=== PATIENT | male | born 1970 | race Caucasian/White ===

== ENCOUNTER → 2016-06-18 | Outpatient (CLI) | payer BC ==
[~2016-06-18] MED LIST: BACTRIM; CALMOSEPTINE OINTMENT 3.5 G PACKET TOP ONE; INSU100C5 SQ; LEVEMIR SQ; LOSA50TA17 PO; MAGN200T3 PO; MULT-806 PO; PARO-18 PO
== END ==
LOC: NWCC 15:40
PROVIDERS: ATTEND Internal Medicine
DX: E11.621 Type 2 diabetes mellitus with foot ulcer (principal); L97.512 Non-pressure chronic ulcer of other part of right foot with fat layer exposed; S90.421A Blister (nonthermal), right great toe, initial encounter; B96.89 Other specified bacterial agents as the cause of diseases classified elsewhere; E11.42 Type 2 diabetes mellitus with diabetic polyneuropathy
CPT/HCPCS: 11042; 87070; 87075; 87076; 87077; 87147; 87181; 87186; 87205

== ENCOUNTER → 2016-06-23 | Outpatient (CLI) | payer BC ==
[~2016-06-23] MED LIST changes: -CALMOSEPTINE OINTMENT 3.5 G PACKET TOP ONE; +GADOBUTROL 10mMol/10ml INJECTION IV ONE; +SALINE FLUSH 10ml SYRINGE ONE
[2016-06-23 16:08] LABS: BASOPHILS % (AUTO) 0.3 % (0-2); EOSINOPHILS # (AUTO) 0.2 T/MM3 (0-0.5); EOSINOPHILS % (AUTO) 2.8 % (0-4); HGB - HEMOGLOBIN 13.9 GM/DL (13.5-17.5); IMMATURE GRANULOCYTE # (AUTO) 0.03 T/MM3 (0.00-0.03); IMMATURE GRANULOCYTE % (AUTO) 0.4 % (0.0-0.5); LYMPHOCYTES # (AUTO) 2.1 T/MM3 (1-4.8); LYMPHOCYTES % (AUTO) 27.5 % (23-45); MEAN CORPUSCULAR HGB 27.9 UUG (26-34); MEAN CORPUSCULAR HGB CONC(MCHC 33.1 GM/DL (31-37); MEAN CORPUSCULAR VOLUME 84.3 UM3 (80-100); MEAN PLATELET VOLUME 10.1 UM3 (9.4-12.4); MONOCYTES # (AUTO) 0.4 T/MM3 (0-0.8); MONOCYTES % (AUTO) 4.7 % (0-9.0); NEUTROPHILS #(AUTO)-ABSOLUTE 4.9 T/MM3 (1.8-7.7); NEUTROPHILS % (AUTO) 64.3 % (33-66); RED BLOOD COUNT 4.98 M/MM3 (4.50-5.90); WBC - WHITE BLOOD COUNT 7.6 T/MM3 (4.5-11.0)
[2016-06-23 16:19] LABS: ALBUMIN 3.7 G/DL (3.5-5.0); ALBUMIN/GLOBULIN RATIO 1.1 RATIO (1.1-2.2); ALKALINE PHOSPHATASE 122 U/L (38-126); ALT (SGPT) 38 U/L (21-72); ANION GAP 14 MEQ/L (5-15); AST (SGOT) 25 U/L (17-59); BUN/CREATININE RATIO 26 RATIO (6-26); C-REACTIVE PROTEIN 9.1 MG/L (0-9); CALCIUM 8.9 MG/DL (8.4-10.2); CHLORIDE 102 MEQ/L (98-107); CO2 - CARBON DIOXIDE 28 MEQ/L (22-30); CREATININE 0.7 MG/DL (0.8-1.5); GLOMERULAR FILTRATION RATE 120; GLUCOSE 341 MG/DL (75-110); POTASSIUM 4.6 MEQ/L (3.6-5); SODIUM 144 MEQ/L (134-144); TOTAL PROTEIN 7.1 G/DL (6.3-8.2)
--- NOTE | 2016-06-24 16:22 | DI ---
Indication: ITS.REASON: E11.621 Type 2 diabetes mellitus with foot ulce; L97.512; M86.371 Procedure: MRI FOOT RIGHT W/WO CONTRAST: Encounter: Initial Comparison: 09/20/2015 Technique: Multiplanar MultiPulse MR images of the right foot were obtained before and after administration of 10 mL Gadavist intravenous contrast. Findings: Soft tissue edema and enhancement throughout the forefoot and toes suggesting cellulitis. Focal soft tissue irregularity along the plantar surface of the first toe/MCP joint likely related to reported ulceration. There is abnormal marrow edema and enhancement within the subjacent first proximal and distal phalanges. There also appears to be abnormal marrow edema and enhancement of the second proximal phalanx and distal metatarsal. No discrete rim-enhancing soft tissue fluid collections. Polyarticular degenerative joint arthrosis. Impression: Prominent soft tissue edema and enhancement of the forefoot suggesting cellulitis with underlying marrow edema and enhancement of the second proximal phalanx and distal metatarsal as well as the first proximal and distal phalanges suggestive of osteomyelitis. Correlation with serial serum ESR/CRP levels for evaluation of response to antibiotic therapy recommended. .
== END ==
LOC: IMA 15:54
PROVIDERS: ATTEND Internal Medicine
DX: E11.621 Type 2 diabetes mellitus with foot ulcer (principal); M79.89 Other specified soft tissue disorders; L97.512 Non-pressure chronic ulcer of other part of right foot with fat layer exposed; M86.371 Chronic multifocal osteomyelitis, right ankle and foot
CPT/HCPCS: 36415; 73720; 80053; 85025; 85652; 86140; A9585

== ENCOUNTER → 2016-06-25 | Outpatient (CLI) | payer BC ==
[~2016-06-25] MED LIST changes: -GADOBUTROL 10mMol/10ml INJECTION IV ONE; -SALINE FLUSH 10ml SYRINGE ONE
== END ==
LOC: NWCC 15:26
PROVIDERS: ATTEND Internal Medicine
DX: E11.621 Type 2 diabetes mellitus with foot ulcer (principal); L97.512 Non-pressure chronic ulcer of other part of right foot with fat layer exposed; S90.421A Blister (nonthermal), right great toe, initial encounter; M86.671 Other chronic osteomyelitis, right ankle and foot; E11.42 Type 2 diabetes mellitus with diabetic polyneuropathy
CPT/HCPCS: 11042

== ENCOUNTER 2016-07-20 18:31 | Emergency (ER) | payer BC ==
[~2016-07-20] VITALS: Ht 186.7 cm; Wt 151.4 kg
[2016-07-20 18:50] VITALS: Ht 186.7 cm; Wt 151.4 kg
[2016-07-20] MEDS ORDERED: METO200T37 PO (19:08)
[2016-07-20] MEDS ORDERED: METF10002 PO (19:08)
[2016-07-20] MEDS ORDERED: MAGN400C PO ×2 (19:08→19:09)
[2016-07-20] MEDS ORDERED: GLYB2.5T5 PO ×2 (19:08→19:09)
[2016-07-20] MEDS ORDERED: LOSA25TA34 PO (19:08)
[2016-07-20] MEDS ORDERED: DIPH25CA84 PO (19:12)
[2016-07-20] MEDS ORDERED: INSU100V12 SQ (19:12)
[2016-07-20] MEDS ORDERED: INSU100V9 SQ (19:12)
[2016-07-20] MEDS ORDERED: RANI150T7 PO (19:12)
[2016-07-20] MEDS ORDERED: CETI-115 PO (19:12)
[2016-07-20] MEDS ORDERED: ASPI-557 PO (19:12)
--- NOTE | 2016-07-20 19:13 | ERPDOC ---
Departure Disposition Decision Date: Jul 20, 2016 Disposition Decision Time: 19:13 Disposition: 01 DISCHARGED HOME, SELF-CARE Impression Impression Impression: Primary Impression: Infected ulcer of skin Non-pressure ulcer stage: with fat layer exposed Qualified Codes: L98.492 - Non-pressure chronic ulcer of skin of other sites with fat layer exposed Additional Impressions: Diabetic foot ulcer Diabetic foot ulcer location: toe Diabetes mellitus type: type 2 Laterality : right Non-pressure ulcer stage: with fat layer exposed Qualified Codes: E11.621 - Type 2 diabetes mellitus with foot ulcer; L97.512 - Non-pressure chronic ulcer of other part of right foot with fat layer exposed Lower extremity cellulitis Laterality: right Qualified Codes: L03.115 - Cellulitis of right lower limb Severity: Moderate Condition: Improved Seen By: Physician only Referrals: Celeste SNELL MD (Family) Patient Instructions: Diabetic Foot Ulcers (ED) Problems/Meds/Labs Reviewed?: Yes Medications reviewed and manag: Yes Additional Instructions: Keflex 500 mg 3 times daily for 10 days Bactrim DS one tablet twice daily for 10 days Follow-up at wound care clinic on Wednesday as scheduled Follow up care ordered?: Yes Mental Status: Alert Scripts Sulfamethoxazole/Trimethoprim (Bactrim Ds Tablet) 1 Each Tablet 1 TAB PO BID, #20 TAB Take 1 tablet, by mouth, 2 times a day. Prov: SARITA SHI MD 07/20/16 Cephalexin (Keflex) 500 Mg Capsule 500 MG PO TID, #30 CAP Prov: SARITA SHI MD 07/20/16 HPI General Chief Complaint: Lower Extremity Pain Stated Complaint: LEG INFECTION Time Seen by Provider: 19:01 Source: patient, family Exam Limitations: no limitations HPI Foot/Ankle Initial Comments Patient presents with worsening of redness around a right great toe ulcer, as well as streaking redness in the right leg. Patient has been fighting a foot ulcer with chronic recurrent sialitis as well as osteomyelitis past 6-12 months. Over the past 2 weeks patient's symptoms recurred, and he was unable to get an appointment at the wound care center until Wednesday. Patient has known MRSA Occurred At: home Onset: Gradual Severity: moderate Location: right: foot Allergies: Coded Allergies: clindamycin (Verified Allergy, Unknown, DIARRHEA, 07/20/16) Past History Patient Medical History Problem List Updates: Chronic right great toe ulcer Recurrent right leg/foot cellulitis Past Medical History Metabolic: diabetes, hypertension GI: gallbladder disease Neurological: concussion Musculoskeletal: back pain Surgical History General: gallbladder Joint: hand, shoulder Vaccines Hx Influenza Vaccination: No Hx Pneumococcal Vaccination: No Review of Systems Constitutional Constitutional: DENIES: appetite decrease, appetite increase, chills, dizziness , fever, weakness ENMT Ears: DENIES: pain Hearing: DENIES: hearing loss, tinnitus Balance: DENIES: vertigo Mouth/Throat: DENIES: change in swallowing, change in voice, hoarsness, painful swallowing, sore throat Cardiovascular Cardiac: DENIES: chest pain, dyspnea on exertion Rhythm/Rate: DENIES: irregular beat, palpitations, tachycardia Vascular: DENIES: pedal edema Pulmonary Respiratory: DENIES: cough, dyspnea, pleuritic chest pain GI Upper Abdomen: DENIES: dysphagia, heartburn/indigestion, nausea, pain, vomiting Lower Abdomen: DENIES: blood in stool, constipation, diarrhea, pain General: DENIES: burning, dysuria, frequency, pain, urgency Musculoskeletal General: DENIES: cramps, joint pain, joint swelling, pain, weakness Integumentary Skin: lesion Neurological General: DENIES: headache, numbness, tingling, vertigo, weakness Psychiatric Psychiatric: DENIES: anxiety, depression, nervousness Exam General General Nourishment: well nourished, well developed, appears stated age, no acute distress General Body Habitus: well groomed Vital Signs: RN Vital Signs have been reviewed: Yes, Temperature: 98.4, Source : Oral, Heart Rate: 80, Respiratory Rate: 18, BP: 156/74, Pulse Oximetry: 95 Height (Feet): 6 Height (Inches): 1.50 Fastrak Foot/Ankle Comments Right leg shows diffuse patchy erythema on the anterior surface streaking all the way down the foot to the right great toe. Great toe, ventral surface shows a large calloused ulcer, with central erosion of the ulcer, but no visible or palpable bone. He has an erythematous angry base to the wound. Has swelling and redness to the third toe on the right foot as well. Without lesion. Patient is neurovascularly intact, decreased sensation is chronic in the foot, but patient does have malachi sensation and good capillary refill with good pulses. Neurologic RN Documented GCS Eye Opening: Verbal: Motor: Total: Progress Progress Progress Wound cultures taken with aggressive rubbing of the base of the wound Patient is started on Keflex 500 mg 3 times daily, Bactrim DS one tablet twice daily. SARITA SHI MD Jul 20, 2016 19:13
[2016-07-20] MEDS ORDERED: SULF1TAB42 PO (19:15)
[2016-07-20] MEDS ORDERED: CEPHALEXIN 500 MG CAPSULE PO ONE (19:15)
[2016-07-20] MEDS ORDERED: CEPH-583 PO (19:15)
[2016-07-20 19:34] VITALS: BP 149/76; PULSE 79; RESP 18; TEMP 98.4; O2SAT 94
[2016-07-20] MEDS ORDERED: SULFAMETHOXAZOLE/TMP 800mg/160mg TABLET PO SCH (21:00)
== END 2016-07-20 19:34 | disposition home or self-care (01) ==
LOC: ED 18:31
DX: E11.621 Type 2 diabetes mellitus with foot ulcer (principal); L97.512 Non-pressure chronic ulcer of other part of right foot with fat layer exposed; L03.115 Cellulitis of right lower limb; Z79.4 Long term (current) use of insulin; Z86.14 Personal history of Methicillin resistant Staphylococcus aureus infection
CPT/HCPCS: 87070; 87075; 87205

== ENCOUNTER → 2016-07-22 | Outpatient (CLI) | payer BC ==
[~2016-07-22] MED LIST changes: +ASPI-557 PO; -BACTRIM; +CEPH-583 PO; +CETI-115 PO; +DIPH25CA84 PO; +GLYB2.5T5 PO; +HYDR-4246 PO; -INSU100C5 SQ; +INSU100V12 SQ; +INSU100V9 SQ; -LEVEMIR SQ; +LOSA25TA34 PO; -LOSA50TA17 PO; -MAGN200T3 PO; +MAGN400C PO; +METF10002 PO; +METO200T37 PO; +POLY17PO6 PO; +RANI150T12 PO; +RANI150T7 PO; +SULF1TAB42 PO
== END ==
LOC: NWCC 15:16
PROVIDERS: ATTEND Internal Medicine
DX: E11.621 Type 2 diabetes mellitus with foot ulcer (principal); L97.512 Non-pressure chronic ulcer of other part of right foot with fat layer exposed; S90.421A Blister (nonthermal), right great toe, initial encounter; M86.671 Other chronic osteomyelitis, right ankle and foot; L53.9 Erythematous condition, unspecified
CPT/HCPCS: 11042; A6209

== ENCOUNTER 2016-07-31 06:43 | Day surgery (SDC) | payer BC ==
--- NOTE | 2016-07-30 09:00 | NUR ---
Voice mails VM left on [employer] at [phone] requesting a call back with number provided. Addendum: 07/30/16 at 1336 by MICHELE MEHTA RN VM at [phone], requesting call back with number provided. Other phone number is [phone] Addendum: 07/30/16 at 134 by MICHELE MEHTA RN [phone] listed as 'Home'-inactive [phone] listed as next of kin, sister Nuzhat Mancilla-unable to understand message on vm, no message left [phone] listed as significant other Sophie Lucero, message left with my contact information, no identifying information except for patient's first name.
[~2016-07-31] VITALS: Ht 185.4 cm; Wt 147.0 kg
[2016-07-31] VITALS (7 sets, daily range): BP systolic 108–154; BP diastolic 55–90; PULSE 50–58; RESP 14–18; TEMP 98–98.4; O2SAT 94–96; Ht 185.4 cm; Wt 147.0 kg
[~2016-07-31 06:43] MED LIST changes: -HYDR-4246 PO; -POLY17PO6 PO; -RANI150T12 PO
--- OUTSIDE RECORDS SUMMARY | 2016-07-31 06:47 | XMS REPORT | Continuity of Care Document ---
Author Author [facility] Organization [facility] Address Unknown Phone Unavailable Support Name Relationship Address Phone SARITA SHI MD Caregiver [address] [address] Unavailable Celeste SNELL MD Caregiver [address] [place] [address] Unavailable DEBORAH ARCHER Next Of Kin [place], [place] [phone] Insurance Providers Guarantor Edie Archer Address [address] [place] [address] Email [email or web address] Payer [facility] Policy Number [id number] Subscriber's Name Edie Archer Relationship 18 Self Group Number [id number] Advance Directives Directive Response Recorded Date/Time Advanced Directives Type None 07/20/16 6:50pm Chief Complaint and Reason for Visit Chief Complaint Lower Extremity Pain Reason for Visit [id number] Diabetic foot ulcer Infected ulcer of skin Problems Past Problems Medical Problem Onset Date Diabetic foot ulcer Unknown Infected ulcer of skin Unknown Lower extremity cellulitis Unknown Medications Current Home Medications Medication Dose Units Route Directions Days Qty Instructions Start Date Aspirin (Aspir 81) 81 Mg Tablet.dr 81 Mg Oral Daily 07/20/16 Cephalexin (Keflex) 500 Mg Capsule 500 Mg Oral Three Times A Day 30 Capsule 07/20/16 Cetirizine Hcl (Zyrtec) 10 Mg Tablet 10 Mg Oral Daily 07/20/16 Diphenhydramine Hcl (Benadryl) 25 Mg Capsule 50 Mg Oral Bedtime 07/20/16 Glyburide Unknown Strength Tablet Unknown Dose Oral Twice A Day 07/20/16 Insulin Detemir (Levemir) 100 Unit/Ml Inj 70 Unit Sub-Q Twice A Day 07/20/16 Insulin Glulisine (Apidra) 100 Unit/Ml Inj 30-40 Unit Sub-Q As Needed 07/20/16 Losartan Potassium Unknown Strength Tablet Unknown Dose Oral Daily 07/20/16 Magnesium Oxide (Magnesium) Unknown Strength Capsule Unknown Dose Oral Daily 07/20/16 Metformin Hcl 1,000 Mg Tablet 1 Tab Oral Twice Daily With Meals 07/20/16 Metoprolol Succinate Unknown Strength Tab.er.24h Unknown Dose Oral Daily 07/20/16 Multivitamins (Multivitamin) 1 Tab Tablet 1 Tab Oral Daily Paroxetine Hcl (Paxil) 20 Mg Tablet 20 Mg Oral Daily 01/28/12 Ranitidine Hcl 150 Mg Tablet 150 Mg Oral Twice A Day 07/20/16 Sulfamethoxazole/Trimethoprim (Bactrim Ds Tablet) 1 Each Tablet 1 Tab Oral Twice A Day 20 Tablet Take 1 tablet, by mouth, 2 times a day. 07/20/16 Past Home Medications Medication Directions Ordered Status Insulin Glargine (Lantus) 100 U/Ml Vial, 20 U Sub-Q With Meals 11/19/11 Discontinued Insulin Glulisine (Apidra) 100 U/Ml Cartridge, 30 U Sub-Q After Meals Discontinued Social History Social History Problem Response Recorded Date/Time Onset Date Status Hx Substance Use No 07/20/2016 7:30pm Not Applicable Not Applicable Hx Alcohol Use Y rare 07/20/2016 7:30pm Not Applicable Not Applicable Query Response Start Date Stop Date Smoking Status Former smoker Hospital Discharge Instructions No hospital discharge instructions. Plan of Care Discharge Date 07/20/16 7:34pm Disposition 01 DISCHARGED HOME, SELF-CARE Condition at Discharge Improved Instructions/Education Provided Diabetic Foot Ulcers (ED) Prescriptions See Medication Section Referrals Celeste SNELL MD Address: [place] [address] Additional Instructions/Education Keflex 500 mg 3 times daily for 10 days Bactrim DS one tablet twice daily for 10 days Follow-up at wound care clinic on Wednesday as scheduled Care Plan and Goals Physician Care Plan Problem: Right buttock foot ulcer, recurrent infection, sialitis Goal: Follow up with primary care provider Instructions: Take medications and follow care plan as discussed/written Keflex 500 mg 3 times daily for 10 days Bactrim DS one tablet twice daily for 10 days Follow-up at wound care clinic on Wednesday as scheduled Functional Status No functional status results. Allergies, Adverse Reactions, Alerts Allergen Type Severity Reaction Status Last Updated Clindamycin Allergy Unknown DIARRHEA Active 07/20/16 Immunizations Query Response on File Recorded Date/Time Hx Influenza Vaccination No 10/20/11 8:58am Hx Pneumococcal Vaccination No 10/20/11 8:58am Hx Influenza Vaccination No 10/20/11 8:58am Tdap Vaccine Hx unsure 07/20/16 7:30pm Vital Signs Acute Vital Signs Vital Response Date/Time Temperature (Fahrenheit) 98.4 deg F (96.8 - 99.1) 07/20/2016 7:34pm Temperature (Calculated Celsius) 36.65805 degrees C (36.0 - 37.3) 07/20/2016 7:34pm Pulse Rate (adult) 79 bpm (60 - 100) 07/20/2016 7:34pm Respiratory Rate 18 breaths/min (10 - 20) 07/20/2016 7:34pm O2 Sat by Pulse Oximetry 94 % (90 - 100) 07/20/2016 7:34pm Blood Pressure 149/76 mm Hg 07/20/2016 7:34pm Height (Feet) 6 feet 07/20/2016 6:50pm Height (Inches) 1.50 inches 07/20/2016 6:50pm Weight (Kilograms) 151.400 kg 07/20/2016 6:50pm Body Mass Index (BMI) 43.0 07/20/2016 6:50pm Results Laboratory Results Test Name Result Units Flags Reference Collection Date/Time Result Date/ Time Comments White Blood Count 7.6 T/MM3 4.5-11.0 06/23/2016 4:03pm 06/23/2016 4: 08pm Red Blood Count 4.98 M/MM3 4.50-5.90 06/23/2016 4:03pm 06/23/2016 4: 08pm Hemoglobin 13.9 GM/DL 13.5-17.5 06/23/2016 4:03pm 06/23/2016 4:08pm Hematocrit 42.0 % 41-53 06/23/2016 4:03pm 06/23/2016 4:08pm Mean Corpuscular Volume 84.3 UM3 80-100 06/23/2016 4:03pm 06/23/2016 4: 08pm Mean Corpuscular Hemoglobin 27.9 UUG 26-34 06/23/2016 4:03pm 2016 4:08pm Mean Corpuscular Hemoglobin Concent 33.1 GM/DL 31-37 06/23/2016 4:03pm 06/23/2016 4:08pm RDW Standard Deviation 41.4 FL 36.9-50.2 06/23/2016 4:03pm 06/23/2016 4 :08pm Platelet Count 204 T/MM3 130-400 06/23/2016 4:03pm 06/23/2016 4:08pm Mean Platelet Volume 10.1 UM3 9.4-12.4 06/23/2016 4:03pm 06/23/2016 4: 08pm Neutrophils (%) (Auto) 64.3 % 33-66 06/23/2016 4:03pm 06/23/2016 4: 08pm Lymphocytes (%) (Auto) 27.5 % 23-45 06/23/2016 4:03pm 06/23/2016 4: 08pm Monocytes (%) (Auto) 4.7 % 0-9.0 06/23/2016 4:03pm 06/23/2016 4:08pm Eosinophils (%) (Auto) 2.8 % 0-4 06/23/2016 4:03pm 06/23/2016 4:08pm Basophils (%) (Auto) 0.3 % 0-2 06/23/2016 4:03pm 06/23/2016 4:08pm Immature Granulocyte % (Auto) 0.4 % 0.0-0.5 06/23/2016 4:03pm 2016 4:08pm Absolute Neutrophils (auto) 4.9 T/MM3 1.8-7.7 06/23/2016 4:03pm 2016 4:08pm Absolute Lymphocytes (auto) 2.1 T/MM3 1-4.8 06/23/2016 4:03pm 2016 4:08pm Absolute Monocytes (auto) 0.4 T/MM3 0-0.8 06/23/2016 4:03pm 06/23/2016 4:08pm Absolute Eosinophils (auto) 0.2 T/MM3 0-0.5 06/23/2016 4:03pm 2016 4:08pm Absolute Basophils (auto) 0.0 T/MM3 0-0.2 06/23/2016 4:03pm 06/23/2016 4:08pm Absolute Immature Granulocyte (auto 0.03 T/MM3 0.00-0.03 06/23/2016 4: 03pm 06/23/2016 4:08pm Icterus Index < 2 0-7 06/23/2016 4:03pm 06/23/2016 4:19pm Chemistry Specimen Hemolysis < 15 0-25 06/23/2016 4:03pm 06/23/2016 4 :19pm 0-25: Specimen Exhibited No Hemolysis. Turbidity < 20 0-20 06/23/2016 4:03pm 06/23/2016 4:19pm Sodium Level 144 MEQ/L 134-144 06/23/2016 4:03pm 06/23/2016 4:19pm Potassium Level 4.6 MEQ/L 3.6-5 06/23/2016 4:03pm 06/23/2016 4:19pm Chloride Level 102 MEQ/L 98-107 06/23/2016 4:03pm 06/23/2016 4:19pm Carbon Dioxide Level 28 MEQ/L 22-30 06/23/2016 4:03pm 06/23/2016 4: 19pm Anion Gap 14 MEQ/L 5-15 06/23/2016 4:03pm 06/23/2016 4:19pm Blood Urea Nitrogen 18.0 MG/DL 9-20 06/23/2016 4:03pm 06/23/2016 4: 19pm Creatinine 0.7 MG/DL L 0.8-1.5 06/23/2016 4:03pm 06/23/2016 4:19pm BUN/Creatinine Ratio 26 RATIO 6-26 06/23/2016 4:03pm 06/23/2016 4:19pm Glomerular Filtration Rate Calc 120 06/23/2016 4:03pm 06/23/2016 4: 19pm Glucose Level 341 MG/DL H 75-110 06/23/2016 4:03pm 06/23/2016 4:19pm Calculated Osmolality 292 MOSM/KG H 261-280 06/23/2016 4:03pm 2016 4:19pm Calcium Level 8.9 MG/DL 8.4-10.2 06/23/2016 4:03pm 06/23/2016 4:19pm Total Bilirubin 0.80 MG/DL 0.20-1.30 06/23/2016 4:03pm 06/23/2016 4: 19pm Alkaline Phosphatase 122 U/L 38-126 06/23/2016 4:03pm 06/23/2016 4: 19pm Total Protein 7.1 G/DL 6.3-8.2 06/23/2016 4:03pm 06/23/2016 4:19pm Albumin 3.7 G/DL 3.5-5.0 06/23/2016 4:03pm 06/23/2016 4:19pm Globulin 3.4 G/DL 2.4-3.6 06/23/2016 4:03pm 06/23/2016 4:19pm Albumin/Globulin Ratio 1.1 RATIO 1.1-2.2 06/23/2016 4:03pm 06/23/2016 4 :19pm Aspartate Amino Transf (AST/SGOT) 25 U/L 17-59 06/23/2016 4:03pm 2016 4:19pm Alanine Aminotransferase (ALT/SGPT) 38 U/L 21-72 06/23/2016 4:03pm 4:19pm C-Reactive Protein 9.1 MG/L H 0-9 06/23/2016 4:03pm 06/23/2016 4:19pm Erythrocyte Sedimentation Rate 15 mm/h 0-15 06/23/2016 4:03pm 2016 11:44pm Sedimentation Rate performed at [facility] Reference Lab, [address] [place] [address] Gatekeeper Junior Kent DO Microbiology Results Procedure Source Organism/Result Collection Date/Time Result Date/Time Result Status WOUND CULTURE DEEP TISS-AER/AN Unknown PREVOTELLA DISIENS 06/18/2016 4: 00pm 06/22/2016 12:58pm Final COAG NEGATIVE STAPHYLOCOCCUS 06/18/2016 4:00pm 06/22/2016 12:58pm Final STREP DYSGALACT SP EQUISIMILIS 06/18/2016 4:00pm 06/22/2016 12:58pm Final WOUND CULTURE DEEP TISS-AER/AN Foot, Non-Surgical Site, Right CULTURE INITIATED - RESULTS PENDING 07/20/2016 7:32pm 07/20/2016 7:39pm Preliminary Procedures Procedure Status Date Provider(s) Galilea subq tissue 20 sq cm/< Completed 04/23/16 [id number]"EQUAL TO 48 SQ. IN., WITHOUT ADHESIVE BORDER, EACH DR Completed Office/outpatient visit est Completed 05/07/16 930058"BORDER, EACH DRESSING" Completed 05/07/16 112339"EQUAL TO 48 SQ. IN., WITHOUT ADHESIVE BORDER, EACH DR Completed Galilea subq tissue 20 sq cm/< Completed 05/21/16 360841"EQUAL TO 48 SQ. IN., WITHOUT ADHESIVE BORDER, EACH DR Completed Galilea subq tissue 20 sq cm/< Completed 06/04/16 [id number]"BORDER, EACH DRESSING" Completed 06/04/16 [id number]"EQUAL TO 48 SQ. IN., WITHOUT ADHESIVE BORDER, EACH DR Completed Galilea subq tissue 20 sq cm/< Completed 06/18/16 Culture othr specimn aerobic Completed 06/18/16 Cultr bacteria except blood Completed 06/18/16 Culture anaerobe ident each Completed 06/18/16 Culture aerobic identify Completed 06/18/16 Culture type immunologic Completed 06/18/16 Microbe susceptible diffuse Completed 06/18/16 Microbe susceptible diffuse Completed 06/18/16 Microbe susceptible diffuse Completed 06/18/16 Microbe susceptible diffuse Completed 06/18/16 Microbe susceptible ana Completed 06/18/16 Smear gram stain Completed 06/18/16 Routine venipuncture Completed 06/23/16 Mri lwr extremity w/o&w/dye Completed 06/23/16 Comprehen metabolic panel Completed 06/23/16 Complete cbc w/auto diff wbc Completed 06/23/16 Rbc sed rate automated Completed 06/23/16 C-reactive protein Completed 06/23/16 GADAVIST 10ML SDV - Contrast,Gadavist 10ml Completed 06/23/16 Galilea subq tissue 20 sq cm/< Completed 06/25/16 Encounters Encounter Location Arrival/Admit Date Discharge/Depart Date Attending Provider Departed Emergency Room [facility] 07/20/16 6:31pm 07/20/16 7: 34pm SARITA SHI MD Registered [facility] 06/25/16 3:26pm JAMIA DANIELS MD Registered [facility] 06/23/16 3:54pm JAMIA DANIELS MD Registered [facility] 06/18/16 3:40pm JAMIA DANIELS MD Registered [facility] 06/04/16 4:01pm JAMIA DANIELS MD Registered [facility] 05/21/16 3:36pm JAMIA DANIELS MD Registered [facility] 05/07/16 3:03pm JAMIA DANIELS MD Registered [facility] 04/23/16 8:53am JAMIA DANIELS MD Recent Diagnosis
[2016-07-31] MEDS ORDERED: LIDOCAINE 1% (10mg/ml) 2ml SDV INJ ONE (07:00)
[2016-07-31] MEDS ORDERED: LR 1,000 ML IV SCH (07:00)
[2016-07-31 08:09] LABS: ANION GAP 11 MEQ/L (5-15); BUN/CREATININE RATIO 31 RATIO (6-26); CALCIUM 9.4 MG/DL (8.4-10.2); CHLORIDE 102 MEQ/L (98-107); CO2 - CARBON DIOXIDE 28 MEQ/L (22-30); CREATININE 0.8 MG/DL (0.8-1.5); GLOMERULAR FILTRATION RATE 103; GLUCOSE 261 MG/DL (75-110); POTASSIUM 5.4 MEQ/L (3.6-5); SODIUM 141 MEQ/L (134-144)
[2016-07-31] MEDS ORDERED: RANI150T12 PO (08:14)
[2016-07-31] MEDS ORDERED: CEPH-583 PO (08:14)
--- NOTE | 2016-07-31 08:53 | ANESPREOP ---
Anesthesia Record Date and Time DATE: 07/31/16 TIME: 08:45 Proposed Surgical Procedure DEBRIDEMENT R GREAT TOE, BONE BX Allergies: Coded Allergies: clindamycin (Verified Allergy, Unknown, DIARRHEA, 07/31/16) Ht/Wt/BMI Height: 6 ' 1.00 " Weight: 147.000 kg BMI: 42.8 kg/m2 Vital Signs Date Time Temp Pulse Resp B/P Pulse Ox O2 Delivery O2 Flow Rate FiO2 07/31/16 07:45 98.0 51 16 154/90 96 Room Air Medications Inpatient Medications Current Medications Medications (Trade) Dose Ordered Sig/Paige Start Time Stop Time Status Last Admin Dose Admin Lactated Ringer's (Lactated Ringers) 1,000 ml @ 50 mls/hr Q20H 07/31/16 07:00 07/31/16 08:21 50 MLS/HR Aspirin (Aspir 81) 81 Mg Tablet.dr, 81 MG PO DAILY, (Reported) Last Taken: on 07/30/16 040 Cephalexin (Keflex) 500 Mg Capsule, 500 MG PO TID Cephalexin (Keflex) 500 Mg Capsule, 1 CAP PO TID, (Reported) Last Taken: on 07/30/16 190 Cetirizine HCl (Zyrtec) 10 Mg Tablet, 10 MG PO DAILY, (Reported) Last Taken: on 07/30/16 0400 Diphenhydramine HCl (Benadryl) 25 Mg Capsule, 50 MG PO HS, (Reported) Last Taken: on 07/30/16 0700 Glyburide (Glyburide) Unknown Strength Tablet, Unknown Dose PO BID, (Reported) Last Taken: on 07/30/16 1900 Insulin Detemir (Levemir) 100 Unit/Ml Inj, 70 UNIT SQ BID, (Reported) Last Taken: on 07/31/16 0600 Insulin Glulisine (Apidra) 100 Unit/Ml Inj, 30- 40 UNIT SQ PRN, (Reported) Last Taken: on 07/30/16 1800 Losartan Potassium (Losartan Potassium) Unknown Strength Tablet, Unknown Dose PO DAILY, (Reported) Last Taken: on 07/30/16 0400 Magnesium Oxide (Magnesium) Unknown Strength Capsule, Unknown Dose PO DAILY, (Reported) Last Taken: on 07/30/16 0400 Metformin HCl (Metformin HCl) 1,000 Mg Tablet, 1 TAB PO BIDWM, (Reported) Last Taken: on 07/30/161899 Metoprolol Succinate (Metoprolol Succinate) Unknown Strength Tab.er.24h, Unknown Dose PO DAILY, (Reported) Last Taken: on 07/31/16 06 Multivitamins (Multivitamin) 1 Tab Tablet, 1 TAB PO DAILY, (Reported) Last Taken: on 07/30/16 040 Paroxetine Hcl (Paxil) 20 Mg Tablet, 20 MG PO DAILY, (Reported) Last Taken: on 07/30/16399 Ranitidine HCl (Zantac) 150 Mg Tablet, 150 MG PO BID, (Reported) Take 1 tablet, by mouth, 2 times a day. Last Taken: on 07/30/161899 Sulfamethoxazole/Trimethoprim (Bactrim Ds Tablet) 1 Each Tablet, 1 TAB PO BID Take 1 tablet, by mouth, 2 times a day. 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), Headaches (MIGRAINES OCC), Reflux (well controlled on meds), Denies: *Angina, *IL, Anesthesia Reactions, Asthma, Blood Transfusion Reac, CHF, COPD, CVA/Stroke/TIA, Cancer, Clotting Problems, Deep Vein Thrombosis, Glaucoma, Hepatitis, Hiatal Hernia, Malignant Hyperthermia, Pacemaker, Pneumonia, Renal Disease, Rheumatic Fever, Seizures, Sleep Apnea, Thyroid Disease, Tuberculosis Smoking Status: Former smoker Use Chewing Tobacco?: No Substance Use Type: does not use Past Surgical History Orthopedic Surgeries: Yes - RT SHOULDER 2011, PIN/SCREW LT PINKY,RT ULNAR NERVE AND CTR RT Abdominal Surgeries: Yes - LAP MATTY Genitourinary Surgeries: No Cardiac Surgeries: Endocrine Surgeries: No Reproductive Surgeries: No Neurological Surgeries: No Ear Surgeries: No Nose Surgeries: No Throat Surgeries: No Other Surgeries: No Anesthesia Adverse Reactions: FOUND none Family Hx of Anesthesia Advers: none Hx of Motion Sickness: No Pertinent Findings Laboratory Tests 07/31/16 07:47 Physical Exam Respiratory: Lungs clear Cardiovascular: FOUND Regular rate, rhythm Airway Assessment Mallampati Score: II TMD: 2 Fingerbreadths Neck Extension: Good Overall Assessment: No Airway Concerns ASA: 3 Plan Anesthesia Plan: LMA, GETA Discussion Discussed risks/options/alternatives of anesthesia and questions answered. Patient consents. Nursing pain assessment noted. Present: Spouse (girlfriend) Attestation Statement Prior to the delivery of any anesthetic medication, I examined the patient, developed the plan, obtained the patient's consent and discussed the risk and benefits of the procedure with the patient/guardian. KERRI POWERS CRNA Jul 31, 2016 08:53
--- NOTE | 2016-07-31 09:41 | ANESPO ---
Post-Op Note Date 07/31/16 Time: 09:41 Status Pt Participated in Evaluation: Pt participated in person Vital Signs Date Time Temp Pulse Resp B/P Pulse Ox O2 Delivery O2 Flow Rate FiO2 07/31/16 07:45 98.0 51 16 154/90 96 Room Air Respiratory Function: Airway patent Cardiovascular Function: Regular pulse Mental Status: Alert/oriented Pain Level Intensity: 0 Hydration: Taking po fluids Complications during Recovery None apparent Follow-Up Instructions Instructions Per Surgeon KERRI POWERS CRNA Jul 31, 2016 09:41
[2016-07-31] MEDS ORDERED: HYDR-4246 PO (09:47)
[2016-07-31] MEDS ORDERED: POLY17PO6 PO (09:47)
--- NOTE | 2016-07-31 09:56 | PDOPERATE ---
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 Operation/Procedure: other (surgical debridement of right great toe diabetic foot ulcer with bone biopsy of 1st distal phalanx) Surgeon Dea Valle MD Complications None. Anesthesia Plan: Mask Estimated Blood Loss See Anesthesia Record. Fluids Please See Anesthesia Record. Description of Operation Mr. Mancilla and his right great toe were identified and marked in the the preoperative holding area. He was then brought back to the operating suite and proper anesthesia was administered. He was then positioned supine on the operating table. The right lower extremity was then prepped and draped in my normal sterile fashion. Timeout was performed with all operating room personnel. I gave him a digital block given naproxen 5 cc of the mixture of quarter percent Marcaine and 1% lidocaine to the great toe. The ulcers on the plantar aspect of the great toe measuring 1.8 x 1.7 cm the bases filled with viable subcutaneous tissue no necrotic tissue was noted except for very very light layer of slough which was removed sharply. Sequelae of the skin edges sharply had good bleeding. I then made a longitudinal incision deep in the wound down to bone. Julien biopsy needle was then placed through this incision and a biopsy was obtained of the distal phalanx. This bone was then sent off for micro and pathology. The wound was then thoroughly irrigated with normal saline. The foot was also cleaned with hydrogen peroxide. A pressure dressing was then placed with 4 x 4's and a web roll to help control bleeding. The drapes were then removed and seen back to recovery room in the care of anesthesia he did well without problems. FERNANDO VALLE MD Jul 31, 2016 09:56
== END 2016-07-31 10:50 | disposition home or self-care (01) ==
LOC: NSC 06:43
PROVIDERS: ATTEND Orthopaedic Surgery
DX: E11.621 Type 2 diabetes mellitus with foot ulcer (principal); L97.519 Non-pressure chronic ulcer of other part of right foot with unspecified severity; M86.8X7 Other osteomyelitis, ankle and foot; E11.42 Type 2 diabetes mellitus with diabetic polyneuropathy; I10 Essential (primary) hypertension; F32.9 Major depressive disorder, single episode, unspecified; Z79.4 Long term (current) use of insulin; Z79.84 Long term (current) use of oral hypoglycemic drugs; Z79.899 Other long term (current) drug therapy; Z88.1 Allergy status to other antibiotic agents; Z86.14 Personal history of Methicillin resistant Staphylococcus aureus infection; Z90.49 Acquired absence of other specified parts of digestive tract
CPT/HCPCS: 11042; 20220; 36415; 80048; 87070; 87075; 87077; 87186; 87205; J2250; J2704; J3010; J7120

== ENCOUNTER → 2016-08-03 | Outpatient (CLI) | payer BC ==
[~2016-08-03] MED LIST changes: -CEPH-583 PO; +HYDR-4246 PO; +POLY17PO6 PO; +RANI150T12 PO; -RANI150T7 PO; +SALINE FLUSH 10ml SYRINGE IVF ONE; -SULF1TAB42 PO
== END ==
LOC: NWCC 07:58
PROVIDERS: ATTEND Internal Medicine
DX: E11.621 Type 2 diabetes mellitus with foot ulcer (principal); L97.512 Non-pressure chronic ulcer of other part of right foot with fat layer exposed; M86.671 Other chronic osteomyelitis, right ankle and foot; R60.0 Localized edema; E11.42 Type 2 diabetes mellitus with diabetic polyneuropathy
CPT/HCPCS: 11042; A6021; A6209

== ENCOUNTER 2016-09-02 17:48 | Emergency (ER) | payer BC ==
[~2016-09-02] VITALS: Ht 186.7 cm; Wt 150.5 kg
[~2016-09-02 17:48] MED LIST changes: -SALINE FLUSH 10ml SYRINGE IVF ONE
[2016-09-02 17:51] VITALS: Ht 186.7 cm; Wt 150.5 kg
--- OUTSIDE RECORDS SUMMARY | 2016-09-02 17:53 | XMS REPORT | Continuity of Care Document ---
Author Author [facility] Organization [facility] Address Unknown Phone Unavailable Support Name Relationship Address Phone Celeste SNELL MD Caregiver [address] [place] [address] Unavailable FERNANDO COLEMAN MD Caregiver [address] [place] [address] Unavailable DEBORAH ARCHER Next Of Kin Unknown [phone] Insurance Providers Guarantor Edie Archer Address [address] [place] [address] Email [email or web address] Payer [facility] Policy Number [id number] Subscriber's Name Edie Archer Relationship 18 Self Group Number [id number] Advance Directives Directive Response Recorded Date/Time Ordered Resuscitation Status Full Code, unverified 07/30/16 3:32pm Resuscitation Documents on File No 07/31/16 8:00am DPOA for Healthcare Only No 07/31/16 8:00am Living Will No 07/31/16 8:00am Problems Past Problems Medical Problem Onset Date Diabetic foot ulcer Unknown Infected ulcer of skin Unknown Lower extremity cellulitis Unknown Medications Current Home Medications Medication Dose Units Route Directions Days Qty Instructions Start Date Aspirin (Aspir 81) 81 Mg Tablet. 81 Mg Oral Daily 07/20/16 Cetirizine Hcl (Zyrtec) 10 Mg Tablet 10 Mg Oral Daily 07/20/16 Diphenhydramine Hcl (Benadryl) 25 Mg Capsule 50 Mg Oral Bedtime 07/20/16 Glyburide Unknown Strength Tablet Unknown Dose Oral Twice A Day 07/20/16 Hydrocodone/Acetaminophen ([place] 5-325 Tablet) 5-325 Tablet 1-2 Tab Oral Every 6 Hours as needed for Pain 30 Tablet This medication contains Tylenol , do not take more than 3,000 mg of Tylenol in a 24 hr period. 07/31/16 Insulin Detemir (Levemir) 100 Unit/Ml Inj 70 [...] Mg Tablet 20 Mg Oral Daily 01/28/12 Polyethylene Glycol 3350 (Miralax) 17 Gm Powd.pack 17 G Oral Daily as needed for Constipation 1 Bottle Take 17 Grams (1 capful), by mouth, once a day. 07/31/16 Ranitidine Hcl (Zantac) 150 Mg Tablet 150 Mg Oral Twice A Day for Acid Reflux Take 1 tablet, by mouth, 2 times a day. 07/31/16 Past Home Medications Medication Directions Ordered Status Cephalexin (Keflex) 500 Mg Capsule, 500 Mg Oral Three Times A Day 07/20/16 Discontinued Cephalexin (Keflex) 500 Mg Capsule, 1 Cap Oral Three Times A Day 07/31/16 Discontinued Insulin Glargine (Lantus) 100 U/Ml Vial, 20 U Sub-Q With Meals 11/19/11 Discontinued Insulin Glulisine (Apidra) 100 U/Ml Cartridge, 30 U Sub-Q After Meals Discontinued Sulfamethoxazole/Trimethoprim (Bactrim Ds Tablet) 1 Each Tablet, 1 Tab Oral Twice A Day 07/20/16 Discontinued Social History Social History Problem Response Recorded Date/Time Onset Date Status Reason for Hospitalization bone biopsy of great toe wound. 07/31/2016 10: 02am Not Applicable Not Applicable Chewing Tobacco Status No 07/31/2016 8:00am Not Applicable Not Applicable Hx Substance Use No 07/31/2016 8:00am Not Applicable Not Applicable Hx Alcohol Use Y rare 07/31/2016 8:00am Not Applicable Not Applicable Has the pt used tobacco in the last 12 months Yes 07/31/2016 8:00am Not Applicable Not Applicable Query Response Start Date Stop Date Smoking Status Former smoker Hospital Discharge Instructions Instructions: Care Instructions: I was in the hospital because (patient own words): WORK ON RIGHT BIG TOE Discharge Diet: ADA Discharge Activity: You may be wt bearing as tolerated in the boot. Elevate the foot when possible to control swelling. Follow Up Appointments: Follow up in wound clinic 09/02/16 @ 8:00 am at [facility]. You are scheduled for PICC line placement at [facility] later today (07/31/16) at 3:00pm. Pending Lab / Results: Follow up w/ provider Patient Instructions: You may return to work after you are seen in wound clinic on Wednesday. Expected Signs/Symptoms: Some pain is expected at the surgical site. Notify Physician If: Notify your surgeon if you develop uncontrolled pain, fever > 101, or drainage from your wound. During Business Hours:: Please call the physician's office at [phone] After Business Hours:: Please call [phone] and have the gate shear operator page the physician. Pain Management/Treatment: Take the pain medicine prescribed as needed for pain control. Wound/Incision Care: Keep the dressing dry. F/U in wound clinic on WednesdayAugust 03 at 8:00 AM. Condition at time of discharge: Good Plan of Care Discharge Date 07/31/16 10:50am Instructions/Education Provided [facility] Prescriptions See Medication Section Functional Status Query Response Date Recorded Ability to complete ADL's impeded by Impaired Mobility July 31, 2016 8:00am Allergies, Adverse Reactions, Alerts Allergen Type Severity Reaction Status Last Updated Clindamycin Allergy Unknown DIARRHEA Active 07/31/16 Immunizations Query Response on File Recorded Date/Time Hx Influenza Vaccination Y fall 201507/31/16 8:00am Hx Pneumococcal Vaccination No 07/31/16 8:00am Hx Influenza Vaccination Y fall 201507/31/16 8:00am Tdap Vaccine Hx unsure 07/20/16 7:30pm Vital Signs Acute Vital Signs Vital Response Date/Time Temperature (Fahrenheit) 98.4 deg F (96.8 - 99.1) 07/31/2016 9:35am Temperature (Calculated Celsius) 36.92326 degrees C (36.0 - 37.3) 07/31/2016 9:35am Temperature Source Temporal 07/31/2016 9:35am Pulse Rate (adult) 50 bpm (60 - 100) 07/31/2016 10:50am Respiratory Rate 15 breaths/min (10 - 20) 07/31/2016 10:50am O2 Sat by Pulse Oximetry 94 % (90 - 100) 07/31/2016 10:50am Oxygen Delivery Method Room Air 07/31/2016 10:50am Blood Pressure 108/55 mm Hg 07/31/2016 10:50am Blood Pressure Source Automatic Cuff 07/31/2016 10:50am Height (Feet) 6 feet 07/31/2016 7:44am Height (Inches) 1.00 inches 07/31/2016 7:44am Weight (Kilograms) 147.000 kg 07/31/2016 7:44am Body Mass Index (BMI) 42.8 07/31/2016 7:44am Results Laboratory Results Test Name Result Units [...] T/MM3 0.00-0.03 06/23/2016 4: 03pm 06/23/2016 4:08pm Total Bilirubin 0.80 MG/DL 0.20-1.30 06/23/2016 4:03pm [...] 4:03pm 2016 11:44pm Sedimentation Rate performed at [facility], [address] [place] [address] Drupal Architect Junior Kent DO Icterus Index < 2 0-7 07/31/2016 7:47am 07/31/2016 8:09am Chemistry Specimen Hemolysis < 15 0-25 07/31/2016 7:47am 07/31/2016 8 :09am 0-25: Specimen Exhibited No Hemolysis. Turbidity < 20 0-20 07/31/2016 7:47am 07/31/2016 8:09am Sodium Level 141 MEQ/L 134-144 07/31/2016 7:47am 07/31/2016 8:09am Potassium Level 5.4 MEQ/L H 3.6-5 07/31/2016 7:47am 07/31/2016 8:09am Chloride Level 102 MEQ/L 98-107 07/31/2016 7:47am 07/31/2016 8:09am Carbon Dioxide Level 28 MEQ/L 22-30 07/31/2016 7:47am 07/31/2016 8: 09am Anion Gap 11 MEQ/L 5-15 07/31/2016 7:47am 07/31/2016 8:09am Blood Urea Nitrogen 25.0 MG/DL H 9-20 07/31/2016 7:47am 07/31/2016 8: 09am Creatinine 0.8 MG/DL 0.8-1.5 07/31/2016 7:47am 07/31/2016 8:09am BUN/Creatinine Ratio 31 RATIO H 6-26 07/31/2016 7:47am 07/31/2016 8: 09am Glomerular Filtration Rate Calc 103 07/31/2016 7:47am 07/31/2016 8: 09am Glucose Level 261 MG/DL H 75-110 07/31/2016 7:47am 07/31/2016 8:09am Calculated Osmolality 284 MOSM/KG H 261-280 07/31/2016 7:47am 2016 8:09am Calcium Level 9.4 MG/DL 8.4-10.2 07/31/2016 7:47am 07/31/2016 8:09am Microbiology Results Procedure Source Organism/Result Collection Date/Time Result Date/Time Result Status WOUND CULTURE DEEP TISS-AER/AN Unknown PREVOTELLA DISIENS 06/18/2016 4: 00pm 06/22/2016 12:58pm Final COAG NEGATIVE STAPHYLOCOCCUS 06/18/2016 4:00pm 06/22/2016 12:58pm Final STREP DYSGALACT SP EQUISIMILIS 06/18/2016 4:00pm 06/22/2016 12:58pm Final WOUND CULTURE DEEP TISS-AER/AN Foot, Non-Surgical Site, Right ESCHERICHIA COLI 07/20/2016 7:32pm 07/26/2016 7:20am Final S. AUREUS, METH-RESISTANT 07/20/2016 7:32pm 07/26/2016 7:20am Final COAG NEGATIVE STAPHYLOCOCCUS 07/20/2016 7:32pm 07/26/2016 7:20am Final STREP DYSGALACT SP EQUISIMILIS 07/20/2016 7:32pm 07/26/2016 7:20am Final ENTEROCOC FAECALIS - (GROUP D) 07/20/2016 7:32pm 07/26/2016 7:20am Final Surgical Culture Toe, Right First CULTURE INITIATED - RESULTS PENDING 2016 9:23am 07/31/2016 9:35am Preliminary Procedures Procedure Status Date Provider(s) Office/outpatient visit est Completed 05/07/16 480408"BORDER, EACH DRESSING" Completed 05/07/16 [id number]"EQUAL TO 48 SQ. IN., WITHOUT ADHESIVE BORDER, EACH DR Completed Galilea subq tissue 20 sq cm/< Completed 05/21/16 [id number]"EQUAL TO 48 SQ. IN., WITHOUT ADHESIVE BORDER, EACH DR Completed Galilea subq tissue 20 sq cm/< Completed 06/04/16 676508"BORDER, EACH DRESSING" Completed 06/04/16 [id number]"EQUAL TO 48 SQ. IN., WITHOUT ADHESIVE BORDER, [...] subq tissue 20 sq cm/< Completed 06/25/16 Culture othr specimn aerobic Completed 07/20/16 Cultr bacteria except blood Completed 07/20/16 Smear gram stain Completed 07/20/16 Emergency dept visit Completed 07/20/16 Incision and drainage of joint Completed 07/31/16 FERNANDO COLEMAN MD Encounters Encounter Location Arrival/Admit Date Discharge/Depart Date Attending Provider Departed Surgical Day Care [facility] 07/31/16 6:43am 07/31/16 10 :50am FERNANDO COLEMAN MD Registered [facility] 07/29/16 9:25am JAMIA DANIELS MD Registered [facility] 07/22/16 3:16pm JAMIA DANIELS MD Departed Emergency Room [facility] 07/20/16 6:31pm 07/20/16 7: 34pm SARITA SHI MD Registered [facility] 06/25/16 3:26pm JAMIA DANIELS MD Registered [facility] 06/23/16 3:54pm JAMIA DANIELS MD Registered [facility] 06/18/16 3:40pm JAMIA DANIELS MD Registered [facility] 06/04/16 4:01pm JAMIA DANIELS MD Registered [facility] 05/21/16 3:36pm JAMIA DANIELS MD Registered [facility] 05/07/16 3:03pm JAMIA DANIELS MD
--- NOTE | 2016-09-02 18:07 | NUR ---
PROVIDER DR. JEFFRIES AT BEDSIDE FOR EXAM.
[2016-09-02] MEDS ORDERED: GLYB5TAB8 PO (18:09)
[2016-09-02] MEDS ORDERED: METO-277 PO (18:12)
[2016-09-02] MEDS ORDERED: LOSA100T44 PO (18:12)
[2016-09-02] MEDS ORDERED: PARO40TA72 PO (18:14)
[2016-09-02] MEDS ORDERED: SULF1TAB42 PO (18:15)
[2016-09-02] MEDS ORDERED: CEFT2FRO3 IV (18:15)
[2016-09-02 18:42] LABS: HCT - HEMATOCRIT 34.4 % (41-53); HGB - HEMOGLOBIN 11.2 GM/DL (13.5-17.5); MEAN CORPUSCULAR HGB 27.7 UUG (26-34); MEAN CORPUSCULAR HGB CONC(MCHC 32.6 GM/DL (31-37); MEAN CORPUSCULAR VOLUME 84.9 UM3 (80-100); MEAN PLATELET VOLUME 9.6 UM3 (9.4-12.4); RED BLOOD COUNT 4.05 M/MM3 (4.50-5.90); WBC - WHITE BLOOD COUNT 13.2 T/MM3 (4.5-11.0)
[2016-09-02 18:57] LABS: ALBUMIN 3.8 G/DL (3.5-5.0); ALBUMIN/GLOBULIN RATIO 1.3 RATIO (1.1-2.2); ALKALINE PHOSPHATASE 108 U/L (38-126); ALT (SGPT) 42 U/L (21-72); ANION GAP 14 MEQ/L (5-15); AST (SGOT) 24 U/L (17-59); BUN/CREATININE RATIO 24 RATIO (6-26); CALCIUM 8.6 MG/DL (8.4-10.2); CHLORIDE 96 MEQ/L (98-107); CO2 - CARBON DIOXIDE 26 MEQ/L (22-30); CREATININE 1.3 MG/DL (0.8-1.5); GLOMERULAR FILTRATION RATE 59; GLUCOSE 211 MG/DL (75-110); POTASSIUM 4.5 MEQ/L (3.6-5); SODIUM 136 MEQ/L (134-144); TOTAL PROTEIN 6.8 G/DL (6.3-8.2)
--- NOTE | 2016-09-02 18:59 | NUR ---
RADIOLOGY PT TO RADIOLOGY BY CART AT THIS TIME.
[2016-09-02 19:00] LABS: BAND NEUTROPHILS # 0.1 T/MM3; EOSINOPHILS # (MANUAL) 0.1 T/MM3 (0-0.5); LYMPHOCYTES # (MANUAL) 1.2 T/MM3 (1-4.8); MONOCYTES # (MANUAL) 1.3 T/MM3 (0-0.8); NEUTROPHILS #(MANUAL)-ABSOLUTE 10.2 T/MM3 (1.8-7.7); REACTIVE LYMPHOCYTES # 0.3 T/MM3 (0-0); TOTAL CELLS COUNTED 100 %
--- NOTE | 2016-09-02 19:04 | NUR ---
RETURN PT RETURNED FROM RADIOLOGY AT THIS TIME.
[2016-09-02 19:33] LABS: BLOOD, URINE 1+ (NEGATIVE); COLOR,URINE YELLOW (YELLOW); LEUKOCYTE ESTERASE ,URINE NEGATIVE (NEGATIVE); NITRITE,URINE NEGATIVE (NEGATIVE); UROBILINOGEN,URINE 0.2 EU/DL (NORMAL)
[2016-09-02 19:38] LABS: BACTERIA,URINE 1+ (NEGATIVE); HYALINE CASTS, URINE 0-1 /LPF; MUCUS,URINE PRESENT; RBC,URINE 0-1 /HPF (0-3)
[2016-09-02 19:39] LABS: SQUAMOUS EPITHELIAL CELL,UR 0-5
[2016-09-02] MEDS ORDERED: NORMAL SALINE 1,000 ML IV ONE (20:15)
--- NOTE | 2016-09-02 20:28 | NUR ---
REPORT GIVEN TO KARINA LAYNE. WILL RESUME CARE.
[2016-09-02] MEDS ORDERED: LIDOCAINE 1% (10mg/ml) 30ml SDV INFIL ONE (21:00)
[2016-09-02] MEDS ORDERED: ONDA4TAB4 PO (22:26)
--- NOTE | 2016-09-02 22:26 | ERPDOC ---
Departure Disposition Decision Date: September 02, 2016 Disposition Decision Time: 22:23 Disposition: 01 DISCHARGED HOME, SELF-CARE Impression Impression Impression: Primary Impression: Diabetic ulcer of back associated with diabetes mellitus due to underlying condition, with necrosis of muscle Additional Impression: Cellulitis Severity: Moderate Condition: Stable Seen By: Physician only Referrals: Celeste SNELL MD (Family) Patient Instructions: Diabetic Foot Ulcers (ED) Problems/Meds/Labs Reviewed?: Yes Medications reviewed and manag: Yes Additional Instructions: Continue with current antibiotics. Both Bactrim and Rocephin. Zofran as needed for nausea. Follow-up with the wound clinic and with orthopedics. The follow-up needs to be soon, as the infection is likely progressing. Follow up care ordered?: Yes Mental Status: Alert, Oriented Scripts Ondansetron HCl (Zofran) 4 Mg Tablet 4 MG PO Q6H for NAUSEA, #30 TAB Prov: ALFRED JEFFRIES MD 09/02/16 HPI - General Medical General Chief Complaint: Fever Stated Complaint: INFECTION/VOMITING/FEVER Time Seen by Provider: 18:13 HPI - General Medical Initial Comments 38-year-old male presents with right foot diabetic ulcer. Ulcers underneath the first metatarsal head. He has had previous episode of MRSA, was cultured by bone biopsy, and grew Escherichia coli from this toe. He is currently on Rocephin IV daily through PICC line and is about 4-1/2 weeks into his treatment. He was recently started on Bactrim DS twice a day. This was started about 2 days ago. Yesterday and today he vomited once each day, not the time he was taking the medication though. He had an appointment with the wound clinic today, but slept through his appointment. He presents to the emergency department for evaluation as he is concerned that the infection is getting worse. No fever or chills. He has noticed more drainage from the toe recently. Is able to walk on the foot. He does go to work and changes his bandages every couple hours as he sweats badly at work and tends to soak his feet. Allergies: Coded Allergies: clindamycin (Verified Allergy, Unknown, DIARRHEA, 09/02/16) Past History Past Medical History Metabolic: diabetes, hypertension GI: gallbladder disease Neurological: concussion Musculoskeletal: back pain Surgical History General: gallbladder Joint: hand, shoulder Vaccines Hx Influenza Vaccination: Yes (FALL 2015) Hx Pneumococcal Vaccination: No Social History Does patient use chewing tobac: No Substance Use Type: does not use Record Review Pertinent history updated: Yes Review of Systems Musculoskeletal General: see HPI Integumentary Skin: see HPI Physical Exam General General Nourishment: well nourished, well developed, appears stated age General Body Habitus: well groomed Vitals and Pain First Documented Vital Signs Date Time Temp Pulse Resp B/P Pulse Ox O2 Delivery O2 Flow Rate FiO2 09/02/16 17:51 100.2 95 18 144/68 92 Room Air Weight: Kilograms: 150.500 Height (feet): 6 Height (inches): 1.50 Triage Pain Scale: Normal Exams: Chest/Resp: Clear all baldwin, with good airflow, and symmetry bilaterally CV: Regular rate and rhythm, without murmur or gallop, Pulses 2+ all extremities, capillary refill, <2 seconds all ext., no pedal edema noted Neurologic: Patient is alert, and oriented, cranial nerves, motor/sensory/ cerebellar, exams w/o gross deficits, to observation Psychiatric: Patient exhibits, appropriate attention, emotion and affect Integumentary (brief) Comments Stage IV decubitus ulcer on right first toe/MTP. Skin is dusky distal with minimal blanching noted. There is redness on foot and up onto lower mead. Differential Diagnoses Considering: Other (diabetic ulcer, decubitus ulcer, cellulitis, abscess, osteomyelitis) Progress Results/Orders Orders Procedure Category Date Status Time Lactate - Lactic Acid LAB 09/02/16 Complete 18:22 Blood Culture JOYCE 09/02/16 In Process 18:22 Cbc W/Auto LAB 09/02/16 Complete Diff-Reflex Manual 18:22 Cmp - Comprehensive LAB 09/02/16 Complete Metabolic 18:22 Procalcitonin LAB 09/02/16 Complete 18:22 Iv Lock (Ed Only) EDM 09/02/16 Transmitted 18:22 Chest, Pa & Lateral RAD 09/02/16 Taken 18:22 UA, LAB 09/02/16 Complete Dip&Micro(Complete) & 19:24 Normal Saline (Normal PHA 09/02/16 Complete Saline Iv) 20:15 Lidocaine 1% PHA 09/02/16 Complete (Xylocaine 1%) 21:00 Ondansetron Odt PHA 09/02/16 Verified (Prepack) (Zofran Odt 22:30 Lab Results Laboratory Tests Test 09/02/16 18:32 09/02/16 18:33 09/02/16 19:24 White Blood Count 13.2T/MM3 Red Blood Count 4.05M/MM3 Hemoglobin 11.2GM/DL Hematocrit 34.4% Mean Corpuscular Volume 84.9UM3 Mean Corpuscular Hemoglobin 27.7UUG Mean Corpuscular Hemoglobin Concent 32.6GM/DL RDW Standard Deviation 39.4FL Platelet Count 236T/MM3 Mean Platelet Volume 9.6UM3 Immature Granulocyte % (Auto) % Neutrophils (%) (Auto) % Lymphocytes (%) (Auto) % Monocytes (%) (Auto) % Eosinophils (%) (Auto) % Basophils (%) (Auto) % Absolute Immature Granulocyte (auto T/MM3 Absolute Neutrophils (auto) T/MM3 Absolute Lymphocytes (auto) T/MM3 Absolute Monocytes (auto) T/MM3 Absolute Eosinophils (auto) T/MM3 Absolute Basophils (auto) T/MM3 Neutrophils % (Manual) 77.0% Band Neutrophils % 1.0% Lymphocytes % (Manual) 9.0% Reactive Lymphocytes % 2.0% Monocytes % (Manual) 10.0% Eosinophils % (Manual) 1.0% Absolute Neutrophils (Manual) 10.2T/MM3 Band Neutrophils # 0.1T/MM3 Lymphocytes # (Manual) 1.2T/MM3 Reactive Lymphocytes # 0.3T/MM3 Monocytes # (Manual) 1.3T/MM3 Eosinophils # (Manual) 0.1T/MM3 Red Cell Morphology Comment Normal Procalcitonin 0.15NG/ML Turbidity < 20 Sodium Level 136MEQ/L Potassium Level 4.5MEQ/L Chloride Level 96MEQ/L Carbon Dioxide Level 26MEQ/L Anion Gap 14MEQ/L Blood Urea Nitrogen 31.0MG/DL Creatinine 1.3MG/DL Glomerular Filtration Rate Calc 59 BUN/Creatinine Ratio 24RATIO Glucose Level 211MG/DL Calculated Osmolality 275MOSM/KG Calcium Level 8.6MG/DL Total Bilirubin 1.00MG/DL Icterus Index < 2 Aspartate Amino Transf (AST/SGOT) 24U/L Alanine Aminotransferase (ALT/SGPT) 42U/L Alkaline Phosphatase 108U/L Total Protein 6.8G/DL Albumin 3.8G/DL Globulin 3.0G/DL Albumin/Globulin Ratio 1.3RATIO Plasma Lactate 1.0MMOL/L Chemistry Specimen Hemolysis < 15 Urine Collection Type Cleancatch-midstream Urine Color Yellow Urine Turbidity Clear Urine pH 5.5 Urine Specific [place] 1.025 Urine Protein 1+ Urine Glucose (UA) Negative Urine Ketones Trace Urine Blood 1+ Urine Nitrite Negative Urine Bilirubin Negative Urine Urobilinogen 0.2EU/DL Urine Leukocyte Esterase Negative Urine RBC 0-1/HPF Urine WBC 1-3/HPF Urine Squamous Epithelial Cells 0-5 Urine Amorphous Urates Few Urine Bacteria 1+ Urine Hyaline Casts 0-1/LPF Urine Mucus Present Urine Culture Indicated Cult not indicated Medications Current ED Medications Sodium Chloride (Normal Saline IV) 1,000 ml @ 1,000 mls/hr Q1H ONCE IV Last administered on 09/02/16t 20:15; Start 09/02/16 at 20:15; Stop 09/02/16 at 21:14 ; Status DC Lidocaine HCl (Xylocaine 1%) 100 mg O ONCE INFIL ; Start 09/02/16 at 21:00; Stop 09/02/16 at 21:01; Status DC Progress Progress White count 13.2 with 77% neutrophils. Lactate and pro-calcitonin are negative. Cultures obtained peripheral and PICC line. I called and spoke with Dr. Alexis in regards to infectious disease. Patient is currently on Bactrim as well as in the Rocephin through the PICC line. She recommended continuing these antibiotics and having him follow up with wound clinic and with orthopedics. The toe definitely looks more kapoor and dusky than they describe it looking previously.'s have some white blanching noted on palpation, but definitely poor blood supply this point. Wound was redressed and patient will be discharged home. He'll be given Zofran with a take home pack to be used as needed for nausea so that he can keep the Bactrim down. ALFRED JEFFRIES MD September 02, 2016 22:26
[2016-09-02] MEDS ORDERED: ONDANSETRON ODT 4mg #3 (PrePack) SENT HOME ONE (22:30)
[2016-09-02 22:40] VITALS: BP 159/71; PULSE 84; RESP 18; TEMP 100.2; O2SAT 95
--- NOTE | 2016-09-03 07:52 | DI ---
INDICATION: ITS.REASON: fever PROCEDURE: CHEST 2-VIEWS UPRIGHT (PA \T\ LAT) Encounter: Initial COMPARISON: November 19, 2011 FINDINGS: The lungs are clear without evidence of focal abnormal airspace opacity. There is no pleural effusion or pneumothorax. New left PICC line tip projects over the expected cavoatrial junction. The heart size, mediastinal contours and pulmonary vascularity are within normal limits. IMPRESSION: No acute cardiopulmonary disease. .
[2016-09-03] MEDS ORDERED: ACET-3088 PO (13:44)
== END 2016-09-02 22:40 | disposition home or self-care (01) ==
LOC: ED 17:48
DX: E11.621 Type 2 diabetes mellitus with foot ulcer (principal); L97.513 Non-pressure chronic ulcer of other part of right foot with necrosis of muscle; L03.115 Cellulitis of right lower limb; Z79.4 Long term (current) use of insulin; R11.2 Nausea with vomiting, unspecified; Z86.14 Personal history of Methicillin resistant Staphylococcus aureus infection
CPT/HCPCS: 36415; 71020; 80053; 81001; 83605; 84145; 85025; 87040; 96360; 99284; J7030

== ENCOUNTER 2016-09-03 12:51 | Inpatient (IN) | payer BC ==
[~2016-09-03] VITALS: Ht 186.7 cm; Wt 152.9 kg
[~2016-09-03 12:51] MED LIST changes: +CEFT2FRO3 IV; -GLYB2.5T5 PO; +GLYB5TAB8 PO; +LOSA100T44 PO; -LOSA25TA34 PO; +METO-277 PO; -METO200T37 PO; +ONDA4TAB4 PO; -PARO-18 PO; +PARO40TA72 PO; -POLY17PO6 PO; +SULF1TAB42 PO
--- OUTSIDE RECORDS SUMMARY | 2016-09-03 12:56 | XMS REPORT | Continuity of Care Document ---
Author Author [facility] Organization [facility] Address Unknown Phone Unavailable Support Name Relationship Address Phone Celeste SNELL MD Caregiver [address] [place] [address] Unavailable ALFRED JEFFRIES MD Caregiver [address] [place] [id number] Unavailable DEBORAH ARCHER Next Of Kin Unknown [phone] Insurance Providers Guarantor Edie Archer Address [address] [place] [address] Email [email or web address] Payer [facility] Policy Number [id number] Subscriber's Name Edie Archer Relationship 18 Self Group Number [id number] Advance Directives Directive Response Recorded Date/Time Advanced Directives Type None 09/02/16 5:51pm Chief Complaint and Reason for Visit Chief Complaint Fever Reason for Visit Cellulitis 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 81 Mg Oral Daily 07/20/16 Ceftriaxone Na/Dextrose,Iso (Ceftriaxone 2 Gm Piggyback) 2 Gm/50 Ml Froz.piggy 2 Gm Intraven Daily 09/02/16 Cetirizine Hcl (Zyrtec) 10 Mg Tablet 10 Mg Oral Daily 07/20/16 Diphenhydramine Hcl (Benadryl) 25 Mg Capsule 50 Mg Oral Bedtime 07/20/16 Glyburide 5 Mg Tablet 10 Mg Oral Twice A Day 09/02/16 Hydrocodone/Acetaminophen (Blockton 5-325 Tablet) 5-325 Tablet 1-2 Tab Oral Every 6 Hours as needed for Pain 30 Tablet This medication contains Tylenol , do not take more than 3,000 mg of Tylenol in a 24 hr period. 07/31/16 Insulin Detemir (Levemir) 100 Unit/Ml Inj 70 Unit Sub-Q Twice A Day 07/20/16 Insulin Glulisine (Apidra) 100 Unit/Ml Inj 25-30 Unit Sub-Q As Needed 07/20/16 Losartan Potassium 100 Mg Tablet 100 Mg Oral Daily 09/02/16 Magnesium Oxide (Magnesium) 400 Mg Capsule 400 Mg Oral Daily 01/26 Metformin Hcl 1,000 Mg Tablet 1,000 Mg Oral Twice Daily With Meals 07/20/16 Metoprolol Succinate 50 Mg Tab.er.24h 50 Mg Oral Daily 09/02/16 Multivitamins (Multivitamin) 1 Tab Tablet 1 Tab Oral Daily Ondansetron Hcl (Zofran) 4 Mg Tablet 4 Mg Oral Every 6 Hours for Nausea 30 Tablet 09/02/16 Paroxetine Hcl 40 Mg Tablet 40 Mg Oral Daily 09/02/16 Ranitidine Hcl (Zantac) 150 Mg Tablet 150 Mg Oral Twice A Day as needed for Acid Reflux 07/31/16 Sulfamethoxazole/Trimethoprim (Bactrim Ds Tablet) 1 Each Tablet 1 Tab Oral Twice A Day 09/02/16 Past Home Medications Medication Directions Ordered Status [...] Onset Date Status Hx Substance Use No 09/02/2016 5:55pm Not Applicable Not Applicable Hx Alcohol Use Y rare 09/02/2016 5:55pm Not Applicable Not Applicable Has the pt used tobacco in the last 12 months No 07/31/2016 4:29pm Not Applicable Not Applicable Query Response Start Date Stop Date Smoking Status Former smoker Hospital Discharge Instructions No hospital discharge instructions. Plan of Care Discharge Date 09/02/16 10:40pm Disposition 01 DISCHARGED HOME, SELF-CARE Condition at Discharge Stable Instructions/Education Provided Diabetic Foot Ulcers (ED) Prescriptions See Medication Section Referrals Celeste SNELL MD Address: [address] [place] [id number] Additional Instructions/Education Continue with current antibiotics. Both Bactrim and Rocephin. Zofran as needed for nausea. Follow-up with the wound clinic and with orthopedics. The follow-up needs to be soon, as the infection is likely progressing. Functional Status No functional status results. Allergies, Adverse Reactions, Alerts Allergen Type Severity Reaction Status Last Updated Clindamycin Allergy Unknown DIARRHEA Active 09/02/16 Immunizations Query Response on File Recorded Date/Time Hx Influenza Vaccination Y fall 201507/31/16 4:29pm Hx Pneumococcal Vaccination No 07/31/16 4:29pm Hx Influenza Vaccination Y fall 201507/31/16 4:29pm Tdap Vaccine Hx unsure 07/20/16 7:30pm Vital Signs Acute Vital Signs Vital Response Date/Time Temperature (Fahrenheit) 100.2 deg F (96.8 - 99.1) 09/02/2016 10:40pm Temperature (Calculated Celsius) 37.60004 degrees C (36.0 - 37.3) 09/02/2016 10:40pm Temperature Source Temporal 07/31/2016 9:35am Pulse Rate (adult) 84 bpm (60 - 100) 09/02/2016 10:40pm Respiratory Rate 18 breaths/min (10 - 20) 09/02/2016 10:40pm O2 Sat by Pulse Oximetry 95 % (90 - 100) 09/02/2016 10:40pm Oxygen Delivery Method Room Air 08/31/2016 3:40pm Blood Pressure 159/71 mm Hg 09/02/2016 10:40pm Blood Pressure Source Automatic Cuff 08/31/2016 3:40pm Height (Feet) 6 feet 09/02/2016 5:51pm Height (Inches) 1.50 inches 09/02/2016 5:51pm Weight (Kilograms) 150.500 kg 09/02/2016 5:51pm Body Mass Index (BMI) 43.0 09/02/2016 5:51pm Results Laboratory Results Test Name Result Units Flags Reference Collection Date/Time Result Date/ Time Comments Neutrophils (%) (Auto) 64.3 % 33-66 06/23/2016 [...] T/MM3 0.00-0.03 06/23/2016 4: 03pm 06/23/2016 4:08pm Erythrocyte Sedimentation Rate 15 mm/h 0-15 06/23/2016 4:03pm 2016 11:44pm Sedimentation Rate performed at [facility], [address] , [place] [address] Manager Data Junior Kent DO Basophils % (Manual) 1.0 % 0-2 08/31/2016 3:35pm 08/31/2016 4:45pm Myelocytes % 1.0 % H 0-0 08/17/2016 4:09pm 08/17/2016 5:05pm Basophils # (Manual) 0.1 T/MM3 0-0.2 08/31/2016 3:35pm 08/31/2016 4: 45pm Myelocytes # 0.1 T/MM3 08/17/2016 4:09pm 08/17/2016 5:05pm Total Creatine Kinase 111 U/L 55-170 08/10/2016 3:21pm 08/10/2016 3: 59pm C-Reactive Protein 47.3 MG/L D H 0-9 08/31/2016 3:35pm 08/31/2016 4:54pm White Blood Count 13.2 T/MM3 D H 4.5-11.0 09/02/2016 6:32pm 09/02/2016 6: 43pm Red Blood Count 4.05 M/MM3 L 4.50-5.90 09/02/2016 6:32pm 09/02/2016 6: 43pm Hemoglobin 11.2 GM/DL L 13.5-17.5 09/02/2016 6:32pm 09/02/2016 6:43pm Hematocrit 34.4 % L 41-53 09/02/2016 6:32pm 09/02/2016 6:43pm Mean Corpuscular Volume 84.9 UM3 80-100 09/02/2016 6:32pm 09/02/2016 6: 43pm Mean Corpuscular Hemoglobin 27.7 UUG 26-34 09/02/2016 6:32pm 2016 6:43pm Mean Corpuscular Hemoglobin Concent 32.6 GM/DL 31-37 09/02/2016 6:32pm 09/02/2016 6:43pm RDW Standard Deviation 39.4 FL 36.9-50.2 09/02/2016 6:32pm 09/02/2016 6 :43pm Platelet Count 236 T/MM3 130-400 09/02/2016 6:32pm 09/02/2016 6:43pm Mean Platelet Volume 9.6 UM3 9.4-12.4 09/02/2016 6:32pm 09/02/2016 6: 43pm Neutrophils % (Manual) 77.0 % H 33-66 09/02/2016 6:32p 09/02/2016 7: 00pm Band Neutrophils % 1.0 % 0-6 09/02/2016 6:32p09/02/2016 7:00pm Lymphocytes % (Manual) 9.0 % L 23-45 09/02/2016 6:32p 09/02/2016 7: 00pm Monocytes % (Manual) 10.0 % H 0-9.0 09/02/2016 6:32p09/02/2016 7:00pm Eosinophils % (Manual) 1.0 % 0-4 09/02/2016 6:32p 09/02/2016 7:00pm Reactive Lymphocytes % 2.0 % H 0-0 09/02/2016 6:32p 09/02/2016 7:00pm Band Neutrophils # 0.1 T/MM3 09/02/2016 6:32p 09/02/2016 7:00pm Absolute Neutrophils (Manual) 10.2 T/MM3 H 1.8-7.7 09/02/2016 6:32p 7:00pm Lymphocytes # (Manual) 1.2 T/MM3 1-4.8 09/02/2016 6:32p 09/02/2016 7: 00pm Monocytes # (Manual) 1.3 T/MM3 H 0-0.8 09/02/2016 6:32p 09/02/2016 7: 00pm Eosinophils # (Manual) 0.1 T/MM3 0-0.5 09/02/2016 6:32p 09/02/2016 7: 00pm Reactive Lymphocytes # 0.3 T/MM3 H 0-0 09/02/2016 6:32p09/02/2016 7: 00pm Red Cell Morphology Comment NORMAL 09/02/2016 6:32p 09/02/2016 7: 00pm Icterus Index < 2 0-7 09/02/2016 6:33pm 09/02/2016 6:57pm Chemistry Specimen Hemolysis < 15 0-25 09/02/2016 6:33pm 09/02/2016 6 :57pm 0-25: Specimen Exhibited No Hemolysis. Turbidity < 20 0-20 09/02/2016 6:33pm 09/02/2016 6:57pm Sodium Level 136 MEQ/L D 134-144 09/02/2016 6:3309/02/2016 7:07pm Potassium Level 4.5 MEQ/L 3.6-5 09/02/2016 6:09/02/2016 6:57pm Chloride Level 96 MEQ/L L 98-107 09/02/2016 6:09/02/2016 6:57pm Carbon Dioxide Level 26 MEQ/L 22-30 09/02/2016 6:09/02/2016 6: 57pm Anion Gap 14 MEQ/L 5-15 09/02/2016 6:09/02/2016 6:57pm Blood Urea Nitrogen 31.0 MG/DL D H 9-20 09/02/2016 6:09/02/2016 7: 07pm Creatinine 1.3 MG/DL D 0.8-1.5 09/02/2016 6:09/02/2016 7:07pm BUN/Creatinine Ratio 24 RATIO 6-09/02/2016 6:09/02/2016 6:57pm Glomerular Filtration Rate Calc 59 09/02/2016 6:09/02/2016 6: 57pm Glucose Level 211 MG/DL H 75-110 09/02/2016 6:09/02/2016 6:57pm Calculated Osmolality 275 MOSM/KG 261-280 09/02/2016 6:09/02/2016 6:57pm Calcium Level 8.6 MG/DL 8.4-10.2 09/02/2016 6:09/02/2016 6:57pm Total Bilirubin 1.00 MG/DL 0.20-1.30 09/02/2016 6:09/02/2016 6: 57pm Alkaline Phosphatase 108 U/L 38-126 09/02/2016 6:09/02/2016 6: 57pm Total Protein 6.8 G/DL 6.3-8.2 09/02/2016 6:09/02/2016 6:57pm Albumin 3.8 G/DL 3.5-5.0 09/02/2016 6:09/02/2016 6:57pm Globulin 3.0 G/DL 2.4-3.6 09/02/2016 6:09/02/2016 6:57pm Albumin/Globulin Ratio 1.3 RATIO 1.1-2.2 09/02/2016 6:33pm 09/02/2016 6 :57pm Aspartate Amino Transf (AST/SGOT) 24 U/L 17-59 09/02/2016 6:33pm 2016 6:57pm Alanine Aminotransferase (ALT/SGPT) 42 U/L -72 09/02/2016 6:33pm 6:57pm Plasma Lactate 1.0 MMOL/L 0.6-2.2 09/02/2016 6:33pm 09/02/2016 6:57pm Procalcitonin 0.15 NG/ML 09/02/2016 6:32pm 09/02/2016 7:10pm PCT </= 0.5 ng/mL - sepsis not likely; PCT >0.5 and </=2 ng/mL - sepsis possible; PCT >2 ng/mL - sepsis likely; PCT >/=10 ng/mL - systemic inflammatory response - sepsis or septic shock highly indicated. Urine Collection Type CLEANCATCH-MIDSTREAM 09/02/2016 7:2016 7:33pm Urine Color YELLOW YELLOW 09/02/2016 7:09/02/2016 7:33pm Urine Turbidity CLEAR CLEAR 09/02/2016 7:09/02/2016 7:33pm Urine Specific [place] 1.025 1.015-1.025 09/02/2016 7:2016 7:33pm Urine pH 5.5 5.0-8.0 09/02/2016 7:09/02/2016 7:33pm Urine Leukocyte Esterase NEGATIVE NEGATIVE 09/02/2016 7:2016 7:33pm Urine Nitrite NEGATIVE NEGATIVE 09/02/2016 7:09/02/2016 7:33pm Urine Protein 1+ A NEGATIVE 09/02/2016 7:09/02/2016 7:33pm Urine Glucose (UA) NEGATIVE NEGATIVE 09/02/2016 7:09/02/2016 7: 33pm Urine Ketones TRACE A NEGATIVE 09/02/2016 7:09/02/2016 7:33pm Urine Urobilinogen 0.2 EU/DL NORMAL 09/02/2016 7:2409/02/2016 7: 33pm Urine Bilirubin NEGATIVE NEGATIVE 09/02/2016 7:09/02/2016 7: 33pm Urine Blood 1+ A NEGATIVE 09/02/2016 7:24pm 09/02/2016 7:33pm Urine WBC 1-3 /HPF 0-5 09/02/2016 7:24pm 09/02/2016 7:39pm Urine RBC 0-1 /HPF 0-3 09/02/2016 7:24pm 09/02/2016 7:39pm Urine Squamous Epithelial Cells 0-5 09/02/2016 7:24pm 09/02/2016 7: 39pm Urine Bacteria 1+ H NEGATIVE 09/02/2016 7:24pm 09/02/2016 7:39pm Urine Amorphous Urates FEW 09/02/2016 7:24pm 09/02/2016 7:39pm Urine Mucus PRESENT 09/02/2016 7:24pm 09/02/2016 7:39pm Urine Hyaline Casts 0-1 /LPF 09/02/2016 7:24pm 09/02/2016 7:39pm Urine Culture Indicated CULT NOT INDICATED 09/02/2016 7:24pm 2016 7:39pm Microbiology Results Procedure Source Organism/Result Collection Date/Time [...] 7:20am Final Surgical Culture Toe, Right First ESCHERICHIA COLI 07/31/2016 9:23am 2016 8:50am Final WOUND CULTURE DEEP TISS-AER/AN Toe, Right First S. AUREUS, METH-RESISTANT 3:20pm 08/29/2016 6:56am Final STENOTROPHOMONAS MALTOPHILIA 08/26/2016 3:20pm 08/29/2016 6:56am Final Blood Culture Peripheral/Iv Start CULTURE INITIATED - RESULTS PENDING 09/02 6:37pm 09/02/2016 6:41pm Preliminary Procedures Procedure Status Date Provider(s) Galilea subq tissue 20 sq cm/< Completed 06/04/16 189450"BORDER, EACH DRESSING" Completed 06/04/16 510016"EQUAL TO 48 SQ. IN., WITHOUT ADHESIVE BORDER, [...] subq tissue 20 sq cm/< Completed 06/25/16 Galilea subq tissue 20 sq cm/< Completed 07/22/16 [id number]"BORDER, EACH DRESSING" Completed 07/22/16 Culture othr specimn aerobic Completed 07/20/16 Cultr bacteria except blood Completed 07/20/16 Smear gram stain Completed 07/20/16 Emergency dept visit Completed 07/20/16 Galilea subq tissue 20 sq cm/< Completed 07/29/16 Galilea subq tissue 20 sq cm/< Completed 07/31/16 FERNANDO COLEMAN MD Bone biopsy trocar/needle Completed 07/31/16 FERNANDO COLEMAN MD Routine venipuncture Completed 07/31/16 Metabolic panel total ca Completed 07/31/16 Culture othr specimn aerobic Completed 07/31/16 Cultr bacteria except blood Completed 07/31/16 Culture aerobic identify Completed 07/31/16 Microbe susceptible ana Completed 07/31/16 Smear gram stain Completed 07/31/16 778592"INJECTION, MIDAZOLAM HYDROCHLORIDE, PER 1 MG" Completed 07/31/16 PROPOFOL INJ 500 MG/50ML Completed 07/31/16 [id number]"INJECTION, FENTANYL CITRATE, 0.1 MG" Completed 07/31/16"RINGERS LACTATE INFUSION, UP TO 1000 CC" Completed 07/31/16 Galilea subq tissue 20 sq cm/< Completed 08/03/16"COLLAGEN DRESSING, PAD SIZE 16 SQ. IN. OR LESS, EACH" Completed 004"BORDER, EACH DRESSING" Completed 08/03/16 Encounters Encounter Location Arrival/Admit Date Discharge/Depart Date Attending Provider Departed Emergency Room [facility] 09/02/16 5:48pm 09/02/16 10: 40pm ALFRED JEFFRIES MD Registered [facility] 08/31/16 3:00pm DESTINI VARGAS MD Registered [facility] 08/26/16 2:53pm JAMIA DANIELS MD Registered [facility] 08/12/16 9:03am JAMIA DANIELS MD Registered [facility] 08/03/16 7:58am JAMIA DANIELS MD Departed [facility] 07/31/16 6:43am 07/31/16 10 :50am FERNANDO COLEMAN MD Registered [facility] 07/29/16 9:25am JAMIA DANIELS MD Registered [facility] 07/22/16 3:16pm JAMIA DANIELS MD Departed Emergency Room [facility] 07/20/16 6:31pm 07/20/16 7: 34pm SARITA SHI MD Registered [facility] 06/25/16 3:26pm JAMIA DANIELS MD Registered [facility] 06/23/16 3:54pm JAMIA DANIELS MD Registered [facility] 06/18/16 3:40pm JAMIA DANIELS MD Registered Clinic [facility] 06/04/16 4:01pm JAMIA DANIELS MD Recent Diagnosis
--- NOTE | 2016-09-03 12:58 | NUR ---
Admit Pt admitted to room 133 as a direct admit. Pt ambulatory. at pt side. Pt rates pain 5/10 in right toe. Will continue to monitor.
[2016-09-03 13:00] VITALS: BP 153/82; PULSE 81; RESP 17; TEMP 100.1; O2SAT 92
[2016-09-03 13:09] VITALS: Ht 186.7 cm; Wt 152.9 kg
[2016-09-03] MEDS ORDERED: ACET-3088 PO (13:44)
[2016-09-03] MEDS ORDERED: MORPHINE SULFATE 2 MG SYRINGE IV PRN (14:30)
[2016-09-03] MEDS ORDERED: ONDANSETRON 4mg/2ml INJECTION IV PRN (14:30)
[2016-09-03] MEDS ORDERED: VANCOMYCIN 2,000 MG in NORMAL SALINE 500 ML IV ONE (14:30)
[2016-09-03] MEDS: NS 500 ML IV PRN (14:40)
[2016-09-03 14:46] LABS: BASOPHILS % (AUTO) 0.1 % (0-2); EOSINOPHILS % (AUTO) 0.2 % (0-4); HCT - HEMATOCRIT 34.3 % (41-53); IMMATURE GRANULOCYTE # (AUTO) 0.03 T/MM3 (0.00-0.03); IMMATURE GRANULOCYTE % (AUTO) 0.3 % (0.0-0.5); LYMPHOCYTES # (AUTO) 1.4 T/MM3 (1-4.8); LYMPHOCYTES % (AUTO) 11.3 % (23-45); MEAN CORPUSCULAR HGB 27.4 UUG (26-34); MEAN CORPUSCULAR HGB CONC(MCHC 32.1 GM/DL (31-37); MEAN CORPUSCULAR VOLUME 85.5 UM3 (80-100); MEAN PLATELET VOLUME 9.5 UM3 (9.4-12.4); MONOCYTES # (AUTO) 0.8 T/MM3 (0-0.8); MONOCYTES % (AUTO) 6.4 % (0-9.0); NEUTROPHILS #(AUTO)-ABSOLUTE 9.8 T/MM3 (1.8-7.7); NEUTROPHILS % (AUTO) 81.7 % (33-66); RED BLOOD COUNT 4.01 M/MM3 (4.50-5.90); WBC - WHITE BLOOD COUNT 11.9 T/MM3 (4.5-11.0)
[2016-09-03 14:50] LABS: LACTATE - LACTIC ACID 0.7 MMOL/L (0.6-2.2)
--- NOTE | 2016-09-03 14:50 | HPPDOC ---
DEVANG MANN V CONFIGURATION CONSULTANT 09/03/16 1428: HPI - Adult Date DATE: 09/03/16 TIME: 14:15 General Chief Complaint: Right great toe diabetic foot ulcer with osteomyelitis History of Present Illness Ed is a pleasant 46-year-old male who has had a long-standing history of right great toe ulcer since 2011. He started outpatient wound care in August of 2015 and has continued to follow their under regular basis under the care of Dr. Alexis and Dr. Valle. On 07/31/16 He underwent surgical debridement of right great toe diabetic foot ulcer with bone biopsy of 1st distal phalanx. This wound culture reveled E-coli and he has been on outpatient Rocephin IV daily since that time. On 08/26 he had another fight toe wound culture obtained which reveled MRSA. He was started on Bactrim however did not start it until Friday 09/01. This past Wednesday, August 30 he started having fevers, chills with intermittent episodes of vomiting. Redness and swelling has persisted to the right lower extremity, worsening over the last 24 hours. Last evening his fever at home was 102 thus he presented to the emergency room for acute evaluation at that time his WBC was found to be elevated at 13.2 with 77% neutrophils, 1% band. Venous lactate and pro-calcitonin were normal at that time. He was discharged home and instructed to follow up today. This morning he attempted to go to work, however , had an episode of emesis. He then presented to his primary care provider, Dr. Дмитрий Cobb who felt that patient required hospitalization for more aggressive workup and treatment. Past Medical History Past Medical History Type II diabetes Hypertension Restless leg syndrome Chronic right great toe ulcer with recurrent right leg/foot cellulitis Depression Surgical History Patient's Surgical History: Cholecystectomy Right carpal tunnel repair Right rotator cuff repair Current Medications Home Meds Active Scripts Ondansetron HCl (Zofran) 4 Mg Tablet, 4 MG PO Q6H for NAUSEA, #30 TAB Prov:ALFRED JEFFRIES MD 09/02/16 Reported Medications Acetaminophen (Tylenol Arthritis) 650 Mg Tablet.er, 1 TAB PO PRN Y for PAIN, TAB 09/03/16 Sulfamethoxazole/Trimethoprim (Bactrim Ds Tablet) 1 Each Tablet, 1 TAB PO BID 09/02/16 Ceftriaxone Na/Dextrose,Iso (Ceftriaxone 2 gm Piggyback) 2 Gm/50 Ml Froz.piggy, 2 GM IV DAILY 09/02/16 Paroxetine HCl (Paroxetine HCl) 40 Mg Tablet, 40 MG PO DAILY 09/02/16 Metoprolol Succinate (Metoprolol Succinate) 50 Mg Tab.er.24h, 50 MG PO DAILY 09/02/16 Losartan Potassium (Losartan Potassium) 100 Mg Tablet, 100 MG PO DAILY 09/02/16 Glyburide (Glyburide) 5 Mg Tablet, 10 MG PO BID 09/02/16 Ranitidine HCl (Zantac) 150 Mg Tablet, 150 MG PO BID Y for ACID REFLUX 07/31/16 Diphenhydramine HCl (Benadryl) 25 Mg Capsule, 50 MG PO HS 07/20/16 Aspirin (Aspir 81) 81 Mg Tablet.dr, 81 MG PO DAILY 07/20/16 Insulin Detemir (Levemir) 100 Unit/Ml Inj, 70 UNIT SQ BID 07/20/16 Cetirizine HCl (Zyrtec) 10 Mg Tablet, 10 MG PO DAILY 07/20/16 Magnesium Oxide (Magnesium) 400 Mg Capsule, 400 MG PO DAILY 07/20/16 Metformin HCl (Metformin HCl) 1,000 Mg Tablet, 1000 MG PO BIDWM 07/20/16 Multivitamins (Multivitamin) 1 Tab Tablet, 1 TAB PO DAILY 10/19/11 Allergies: Coded Allergies: clindamycin (Verified Allergy, Unknown, DIARRHEA, 09/03/16) Family History Family History: Father-diabetes, prostate cancer Mother-hypoglycemia, bone cancer. Sister with diabetes Brother with lung cancer. Sister of unknown type of cancer Social History Smoking Status: Former smoker (quit 20 years ago) Does patient use chewing tobac: No Substance Use Type: does not use Alcohol Intake: occasionally Sexuality: female partner Housing: house Household Members: significant other Current Occupational Status: employed ([employer]) Advance Directives: Yes Full Code Social History Comments Primary care provider, Dr. Дмитрий Cobb Orthopedist Dr. Valle Review of Systems Constitutional: REPORTS: chills, fatigue, fever Pulmonary Respiratory: cough GI Upper Abdomen: nausea, vomiting Integumentary Skin: color change (RLE), see HPI All Other Systems All Other Systems: Reviewed (remainder of 10-point ROS Neg.) Physical Exam General General Nourishment: well nourished, well developed, obese Vital Signs Vital Signs Date Time Temp Pulse Resp B/P Pulse Ox O2 Delivery O2 Flow Rate FiO2 09/03/16 13:00 100.1 81 17 153/82 92 Room Air Height (Feet): 6 Height (Inches): 1.50 Eyes Brief: FOUND: EOMI, PERRL ENMT Brief: FOUND: mucosa moist, normal dentition Neck Brief: FOUND: midline Respiratory Brief: FOUND: clear all baldwin, equal bilaterally, NOT FOUND: wheezes Cardiovascular (brief) Cardiac Brief: FOUND: pedal edema (RLE swelling 1+), regular rate, regular rhythm, NOT FOUND: murmur Abdomen (brief) Abdominal Brief: FOUND: BS normo active x4, soft, NOT FOUND: distended, tender Musculoskeletal (brief) Musculoskeletal Brief: FOUND: tenderness (Right lower ext. Right great toe) Integumentary (brief) Integumentary Brief: FOUND: dry, pink, warm Comments Erythema to the right lower extremity Chronic areas of discoloration to bilateral lower extremities Neurologic (brief) Neurological Brief: FOUND: cranial 2-12 intact, motor (. Motor equal 4 extremities), sensory (sensation intact equally 4 extremities. Patient is hypersensitive to the right lower extremity at areas of erythema and swelling) Neurologic RN Documented GCS Eye Opening: Verbal: Motor: Total: Psychiatric (brief) FOUND: alert, attentive, normal affect, oriented Sepsis Diagnostic Criteria Sepsis Confirmed/Suspected Infection: Yes SIRS Criteria: WBC >=12,000 or <=4,000 Assessment & Plan Problems: (1) Sepsis Status: Acute Assessment & Plan: Manifestations of sepsis include the following 1. Known diabetic foot ulcer wound to the right great toe, failed outpatient treatment 2. Leukocytosis, WBC count from last night was 13.2 3. Fever- 100.1 on admission (2) Diabetic ulcer of right great toe Status: Acute (3) Recurrent cellulitis of lower extremity Status: Acute (4) DM (diabetes mellitus) Status: Chronic Qualifiers: Diabetes mellitus type: type 2 Diabetes mellitus complication status: with skin complications Diabetes mellitus complication detail: with foot ulcer Diabetes mellitus senior care insulin use: with intermediate manager use Qualified Codes: E11.621 - Type 2 diabetes mellitus with foot ulcer; L97.509 - Non- pressure chronic ulcer of other part of unspecified foot with unspecified severity; Z79.4 - senior care (current) use of insulin (5) Hypertension Status: Chronic Qualifiers: Hypertension type: essential hypertension Qualified Codes: I10 - Essential (primary) hypertension (6) Restless leg syndrome Status: Chronic (7) Depression Status: Chronic (8) Morbid obesity with BMI of 40.0-44.9, adult Status: Chronic Plan/Intensity of Service Admit patient to outpatient observation under care of Dr. Elder for sepsis, right great toe diabetic foot ulcer Patient does meet sepsis criteria. Given known right great toe wound, leukocytosis, fever, very He has been on IV Rocephin since 07/31/16, and been on Bactrim since 09/01/16. He continues to have fevers and leukocytosis despite outpatient treatment. Blood cultures were obtained last evening in the emergency room on 09/02/16, however, are currently pending. Blood cultures were repeated today and one culture was taken from his indwelling PICC line. Will discuss further antimicrobial coverage with Dr. Alexis, however at this point, will initiate vancomycin. Pharmacy consultation placed for dosing management. Will continue to monitor patient's Accu-Cheks carefully. He has been watching what he is eating and has noted to have some lower blood sugars recently. Obtain Hgb A1C on admission. Will likely need to decrease BID Levemir to 60-65 units twice a day. He has routinely been on 70 twice a day. Given increased swelling and erythema over the last 24 hours to the right lower extremity. Will obtain a venous Doppler to rule out DVT. Will need to discuss anticoagulation/DVT prophylaxis. Patient placed to Dr. Valle for further evaluation and recommendation. Recheck CBC and BMP tomorrow morning to follow blood counts, renal function and electrolytes Discuss further orders and plan of care with attending, Dr. Elder. At time of discharge medical care will return to primary care provider, Dr. Choe Fast Code Status Full Code Hospital Course Summary Disclaimer The hospital course summary below is not to be considered part of the above Progress Note. Hospital Course Summary Admit patient to outpatient observation under care of Dr. Elder for sepsis, right great toe diabetic foot ulcer Patient does meet sepsis criteria. Given known right great toe wound, leukocytosis, fever, very He has been on IV Rocephin since 07/31/16, and been on Bactrim since 09/01/16. He continues to have fevers and leukocytosis despite outpatient treatment. Blood cultures were obtained last evening in the emergency room on 09/02/16, however, are currently pending. Blood cultures were repeated today and one culture was taken from his indwelling PICC line. Will discuss further antimicrobial coverage with Dr. Alexis, however at this point, will initiate vancomycin. Pharmacy consultation placed for dosing management. Will continue to monitor patient's Accu-Cheks carefully. He has been watching what he is eating and has noted to have some lower blood sugars recently. Obtain Hgb A1C on admission. Will likely need to decrease BID Levemir to 60-65 units twice a day. He has routinely been on 70 twice a day. Given increased swelling and erythema over the last 24 hours to the right lower extremity. Will obtain a venous Doppler to rule out DVT. Will need to discuss anticoagulation/DVT prophylaxis. Patient placed to Dr. Valle for further evaluation and recommendation. Recheck CBC and BMP tomorrow morning to follow blood counts, renal function and electrolytes Discuss further orders and plan of care with attending, Dr. Elder. At time of discharge medical care will return to primary care provider, JENNIFER Peralta MD 09/03/16 1544: Past Medical History Current Medications Home Meds Active Scripts Ondansetron HCl (Zofran) 4 Mg Tablet, 4 MG PO Q6H for NAUSEA, #30 TAB Prov:ALFRED JEFFRIES MD 09/02/16 Reported Medications Acetaminophen (Tylenol Arthritis) 650 Mg Tablet.er, 1 TAB PO PRN Y for PAIN, TAB 09/03/16 Sulfamethoxazole/Trimethoprim (Bactrim Ds Tablet) 1 Each Tablet, 1 TAB PO BID 09/02/16 Ceftriaxone Na/Dextrose,Iso (Ceftriaxone 2 gm Piggyback) 2 Gm/50 Ml Froz.piggy, 2 GM IV DAILY 09/02/16 Paroxetine HCl (Paroxetine HCl) 40 Mg Tablet, 40 MG PO DAILY 09/02/16 Metoprolol Succinate (Metoprolol Succinate) 50 Mg Tab.er.24h, 50 MG PO DAILY 09/02/16 Losartan Potassium (Losartan Potassium) 100 Mg Tablet, 100 MG PO DAILY 09/02/16 Glyburide (Glyburide) 5 Mg Tablet, 10 MG PO BID 09/02/16 Ranitidine HCl (Zantac) 150 Mg Tablet, 150 MG PO BID Y for ACID REFLUX 07/31/16 Diphenhydramine HCl (Benadryl) 25 Mg Capsule, 50 MG PO HS 07/20/16 Aspirin (Aspir 81) 81 Mg Tablet.dr, 81 MG PO DAILY 07/20/16 Insulin Detemir (Levemir) 100 Unit/Ml Inj, 70 UNIT SQ BID 07/20/16 Cetirizine HCl (Zyrtec) 10 Mg Tablet, 10 MG PO DAILY 07/20/16 Magnesium Oxide (Magnesium) 400 Mg Capsule, 400 MG PO DAILY 07/20/16 Metformin HCl (Metformin HCl) 1,000 Mg Tablet, 1000 MG PO BIDWM 07/20/16 Multivitamins (Multivitamin) 1 Tab Tablet, 1 TAB PO DAILY 10/19/11 Allergies: Coded Allergies: clindamycin (Verified Allergy, Unknown, DIARRHEA, 09/03/16) Sepsis Diagnostic Criteria Sepsis SIRS Criteria: Temp<=96.8 or >=100.4 (102 prior to arrival), Plasma CRP>2 above normal (47.3 on 08/31-current value pending) Assessment & Plan Problems: (1) Sepsis Status: Acute Assessment & Plan: Manifestations of sepsis include the following 1. Known diabetic foot ulcer wound to the right great toe, failed outpatient treatment-wound culture 08/26-heavy growth MRSA 2. Leukocytosis, WBC count from last night was 13.2 3. Fever- 100.1 on admission/102 prior to admission 4. Elevated CRP 205.5 (2) Diabetic ulcer of right great toe Status: Acute (3) Recurrent cellulitis of lower extremity Status: Acute (4) DM (diabetes mellitus) Status: Chronic Qualifiers: Diabetes mellitus type: type 2 Diabetes mellitus complication status: with skin complications Diabetes mellitus complication detail: with foot ulcer Diabetes mellitus intermediate manager insulin use: with senior care use Qualified Codes: E11.621 - Type 2 diabetes mellitus with foot ulcer; L97.509 - Non- pressure chronic ulcer of other part of unspecified foot with unspecified severity; Z79.4 - senior care (current) use of insulin Assessment & Plan: A1c 9.6 on date of admission (5) Hypertension Status: Chronic Qualifiers: Hypertension type: essential hypertension Qualified Codes: I10 - Essential (primary) hypertension (6) Restless leg syndrome Status: Chronic (7) Depression Status: Chronic (8) Morbid obesity with BMI of 40.0-44.9, adult Status: Chronic (9) Hypoglycemia Status: Acute (10) Toe osteomyelitis, right Status: Chronic Assessment & Plan: Right great toe-bone biopsy 07/31/69 Assessment I have independently evaluated and examined this patient. I reviewed the chart, the patient's history, and the CONFIGURATION CONSULTANT's documented findings as above. We discussed and formulated the assessment and plan as above with additions as below: Mr. Mancilla presents with escalating symptoms over 4 days with fevers, night sweats, nausea/vomiting, and increasing erythema on the dorsal right foot proximal to known plantar ulcer on the great toe. He's followed by Dr. Valle and Dr. Alexis at the wound care clinic where bone biopsy at debridement in July revealed mild chronic osteomyelitis with Escherichia coli the dominant organism at that time. He's been on 2 g of IV Rocephin since that time (today reported to be a day 35) however recent wound culture identified heavy growth of MRSA for which Bactrim was started earlier this week. Symptoms have persisted with temperature of 102 overnight. He was seen in the emergency room yesterday with labs as noted above and chest x-ray which was unremarkable. On examination the patient has nonlabored respirations with clear breath sounds. He is alert and oriented. Cardiac rhythm is regular with normal S1 and S2. Abdomen is soft and nontender although obese. There are patchy areas of intense erythema on the distal anterior mead which are hypersensitive to touch (chronic per history of his girlfriend). The right great toe is pale/dusky in color with a 2 cm ulceration on the plantar surface with surrounding macerated tissues and minor slough at the wound base. Wound is approximately 3-4 millimeters deep. There is mild erythema extending 1/2-2/3 up the dorsal surface of the foot consistent with cellulitis. Creatinine has bumped from 0.6 on 08/31 to 1.3 yesterday; today's value is pending. White count, lactic acid, and procalcitonin are stable with the latter not particularly suggestive of severe sepsis but CRP has climbed substantially in the past week. Blood cultures drawn yesterday in the ER are negative at this time. Chest x-ray obtained in the ER yesterday evening has been reviewed by myself and is unremarkable. Cellulitis appears to be evolving rapidly based on reports of patient and lack of description of same in the ER last night. Diabetes poorly controlled as evidenced by elevated A1c in conjunction with recent recurrent hypo-glycemia. Case has been discussed with Dr. Cobb, Dr. Alexis, and Dr. Valle. Dr. Valle will see the patient in consultation. Dr. Alexis concurred with use of vancomycin for management. Plan/Intensity of Service Chest x-ray reviewed by myself, discussed with multiple consulting physicians, old records reviewed, laboratory data reviewed. DEVANG MANN APRN September 03, 2016 14:28 JENNIFER ELDER MD September 03, 2016 15:44
[2016-09-03 14:51] LABS: ALBUMIN 3.6 G/DL (3.5-5.0); ALBUMIN/GLOBULIN RATIO 1.2 RATIO (1.1-2.2); ALKALINE PHOSPHATASE 106 U/L (38-126); ALT (SGPT) 41 U/L (21-72); ANION GAP 13 MEQ/L (5-15); AST (SGOT) 27 U/L (17-59); CALCIUM 8.4 MG/DL (8.4-10.2); CHLORIDE 100 MEQ/L (98-107); CO2 - CARBON DIOXIDE 28 MEQ/L (22-30); GLUCOSE 69 MG/DL (75-110); SODIUM 141 MEQ/L (134-144); TOTAL PROTEIN 6.7 G/DL (6.3-8.2)
[2016-09-03] MEDS ORDERED: RANITIDINE 150 MG TABLET PO PRN (15:00)
[2016-09-03 15:27] LABS: C-REACTIVE PROTEIN 205.5 MG/L (0-9)
[2016-09-03 16:03] LABS: BUN/CREATININE RATIO 26 RATIO (6-26)
[2016-09-03 16:04] LABS: GLOMERULAR FILTRATION RATE 80
[2016-09-03] MEDS ORDERED: INSULIN ASPART 100 UNIT/ML SQ PRN (16:15)
--- NOTE | 2016-09-03 16:38 | CONSPD ---
Consultation Info Date DATE: 09/03/16 TIME: 16:29 Reason for Consultation: Right foot diabetic foot ulceration Impression/Recommendation Impression/Recommendation: (1) Diabetic ulcer of right great toe Status: Chronic Recommendation: Recommend MRI to evaluate extensiveness of osteomyelitis as well as evaluate for deep abscess in right foot. I'm concerned that maybe an abscess deeper than what is obvious on initial exam. Recommend surgical first dorsal amputation with debridement and drainage of abscess as needed tomorrow morning pending the MRI results. Ortho HPI HPI Elements Location: FOUND foot (right) Injury: No Pain: FOUND other Onset: Gradual Radiating: No Severity: FOUND moderate Duration: FOUND several days Previous Surgery: Yes Aggrevated by: FOUND walking Associated Symptoms: FOUND fever Treatments Tried: FOUND other (IV antibiotics, surgical debridement) HPI Mr. Mancilla is a kind 46-year-old male who is well-known to me from previous surgery. I performed a wound debridement and bone biopsy to his right great toe on 07/31/2016. Since then he continued to be treated at the wound clinic with IV antibiotics and debridements. Over the last several days is been noticing fever at home as well as nausea. Yesterday they noticed increase in pain and swelling in his foot and his great toe on the right. He was seen in emergency room last night and in today was brought in again to the emergency room for worsening symptoms. He was admitted by the hospitalist and I was asked to see consultation for his right foot diabetic foot ulcer. He does have known osteomyelitis in the great toe from previous MRI. Review of Systems Constitutional: REPORTS: chills, fatigue, fever Pulmonary Respiratory: cough GI Upper Abdomen: nausea, vomiting Integumentary Skin: color change (RLE), see HPI All Other Systems Reviewed (remainder of 10-point ROS Neg.) Past Medical History Adult Problem List Updates Type II diabetes Hypertension Restless leg syndrome Chronic right great toe ulcer with recurrent right leg/foot cellulitis Depression Surgical History Patient's Surgical History: Cholecystectomy Right carpal tunnel repair Right rotator cuff repair Current Medications Acetaminophen (Tylenol Arthritis) 650 Mg Tablet.er, 1 TAB PO PRN PRN for PAIN, ( Reported) Last Taken: Unknown Dose on 09/03/16 0400 Aspirin (Aspir 81) 81 Mg Tablet.dr , 81 MG PO DAILY, (Reported) Last Taken: Unknown Dose on 09/03/16 0400 Ceftriaxone Na/Dextrose,Iso ( Ceftriaxone 2 gm Piggyback) 2 Gm/50 Ml Froz.piggy, 2 GM IV DAILY, (Reported) Last Taken: Unknown Dose on 09/02/16 2300 Cetirizine HCl (Zyrtec) 10 Mg Tablet, 10 MG PO DAILY, (Reported) Last Taken: Unknown Dose on 09/03/16399 Diphenhydramine HCl (Benadryl) 25 Mg Capsule, 50 MG PO HS, (Reported) Last Taken: Unknown Dose on 09/03/16 0000 Glyburide (Glyburide) 5 Mg Tablet, 10 MG PO BID, (Reported) Last Taken: Unknown Dose on 09/03/16399 Insulin Detemir (Levemir) 100 Unit/ Ml Inj, 70 UNIT SQ BID, (Reported) Last Taken: Unknown Dose on 09/03/16399 Losartan Potassium (Losartan Potassium) 100 Mg Tablet, 100 MG PO DAILY, (Reported) Last Taken: Unknown Dose on 09/03/16399 Magnesium Oxide (Magnesium) 400 Mg Capsule, 400 MG PO DAILY, (Reported) Last Taken: Unknown Dose on 09/03/16399 Metformin HCl (Metformin HCl) 1, 000 Mg Tablet, 1,000 MG PO BIDWM, (Reported) Last Taken: Unknown Dose on 09/03/16399 Metoprolol Succinate (Metoprolol Succinate) 50 Mg Tab.er.24h, 50 MG PO DAILY, (Reported) Last Taken: Unknown Dose on 09/03/16399 Multivitamins (Multivitamin) 1 Tab Tablet, 1 TAB PO DAILY, (Reported) Last Taken: Unknown Dose on 09/03/16399 Ondansetron HCl (Zofran) 4 Mg Tablet, 4 MG PO Q6H Last Taken: HASN'T STARTED THIS on Unknown Date & Time Paroxetine HCl ( Paroxetine HCl) 40 Mg Tablet, 40 MG PO DAILY, (Reported) Last Taken: Unknown Dose on 09/03/16399 Ranitidine HCl (Zantac) 150 Mg Tablet, 150 MG PO BID PRN for ACID REFLUX, (Reported) Last Taken: Unknown Dose on 09/03/16399 Sulfamethoxazole/Trimethoprim ( Bactrim Ds Tablet) 1 Each Tablet, 1 TAB PO BID, (Reported) Last Taken: Unknown Dose on 09/03/16399 Allergies Allergies: Coded Allergies: clindamycin (Verified Allergy, Unknown, DIARRHEA, 09/03/16) Family History Family History: Father-diabetes, prostate cancer Mother-hypoglycemia, bone cancer. Sister with diabetes Brother with lung cancer. Sister of unknown type of cancer Vaccines No unsure Social History Smoking Status: Former smoker (quit 20 years ago) Does patient use chewing tobac: No Substance Use Type: does not use Alcohol Intake: occasionally Sexuality: female partner Housing: house Household Members: significant other Current Occupational Status: employed ([employer]) Advance Directives: Yes Full Code Physical Exam General General: well nourished, well developed, no acute distress Respiratory FOUND non-labored Cardiovascular FOUND peripheral edema Capillary Refill: <2 sec Integumentary Integumentary Comments Unstageable diabetic foot ulcer to the plantar aspect of the right great toe with necrotic subcutaneous tissue as well as slough present. There is erythema to the dorsum the foot which is outlined. There are several other lesions to the leg which appear to be healed venous stasis type ulcers. He has good active flexion and extension of the great toe. His third toe stiff with any active range of motion. There is discoloration of the great toe as well as the plantar forefoot. Neurologic FOUND intact to light touch Psychiatric FOUND alert, FOUND normal affect Laboratory Laboratory Tests Test 09/03/16 13:57 09/03/16 14:02 09/03/16 14:30 Procalcitonin 0.13NG/ML White Blood Count 11.9T/MM3 Red Blood Count 4.01M/MM3 Hemoglobin 11.0GM/DL Hematocrit 34.3% Mean Corpuscular Volume 85.5UM3 Mean Corpuscular Hemoglobin 27.4UUG Mean Corpuscular Hemoglobin Concent 32.1GM/DL RDW Standard Deviation 39.4FL Platelet Count 270T/MM3 Mean Platelet Volume 9.5UM3 Immature Granulocyte % (Auto) 0.3% Neutrophils (%) (Auto) 81.7% Lymphocytes (%) (Auto) 11.3% Monocytes (%) (Auto) 6.4% Eosinophils (%) (Auto) 0.2% Basophils (%) (Auto) 0.1% Absolute Immature Granulocyte (auto 0.03T/MM3 Absolute Neutrophils (auto) 9.8T/MM3 Absolute Lymphocytes (auto) 1.4T/MM3 Absolute Monocytes (auto) 0.8T/MM3 Absolute Eosinophils (auto) 0.0T/MM3 Absolute Basophils (auto) 0.0T/MM3 Turbidity < 20 Sodium Level 141MEQ/L Potassium Level 4.0MEQ/L Chloride Level 100MEQ/L Carbon Dioxide Level 28MEQ/L Anion Gap 13MEQ/L Blood Urea Nitrogen 26.0MG/DL Creatinine 1.0MG/DL Glomerular Filtration Rate Calc 80 BUN/Creatinine Ratio 26RATIO Glucose Level 69MG/DL Hemoglobin A1c 9.6% Calculated Osmolality 274MOSM/KG Calcium Level 8.4MG/DL Total Bilirubin 0.80MG/DL Icterus Index < 2 Aspartate Amino Transf (AST/SGOT) 27U/L Alanine Aminotransferase (ALT/SGPT) 41U/L Alkaline Phosphatase 106U/L C-Reactive Protein 205.5MG/L Total Protein 6.7G/DL Albumin 3.6G/DL Globulin 3.1G/DL Albumin/Globulin Ratio 1.2RATIO Plasma Lactate 0.7MMOL/L Chemistry Specimen Hemolysis < 15 Glucometer 56mg/dL FERNANDO COLEMAN MD September 03, 2016 16:31
[2016-09-03] MEDS: CEFTRIAXONE 2 G in NORMAL SALINE 100 ML IV SCH (17:07)
[2016-09-03] MEDS ORDERED: GADOBUTROL 10mMol/10ml INJECTION IV ONE (17:27)
[2016-09-03] MEDS ORDERED: SALINE FLUSH 10ml SYRINGE ONE (17:27)
[2016-09-03] MEDS: METFORMIN 1,000 MG TABLET PO SCH (19:35)
[2016-09-03] MEDS: GlyBURIDE 5 MG TABLET PO SCH (19:35)
--- NOTE | 2016-09-03 19:44 | NUR ---
SUMMARY PT TOLERATING ANTIBIOTICS WITHOUT REACTIONS. [facility] 7.5 CONTROLLED PAIN IN RT LE EASILY. PT HAS BEEN ABLE TO EAT SOLID FOOD WITHOUT N/V. NO VOID SINCE ADMIT. PT STATES HE IS NOT SURPRISED SINCE HE HASN'T HELD DOWN FOOD OR WATER SINCE WEDNESDAY. PT HAS VERBALIZED UNDERSTANDING OF TESTS ORDERED AND PERFORMED TODAY. FAMILY AT BEDSIDE. THEY ARE DISCUSSING SURGERY SCHEDULED FOR TOMORROW. PT VERBALIZES UNDERSTANDING HE NEEDS TO HAVE ANOTHER SNACK BEFORE MIDNIGHT. DIABETIC PO MEDS ADMINISTERED LATE R/T PT EATING LATE SUPPER.
[2016-09-03] MEDS: VANCOMYCIN 2,000 MG in NORMAL SALINE 500 ML IV SCH (20:56)
[2016-09-03 20:57] VITALS: BP 142/80; PULSE 74; RESP 18; TEMP 98.6; O2SAT 94
[2016-09-03] MEDS ORDERED: INSULIN DETEMIR 100 UNIT/ML SQ SCH (21:00)
[2016-09-04] VITALS (26 sets, daily range): BP systolic 119–177; BP diastolic 60–90; PULSE 49–78; RESP 16–20; TEMP 96.7–98.9; O2SAT 91–98
[2016-09-04] MEDS: VANCOMYCIN 2,000 MG in NORMAL SALINE 500 ML IV SCH ×3 (04:36→20:15)
--- NOTE | 2016-09-04 05:30 | NUR ---
Chart Check 24 hour chart check completed
[2016-09-04 05:52] LABS: BASOPHILS % (AUTO) 0.1 % (0-2); EOSINOPHILS # (AUTO) 0.3 T/MM3 (0-0.5); EOSINOPHILS % (AUTO) 2.8 % (0-4); HCT - HEMATOCRIT 35.9 % (41-53); HGB - HEMOGLOBIN 11.4 GM/DL (13.5-17.5); IMMATURE GRANULOCYTE # (AUTO) 0.01 T/MM3 (0.00-0.03); IMMATURE GRANULOCYTE % (AUTO) 0.1 % (0.0-0.5); LYMPHOCYTES # (AUTO) 1.2 T/MM3 (1-4.8); MEAN CORPUSCULAR HGB 27.1 UUG (26-34); MEAN CORPUSCULAR HGB CONC(MCHC 31.8 GM/DL (31-37); MEAN CORPUSCULAR VOLUME 85.3 UM3 (80-100); MEAN PLATELET VOLUME 9.9 UM3 (9.4-12.4); MONOCYTES # (AUTO) 0.7 T/MM3 (0-0.8); MONOCYTES % (AUTO) 7.7 % (0-9.0); NEUTROPHILS #(AUTO)-ABSOLUTE 6.8 T/MM3 (1.8-7.7); NEUTROPHILS % (AUTO) 76.3 % (33-66); RED BLOOD COUNT 4.21 M/MM3 (4.50-5.90); WBC - WHITE BLOOD COUNT 8.9 T/MM3 (4.5-11.0)
[2016-09-04 06:08] LABS: ANION GAP 11 MEQ/L (5-15); BUN/CREATININE RATIO 26 RATIO (6-26); CALCIUM 8.6 MG/DL (8.4-10.2); CHLORIDE 104 MEQ/L (98-107); CO2 - CARBON DIOXIDE 30 MEQ/L (22-30); CREATININE 0.7 MG/DL (0.8-1.5); GLOMERULAR FILTRATION RATE 120; GLUCOSE 59 MG/DL (75-110); POTASSIUM 3.8 MEQ/L (3.6-5); SODIUM 145 MEQ/L (134-144)
[2016-09-04] MEDS: D5-1/2 NS KCL 20 MEQ 1,000 ML IV SCH ×2 (06:48→18:00)
--- NOTE | 2016-09-04 07:32 | NUR ---
SUMMARY RESTED THROUGH MOST OF THE NIGHT WITH EYES CLOSED. MEDICATED WITH [facility] AT HS FOR COMPLAINTS OF PAIN TO RIGHT FOOT. NPO SINCE MIDNIGHT. BGM [address] REYES NOTIFIED. ORDERS RECEIVED FOR IVF'S. PATIENT'S REMAINS AT THE BEDSIDE. NO FURTHER CHANGE IN ASSESSMENT. WILL CONTINUE TO MONITOR.
[2016-09-04] MEDS ORDERED: LIDOCAINE 2%/EPI 1:200,000 20ml SDV ONE (07:49)
[2016-09-04] MEDS ORDERED: ROPIVACAINE 0.5% (5mg/ml) 30ml INJ ONE (07:49)
--- NOTE | 2016-09-04 08:00 | NUR ---
RECEIVED REPORT PATIENT IS ALERT AND ORIENTED. SCHEDULED FRO SURGERY THIS MORNING. DENIES ANY CONCERNS. NO QUESTIONS ASKED AT THIS TIME.
--- NOTE | 2016-09-04 08:20 | DI ---
Indication: ITS.REASON: RLE redness, swelling PROCEDURE: US VENOUS DUPLEX, LOWER EXT RT: Encounter: Initial Comparison: None Technique: Color Doppler duplex and grayscale sonographic imaging of the right lower extremity was performed. Findings: There is no evidence for acute deep venous thrombosis in the right thigh. Specifically, serial graded compression was performed from the inguinal ligament to the popliteal bifurcation, on the right thigh, demonstrating appropriate compressibility of the deep venous system. In addition, color and pulsed Doppler demonstrate appropriate spontaneous flow, variation with respiration, and augmentation with calf compression. At the ankle, normal flow is identified in the posterior tibial veins; these vessels are also normal in caliber. Mildly enlarged lymph nodes are seen in the right inguinal area, presumably reactive. Impression: No evidence of acute DVT in the right lower limb. .
--- NOTE | 2016-09-04 08:29 | DI ---
Indication: ITS.REASON: diabetic foot ulcer, rule out osteomyelitis and abscess PROCEDURE: MRI FOOT RIGHT W/WO CONTRAST: Encounter: Initial Comparison: MRI right foot dated June 23, 2016 Technique: Multiplanar multisequence MR imaging of the right foot was performed with and without contrast. Contrast: 10 mL Gadavist Findings: Significant interval worsening within bone marrow edema within the great toe proximal and distal phalanges. Interval improvement with near resolution of the prior edema seen in the second metatarsal head. Mild edema remaining in the second toe proximal phalanx which has improved. There is new edema seen within the third toe involving the phalanges, worst at the proximal phalanx. These areas of edema also show varying degrees of postcontrast enhancement. There is diffuse subcutaneous edema which has worsened consistent with worsening cellulitis. No focal fluid collections or drainable abscess appreciated. Abnormal signal within the intrinsic foot musculature, a common finding in diabetics. The flexor and extensor tendons are grossly unchanged. Impression: 1. Worsening osteomyelitis involving the great toe proximal and distal phalanges. 2. New osteomyelitis involving the third toe, worst in the proximal phalanx. 3. Interval improvement in the presumed osteomyelitis within the second metatarsal head and proximal phalanx of the second toe. 4. Worsening cellulitis. 5. No drainable abscess seen. .
--- NOTE | 2016-09-04 08:30 | NUR ---
LEAVES TO OR PATIENT IS TRANSPORTED TO OR PER WC
--- NOTE | 2016-09-04 08:48 | ANESPREOP ---
Anesthesia Record Date and Time DATE: 09/04/16 TIME: 819 Proposed Surgical Procedure Allergies: Coded Allergies: clindamycin (Verified Allergy, Unknown, DIARRHEA, 09/03/16) Ht/Wt/BMI Height: 6 ' 1.50 " Weight: 151.740 kg BMI: 43.3 kg/m2 Vital Signs Date Time Temp Pulse Resp B/P Pulse Ox O2 Delivery O2 Flow Rate FiO2 09/04/16 08:00 96.9 61 16 156/76 97 Room Air Medications Inpatient Medications Current Medications Medications (Trade) Dose Ordered Sig/Paige Start Time Stop Time Status Last Admin Dose Admin Acetaminophen/ Hydrocodone Bitart ([place] 7.5/325) 1 tab Q4H PRN 09/03/16 14:30 09/03/16 22:18 1 TAB Ondansetron HCl (Zofran) 4 mg Q6H PRN 09/03/16 14:30 Morphine Sulfate (Morphine) 2 mg Q2H PRN 09/03/16 14:30 Sodium Chloride (NS) 500 ml PRN PRN 09/03/16 14:45 09/03/16 14:40 500 ML Cetirizine HCl (Zyrtec) 10 mg DAILY 09/04/16 09:00 Diphenhydramine HCl (Benadryl) 50 mg HS 09/03/16 22:00 09/03/16 21:00 50 MG Glyburide (Micronase) 10 mg BIDWM 09/03/16 17:30 09/03/16 19:35 10 MG Losartan Potassium (Cozaar) 100 mg DAILY 09/04/16 09:00 Magnesium Oxide (Magox) 400 mg DAILY 09/04/16 09:00 Metformin HCl (Glucophage) 1,000 mg BIDWM 09/03/16 17:30 09/03/16 19:35 1,000 MG Metoprolol Succinate (TOPROL XL 50 mg) 50 mg DAILY 09/04/16 09:00 Paroxetine HCl (Paxil) 40 mg DAILY 09/04/16 09:00 Ranitidine HCl (Zantac) 150 mg BID PRN 09/03/16 15:00 Insulin Detemir (Levemir) 60 unit BID 09/03/16 21:00 09/03/16 21:01 60 UNIT Aspirin (Ecotrin) 81 mg DAILY 09/04/16 09:00 Non-Formulary Medication 2 gm 2 gm DAILY 09/04/16 09:00 UNV Ceftriaxone Sodium 2 g/Sodium Chloride 100 ml @ 200 mls/hr DAILY 09/03/16 16:30 09/03/16 17:07 200 MLS/HR Vancomycin HCl/ Sodium Chloride (Vancocin/NS) 500 ml @ 250 mls/hr Q8H 09/03/16 20:00 09/04/16 04:36 250 MLS/HR Insulin Aspart SS PRN 09/03/16 16:15 Potassium Chloride/Dextrose/ Sod Cl (D5-1/2 NS KCl 20 Meq) 1,000 ml @ 75 mls/hr [id number] 09/04/16 06:15 09/04/16 06:48 75 MLS/HR Acetaminophen (Tylenol Arthritis) 650 Mg Tablet.er, 1 TAB PO PRN PRN for PAIN, ( Reported) Last Taken: on 09/03/16399 Aspirin (Aspir 81) 81 Mg Tablet.dr, 81 MG PO DAILY, (Reported) Last Taken: on 09/03/16399 Ceftriaxone Na/Dextrose,Iso (Ceftriaxone 2 gm Piggyback) 2 Gm/50 Ml Froz.piggy, 2 GM IV DAILY, (Reported) Last Taken: on 09/02/16 2300 Cetirizine HCl (Zyrtec) 10 Mg Tablet, 10 MG PO DAILY, (Reported) Last Taken: on 09/03/16399 Diphenhydramine HCl (Benadryl) 25 Mg Capsule, 50 MG PO HS, (Reported) Last Taken: on 09/03/16 0000 Glyburide (Glyburide) 5 Mg Tablet, 10 MG PO BID , (Reported) Last Taken: on 09/03/16399 Insulin Detemir (Levemir) 100 Unit/Ml Inj, 70 UNIT SQ BID, (Reported) Last Taken: on 09/03/16399 Losartan Potassium (Losartan Potassium) 100 Mg Tablet, 100 MG PO DAILY, (Reported) Last Taken: on 09/03/16399 Magnesium Oxide (Magnesium) 400 Mg Capsule, 400 MG PO DAILY, (Reported) Last Taken: on 09/03/16399 Metformin HCl (Metformin HCl) 1,000 Mg Tablet, 1,000 MG PO BIDWM, (Reported) Last Taken: on 09/03/16399 Metoprolol Succinate (Metoprolol Succinate) 50 Mg Tab.er.24h, 50 MG PO DAILY, (Reported) Last Taken: on 09/03/16399 Multivitamins (Multivitamin) 1 Tab Tablet, 1 TAB PO DAILY, (Reported) Last Taken: on 09/03/16399 Ondansetron HCl (Zofran) 4 Mg Tablet, 4 MG PO Q6H Last Taken: on Unknown Date & Time Paroxetine HCl (Paroxetine HCl) 40 Mg Tablet, 40 MG PO DAILY, (Reported) Last Taken: on 09/03/16399 Ranitidine HCl (Zantac) 150 Mg Tablet, 150 MG PO BID PRN for ACID REFLUX, (Reported) Last Taken: on 09/03/16399 Sulfamethoxazole/Trimethoprim (Bactrim Ds Tablet) 1 Each Tablet, 1 TAB PO BID, (Reported) Last Taken: on 09/03/16399 Currently on Beta Radha: Yes Medical/Surgical History Anesthesia PMH: Reports: *Diabetes, *Dyspnea (OCCASIONALLY), *Hypertension (ON MEDS), Arthritis (CALCIUM BUILDUP IN ELBOWS), Headaches (MIGRAINES OCC), Reflux , Denies: *Angina, *MA, Anesthesia Reactions, Asthma, Blood Transfusion Reac, CHF, COPD, CVA/Stroke/TIA, Cancer, Clotting Problems, Deep Vein Thrombosis, Glaucoma, Hepatitis, Hiatal Hernia, Malignant Hyperthermia, Pacemaker, Pneumonia , Renal Disease, Rheumatic Fever, Seizures, Sleep Apnea, Thyroid Disease, Tuberculosis Smoking Status: Former smoker (quit 20 years ago) Use Chewing Tobacco?: No Substance Use Type: does not use Past Surgical History Orthopedic Surgeries: Yes - RT GREAT TOE, LEFT PINKY,RT SHOULDER, ULNAR, RT HAND CARPAL TUNNEL Abdominal Surgeries: Yes - MATTY Genitourinary Surgeries: No Cardiac Surgeries: No Endocrine Surgeries: No Reproductive Surgeries: No Neurological Surgeries: No Ear Surgeries: No Nose Surgeries: No Throat Surgeries: No Other Surgeries: No Anesthesia Adverse Reactions: FOUND none Family Hx of Anesthesia Advers: none Hx of Motion Sickness: No Pertinent Findings Laboratory Tests 09/04/16 04:35 Physical Exam Respiratory: Lungs clear Cardiovascular: FOUND Regular rate, rhythm Airway Assessment Mallampati Score: II TMD: 3 Fingerbreadths Neck Extension: Good Overall Assessment: May Be Diff Mask Vent., May Be Diff Intubation ASA: 3 Plan Anesthesia Plan: TIVA Discussion Discussed risks/options/alternatives of anesthesia and questions answered. Patient consents. Nursing pain assessment noted. Present: Spouse Attestation Statement Prior to the delivery of any anesthetic medication, I examined the patient, developed the plan, obtained the patient's consent and discussed the risk and benefits of the procedure with the patient/guardian. KERRI POWERS BARRER AND TACKER September 04, 2016 08:46
[2016-09-04] MEDS ORDERED: FENTANYL 100mcg/2ml INJECTION ONE ×2 (08:56→09:28)
[2016-09-04] MEDS: PAROXETINE 40 MG TABLET PO SCH (09:00)
[2016-09-04] MEDS ORDERED: MIDAZOLAM 2mg/2ml INJECTION IV ONE (09:00)
[2016-09-04] MEDS ORDERED: DEXTROSE ISO IV SCH (09:00)
[2016-09-04] MEDS ORDERED: CEFTRIAXONE NA IV SCH (09:00)
[2016-09-04] MEDS ORDERED: PROPOFOL 500mg 50 ML IV ONE (09:08)
--- NOTE | 2016-09-04 09:09 | ANESPD ---
Peripheral Nerve Blockade Physician: Karla Elder MD Date: 09/04/16 Discussion Discussed risks/options/alternatives of anesthesia and questions answered. Patient consents. Nursing pain assessment noted. Block Start: 08:55 Block Stop: 09:03 Block Employed: Ankle/Foot Indication: operative anesthesia Approach: right side confirmed Position: supine Patient: Consent, risks/benefits discussed, Informed, post block act. discussed Monitors: SpO2 IV Sedation: Yes Sedation: sedate w/meaningful contact Midazolam (mg): 2 Fentanyl (mcg): 1 Initial Vital Signs First Documented Vital Signs Date Time Temp Pulse Resp B/P Pulse Ox O2 Delivery O2 Flow Rate FiO2 09/03/16 13:00 100.1 81 17 153/82 92 Room Air Post Vital Signs Vital Signs Date Time Temp Pulse Resp B/P Pulse Ox O2 Delivery O2 Flow Rate FiO2 09/04/16 08:00 96.9 61 16 156/76 97 Room Air Initial Pain Score: 3 Prep: chlorhexadine/ETOH Ultrasound Used?: No Injectate Ropivacaine (%): 0.5 Ropivacaine (mL): 15 Lidocaine (%): 2 Lidocaine (mL): 15 Was Epi 1:200,000 Used?: Yes (in lidocaine only) Injection Injection made incrementally with constant monitoring and aspiration every [5] ml. KERRI POWERS CRNA September 04, 2016 09:08
--- NOTE | 2016-09-04 10:07 | PDOPERATE ---
Operative Report Date of Operation 09/04/16 Side: Right Preoperative Diagnosis: other (right great toe osteomyelitis) Postoperative Diagnosis Same as preoperative diagnosis. Operation/Procedure: other (right great toe amputation) Surgeon Dea Valle MD Complications None. Anesthesia Plan: Other (right ankle block with TIVA) Estimated Blood Loss See Anesthesia Record. Fluids Please See Anesthesia Record. Description of Operation Mr. Mancilla and his right toe were identified and marked in his hospital room bed. He was then brought back to the operating suite and proper anesthesia was administered. He was then positioned supine on the operating table. The right lower extremity was then prepped and draped in my normal sterile fashion. Timeout was performed with all operating room personnel. A tourniquet was placed around his thigh but not used during the procedure. Preoperative MRI confirmed worsening osteomyelitis of both the distal and proximal phalanxes of the right great toe. No drainable abscesses were noted on MRI. I began by outlining amputation site making a fishmouth type marking from the base of the great toe. Sharp dissection was then carried down to bone just distal to this outline. Extensor flexor tendons were incised as well as collateral ligaments around the first MTP joint and the toe was removed including the proximal phalanx in its entirety. The tarsal head was evaluated and appeared to be in good condition without any obvious signs of necrosis. Also the deep subcutaneous tissue showed no signs of obvious necrosis. Sharp dissection was used to remove some nonviable subcutaneous tissue included remaining capsule and collateral ligaments. Both the extensor and flexor tendons were incised sharply and allowed to retract. The wound was then thoroughly irrigated with normal saline. I then freshened up the skin edges at the previously marked incision. I then closed some deep tissue with 2-0 PDS and then used a 3-0 PDS to close the skin edges in a simple interrupted fashion. The rest of the skin was then cleaned with hydroperoxide and a sterile dressing was placed Xeroform 4 x 4's and Kerlix and then an Kwasi wrap. The drapes were then removed the knee was allowed to awake from anesthesia and taken to recovery room under the care of anesthesia he tolerated the procedure well there were no complications. FERNANDO VALLE MD September 04, 2016 10:07
--- NOTE | 2016-09-04 10:15 | ANESPO ---
Post-Op Note Date 09/04/16 Time: 10:15 Status Pt Participated in Evaluation: Pt participated in person Vital Signs Date Time Temp Pulse Resp B/P Pulse Ox O2 Delivery O2 Flow Rate FiO2 09/04/16 09:05 72 16 142/67 92 Room Air 09/04/16 08:00 96.9 Respiratory Function: Airway patent Cardiovascular Function: Regular pulse Mental Status: Alert/oriented Pain Level Intensity: 0 (ankle bloc working well- denies pain) Unable to Assess Pain Due To: Pt Sleeping Hydration: IV infusing Complications during Recovery None apparent Follow-Up Instructions Instructions Per Surgeon KERRI POWERS CRNA September 04, 2016 10:15
--- NOTE | 2016-09-04 10:42 | NUR ---
CM CM IN TO VISIT PT . CM EXPLAINS ROLE AND PROVIDES CONTACT INFORMATION. PT IS IN SURGERY AT THIS PRESENT TIME. PT REPORTS SHE HAS BEEN DOING HOME IV THERAPY SINCE JULY AND SHE WILL CONTINUE AT TIME OF DC. PT DENIES FURTHER NEEDS AND IS AWARE TO CONTACT CM SHOULD NEEDS ARISE.
--- NOTE | 2016-09-04 10:55 | PDPROCED ---
Immediate Operative Note DATE: 09/04/16 TIME: 10:54 Preop Diagnosis: wound infection Postop Diagnosis: Rt great toe wound infection. Surgical Procedures: Other (Amputation right great toe 09/04/16) Surgeon: SANDRA Ireland September 04, 2016 10:55
--- NOTE | 2016-09-04 11:00 | NUR ---
RETURNS FROM OR PATIENT IS IN ROOM, POST OP VITAL SIGNS ARE STARTED.
[2016-09-04] MEDS: CEFTRIAXONE 2 G in NORMAL SALINE 100 ML IV SCH (11:42)
[2016-09-04] MEDS: CETIRIZINE 10 MG TABLET PO SCH (11:43)
[2016-09-04] MEDS: LOSARTAN 100 MG TABLET PO SCH (11:43)
[2016-09-04] MEDS: METOPROLOL XL 50 MG TABLET PO SCH (11:43)
[2016-09-04] MEDS: MAGNESIUM OXIDE 400 MG TABLET PO SCH (11:44)
[2016-09-04] MEDS: METFORMIN 1,000 MG TABLET PO SCH ×2 (11:44→17:59)
[2016-09-04] MEDS: GlyBURIDE 5 MG TABLET PO SCH ×2 (11:44→17:59)
[2016-09-04] MEDS: ASPIRIN *EC* 81mg TABLET PO SCH (11:48)
--- NOTE | 2016-09-04 12:00 | PNPDOC ---
DEVANG MANN V CUT AND PRINT MACHINE OPERATOR 09/04/16 1156: Subjective Date DATE: 09/04/16 TIME: 11:48 Subjective Ed is seen this morning post-operatively following amputation of the right great toe by Dr. Valle. Overall he is feeling well this morning and without complaints. Did have some hypoglycemia this morning as patient was nothing by mouth for surgery. Denies having any pain currently to the right foot. Right lower leg discomfort, erythema and swelling has improved today. No other complaints including chest pain, shortness of breath or GI complaints. He does inquire about meeting with a dietitian to discuss dietary changes for discharge. Objective Vital Signs Vital signs Vital Signs Date Time Temp Pulse Resp B/P Pulse Ox O2 Delivery O2 Flow Rate FiO2 09/04/16 11:30 66 16 151/83 94 09/04/16 11:15 Room Air 09/04/16 11:00 96.7 Height (Feet): 6 Height (Inches): 1.50 Weight (Kilograms): 151.740 General General Appearance: Alert, Orientated x 3, Cooperative, No Acute Distress Eyes (Brief) Eyes: FOUND: EOMI ENMT (Brief) ENMT: FOUND: mucosa moist, normal dentition, NOT FOUND: pharnyx erythema Neck (Brief) Neck: FOUND: midline, NOT FOUND: adenopathy, carotid bruits, tracheal deviation Respiratory (Brief) Respiratory: FOUND: clear all baldwin, equal bilaterally, NOT FOUND: wheezes Cardiovascular (Brief) Cardiac: FOUND: regular rate, regular rhythm, NOT FOUND: murmur, pedal edema Capillary Refill: <2 sec Abdomen (Brief) Abdominal: FOUND: BS normo active x4, soft, NOT FOUND: distended, tender Extremities (Brief) Extremity : Side: Right Extremity: foot (postoperative dressing intact.) Extremity Finding: FOUND: pain (right lower extremity pain, swelling and erythema has improved today) Lymphatic (Brief) Lymphatic: NOT FOUND: adenopathy Musculoskeletal (Brief) Musculoskeletal: NOT FOUND: tenderness Integumentary (Brief) Integumentary: FOUND: dry, pink, warm Neurologic (Brief) Neurological: FOUND: cranial 2-12 intact Psychiatric (Brief) Psychiatric: FOUND: alert, attentive, normal affect, oriented Laboratory Laboratory Laboratory Tests 09/02/16 18:33 09/03/16 14:02 09/04/16 04:35 Laboratory Tests 09/03/16 14:02 09/04/16 04:35 Microbiology Microbiology Microbiology Date/Time Source Procedure Growth Status 09/03/16 14:02 Cath/Port/Line/Picc Blood Culture - Preliminary CULTURE INITIATED - RESULTS PENDING Resulted 09/03/16 13:56 Cath/Port/Line/Picc Blood Culture - Preliminary CULTURE INITIATED - RESULTS PENDING Resulted 09/04/16 09:12 Toe Right First Gram Stain - Final Resulted 09/04/16 09:12 Toe Right First Surgical Culture - Preliminary CULTURE INITIATED - RESULTS PENDING Resulted Sepsis Diagnostic Criteria Sepsis Confirmed/Suspected Infection: Yes SIRS Criteria: Temp<=96.8 or >=100.4 (102 prior to arrival), Plasma CRP>2 above normal (47.3 on 08/31-current value pending) Assessment & Plan Problems: (1) Sepsis Status: Acute Assessment & Plan: Manifestations of sepsis include the following 1. Known diabetic foot ulcer wound to the right great toe, failed outpatient treatment-wound culture 08/26-heavy growth MRSA 2. Leukocytosis, WBC count from last night was 13.2 3. Fever- 100.1 on admission/102 prior to admission 4. Elevated CRP 205.5 (2) Diabetic ulcer of right great toe Status: Chronic (3) Recurrent cellulitis of lower extremity Status: Acute (4) DM (diabetes mellitus) Status: Chronic Qualifiers: Diabetes mellitus type: type 2 Diabetes mellitus complication status: with skin complications Diabetes mellitus complication detail: with foot ulcer Diabetes mellitus fci insulin use: with extermination inspector use Qualified Codes: E11.621 - Type 2 diabetes mellitus with foot ulcer; L97.509 - Non- pressure chronic ulcer of other part of unspecified foot with unspecified severity; Z79.4 - rn long term care (current) use of insulin Assessment & Plan: A1c 9.6 on date of admission (5) Hypertension Status: Chronic Qualifiers: Hypertension type: essential hypertension Qualified Codes: I10 - Essential (primary) hypertension (6) Restless leg syndrome Status: Chronic (7) Depression Status: Chronic (8) Morbid obesity with BMI of 40.0-44.9, adult Status: Chronic (9) Hypoglycemia Status: Acute (10) Toe osteomyelitis, right Status: Chronic Assessment & Plan: Right great toe-bone biopsy 07/31/69 Assessment 09/04 Hgb A1 C on admission 9.6. Patient does verify that he has tried to make some dietary changes prior to hospitalization including decreasing carbohydrates. Noticed that over the past month he has had more hypoglycemia. We'll place dietary consultation to discuss with patient regarding diet changes. He previously was on Levemir 75 units twice a day. Decrease him to 50 units twice a day at this time and continue to monitor sugars carefully. Monitor blood pressure and continue on Toprol and Cozaar. Continue with Rocephin and vancomycin; will coverage. Did speak with orthopedic team regarding postoperative instructions of postop shoe, weightbearing as tolerated on right heel. Will encourage work with PT and OT for assistance with ambulation Recheck CBC and BMP tomorrow morning to follow blood counts, renal function and electrolytes Discuss further plan and orders with attending, Dr. Elder Plan/Intensity of Service Chest x-ray reviewed by myself, discussed with multiple consulting physicians, old records reviewed, laboratory data reviewed. Code Status Full Code Hospital Course Summary Disclaimer The hospital course summary below is not to be considered part of the above Progress Note. Hospital Course Summary Admit patient to outpatient observation under care of Dr. Elder for sepsis, right great toe diabetic foot ulcer Patient does meet sepsis criteria. Given known right great toe wound, leukocytosis, fever, very He has been on IV Rocephin since 07/31/16, and been on Bactrim since 09/01/16. He continues to have fevers and leukocytosis despite outpatient treatment. Blood cultures were obtained last evening in the emergency room on 09/02/16, however, are currently pending. Blood cultures were repeated today and one culture was taken from his indwelling PICC line. Will discuss further antimicrobial coverage with Dr. Alexis, however at this point, will initiate vancomycin. Pharmacy consultation placed for dosing management. Will continue to monitor patient's Accu-Cheks carefully. He has been watching what he is eating and has noted to have some lower blood sugars recently. Obtain Hgb A1C on admission. Will likely need to decrease BID Levemir to 60-65 units twice a day. He has routinely been on 70 twice a day. Given increased swelling and erythema over the last 24 hours to the right lower extremity. Will obtain a venous Doppler to rule out DVT. Will need to discuss anticoagulation/DVT prophylaxis. Patient placed to Dr. Valle for further evaluation and recommendation. Recheck CBC and BMP tomorrow morning to follow blood counts, renal function and electrolytes Discuss further orders and plan of care with attending, Dr. Elder. At time of discharge medical care will return to primary care provider, Dr. Дмитрий Cobb 09/04 Hgb A1 C on admission 9.6. Patient does verify that he has tried to make some dietary changes prior to hospitalization including decreasing carbohydrates. Noticed that over the past month he has had more hypoglycemia. We'll place dietary consultation to discuss with patient regarding diet changes. He previously was on Levemir 75 units twice a day. Decrease him to 50 units twice a day at this time and continue to monitor sugars carefully. Monitor blood pressure and continue on Toprol and Cozaar. Continue with Rocephin and vancomycin; will coverage. Did speak with orthopedic team regarding postoperative instructions of postop shoe, weightbearing as tolerated on right heel. Will encourage work with PT and OT for assistance with ambulation Recheck CBC and BMP tomorrow morning to follow blood counts, renal function and electrolytes Discuss further plan and orders with attending, JENNIFER Tolentino MD 09/04/16 1331: Assessment & Plan Assessment I have independently evaluated and examined this patient. I reviewed the chart, the patient's history, and the CUT AND PRINT MACHINE OPERATOR's documented findings as above. We discussed and formulated the assessment and plan as above with additions as below: Patient seen postoperatively and was in good spirits without complaints of pain , dyspnea, fever, or nausea. He is hopeful that amputation of the toe will allow him to be pain-free and finally recover. Patient reports that erythematous lesions on the right mead are less tender to palpation today than prior to initiation of vancomycin. NAD, alert. Respirations nonlabored with good airflow. Right foot with bulky dressing but decreased erythema over distal mead. MRI reviewed by myself revealing bone marrow edema in the first phalanx of the great toe and possibly proximal phalanx of the third toe on the right foot; reported to have improvement in the second toe. Findings discussed with Dr. Valle. Continue current therapy. Dr. Alexis updated. Date 36 ceftriaxone (tentatively scheduled to be completed 09/10) Date 2 vancomycin Plan/Intensity of Service MRI reviewed by myself, surgical findings discussed with Dr. Valle and Dr. Alexis. Family members updated, laboratory data reviewed. DEVANG MANN V CUT AND PRINT MACHINE OPERATOR September 04, 2016 11:56 JENNIFER ELDER MD September 04, 2016 13:31
--- NOTE | 2016-09-04 17:05 | NUR ---
Diet Consult for Diabetes: BMI: 43.5 Estimated daily calorie needs to lose ~1 lb/week: 3000 Diet order: [address] spoke with patient and his significant other, Sophie. Provided and discussed MOC handouts, "Healthy Eating 1-2-3" and "Food Choices on Your Plate." Patient goes to work at 4:00 AM-we talked about healthy and fast ideas for breakfast, lunch and snacks. Patient had been trying to eliminate carbs and was having low blood sugars. Discussed why carbs are needed. Ed and Sophie appear to have a very good understanding of information covered. Also, provided MNT (Medical Nutrition Therapy" brochure and encouragement to call for education opportunities.
--- NOTE | 2016-09-04 19:00 | NUR ---
STATUS PATIENT HAS BEEN RESTING IN ROOM QUIETLY. HAS NOT COMPLAINED OF PAIN ALL DAY TILL NOW. NORCO IS ADMINISTERED. PATIENT GETS TO THE RECLINER AFTER USING THE BATHROOM AT THIS TIME. PATIENT NOTED TO HAVE STEADY GAIT. VITAL SIGNS REMAIN STABLE.
[2016-09-04] MEDS: INSULIN DETEMIR 100 UNIT/ML SQ SCH (21:37)
[2016-09-05] VITALS (8 sets, daily range): BP systolic 135–155; BP diastolic 73–88; PULSE 51–64; RESP 15–16; TEMP 96.4–99.2; O2SAT 95–97
--- NOTE | 2016-09-05 00:21 | NUR ---
Chart Check 24 hour chart check completed
[2016-09-05] MEDS: VANCOMYCIN 2,000 MG in NORMAL SALINE 500 ML IV SCH ×3 (03:17→21:39)
[2016-09-05 05:03] LABS: BASOPHILS % (AUTO) 0.3 % (0-2); EOSINOPHILS # (AUTO) 0.3 T/MM3 (0-0.5); EOSINOPHILS % (AUTO) 4.7 % (0-4); HCT - HEMATOCRIT 32.9 % (41-53); HGB - HEMOGLOBIN 10.1 GM/DL (13.5-17.5); IMMATURE GRANULOCYTE # (AUTO) 0.02 T/MM3 (0.00-0.03); IMMATURE GRANULOCYTE % (AUTO) 0.3 % (0.0-0.5); LYMPHOCYTES % (AUTO) 15.7 % (23-45); MEAN CORPUSCULAR HGB 27.2 UUG (26-34); MEAN CORPUSCULAR HGB CONC(MCHC 30.7 GM/DL (31-37); MEAN CORPUSCULAR VOLUME 88.4 UM3 (80-100); MEAN PLATELET VOLUME 9.7 UM3 (9.4-12.4); MONOCYTES # (AUTO) 0.5 T/MM3 (0-0.8); MONOCYTES % (AUTO) 7.8 % (0-9.0); NEUTROPHILS #(AUTO)-ABSOLUTE 4.4 T/MM3 (1.8-7.7); NEUTROPHILS % (AUTO) 71.2 % (33-66); RED BLOOD COUNT 3.72 M/MM3 (4.50-5.90); WBC - WHITE BLOOD COUNT 6.2 T/MM3 (4.5-11.0)
[2016-09-05 05:15] LABS: ANION GAP 11 MEQ/L (5-15); BUN/CREATININE RATIO 21 RATIO (6-26); CHLORIDE 105 MEQ/L (98-107); CO2 - CARBON DIOXIDE 27 MEQ/L (22-30); CREATININE 0.7 MG/DL (0.8-1.5); GLOMERULAR FILTRATION RATE 120; GLUCOSE 119 MG/DL (75-110); POTASSIUM 4.3 MEQ/L (3.6-5); SODIUM 143 MEQ/L (134-144)
--- NOTE | 2016-09-05 05:38 | NUR ---
STATUS PATIENT A/OX3. PRN NORCO WAS GIVEN FOR PAIN. PATIENT AMBULATED TO BATHROOM WITH ONE STANDBY ASSIST. PATIENT HAD ADEQUATE URINARY DURING NIGHT. DRESSING DRY AND INTACT ON RT FOOT. ELEVATED RT FOOT ON PILLOW FOR COMFORT. PICC PATENT AND FLUSHES WELL. ON ROOM AIR. DENIES CHEST PAIN,SOA,OR N/V. CALL LIGHT WITHIN REACH. SIDE RAID UPX2. PATIENT'S AT BEDSIDE . CONTINUE TO MONITOR.
[2016-09-05] MEDS: METOPROLOL XL 50 MG TABLET PO SCH (09:26)
[2016-09-05] MEDS: LOSARTAN 100 MG TABLET PO SCH (09:27)
[2016-09-05] MEDS: PAROXETINE 40 MG TABLET PO SCH (09:28)
[2016-09-05] MEDS: MAGNESIUM OXIDE 400 MG TABLET PO SCH (09:28)
[2016-09-05] MEDS: CETIRIZINE 10 MG TABLET PO SCH (09:28)
[2016-09-05] MEDS: METFORMIN 1,000 MG TABLET PO SCH ×2 (09:28→17:43)
[2016-09-05] MEDS: GlyBURIDE 5 MG TABLET PO SCH ×2 (09:28→17:43)
[2016-09-05] MEDS: INSULIN DETEMIR 100 UNIT/ML SQ SCH ×2 (09:28→21:39)
[2016-09-05] MEDS: ASPIRIN *EC* 81mg TABLET PO SCH (09:28)
[2016-09-05] MEDS: CEFTRIAXONE 2 G in NORMAL SALINE 100 ML IV SCH (09:29)
[2016-09-05] MEDS: D5-1/2 NS KCL 20 MEQ 1,000 ML IV SCH ×2 (15:29→22:15)
--- NOTE | 2016-09-05 16:30 | PNPDOC ---
Subjective Date DATE: 09/05/16 TIME: 16:11 Subjective Ed reports he feels much better today. He's had virtually no pain in this is right foot since surgery although has had some minor phantom pain in the right great toe following surgical amputation. He thinks he bumped his foot during sleep last night triggering the discomfort. He no longer feels feverish. He was able to ambulate to the bathroom putting weight only on the heel of the right foot. He denied dyspnea, palpitations, nausea, or constipation. Objective Vital Signs Vital signs Vital Signs Date Time Temp Pulse Resp B/P Pulse Ox O2 Delivery O2 Flow Rate FiO2 09/05/16 12:00 96.4 63 16 155/73 97 Room Air 09/04/16 13:45 95 EXAM General-NAD, alert HEENT-conjunctiva clear, sclera anicteric, EOMI, oropharynx clear Lungs-respirations nonlabored with good airflow, breath sounds clear anteriorly/ laterally Cardiac-regular rhythm, S1-S2 Abd-soft, nontender, bowel sounds present Ext-trace edema right lower extremity Skin-erythema right lower extremity has resolved other than residual faint erythema in patchy areas which are no longer tender. Neuro-sensation intact distal right toes Psych-calm, cooperative - Height (Feet): 6 Height (Inches): 1.50 Weight (Kilograms): 153.600 Laboratory Laboratory Laboratory Tests 09/04/16 04:35 09/05/16 03:55 Laboratory Tests 09/04/16 04:35 09/05/16 03:55 Today's blood sugars 98-170-159 Microbiology Microbiology Microbiology Date/Time Source Procedure Growth Status 09/03/16 14:02 Cath/Port/Line/Picc Blood Culture - Preliminary NO GROWTH AFTER 48 HOURS Resulted 09/03/16 13:56 Cath/Port/Line/Picc Blood Culture - Preliminary NO GROWTH AFTER 48 HOURS Resulted 09/04/16 09:12 Toe Right First Gram Stain - Final Resulted 09/04/16 09:12 Surgical Culture - Preliminary Staphylococcus Aureus Resulted Sepsis Diagnostic Criteria Sepsis Confirmed/Suspected Infection: Yes SIRS Criteria: Temp<=96.8 or >=100.4 (102 prior to arrival), Plasma CRP>2 above normal (47.3 on 08/31-current value pending) Assessment & Plan Problems: (1) Sepsis Status: Acute Assessment & Plan: Manifestations of sepsis include the following 1. Known diabetic foot ulcer wound to the right great toe, failed outpatient treatment-wound culture 08/26-heavy growth MRSA 2. Leukocytosis, WBC count from last night was 13.2 3. Fever- 100.1 on admission/102 prior to admission 4. Elevated CRP 205.5 (2) Diabetic ulcer of right great toe Status: Chronic Assessment & Plan: s/p amputation of right great toe on 09/04/16; culture positive SA (3) Recurrent cellulitis of lower extremity Status: Acute (4) DM (diabetes mellitus) Status: Chronic Qualifiers: Diabetes mellitus type: type 2 Diabetes mellitus complication status: with skin complications Diabetes mellitus complication detail: with foot ulcer Diabetes mellitus joint terminal attack controller insulin use: with care home use Qualified Codes: E11.621 - Type 2 diabetes mellitus with foot ulcer; L97.509 - Non- pressure chronic ulcer of other part of unspecified foot with unspecified severity; Z79.4 - intermediate (current) use of insulin Assessment & Plan: A1c 9.6 on date of admission (5) Hypertension Status: Chronic Qualifiers: Hypertension type: essential hypertension Qualified Codes: I10 - Essential (primary) hypertension (6) Restless leg syndrome Status: Chronic (7) Depression Status: Chronic (8) Morbid obesity with BMI of 40.0-44.9, adult Status: Chronic (9) Hypoglycemia Status: Acute (10) Toe osteomyelitis, right Status: Chronic Assessment & Plan: Right great toe-bone biopsy 07/31/69 Assessment Doing well, fever and leukocytosis have resolved following amputation and with initiation of vancomycin for MRSA. Current dose vancomycin 2 g every 8 hours-renal function stable, check trough with next dose. Cellulitis has improved significantly as has pain control. Surgical pathology pending-antibiotic duration uncertain at present. Diabetes control adequate; no recurrent hypoglycemia with reduced dose Levemir. Blood pressure control good. Consult PT. Continue current therapy. Date 37 ceftriaxone (tentatively scheduled to be completed 09/10) Date 3 vancomycin Plan/Intensity of Service Labs reviewed, discussed with nursing. Code Status Full Code Hospital Course Summary Disclaimer The hospital course summary below is not to be considered part of the above Progress Note. Hospital Course Summary Admit patient to outpatient observation under care of Dr. Elder for sepsis, right great toe diabetic foot ulcer Patient does meet sepsis criteria. Given known right great toe wound, leukocytosis, fever, very He has been on IV Rocephin since 07/31/16, and been on Bactrim since 09/01/16. He continues to have fevers and leukocytosis despite outpatient treatment. Blood cultures were obtained last evening in the emergency room on 09/02/16, however, are currently pending. Blood cultures were repeated today and one culture was taken from his indwelling PICC line. Will discuss further antimicrobial coverage with Dr. Alexis, however at this point, will initiate vancomycin. Pharmacy consultation placed for dosing management. Will continue to monitor patient's Accu-Cheks carefully. He has been watching what he is eating and has noted to have some lower blood sugars recently. Obtain Hgb A1C on admission. Will likely need to decrease BID Levemir to 60-65 units twice a day. He has routinely been on 70 twice a day. Given increased swelling and erythema over the last 24 hours to the right lower extremity. Will obtain a venous Doppler to rule out DVT. Will need to discuss anticoagulation/DVT prophylaxis. Patient placed to Dr. Valle for further evaluation and recommendation. Recheck CBC and BMP tomorrow morning to follow blood counts, renal function and electrolytes Discuss further orders and plan of care with attending, Dr. Elder. At time of discharge medical care will return to primary care provider, Dr. Дмитрий Cobb 09/04 Hgb A1 C on admission 9.6. Patient does verify that he has tried to make some dietary changes prior to hospitalization including decreasing carbohydrates. Noticed that over the past month he has had more hypoglycemia. We'll place dietary consultation to discuss with patient regarding diet changes. He previously was on Levemir 75 units twice a day. Decrease him to 50 units twice a day at this time and continue to monitor sugars carefully. Monitor blood pressure and continue on Toprol and Cozaar. Continue with Rocephin and vancomycin; will coverage. Did speak with orthopedic team regarding postoperative instructions of postop shoe, weightbearing as tolerated on right heel. Will encourage work with PT and OT for assistance with ambulation Recheck CBC and BMP tomorrow morning to follow blood counts, renal function and electrolytes 09/05/16 Doing well, fever and leukocytosis have resolved following amputation and with initiation of vancomycin for MRSA. Current dose vancomycin 2 g every 8 hours-renal function stable, check trough with next dose. Cellulitis has improved significantly as has pain control. Surgical pathology pending-antibiotic duration uncertain at present. Diabetes control adequate; no recurrent hypoglycemia with reduced dose Levemir. Blood pressure control good. Consult PT. Continue current therapy. Date 37 ceftriaxone (tentatively scheduled to be completed 09/10) Date 3 vancomycin JENNIFER ELDER MD September 05, 2016 16:14
--- NOTE | 2016-09-05 18:04 | NUR ---
Summary Pt has been alert and oriented to person, place, and time. Denied pain this shift. Family has been at bedside. Ambulates with stand by assist of 1. PABLITO wrap to the Rt foot is clean, dry, and intact. PICC to the LUE has D51/2NS with 20KCL @ 75cc/hr running at this time, tolerated his Vanco and Rocephin well. BGM at 1000 was 170 and at 1400 was 159, no sliding scale needed. He has been continent his shift, uses the urinal and the stool, had a BM this shift. Vitals have been stable this shift. Call light has been within reach.
--- NOTE | 2016-09-05 20:00 | NUR ---
Vanco This dose of Vanco was given off schedule due to the fact this RN was waiting for the Vanco trough to finish in the lab. Next dose will then be off slightly as well. Will attempt to get it closer to schedule.
[2016-09-06] VITALS (8 sets, daily range): BP systolic 154–183; BP diastolic 87–95; PULSE 53–65; RESP 14–18; TEMP 97.5–99.2; O2SAT 93–96
[2016-09-06] MEDS: VANCOMYCIN 2,000 MG in NORMAL SALINE 500 ML IV SCH ×3 (04:45→20:01)
--- NOTE | 2016-09-06 05:49 | NUR ---
SHIFT SUMMARY PT IS ALERT AND ORIENTED X3,VITAL SIGNS ARE STABLE ON ROOM AIR. DENIES C/P,N/V AND SOA. PT HAS KEPT HIS LEG ELEVATED ON PILLOWS THROUGHOUT THE NIGHT. PT IS INQUIRING ABOUT TAKING A WALK, NO ORDERS TO AMBULATE IN THE HALLS AT THIS TIME. NOTIFIED ON DAY SHIFT THAT PHYSICAL THERAPY HAD BEEN CONSULTED. WILL CONTINUE TO MONITOR.
[2016-09-06] MEDS: CEFTRIAXONE 2 G in NORMAL SALINE 100 ML IV SCH (08:51)
[2016-09-06] MEDS: CETIRIZINE 10 MG TABLET PO SCH (08:53)
[2016-09-06] MEDS: PAROXETINE 40 MG TABLET PO SCH (08:53)
[2016-09-06] MEDS: MAGNESIUM OXIDE 400 MG TABLET PO SCH (08:53)
[2016-09-06] MEDS: ASPIRIN *EC* 81mg TABLET PO SCH (08:53)
[2016-09-06] MEDS: METOPROLOL XL 50 MG TABLET PO SCH (08:53)
[2016-09-06] MEDS: GlyBURIDE 5 MG TABLET PO SCH ×2 (08:54→17:38)
[2016-09-06] MEDS: METFORMIN 1,000 MG TABLET PO SCH ×2 (08:55→17:38)
[2016-09-06] MEDS: INSULIN DETEMIR 100 UNIT/ML SQ SCH (08:56)
[2016-09-06] MEDS: LOSARTAN 100 MG TABLET PO SCH (08:56)
[2016-09-06] MEDS: D5-1/2 NS KCL 20 MEQ 1,000 ML IV SCH (08:58)
--- NOTE | 2016-09-06 09:32 | NUR ---
VANCOMYCIN SHORT REVIEW: Today's SCr = not ordered. Will continue the Vancomycin 2,000mg IV Q8hrs. Will continue to monitor and make adjustments accordingly. Thank you.
[2016-09-06] MEDS ORDERED: FUROSEMIDE 20 MG/2 ML INJECTION IV ONE (13:00)
--- NOTE | 2016-09-06 17:31 | PNPDOC ---
Subjective Date DATE: 09/06/16 TIME: 17:21 Subjective Ed reports feeling well today. He is tolerating weightbearing on his right foot without difficulty and has minimal phantom pain in the right great toe. Blood sugar dropped to 79 this morning despite reduction in insulin dose and continue D5 infusion. His appetite is good and he denied dyspnea, fever, nausea, or constipation. He is anxious to discharge home. Objective Vital Signs Vital signs Vital Signs Date Time Temp Pulse Resp B/P Pulse Ox O2 Delivery O2 Flow Rate FiO2 09/06/16 15:52 98.1 58 15 173/91 96 Room Air 09/04/16 13:45 95 NAD, alert, cooperative, fluent speech Conjunctiva clear, oropharynx clear Respirations nonlabored, good airflow, breath sounds clear Regular rhythm, S1-S2 Abdomen soft, nontender, bowel sounds present No residual erythema right mead, no tenderness, trace edema only. Dressing present right foot. Sensation intact bilateral lower extremities. Height (Feet): 6 Height (Inches): 1.50 Weight (Kilograms): 153.600 Laboratory Laboratory Laboratory Tests 09/05/16 03:55 Laboratory Tests 09/05/16 03:55 Microbiology Microbiology Microbiology Date/Time Source Procedure Growth Status 09/04/16 09:12 Toe Right First Gram Stain - Final Resulted 09/04/16 09:12 Surgical Culture - Preliminary S. Aureus, Meth-Resistant Resulted Sepsis Diagnostic Criteria Sepsis Confirmed/Suspected Infection: Yes SIRS Criteria: Temp<=96.8 or >=100.4 (102 prior to arrival), Plasma CRP>2 above normal (47.3 on 08/31-current value pending) Assessment & Plan Problems: (1) Sepsis Status: Acute Assessment & Plan: Manifestations of sepsis include the following 1. Known diabetic foot ulcer wound to the right great toe, failed outpatient treatment-wound culture 08/26-heavy growth MRSA 2. Leukocytosis, WBC count from last night was 13.2 3. Fever- 100.1 on admission/102 prior to admission 4. Elevated CRP 205.5 (2) Diabetic ulcer of right great toe Status: Chronic Assessment & Plan: s/p amputation of right great toe on 09/04/16; culture positive SA (3) Recurrent cellulitis of lower extremity Status: Acute (4) DM (diabetes mellitus) Status: Chronic Qualifiers: Diabetes mellitus type: type 2 Diabetes mellitus complication status: with skin complications Diabetes mellitus complication detail: with foot ulcer Diabetes mellitus long-term insulin use: with long-term use Qualified Codes: E11.621 - Type 2 diabetes mellitus with foot ulcer; L97.509 - Non- pressure chronic ulcer of other part of unspecified foot with unspecified severity; Z79.4 - assisted (current) use of insulin Assessment & Plan: A1c 9.6 on date of admission (5) Hypertension Status: Chronic Qualifiers: Hypertension type: essential hypertension Qualified Codes: I10 - Essential (primary) hypertension (6) Restless leg syndrome Status: Chronic (7) Depression Status: Chronic (8) Morbid obesity with BMI of 40.0-44.9, adult Status: Chronic (9) Hypoglycemia Status: Acute (10) Toe osteomyelitis, right Status: Chronic Assessment & Plan: Right great toe-bone biopsy 07/31/69 Assessment Blood pressures moderately elevated overnight-fluid volume +5 L since admission. IV fluids discontinued, low-volume Lasix given. On usual home medications for blood pressure. Insulin decreased further with discontinuation of IV fluids-Levemir dropped from 50 units twice a day to 35 units twice a day. Continue metformin at home dose. PT consult pending but patient is ambulating without difficulty. Date 38 ceftriaxone (tentatively scheduled to be completed 09/10) Date 4 vancomycin-every 8 hour dosing with trough 15.9 will preclude home administration realistically. Options discussed with Dr. Alexis, convert to daptomycin at 6 mg/kg. We'll make conversion tomorrow morning with plans to coordinate daptomycin through the infusion center until case management can set up home antibiotic delivery. Dr. Alexis would like to see patient back in the wound care center in approximately [address] Valle will see back later this week. Plans discussed with the patient-discharged tentatively planned following initial dose of daptomycin tomorrow (patient has administered daptomycin at home previously). Pathology pending. Plan/Intensity of Service Discussed with infectious disease and orthopedics, laboratory data reviewed, discussed with multiple family members. Code Status Full Code Hospital Course Summary Disclaimer The hospital course summary below is not to be considered part of the above Progress Note. Hospital Course Summary Admit patient to outpatient observation under care of Dr. Elder for sepsis, right great toe diabetic foot ulcer Patient does meet sepsis criteria. Given known right great toe wound, leukocytosis, fever, very He has been on IV Rocephin since 4/21/17, and been on Bactrim since 09/01/16. He continues to have fevers and leukocytosis despite outpatient treatment. Blood cultures were obtained last evening in the emergency room on 09/02/16, however, are currently pending. Blood cultures were repeated today and one culture was taken from his indwelling PICC line. Will discuss further antimicrobial coverage with Dr. Alexis, however at this point, will initiate vancomycin. Pharmacy consultation placed for dosing management. Will continue to monitor patient's Accu-Cheks carefully. He has been watching what he is eating and has noted to have some lower blood sugars recently. Obtain Hgb A1C on admission. Will likely need to decrease BID Levemir to 60-65 units twice a day. He has routinely been on 70 twice a day. Given increased swelling and erythema over the last 24 hours to the right lower extremity. Will obtain a venous Doppler to rule out DVT. Will need to discuss anticoagulation/DVT prophylaxis. Patient placed to Dr. Valle for further evaluation and recommendation. Recheck CBC and BMP tomorrow morning to follow blood counts, renal function and electrolytes Discuss further orders and plan of care with attending, Dr. Elder. At time of discharge medical care will return to primary care provider, Dr. Дмитрий Cobb 09/04 Hgb A1 C on admission 9.6. Patient does verify that he has tried to make some dietary changes prior to hospitalization including decreasing carbohydrates. Noticed that over the past month he has had more hypoglycemia. We'll place dietary consultation to discuss with patient regarding diet changes. He previously was on Levemir 75 units twice a day. Decrease him to 50 units twice a day at this time and continue to monitor sugars carefully. Monitor blood pressure and continue on Toprol and Cozaar. Continue with Rocephin and vancomycin; will coverage. Did speak with orthopedic team regarding postoperative instructions of postop shoe, weightbearing as tolerated on right heel. Will encourage work with PT and OT for assistance with ambulation Recheck CBC and BMP tomorrow morning to follow blood counts, renal function and electrolytes 09/05/16 Doing well, fever and leukocytosis have resolved following amputation and with initiation of vancomycin for MRSA. Current dose vancomycin 2 g every 8 hours-renal function stable, check trough with next dose. Cellulitis has improved significantly as has pain control. Surgical pathology pending-antibiotic duration uncertain at present. Diabetes control adequate; no recurrent hypoglycemia with reduced dose Levemir. Blood pressure control good. Consult PT. Continue current therapy. Date 37 ceftriaxone (tentatively scheduled to be completed 09/10) Date 3 vancomycin 09/06/16 Blood pressures moderately elevated overnight-fluid volume +5 L since admission. IV fluids discontinued, low-volume Lasix given. On usual home medications for blood pressure. Insulin decreased further with discontinuation of IV fluids-Levemir dropped from 50 units twice a day to 35 units twice a day. Continue metformin at home dose. PT consult pending but patient is ambulating without difficulty. Date 38 ceftriaxone (tentatively scheduled to be completed 09/10) Date 4 vancomycin-every 8 hour dosing with trough 15.9 will preclude home administration realistically. Options discussed with Dr. Alexis, convert to daptomycin at 6 mg/kg. We'll make conversion tomorrow morning with plans to coordinate daptomycin through the infusion center until case management can set up home antibiotic delivery. Dr. Alexis would like to see patient back in the wound care center in approximately [address] Valle will see back later this week. Plans discussed with the patient-discharged tentatively planned following initial dose of daptomycin tomorrow (patient has administered daptomycin at home previously). Pathology pending. JENNIFER ELDER MD September 06, 2016 17:29
--- NOTE | 2016-09-06 18:04 | NUR ---
Shift Summary Patient alert and oriented x3. Up ad ivon in his room. Patient going home tomorrow. PICC to left upper extremity. IV fluids stopped this shift, IV lasix given x1. Patient right foot wrapped with dressing and alyse wrap. BGM at 1000 was 224, 2 units sliding scale insulin given. Patient able to administer insulin. He states he has changed his eating habits to help control his DM at home and states he is pleased with the results. Denied pain this shift.
[2016-09-06] MEDS ORDERED: NORMAL SALINE 500 ML IV PRN (20:30)
[2016-09-06] MEDS ORDERED: INSULIN DETEMIR 100 UNIT/ML SQ SCH (21:00)
[2016-09-06] MEDS: NS 500 ML IV PRN (21:15)
--- NOTE | 2016-09-06 23:18 | NUR ---
Chart Check 24 hour chart check completed
[2016-09-07] MEDS: VANCOMYCIN 2,000 MG in NORMAL SALINE 500 ML IV SCH (03:09)
[2016-09-07 03:36] VITALS: BP 167/97; PULSE 57; RESP 16; TEMP 97.2; O2SAT 95
[2016-09-07 05:59] LABS: BASOPHILS % (AUTO) 0.2 % (0-2); EOSINOPHILS # (AUTO) 0.3 T/MM3 (0-0.5); EOSINOPHILS % (AUTO) 3.1 % (0-4); HCT - HEMATOCRIT 33.3 % (41-53); HGB - HEMOGLOBIN 10.9 GM/DL (13.5-17.5); IMMATURE GRANULOCYTE # (AUTO) 0.03 T/MM3 (0.00-0.03); IMMATURE GRANULOCYTE % (AUTO) 0.3 % (0.0-0.5); LYMPHOCYTES # (AUTO) 1.2 T/MM3 (1-4.8); LYMPHOCYTES % (AUTO) 13.8 % (23-45); MEAN CORPUSCULAR HGB 27.7 UUG (26-34); MEAN CORPUSCULAR HGB CONC(MCHC 32.7 GM/DL (31-37); MEAN CORPUSCULAR VOLUME 84.5 UM3 (80-100); MEAN PLATELET VOLUME 9.5 UM3 (9.4-12.4); MONOCYTES # (AUTO) 0.4 T/MM3 (0-0.8); MONOCYTES % (AUTO) 4.4 % (0-9.0); NEUTROPHILS #(AUTO)-ABSOLUTE 6.8 T/MM3 (1.8-7.7); NEUTROPHILS % (AUTO) 78.2 % (33-66); RED BLOOD COUNT 3.94 M/MM3 (4.50-5.90); WBC - WHITE BLOOD COUNT 8.7 T/MM3 (4.5-11.0)
[2016-09-07 06:15] LABS: CALCIUM 8.9 MG/DL (8.4-10.2); GLUCOSE 74 MG/DL (75-110)
[2016-09-07 06:17] LABS: ANION GAP 11 MEQ/L (5-15); BUN/CREATININE RATIO 17 RATIO (6-26); C-REACTIVE PROTEIN 26.4 MG/L (0-9); CHLORIDE 106 MEQ/L (98-107); CO2 - CARBON DIOXIDE 30 MEQ/L (22-30); CREATININE 0.6 MG/DL (0.8-1.5); GLOMERULAR FILTRATION RATE 144; MAGNESIUM 1.7 MG/DL (1.6-2.3); POTASSIUM 4.1 MEQ/L (3.6-5); SODIUM 147 MEQ/L (134-144)
--- NOTE | 2016-09-07 06:36 | NUR ---
STATUS PATIENT A/OX3. UP AD KAMALJIT IN ROOM. PATIENT SLEPT BETWEEN CARES. ON ROOM AIR. DENIES CHEST PAIN,SOA,OR N/V. DENIES PAIN DURING SHIFT. BGM AT 0600 73.APPLE JUICE WAS GIVEN.PICC TO LEFT UPPER ARM. PABLITO WRAP TO RT FOOT IS CLEAN,DRY,AND INTACT.BED LOCKED AND LOW. CALL LIGHT WITHIN REACH.CONTINUE TO MONITOR.
[2016-09-07 07:40] VITALS: BP 183/102; PULSE 61; RESP 18; TEMP 97.3; O2SAT 96
[2016-09-07 07:42] VITALS: BP 192/115; PULSE 57; RESP 18; O2SAT 96
[2016-09-07] MEDS: CEFTRIAXONE 2 G in NORMAL SALINE 100 ML IV SCH (08:07)
[2016-09-07] MEDS: CETIRIZINE 10 MG TABLET PO SCH (08:07)
[2016-09-07] MEDS: METFORMIN 1,000 MG TABLET PO SCH (08:08)
[2016-09-07] MEDS: LOSARTAN 100 MG TABLET PO SCH (08:08)
[2016-09-07] MEDS: PAROXETINE 40 MG TABLET PO SCH (08:08)
[2016-09-07] MEDS: METOPROLOL XL 50 MG TABLET PO SCH (08:08)
[2016-09-07] MEDS: GlyBURIDE 5 MG TABLET PO SCH (08:08)
[2016-09-07] MEDS: ASPIRIN *EC* 81mg TABLET PO SCH (08:08)
[2016-09-07] MEDS: MAGNESIUM OXIDE 400 MG TABLET PO SCH (08:09)
[2016-09-07 08:20] VITALS: BP 152/94; PULSE 57
[2016-09-07 08:21] VITALS: PULSE 57
[2016-09-07] MEDS ORDERED: INSULIN DETEMIR 100 UNIT/ML SQ SCH (09:00)
[2016-09-07 11:27] VITALS: BP 150/89; PULSE 62; RESP 18; TEMP 98.2; O2SAT 91
[2016-09-07] MEDS ORDERED: FUROSEMIDE 20 MG/2 ML INJECTION IV ONE (11:30)
[2016-09-07] MEDS ORDERED: INSU100V12 SQ (11:40)
[2016-09-07] MEDS ORDERED: DAPT500V3 IV (11:40)
[2016-09-07] MEDS ORDERED: DAPTOMYCIN IV SCH (12:00)
[2016-09-07] MEDS ORDERED: NORMAL SALINE IV SCH (12:00)
--- NOTE | 2016-09-07 12:02 | NUR ---
[place] CM TOOK DC PAPERS TO [facility] FOR NEW ORDERS ON DAPTOMYCIN. CM FAXED ORDERS OF DC WITH DAPTOMYCIN DOSE TO [place] AT [phone].
[2016-09-07] MEDS ORDERED: HYDR-4072 PO (12:03)
--- NOTE | 2016-09-07 13:06 | DSPDOC ---
General Date Date DATE: 09/07/16 TIME: 12:07 Attending Physician Karla Elder MD Admitting Physician Karla Elder MD Consulting Physician Fernando Valle MD Admitting Diagnosis wound infection Discharge Diagnosis Diabetic foot infection due to MRSA, complicated with Sepsis (on Admssion) Type II DM (Uncontrolled) Procedures s/p amputation of right great toe on 09/04/16 Laboratory Laboratory Tests Test 09/06/16 06:11 09/06/16 10:04 09/06/16 14:00 09/06/16 19:59 Glucometer 79mg/dL (75-110) 224mg/dL (75-110) 130mg/dL (75-110) 128mg/dL (75-110) Test 09/07/16 05:28 09/07/16 06:00 09/07/16 10:27 White Blood Count 8.7T/MM3 (4.5-11.0) Red Blood Count 3.94M/MM3 (4.50-5.90) Hemoglobin 10.9GM/DL (13.5-17.5) Hematocrit 33.3% (41-53) Mean Corpuscular Volume 84.5UM3 (80-100) Mean Corpuscular Hemoglobin 27.7UUG (26-34) Mean Corpuscular Hemoglobin Concent 32.7GM/DL (31-37) RDW Standard Deviation 38.5FL (36.9-50.2) Platelet Count 311T/MM3 (130-400) Mean Platelet Volume 9.5UM3 (9.4-12.4) Immature Granulocyte % (Auto) 0.3% (0.0-0.5) Neutrophils (%) (Auto) 78.2% (33-66) Lymphocytes (%) (Auto) 13.8% (23-45) Monocytes (%) (Auto) 4.4% (0-9.0) Eosinophils (%) (Auto) 3.1% (0-4) Basophils (%) (Auto) 0.2% (0-2) Absolute Immature Granulocyte (auto 0.03T/MM3 (0.00-0.03) Absolute Neutrophils (auto) 6.8T/MM3 (1.8-7.7) Absolute Lymphocytes (auto) 1.2T/MM3 (1-4.8) Absolute Monocytes (auto) 0.4T/MM3 (0-0.8) Absolute Eosinophils (auto) 0.3T/MM3 (0-0.5) Absolute Basophils (auto) 0.0T/MM3 (0-0.2) Turbidity < 20 (0-20) Sodium Level 147MEQ/L (134-144) Potassium Level 4.1MEQ/L (3.6-5) Chloride Level 106MEQ/L (98-107) Carbon Dioxide Level 30MEQ/L (22-30) Anion Gap 11MEQ/L (5-15) Blood Urea Nitrogen 10.0MG/DL (9-20) Creatinine 0.6MG/DL (0.8-1.5) Glomerular Filtration Rate Calc 144 BUN/Creatinine Ratio 17RATIO (6-26) Glucose Level 74MG/DL (75-110) Calculated Osmolality 280MOSM/KG (261-280) Calcium Level 8.9MG/DL (8.4-10.2) Magnesium Level 1.7MG/DL (1.6-2.3) Icterus Index < 2 (0-7) Total Creatine Kinase 32U/L (55-170) C-Reactive Protein 26.4MG/L (0-9) Chemistry Specimen Hemolysis 16 (0-25) Glucometer 73mg/dL (75-110) 168mg/dL (75-110) Hemoglobin A1c - 9.6% on 09/03/2016 Initial CRP - 205.5 Initial WBC 11.9K Microbiology SURGICAL SITE CULTURE Preliminary 09/06/16 Organism 1 S. AUREUS, METH-RESISTANT MRSA INTERP JOYCE ------ --------- CIPROFLOXACIN R >=8 CLINDAMYCIN R >=4 DOXYCYCLINE S <=0.5 ERYTHROMYCIN R >=8 GENTAMICIN S <=0.5 LEVOFLOXACIN R 4 LINEZOLID S 2 OXACILLIN R >=4 TETRACYCLINE S <=1 TRIMETH/SULFA S <=10 VANCOMYCIN S <=0.5 SURGICAL SITE CULTURE Preliminary (changed) 09/06/16 Organism 1 STAPHYLOCOCCUS AUREUS S AUREUS INTERP JOYCE ------ --------- CIPROFLOXACIN R >=8 CLINDAMYCIN R >=4 DOXYCYCLINE S <=0.5 ERYTHROMYCIN R >=8 GENTAMICIN S <=0.5 LEVOFLOXACIN R 4 LINEZOLID S 2 OXACILLIN R >=4 TETRACYCLINE S <=1 TRIMETH/SULFA S <=10 Blood cultures x 2 negative at 72 hrs Radiology MRI R foot (09/03) "............................... Impression: 1. Worsening osteomyelitis involving the great toe proximal and distal phalanges. 2. New osteomyelitis involving the third toe, worst in the proximal phalanx. 3. Interval improvement in the presumed osteomyelitis within the second metatarsal head and proximal phalanx of the second toe. 4. Worsening cellulitis. 5. No drainable abscess seen. ........................" Doppler U/S lower extremity - negative for DVT (09/03) History of Present Illness Ed is a pleasant 46-year-old male who has had a long-standing history of right great toe ulcer since 2011. He started outpatient wound care in August of 2015 and has continued to follow their under regular basis under the care of Dr. Vargas and Dr. Valle. On 07/31/16 He underwent surgical debridement of right great toe diabetic foot ulcer with bone biopsy of 1st distal phalanx. This wound culture reveled E-coli and he has been on outpatient Rocephin IV daily since that time. On 08/26 he had another fight toe wound culture obtained which reveled MRSA. He was started on Bactrim however did not start it until Friday 09/01. This past August 30 he started having fevers, chills with intermittent episodes of vomiting. Redness and swelling has persisted to the right lower extremity, worsening over the last 24 hours. On the night prior to admission his fever at home was 102 thus he presented to the emergency room for acute evaluation at that time his WBC was found to be elevated at 13.2 with 77% neutrophils, 1% band. Venous lactate and pro-calcitonin were normal at that time. He was discharged home and instructed to follow up today. This morning he attempted to go to work, however, had an episode of emesis. He then presented to his primary care provider, Dr. Дмитрий Snell who felt that patient required hospitalization for more aggressive workup and treatment. Hospital Course Pt was admitted to the hospital by Dr Elder for sepsis and a R great toe diabetic foot ulcer. He met criteria for sepsis on admission (See H&P). Pt had leukocytosis, fever and had failed Bactrim for MRSA. A decision was made to admit the patient for more aggressive antibiotic therapy for his diabetic foot infection. Pt had cultures and was admitted to medical floor and strarted on IV vancomicyn, via PICC line. Pharmacy consult was entered for kinetics. Accuchecks were ordered. Pt had been on Levemir 75 U Q12H at home but was trying to decrease his Levemir per his PCP advise. His hemoglobin A1c was 9.6% consistent with poorly controlled DM. His levemir was decreased on admission to 60 U BID and then gradually to 35 in the course of the hospitalization, due to gradually decreasing levels of BS. On admission pt also had had a Doppler exam to R/O a DVT; this study was negative. Dr Valle was consulted for evaluation. Pt went to the OR and had an amputation of his R great toe, due to findings in the MRI suggestive of Osteomyelitis. At the moment of D/C the pathology is pending for this. Pt was on Vancomicyn 2gm IV Q8H which could not be transitioned to outpatient so he was changed to Daptomicyn IV on 09/07 (918 mg - 6mg/kg/day) - first dose given today and well tolerated (Baseline CPK was normal - low). Pt is Discharged home in stable condition with improved WBC count and no fever or chills. His CRP is trending down very fast as well. Pt was seen and examined today - Pt did not have any complaints denies any pain , no fever no chills. Was sitting up in bed having lunch. Discussed with his current plan for D/C, change of antibiotics and adjustment of his medications. He verbalized understanding all the instructions and will follow up tomorrow with the infussion clinic and with his Orthopedic surgeon this coming week. On physical exam, pt is well perfused, mentally clear, alert oriented x 3 coherent , well hydrated. Neck is thick and short - no JVD is seen. Chest - good air entry, RRR no murmurs. Abdomen in soft, ext show no edema, wound is dressed there is no erythema around the dressing. Problems: (1) Sepsis Status: Resolved Assessment & Plan: Manifestations of sepsis include the following 1. Known diabetic foot ulcer wound to the right great toe, failed outpatient treatment-wound culture 08/26-heavy growth MRSA 2. Leukocytosis, WBC count from last night was 13.2 3. Fever- 100.1 on admission/102 prior to admission 4. Elevated CRP 205.5 (2) Diabetic ulcer of right great toe Status: Resolved Assessment & Plan: s/p amputation of right great toe on 09/04/16; culture positive SA (3) Recurrent cellulitis of lower extremity Status: Resolved (4) DM (diabetes mellitus) Status: Chronic Assessment & Plan: A1c 9.6 on date of admission (5) Hypertension Status: Chronic (6) Restless leg syndrome Status: Chronic (7) Depression Status: Chronic (8) Morbid obesity with BMI of 40.0-44.9, adult Status: Chronic (9) Hypoglycemia Status: Resolved (10) Toe osteomyelitis, right Status: Chronic Assessment & Plan: Right great toe-bone biopsy 07/31/69 Code Status Full Code Home Meds Active Scripts Hydrocodone/Acetaminophen (Hydrocodon-Acetaminoph 7.5-325) 7.5-325 Tablet, 1 TAB PO Q4H Y for PAIN MDD 4 for 5 Days, #20 TAB 0 Refills Prov:CARMELO DUMONT MD 09/07/16 Daptomycin (Daptomycin) 500 Mg Vial, 918 MG IV DAILY for 14 Days, #14 Prov:CARMELO DUMONT MD 09/07/16 Insulin Detemir (Levemir) 100 Unit/Ml Inj, 40 UNIT SQ BID for 30 Days, #1 VIAL 0 Refills Please resume Levemir at 40 U Q12H (twice daily) - check with your PCP to continue decreasing the dose as per your pre-admission plan. Prov:CARMELO DUMONT MD 09/07/16 Reported Medications Ceftriaxone Na/Dextrose,Iso (Ceftriaxone 2 gm Piggyback) 2 Gm/50 Ml Froz.piggy, 2 GM IV DAILY 09/02/16 Paroxetine HCl (Paroxetine HCl) 40 Mg Tablet, 40 MG PO DAILY 09/02/16 Metoprolol Succinate (Metoprolol Succinate) 50 Mg Tab.er.24h, 50 MG PO DAILY 09/02/16 Losartan Potassium (Losartan Potassium) 100 Mg Tablet, 100 MG PO DAILY 09/02/16 Glyburide (Glyburide) 5 Mg Tablet, 10 MG PO BID 09/02/16 Ranitidine HCl (Zantac) 150 Mg Tablet, 150 MG PO BID Y for ACID REFLUX 07/31/16 Diphenhydramine HCl (Benadryl) 25 Mg Capsule, 50 MG PO HS 07/20/16 Aspirin (Aspir 81) 81 Mg Tablet.dr, 81 MG PO DAILY 07/20/16 Cetirizine HCl (Zyrtec) 10 Mg Tablet, 10 MG PO DAILY 07/20/16 Magnesium Oxide (Magnesium) 400 Mg Capsule, 400 MG PO DAILY 07/20/16 Metformin HCl (Metformin HCl) 1,000 Mg Tablet, 1000 MG PO BIDWM 07/20/16 Multivitamins (Multivitamin) 1 Tab Tablet, 1 TAB PO DAILY 10/19/11 Discontinued Reported Medications Acetaminophen (Tylenol Arthritis) 650 Mg Tablet.er, 1 TAB PO PRN Y for PAIN, TAB 09/03/16 Sulfamethoxazole/Trimethoprim (Bactrim Ds Tablet) 1 Each Tablet, 1 TAB PO BID 09/02/16 Discontinued Scripts Ondansetron HCl (Zofran) 4 Mg Tablet, 4 MG PO Q6H for NAUSEA, #30 TAB Prov:ALFRED JEFFRIES MD 09/02/16 Face to Face Encounter I met with patient on the day of dismissal and discussed follow up appointments , medications, and safety plan. Discharge Disposition home Copies To 1: Celeste SNELL MD; DESTINI VARGAS MD; FERNANDO VALLE MD Documentation Requirements BMI Low or High Assoc. dx for low or high BMI: Morbid obesity >40 Diabetes Diabetes Type: Type 2 Diabetes Is Diabetes Contolled?: Uncontolled Related to Diabetes: Related to CARMELO DUMONT MD September 07, 2016 12:21
--- NOTE | 2016-09-07 13:19 | PNPDOC ---
Subjective Date DATE: 09/07/16 TIME: 13:13 Subjective Pt states she is not feeling very well today: "I am getting a relapse". She states she is a bit better than on admission but feels worse than yesterday. Still with a lot of cough that is not productive. She is able to speak in full sentences today, she is alert coherent oriented x 3. Mood is normal not depressed. Reports good oral intake today. Objective Vital Signs Vital signs Vital Signs Date Time Temp Pulse Resp B/P Pulse Ox O2 Delivery O2 Flow Rate FiO2 09/07/16 11:27 98.2 62 18 150/89 91 Room Air 09/04/16 13:45 95 Height (Feet): 6 Height (Inches): 1.50 Weight (Kilograms): 152.900 General General Appearance: Orientated x 3, Overweight Eyes (Brief) Eyes: FOUND: EOMI, PERRL Neck (Brief) Neck: NOT FOUND: JVD, adenopathy, carotid bruits, thyromegaly Respiratory (Brief) Comments Pt has good air entry bilerally on anterior auscultation. On posterior auscultation pt has wheezing that are diffuse on the R hemithorax but not on the L hemithorax. Cardiovascular (Brief) Cardiac: FOUND: regular rate, regular rhythm Abdomen (Brief) Abdominal: FOUND: BS normo active x4, NOT FOUND: tender Extremities (Brief) Extremity : Comments No cyanosis is seen. No clubbing. No edema on the lower extremities. Musculoskeletal (Brief) Musculoskeletal: FOUND: extremities move equally, NOT FOUND: deformity, loss of motion, spasm, tenderness Integumentary (Brief) Integumentary: FOUND: pink, warm Neurologic (Brief) Neurological: FOUND: motor, sensory Psychiatric (Brief) Psychiatric: FOUND: alert, attentive, normal affect, oriented Laboratory Laboratory Laboratory Tests 09/07/16 05:28 Laboratory Tests 09/07/16 05:28 Sepsis Diagnostic Criteria Sepsis Confirmed/Suspected Infection: Yes SIRS Criteria: Temp<=96.8 or >=100.4 (102 prior to arrival), Plasma CRP>2 above normal (47.3 on 08/31-current value pending) Assessment & Plan Problems: (1) Sepsis Status: Resolved Assessment & Plan: Manifestations of sepsis include the following 1. Known diabetic foot ulcer wound to the right great toe, failed outpatient treatment-wound culture 08/26-heavy growth MRSA 2. Leukocytosis, WBC count from last night was 13.2 3. Fever- 100.1 on admission/102 prior to admission 4. Elevated CRP 205.5 (2) Diabetic ulcer of right great toe Status: Resolved Assessment & Plan: s/p amputation of right great toe on 09/04/16; culture positive SA (3) Recurrent cellulitis of lower extremity Status: Resolved (4) DM (diabetes mellitus) Status: Chronic Qualifiers: Diabetes mellitus type: type 2 Diabetes mellitus complication status: with skin complications Diabetes mellitus complication detail: with foot ulcer Diabetes mellitus terminal carman insulin use: with terminal carman use Qualified Codes: E11.621 - Type 2 diabetes mellitus with foot ulcer; L97.509 - Non- pressure chronic ulcer of other part of unspecified foot with unspecified severity; Z79.4 - ferry terminal supervisor (current) use of insulin Assessment & Plan: A1c 9.6 on date of admission (5) Hypertension Status: Chronic Qualifiers: Hypertension type: essential hypertension Qualified Codes: I10 - Essential (primary) hypertension (6) Restless leg syndrome Status: Chronic (7) Depression Status: Chronic (8) Morbid obesity with BMI of 40.0-44.9, adult Status: Chronic (9) Hypoglycemia Status: Resolved (10) Toe osteomyelitis, right Status: Chronic Assessment & Plan: Right great toe-bone biopsy 07/31/69 Assessment Blood pressures moderately elevated overnight-fluid volume +5 L since admission. IV fluids discontinued, low-volume Lasix given. On usual home medications for blood pressure. Insulin decreased further with discontinuation of IV fluids-Levemir dropped from 50 units twice a day to 35 units twice a day. Continue metformin at home dose. PT consult pending but patient is ambulating without difficulty. Date 38 ceftriaxone (tentatively scheduled to be completed 09/10) Date 4 vancomycin-every 8 hour dosing with trough 15.9 will preclude home administration realistically. Options discussed with Dr. Alexis, convert to daptomycin at 6 mg/kg. We'll make conversion tomorrow morning with plans to coordinate daptomycin through the infusion center until case management can set up home antibiotic delivery. Dr. Alexis would like to see patient back in the wound care center in approximately [address] Valle will see back later this week. Plans discussed with the patient-discharged tentatively planned following initial dose of daptomycin tomorrow (patient has administered daptomycin at home previously). Pathology pending. Plan/Intensity of Service Discussed with infectious disease and orthopedics, laboratory data reviewed, discussed with multiple family members. Code Status Full Code Hospital Course Summary Disclaimer The hospital course summary below is not to be considered part of the above Progress Note. Hospital Course Summary Pt was admitted to the hospital by Dr Elder for sepsis and a R great toe diabetic foot ulcer. He met criteria for sepsis on admission (See H&P). Pt had leukocytosis, fever and had failed Bactrim for MRSA. A decision was made to admit the patient for more aggressive antibiotic therapy for his diabetic foot infection. Pt had cultures and was admitted to medical floor and strarted on IV vancomicyn, via PICC line. Pharmacy consult was entered for kinetics. Accuchecks were ordered. Pt had been on Levemir 75 U Q12H at home but was trying to decrease his Levemir per his PCP advise. His hemoglobin A1c was 9.6% consistent with poorly controlled DM. His levemir was decreased on admission to 60 U BID and then gradually to 35 in the course of the hospitalization, due to gradually decreasing levels of BS. On admission pt also had had a Doppler exam to R/O a DVT; this study was negative. Dr Valle was consulted for evaluation. Pt went to the OR and had an amputation of his R great toe, due to findings in the MRI suggestive of Osteomyelitis. At the moment of D/C the pathology is pending for this. Pt was on Vancomicyn 2gm IV Q8H which could not be transitioned to outpatient so he was changed to Daptomicyn IV on 09/07 (918 mg - 6mg/kg/day) - first dose given today and well tolerated (Baseline CPK was normal - low). Pt is Discharged home in stable condition with improved WBC count and no fever or chills. His CRP is trending down very fast as well. Pt was seen and examined today - Pt did not have any complaints denies any pain , no fever no chills. Was sitting up in bed having lunch. Discussed with his current plan for D/C, change of antibiotics and adjustment of his medications. He verbalized understanding all the instructions and will follow up tomorrow with the infussion clinic and with his Orthopedic surgeon this coming week. On physical exam, pt is well perfused, mentally clear, alert oriented x 3 coherent , well hydrated. Neck is thick and short - no JVD is seen. Chest - good air entry, RRR no murmurs. Abdomen in soft, ext show no edema, wound is dressed there is no erythema around the dressing. CARMELO DUMONT MD September 07, 2016 13:16
--- NOTE | 2016-09-07 13:30 | NUR ---
DISMISSAL PATIENT DISMISSED TO HOME FOR SELF-CARE TO THE MAIN HOSPITAL ENTRANCE VIA WHEELCHAIR. PATIENT'S GIRLFRIEND WAS THE FAMILY THERAPIST HOME. PT DID NOT APPEAR TO BE IN ACUTE DISTRESS AT TIME OF DISCHARGE. ROOM AIR AT DISCHARGE. PRESCRIPTIONS SENT WITH PATIENT. COPIES ARE ON THE PATIENT'S CHART. PERSONAL BELONGINGS RETURNED PRIOR TO D/C. SINGLE LUMEN PICC REMAINS IN PLACE AT TIME OF DISCHARGE ACCORDING TO DISCHARGE INSTRUCTIONS. DC INSTRUCTIONS REVIEWED PRIOR TO DC. TOPICS DISCUSSED INCLUDED: NEW MEDICATIONS, S/S TO REPORT, FOLLOW UP APPOINTMENTS, WOUND/INCISION CARE, SEPSIS S/S, PICC LINE CARE. PT AND PATIENT'S GIRLFRIEND BOTH VERBALIZED UNDERSTANDING.
--- OUTSIDE RECORDS SUMMARY | 2016-09-08 13:54 | XMS REPORT | Continuity of Care Document ---
Author Author Organization Address Unknown Phone Unavailable Support Name Relationship Address Phone Celeste SNELL MD Caregiver [address] [place] [address] Unavailable KARLA ELDER MD Caregiver [address] [place] [address] Unavailable KARLA ELDER MD Caregiver [address] [place] [id number] Unavailable DEBORAH ARCHER Next Of Kin Unknown [phone] Insurance Providers Guarantor Edie Archer Address [address] [place] [address] Email [email or web address] Policy Number [id number] Subscriber's Name Edie Archer Relationship 18 Self Group Number [id number] Advance Directives Directive Response Recorded Date/Time Ordered Resuscitation Status Full Code 09/03/16 1:20pm Problems Active Problems Medical Problem Onset Date Status Chronic ulcer of great toe of right foot Unknown DM (diabetes mellitus) Unknown Chronic Depression Unknown Chronic Diabetic ulcer of right great toe Unknown Resolved Hypertension Unknown Chronic Hypoglycemia Unknown Resolved Morbid obesity with BMI of 40.0-44.9, adult Unknown Chronic Recurrent cellulitis of lower extremity Unknown Resolved Restless leg syndrome Unknown Chronic Sepsis Unknown Resolved Toe osteomyelitis, right Unknown Chronic Past Problems Medical Problem Onset Date Cellulitis [...] Mg Tablet 10 Mg Oral Daily 07/20/16 Daptomycin 500 Mg Vial 918 Mg Intraven Daily 14 Days 14 09/07/16 Diphenhydramine Hcl (Benadryl) 25 Mg Capsule 50 Mg Oral Bedtime 07/20/16 Glyburide 5 Mg Tablet 10 Mg Oral Twice A Day 09/02/16 Hydrocodone/Acetaminophen (Hydrocodon-Acetaminoph 7.5-325) 7.5-325 Tablet 1 Tab Oral Every 4 Hours as needed for Pain 5 Days 20 Tablet 09/07/16 Insulin Detemir (Levemir) 100 Unit/Ml Inj 40 Unit Sub-Q Twice A Day 30 Days 1 Vial Please resume Levemir at 40 U Q12H (twice daily) - check with your PCP to continue decreasing the dose as per your pre-admission plan. Losartan Potassium 100 Mg Tablet 100 Mg Oral Daily 09/02/16 Magnesium Oxide (Magnesium) 400 Mg Capsule 400 Mg Oral Daily 01/26 Metformin Hcl 1,000 Mg Tablet 1,000 Mg Oral Twice Daily With Meals 07/20/16 Metoprolol Succinate 50 Mg Tab.er.24h 50 Mg Oral Daily 09/02/16 Multivitamins (Multivitamin) 1 Tab Tablet 1 Tab Oral Daily Paroxetine Hcl 40 Mg Tablet 40 Mg Oral Daily 09/02/16 Ranitidine Hcl (Zantac) 150 Mg Tablet 150 Mg Oral Twice A Day as needed for Acid Reflux 07/31/16 Past Home Medications Medication Directions Ordered Status Acetaminophen (Tylenol Arthritis) 650 Mg Tablet.er, 1 Tab Oral As Needed as needed for Pain 09/03/16 Discontinued Cephalexin (Keflex) 500 Mg Capsule, 500 Mg Oral Three Times A Day 07/20/16 Discontinued Cephalexin (Keflex) 500 Mg Capsule, 1 Cap Oral Three Times A Day 07/31/16 Discontinued Insulin Detemir (Levemir) 100 Unit/Ml Inj, 70 Unit Sub-Q Twice A Day Discontinued Insulin Glargine (Lantus) 100 U/Ml Vial, 20 U Sub-Q With Meals 11/19/11 Discontinued Insulin Glulisine (Apidra) 100 U/Ml Cartridge, 30 U Sub-Q After Meals Discontinued Ondansetron Hcl (Zofran) 4 Mg Tablet, 4 Mg Oral Every 6 Hours for Nausea Discontinued Sulfamethoxazole/Trimethoprim (Bactrim Ds Tablet) 1 Each Tablet, 1 Tab Oral Twice A Day 09/02/16 Discontinued Sulfamethoxazole/Trimethoprim (Bactrim Ds Tablet) 1 Each Tablet, 1 Tab Oral Twice A Day 07/20/16 Discontinued Social History Social History Problem Response Recorded Date/Time Onset Date Status Reason for Hospitalization infected toe (diabetic foot infection) 09/07/2016 12:19pm Not Applicable Not Applicable Hx Substance Use No 09/02/2016 5:55pm Not Applicable Not Applicable Hx Alcohol Use Y rare 09/02/2016 5:55pm Not Applicable Not Applicable Has the pt used tobacco in the last 12 months No 09/03/2016 1:31pm Not Applicable Not Applicable Query Response Start Date Stop Date Smoking Status Former smoker Hospital Discharge Instructions Instructions: Care Instructions: Reason for Hospitalization: infected toe (diabetic foot infection) Discharge Diet: Diabetic ADA Discharge Activity: Return to presurgical activity as tolerated. Follow Up Appointments: Dr Valle (ortho) in the wound care clinic this week or in his office,please call him in the AM. Call Dr Vargas in tomorrow in the AM to schedule an appt with wound care clinic days as well. Pending Lab / Results: Follow up w/ provider Patient Instructions: Come to the infussion center at noon tomorrow (09/08/2016) to continue your Daptomicyn - and continue daily until this is arranged for home. Per our discussion we decreased your Levemir to 35 U every 12 H at home, so use 40 U twice daily for now, resume Glyburide tomorrow AM. You may take Metformin today. Otherwise the following meds are unchanged - Aspirin - Ceftriaxone - Cetirizine - Diphenhdramine - Glyburide - Losartan - Magnesium - Metformin - Metoprolol - Multivitamin - Paroxitene - Ranitidine. We stopped Bactrim. Wound/Incision Care: Per wound care Durable Medical Equipment: None Pain Management/Treatment: Tylenol/[place] as needed for pain. Expected Signs/Symptoms: Please watch for any signs of infection in the surgical area, or bleed. Notify Physician If: If you notice redness, fever chills, pain in the surgical bed or near, swelling in your calf, cough with blood or chest pain During Business Hours:: Please call the physician's office at After Business Hours:: Please call [phone] and have the conveyor belt operator page the physician. Condition at time of discharge: Good Plan of Care Discharge Date 09/07/16 1:30pm Disposition 01 DISCHARGED HOME, SELF-CARE Instructions/Education Provided Sepsis (GEN) Toe Amputation (DC) Prescriptions See Medication Section Care Plan and Goals See Discharge Instructions Section Functional Status Query Response Date Recorded Mobility Status Ambulatory September 07, 2016 12:19pm Assistive Devices None September 07, 2016 12:19pm Activity Limitations None September 07, 2016 12:19pm Feeding Ability Independent September 07, 2016 12:19pm Toileting Ability Independent September 07, 2016 12:19pm Grooming Ability Independent September 07, 2016 12:19pm Dressing Ability Independent September 07, 2016 12:19pm Driving Ability Independent September 07, 2016 12:19pm Housework Ability Independent September 07, 2016 12:19pm Meal Preparation Ability Independent September 07, 2016 12:19pm Stair Climbing Ability Independent September 07, 2016 12:19pm Ability to complete ADL's impeded by No change September 07, 2016 12:19pm Cognitive/Perceptual Impairments None September 07, 2016 12:19pm Allergies, Adverse Reactions, Alerts Allergen Type Severity Reaction Status Last Updated Clindamycin Allergy Unknown DIARRHEA Active 09/03/16 Immunizations Query Response on File Recorded Date/Time Hx Influenza Vaccination Yes 09/03/16 1:31pm Hx Pneumococcal Vaccination No 09/03/16 1:31pm Hx Influenza Vaccination Yes 09/03/16 1:31pm Tdap Vaccine Hx unsure 07/20/16 7:30pm Vital Signs Acute Vital Signs Vital Response Date/Time Temperature (Fahrenheit) 98.2 deg F (96.8 - 99.1) 09/07/2016 11:27am Temperature (Calculated Celsius) 36.57722 degrees C (36.0 - 37.3) 09/07/2016 11:27am Temperature Source Oral 09/04/2016 11:00am Pulse Rate (adult) 62 bpm (60 - 100) 09/07/2016 11:27am Respiratory Rate 18 breaths/min (10 - 20) 09/07/2016 11:27am O2 Sat by Pulse Oximetry 91 % (90 - 100) 09/07/2016 11:27am Oxygen Delivery Method Room Air 09/04/2016 2:45pm Oxygen Delivery Method Room Air 09/07/2016 11:27am Fraction of Inspired Oxygen (FIO2) 95 % 09/04/2016 1:45pm Blood Pressure 150/89 mm Hg 09/07/2016 11:27am Blood Pressure Source Automatic Cuff 09/07/2016 11:27am Height (Feet) 6 feet 09/07/2016 1:19pm Height (Inches) 1.50 inches 09/07/2016 1:19pm Weight (Kilograms) 152.900 kg 09/07/2016 7:46am Body Mass Index (BMI) 43.3 09/03/2016 1:09pm Results Laboratory Results Test Name Result Units Flags Reference Collection Date/Time Result Date/ Time Comments Erythrocyte Sedimentation Rate 15 mm/h 0-15 06/23/2016 4:03pm 2016 11:44pm Sedimentation Rate performed at [facility] Reference Lab, [address] [place] [address] First Aid Trainer Junior Kent DO Basophils % (Manual) 1.0 % 0-2 08/31/2016 3:35pm 08/31/2016 4:45pm Myelocytes % 1.0 % H 0-0 08/17/2016 4:09pm 08/17/2016 5:05pm Basophils # (Manual) 0.1 T/MM3 0-0.2 08/31/2016 3:35pm 08/31/2016 4: 45pm Myelocytes # 0.1 T/MM3 08/17/2016 4:09pm 08/17/2016 5:05pm Neutrophils % (Manual) 77.0 % H 33-66 09/02/2016 6:32pm 09/02/2016 7: 00pm Band Neutrophils % 1.0 % 0-6 09/02/2016 6:32pm 09/02/2016 7:00pm Lymphocytes % (Manual) 9.0 % L 23-45 09/02/2016 6:32pm 09/02/2016 7: 00pm Monocytes % (Manual) 10.0 % H 0-9.0 09/02/2016 6:32pm 09/02/2016 7:00pm Eosinophils % (Manual) 1.0 % 0-4 09/02/2016 6:32pm 09/02/2016 7:00pm Reactive Lymphocytes % 2.0 % H 0-0 09/02/2016 6:32pm 09/02/2016 7:00pm Band Neutrophils # 0.1 T/MM3 09/02/2016 6:32pm 09/02/2016 7:00pm Absolute Neutrophils (Manual) 10.2 T/MM3 H 1.8-7.7 09/02/2016 6:32pm 7:00pm Lymphocytes # (Manual) 1.2 T/MM3 1-4.8 09/02/2016 6:32pm 09/02/2016 7: 00pm Monocytes # (Manual) 1.3 T/MM3 H 0-0.8 09/02/2016 6:32pm 09/02/2016 7: 00pm Eosinophils # (Manual) 0.1 T/MM3 0-0.5 09/02/2016 6:32pm 09/02/2016 7: 00pm Reactive Lymphocytes # 0.3 T/MM3 H 0-0 09/02/2016 6:32pm 09/02/2016 7: 00pm Red Cell Morphology Comment NORMAL 09/02/2016 6:32pm 09/02/2016 7: 00pm Urine Collection Type [place] 09/02/2016 7:24pm 2016 7:33pm Urine Color YELLOW YELLOW 09/02/2016 7:24pm 09/02/2016 7:33pm Urine Turbidity CLEAR CLEAR 09/02/2016 7:24pm 09/02/2016 7:33pm Urine Specific [place] 1.025 1.015-1.025 09/02/2016 7:24pm 2016 7:33pm Urine pH 5.5 5.0-8.0 09/02/2016 7:24pm 09/02/2016 7:33pm Urine Leukocyte Esterase NEGATIVE NEGATIVE 09/02/2016 7:24pm 2016 7:33pm Urine Nitrite NEGATIVE NEGATIVE 09/02/2016 7:24pm 09/02/2016 7:33pm Urine Protein 1+ A NEGATIVE 09/02/2016 7:24pm 09/02/2016 7:33pm Urine Glucose (UA) NEGATIVE NEGATIVE 09/02/2016 7:24pm 09/02/2016 7: 33pm Urine Ketones TRACE A NEGATIVE 09/02/2016 7:24pm 09/02/2016 7:33pm Urine Urobilinogen 0.2 EU/DL NORMAL 09/02/2016 7:24pm 09/02/2016 7: 33pm Urine Bilirubin NEGATIVE NEGATIVE 09/02/2016 7:24pm 09/02/2016 7: 33pm Urine Blood 1+ A NEGATIVE [...] CULT NOT INDICATED 09/02/2016 7:24pm 2016 7:39pm White Blood Count 8.7 T/MM3 D 4.5-11.0 09/07/2016 5:09/07/2016 6: 05am Red Blood Count 3.94 M/MM3 L 4.50-5.90 09/07/2016 5:09/07/2016 6: 05am Hemoglobin 10.9 GM/DL L 13.5-17.5 09/07/2016 5:09/07/2016 6:05am Hematocrit 33.3 % L 41-53 09/07/2016 5:09/07/2016 6:05am Mean Corpuscular Volume 84.5 UM3 80-100 09/07/2016 5:09/07/2016 6: 05am Mean Corpuscular Hemoglobin 27.7 UUG 26-34 09/07/2016 5:2016 6:05am Mean Corpuscular Hemoglobin Concent 32.7 GM/DL 31-37 09/07/2016 5:09/07/2016 6:05am RDW Standard Deviation 38.5 FL 36.9-50.2 09/07/2016 5:09/07/2016 6 :05am Platelet Count 311 T/MM3 130-400 09/07/2016 5:09/07/2016 6:05am Mean Platelet Volume 9.5 UM3 9.4-12.4 09/07/2016 5:09/07/2016 6: 05am Neutrophils (%) (Auto) 78.2 % H 33-66 09/07/2016 5:09/07/2016 6: 05am Lymphocytes (%) (Auto) 13.8 % L 23-45 09/07/2016 5:09/07/2016 6: 05am Monocytes (%) (Auto) 4.4 % 0-9.0 09/07/2016 5:09/07/2016 6:05am Eosinophils (%) (Auto) 3.1 % 0-4 09/07/2016 5:09/07/2016 6:05am Basophils (%) (Auto) 0.2 % 0-2 09/07/2016 5:09/07/2016 6:05am Immature Granulocyte % (Auto) 0.3 % 0.0-0.5 09/07/2016 5:2016 6:05am Absolute Neutrophils (auto) 6.8 T/MM3 1.8-7.7 09/07/2016 5:2016 6:05am Absolute Lymphocytes (auto) 1.2 T/MM3 1-4.8 09/07/2016 5:2016 6:05am Absolute Monocytes (auto) 0.4 T/MM3 0-0.8 09/07/2016 5:09/07/2016 6:05am Absolute Eosinophils (auto) 0.3 T/MM3 0-0.5 09/07/2016 5:2016 6:05am Absolute Basophils (auto) 0.0 T/MM3 0-0.2 09/07/2016 5:09/07/2016 6:05am Absolute Immature Granulocyte (auto 0.03 T/MM3 0.00-0.03 09/07/2016 5: 09/07/2016 6:05am Icterus Index < 2 0-7 09/07/2016 5:09/07/2016 6:15am Chemistry Specimen Hemolysis 16 0-25 09/07/2016 5:09/07/2016 6: 15am 0-25: Specimen Exhibited No Hemolysis. Turbidity < 20 0-20 09/07/2016 5:09/07/2016 6:15am Sodium Level 147 MEQ/L H 134-144 09/07/2016 5:09/07/2016 6:17am Potassium Level 4.1 MEQ/L 3.6-5 09/07/2016 5:09/07/2016 6:17am Chloride Level 106 MEQ/L 98-107 09/07/2016 5:09/07/2016 6:17am Carbon Dioxide Level 30 MEQ/L 22-30 09/07/2016 5:09/07/2016 6: 17am Anion Gap 11 MEQ/L 5-09/07/2016 5:09/07/2016 6:17am Blood Urea Nitrogen 10.0 MG/DL 9-09/07/2016 5:09/07/2016 6: 17am Creatinine 0.6 MG/DL L 0.8-1.5 09/07/2016 5:09/07/2016 6:17am BUN/Creatinine Ratio 17 RATIO 6-09/07/2016 5:09/07/2016 6:17am Glomerular Filtration Rate Calc 144 09/07/2016 5:09/07/2016 6: 17am Glucose Level 74 MG/DL L 75-110 09/07/2016 5:09/07/2016 6:15am Calculated Osmolality 280 MOSM/KG 261-280 09/07/2016 5:09/07/2016 6:17am Calcium Level 8.9 MG/DL D 8.4-10.2 09/07/2016 5:09/07/2016 6:19am Total Bilirubin 0.80 MG/DL 0.20-1.30 09/03/2016 2:02pm 09/03/2016 2: 51pm Alkaline Phosphatase 106 U/L 38-126 09/03/2016 2:02pm 09/03/2016 2: 51pm Total Protein 6.7 G/DL 6.3-8.2 09/03/2016 2:02pm 09/03/2016 2:51pm Albumin 3.6 G/DL 3.5-5.0 09/03/2016 2:02pm 09/03/2016 2:51pm Globulin 3.1 G/DL 2.4-3.6 09/03/2016 2:02pm 09/03/2016 2:51pm Albumin/Globulin Ratio 1.2 RATIO 1.1-2.2 09/03/2016 2:02pm 09/03/2016 2 :51pm Aspartate Amino Transf (AST/SGOT) 27 U/L 17-59 09/03/2016 2:02pm 2016 2:51pm Alanine Aminotransferase (ALT/SGPT) 41 U/L 21-72 09/03/2016 2:02pm 2:51pm Total Creatine Kinase 32 U/L L 55-170 09/07/2016 5:28am 09/07/2016 9: 02am C-Reactive Protein 26.4 MG/L H 0-9 09/07/2016 5:28am 09/07/2016 6:17am Magnesium Level 1.7 MG/DL 1.6-2.3 09/07/2016 5:28am 09/07/2016 6:17am Plasma Lactate 0.7 MMOL/L 0.6-2.2 09/03/2016 2:02pm 09/03/2016 2:50pm Procalcitonin 0.13 NG/ML 09/03/2016 1:57pm 09/03/2016 3:16pm PCT </= 0.5 ng/mL - sepsis not likely; PCT >0.5 and </=2 ng/mL - sepsis possible; PCT >2 ng/mL - sepsis likely; PCT >/=10 ng/mL - systemic inflammatory response - sepsis or septic shock highly indicated. Vancomycin Level Trough 15.87 UG/ML 15-20 09/05/2016 8:29pm 09/05/2016 9:11pm Hemoglobin A1c 9.6 % H 6.1-7.9 09/03/2016 2:02pm 09/03/2016 3:11pm < 6.0 NON-DIABETIC RANGE 6.1-7.9 [facility] TARGET RANGE >8.0 ACTION SUGGESTED Glucometer 168 mg/dL H 75-110 09/07/2016 10:27am 09/07/2016 10:32am Microbiology Results Procedure Source Organism/Result Collection Date/Time [...] (GROUP D) 07/20/2016 7:32pm 07/26/2016 7:20am Final WOUND CULTURE DEEP TISS-AER/AN Toe, Right First S. AUREUS, METH-RESISTANT 3:20pm 08/29/2016 6:56am Final STENOTROPHOMONAS MALTOPHILIA 08/26/2016 3:20pm 08/29/2016 6:56am Final Blood Culture Peripheral/Iv Start NO GROWTH AFTER 4 DAYS 09/02/2016 6:37pm 09/06/2016 6:39pm Preliminary Blood Culture Cath/Port/Line/Picc NO GROWTH AFTER 72 HOURS 09/03/2016 2: 02pm 09/06/2016 2:36pm Preliminary Surgical Culture Toe, Right First S. AUREUS, METH-RESISTANT 09/04/2016 9: 12am 09/06/2016 6:43am Preliminary Name: EDIE ARCHER Unit #: [id number] : 1970 Sex: M DISCHARGE SUMMARY Admit Date: 09/03/16 Report #: [id number] [facility] General Date Date DATE: 09/07/16 TIME: 12:07 Attending Physician Karla Elder MD Admitting Physician Karla Elder MD Consulting Physician Fernando Valle MD Admitting Diagnosis wound infection Discharge Diagnosis Diabetic foot infection due to MRSA, complicated with Sepsis (on Admssion) Type II DM (Uncontrolled) Procedures s/p amputation of right great toe on 09/04/16 Laboratory Laboratory Tests Test 09/06/16 06:11 09/06/16 10:04 09/06/16 14:00 09/06/16 19:59 Glucometer 79mg/dL (75-110) 224mg/dL (75-110) 130mg/dL (75-110) 128mg/dL (75-110) Test 09/07/16 05:28 09/07/16 06:00 09/07/16 10:27 White Blood Count 8.7T/MM3 (4.5-11.0) Red Blood Count 3.94M/MM3 (4.50-5.90) Hemoglobin 10.9GM/DL (13.5-17.5) Hematocrit 33.3% (41-53) Mean Corpuscular Volume 84.5UM3 (80-100) Mean Corpuscular Hemoglobin 27.7UUG (26-34) Mean Corpuscular Hemoglobin Concent 32.7GM/DL (31-37) RDW Standard Deviation 38.5FL (36.9-50.2) Platelet Count 311T/MM3 (130-400) Mean Platelet Volume 9.5UM3 (9.4-12.4) Immature Granulocyte % (Auto) 0.3% (0.0-0.5) Neutrophils (%) (Auto) 78.2% (33-66) Lymphocytes (%) (Auto) 13.8% (23-45) Monocytes (%) (Auto) 4.4% (0-9.0) Eosinophils (%) (Auto) 3.1% (0-4) Basophils (%) (Auto) 0.2% (0-2) Absolute Immature Granulocyte (auto 0.03T/MM3 (0.00-0.03) Absolute Neutrophils (auto) 6.8T/MM3 (1.8-7.7) Absolute Lymphocytes (auto) 1.2T/MM3 (1-4.8) Absolute Monocytes (auto) 0.4T/MM3 (0-0.8) Absolute Eosinophils (auto) 0.3T/MM3 (0-0.5) Absolute Basophils (auto) 0.0T/MM3 (0-0.2) Turbidity < 20 (0-20) Sodium Level 147MEQ/L (134-144) Potassium Level 4.1MEQ/L (3.6-5) Chloride Level 106MEQ/L (98-107) Carbon Dioxide Level 30MEQ/L (22-30) Anion Gap 11MEQ/L (5-15) Blood Urea Nitrogen 10.0MG/DL (9-20) Creatinine 0.6MG/DL (0.8-1.5) Glomerular Filtration Rate Calc 144 BUN/Creatinine Ratio 17RATIO (6-26) Glucose Level 74MG/DL (75-110) Calculated Osmolality 280MOSM/KG (261-280) Calcium Level 8.9MG/DL (8.4-10.2) Magnesium Level 1.7MG/DL (1.6-2.3) Icterus Index < 2 (0-7) Total Creatine Kinase 32U/L (55-170) C-Reactive Protein 26.4MG/L (0-9) Chemistry Specimen Hemolysis 16 (0-25) Glucometer 73mg/dL (75-110) 168mg/dL (75-110) Hemoglobin A1c - 9.6% on 09/03/2016 Initial CRP - 205.5 Initial WBC 11.9K Microbiology SURGICAL SITE CULTURE Preliminary 09/06/16 Organism 1 S. AUREUS, METH-RESISTANT MRSA INTERP ANA ------ --------- CIPROFLOXACIN R >=8 CLINDAMYCIN R >=4 DOXYCYCLINE S <=0.5 ERYTHROMYCIN R >=8 GENTAMICIN S <=0.5 LEVOFLOXACIN R 4 LINEZOLID S 2 OXACILLIN R >=4 TETRACYCLINE S <=1 TRIMETH/SULFA S <=10 VANCOMYCIN S <=0.5 SURGICAL SITE CULTURE Preliminary (changed) 09/06/16 Organism 1 STAPHYLOCOCCUS AUREUS S AUREUS INTERP ANA ------ --------- CIPROFLOXACIN R >=8 CLINDAMYCIN R >=4 DOXYCYCLINE S <=0.5 ERYTHROMYCIN R >=8 GENTAMICIN S <=0.5 LEVOFLOXACIN R 4 LINEZOLID S 2 OXACILLIN R >=4 TETRACYCLINE S <=1 TRIMETH/SULFA S <=10 Blood cultures x 2 negative at 72 hrs Radiology MRI R foot (09/03) "............................... Impression: 1. Worsening osteomyelitis involving the great toe proximal and distal phalanges. 2. New osteomyelitis involving the third toe, worst in the proximal phalanx. 3. Interval improvement in the presumed osteomyelitis within the second metatarsal head and proximal phalanx of the second toe. 4. Worsening cellulitis. 5. No drainable abscess seen. ........................" Doppler U/S lower extremity - negative for DVT (09/03) History of Present Illness Ed is a pleasant 46-year-old male who has had a long-standing history of right great toe ulcer since 2011. He started outpatient wound care in August of 2015 and has continued to follow their under regular basis under the care of Dr. Vargas and Dr. Valle. On 07/31/16 He underwent surgical debridement of right great toe diabetic foot ulcer with bone biopsy of 1st distal phalanx. This wound culture reveled E-coli and he has been on outpatient Rocephin IV daily since that time. On 08/26 he had another fight toe wound culture obtained which reveled MRSA. He was started on Bactrim however did not start it until Friday 09/01. This past August 30 he started having fevers, chills with intermittent episodes of vomiting. Redness and swelling has persisted to the right lower extremity, worsening over the last 24 hours. On the night prior to admission his fever at home was 102 thus he presented to the emergency room for acute evaluation at that time his WBC was found to be elevated at 13.2 with 77% neutrophils, 1% band. Venous lactate and pro-calcitonin were normal at that time. He was discharged home and instructed to follow up today. This morning he attempted to go to work, however, had an episode of emesis. He then presented to his primary care provider, Dr. Дмитрий Snell who felt that patient required hospitalization for more aggressive workup and treatment. Hospital Course Pt was admitted to the hospital by Dr Elder for sepsis and a R great toe diabetic foot ulcer. He met criteria for sepsis on admission (See H&P). Pt had leukocytosis, fever and had failed Bactrim for MRSA. A decision was made to admit the patient for more aggressive antibiotic therapy for his diabetic foot infection. Pt had cultures and was admitted to medical floor and strarted on IV van comicyn, via PICC line. Pharmacy consult was entered for kinetics. Accuchecks were ordered. Pt had been on Levemir 75 U Q12H at home but was trying to decrease his Levemir per his PCP advise. His hemoglobin A1c was 9.6% consistent with poorly controlled DM. His levemir was decreased on admission to 60 U BID and then gradually to 35 in the course of the hospitalization, due to gradually decreasing levels of BS. On admission pt also had had a Doppler exam to R/O a DVT; this study was negative. Dr Valle was consulted for evaluation. Pt went to the OR and had an amputation of his R great toe, due to findings in the MRI suggestive of Osteomyelitis. At the moment of D/C the pathology is pending for this. Pt was on Vancomicyn 2gm IV Q8H which could not be transitioned to outpatient so he was changed to Daptomicyn IV on 09/07 (918 mg - 6mg/kg/day) - first dose given today and well tolerated (Baseline CPK was normal - low). Pt is Discharged home in stable condition with improved WBC count and no fever or chills. His CRP is trending down very fast as well. Pt was seen and examined today - Pt did not have any complaints denies any pain , no fever no chills. Was sitting up in bed having lunch. Discussed with his current plan for D/C, change of antibiotics and adjustment of his medications. He verbalized understanding all the instructions and will follow up tomorrow with the infussion clinic and with his Orthopedic surgeon this coming week. On physical exam, pt is well perfused, mentally clear, alert oriented x 3 coherent, well hydrated. Neck is thick and short - no JVD is seen. Chest - good air entry, RRR no murmurs. Abdomen in soft, ext show no edema, wound is dressed there is no erythema around the dressing. Problems: (1) Sepsis Status: Resolved Assessment & Plan: Manifestations of sepsis include the following 1. Known diabetic foot ulcer wound to the right great toe, failed outpatient treatment-wound culture 08/26-heavy growth MRSA 2. Leukocytosis, WBC count from last night was 13.2 3. Fever- 100.1 on admission/102 prior to admission 4. Elevated CRP 205.5 (2) Diabetic ulcer of right great toe Status: Resolved Assessment & Plan: s/p amputation of right great toe on 09/04/16; culture positive SA (3) Recurrent cellulitis of lower extremity Status: Resolved (4) DM (diabetes mellitus) Status: Chronic Assessment & Plan: A1c 9.6 on date of admission (5) Hypertension Status: Chronic (6) Restless leg syndrome Status: Chronic (7) Depression Status: Chronic (8) Morbid obesity with BMI of 40.0-44.9, adult Status: Chronic (9) Hypoglycemia Status: Resolved (10) Toe osteomyelitis, right Status: Chronic Assessment & Plan: Right great toe-bone biopsy 07/31/69 Code Status Full Code Home Meds Active Scripts Hydrocodone/Acetaminophen (Hydrocodon-Acetaminoph 7.5-325) 7.5-325 Tablet, 1 TAB PO Q4H Y for PAIN MDD 4 for 5 Days, #20 TAB 0 Refills Prov:CARMELO DUMONT MD 09/07/16 Daptomycin (Daptomycin) 500 Mg Vial, 918 MG IV DAILY for 14 Days, #14 Prov:CARMELO DUMONT MD 09/07/16 Insulin Detemir (Levemir) 100 Unit/Ml Inj, 40 UNIT SQ BID for 30 Days, #1 VIAL 0 Refills Please resume Levemir at 40 U Q12H (twice daily) - check with your PCP to continue decreasing the dose as per your pre-admission plan. Prov:CARMELO DUMONT MD 09/07/16 Reported Medications Ceftriaxone Na/Dextrose,Iso (Ceftriaxone 2 gm Piggyback) 2 Gm/50 Ml Froz.piggy, 2 GM IV DAILY 09/02/16 Paroxetine HCl (Paroxetine HCl) 40 Mg Tablet, 40 MG PO DAILY 09/02/16 Metoprolol Succinate (Metoprolol Succinate) 50 Mg Tab.er.24h, 50 MG PO DAILY 09/02/16 Losartan Potassium (Losartan Potassium) 100 Mg Tablet, 100 MG PO DAILY 09/02/16 Glyburide (Glyburide) 5 Mg Tablet, 10 MG PO BID 09/02/16 Ranitidine HCl (Zantac) 150 Mg Tablet, 150 MG PO BID Y for ACID REFLUX 07/31/16 Diphenhydramine HCl (Benadryl) 25 Mg Capsule, 50 MG PO HS 07/20/16 Aspirin (Aspir 81) 81 Mg Tablet.dr, 81 MG PO DAILY 07/20/16 Cetirizine HCl (Zyrtec) 10 Mg Tablet, 10 MG PO DAILY 07/20/16 Magnesium Oxide (Magnesium) 400 Mg Capsule, 400 MG PO DAILY 07/20/16 Metformin HCl (Metformin HCl) 1,000 Mg Tablet, 1000 MG PO BIDWM 07/20/16 Multivitamins (Multivitamin) 1 Tab Tablet, 1 TAB PO DAILY 10/19/11 Discontinued Reported Medications Acetaminophen (Tylenol Arthritis) 650 Mg Tablet.er, 1 TAB PO PRN Y for PAIN, TAB 09/03/16 Sulfamethoxazole/Trimethoprim (Bactrim Ds Tablet) 1 Each Tablet, 1 TAB PO BID 09/02/16 Discontinued Scripts Ondansetron HCl (Zofran) 4 Mg Tablet, 4 MG PO Q6H for NAUSEA, #30 TAB Prov:ALFRED JEFFRIES MD 09/02/16 Face to Face Encounter I met with patient on the day of dismissal and discussed follow up appointments , medications, and safety plan. Discharge Disposition home Copies To 1: Celeste SNELL MD; DESTINI VARGAS MD; FERNANDO VALLE MD Documentation Requirements BMI Low or High Assoc. dx for low or high BMI: Morbid obesity >40 Diabetes Diabetes Type: Type 2 Diabetes Is Diabetes Contolled?: Uncontolled Related to Diabetes: Related to CARMELO DUMONT MD September 07, 2016 12:21 Procedures Procedure Status Date Provider(s) Galilea subq [...] subq tissue 20 sq cm/< Completed 07/22/16 [id number]"BORDER, EACH DRESSING" Completed 07/22/16 Culture othr specimn aerobic Completed 07/20/16 Cultr bacteria except blood Completed 07/20/16 Smear gram stain Completed 07/20/16 Emergency dept visit Completed 07/20/16 Galilea subq tissue 20 sq cm/< Completed 07/29/16 Galilea subq tissue 20 sq cm/< Completed 07/31/16 FERNANDO VALLE MD Bone biopsy trocar/needle Completed 07/31/16 FERNANDO VALLE MD Routine venipuncture Completed 07/31/16 Metabolic panel total ca Completed 07/31/16 Culture othr specimn aerobic Completed 07/31/16 Cultr bacteria except blood Completed 07/31/16 Culture aerobic identify Completed 07/31/16 Microbe susceptible ana Completed 07/31/16 Smear gram stain Completed 07/31/16 [id number]"INJECTION, MIDAZOLAM HYDROCHLORIDE, PER 1 MG" Completed 07/31/16 PROPOFOL INJ 500 MG/50ML Completed 07/31/16 [id number]"INJECTION, FENTANYL CITRATE, 0.1 MG" Completed 07/31/16 [id number]"RINGERS LACTATE INFUSION, UP TO 1000 CC" Completed 07/31/16 Galilea subq tissue 20 sq cm/< Completed 08/03/16 253252"COLLAGEN DRESSING, PAD SIZE 16 SQ. IN. OR LESS, EACH" Completed [id number]"BORDER, EACH DRESSING" Completed 08/03/16 Routine venipuncture Completed 09/02/16 Chest x-ray 2vw frontal&latl Completed 09/02/16 Comprehen metabolic panel Completed 09/02/16 Urinalysis auto w/scope Completed 09/02/16 Assay of lactic acid Completed 09/02/16 Procalcitonin (pct) Completed 09/02/16 Complete cbc w/auto diff wbc Completed 09/02/16 Blood culture for bacteria Completed 09/02/16 Blood culture for bacteria Completed 09/02/16 Hydration iv infusion init Completed 09/02/16 Emergency dept visit Completed 09/02/16 [id number]"INFUSION, NORMAL SALINE SOLUTION , 1000 CC" Completed 09/02/16 Encounters Encounter Location Arrival/Admit Date Discharge/Depart Date Attending Provider Discharged Inpatient (obs) 09/03/16 12:51pm 09/07/16 1 :30pm KARLA ELDER MD Departed Emergency Room 09/02/16 5:48pm 09/02/16 10: 40pm ALFRED JEFFRIES MD Registered [facility] 08/31/16 3:00pm DESTINI VARGAS MD Registered [facility] 08/26/16 2:53pm JAMIA DANIELS MD Registered [facility] 08/12/16 9:03am JAMIA DANIELS MD Registered [facility] 08/03/16 7:58am JAIMA DANIELS MD Departed [facility] 07/31/16 6:43am 07/31/16 10 :50am FERNANDO VALLE MD Registered [facility] 07/29/16 9:25am JAMIA DANIELS MD Registered [facility] 07/22/16 3:16pm JAMIA DANIELS MD Departed Emergency Room 07/20/16 6:31pm 07/20/16 7: 34pm SARITA SHI MD Registered [facility] 06/25/16 3:26pm JAMIA DANIELS MD Registered [facility] 06/23/16 3:54pm JAMIA DANIELS MD Registered [facility] 06/18/16 3:40pm JAMIA DANIELS MD
--- OUTSIDE RECORDS SUMMARY | 2016-09-08 13:56 | XMS REPORT | Continuity of Care Document ---
Author Author [facility] Organization [facility] Address Unknown Phone Unavailable Support Name Relationship Address Phone Celeste SNELL MD Caregiver [address] [place] [address] Unavailable KARLA ELDER MD Caregiver [address] [place] [address] Unavailable KARLA ELDER MD Caregiver [address] [place] [address] Unavailable DEBORAH ARCHER Next Of Kin Unknown [phone] Insurance Providers Guarantor Edie Archer Address [address] [place] [address] Email [email or web address] Policy Number [id number] Subscriber's Name Edie Archer Relationship 18 Self Group Number [id number] Advance Directives Directive Response Recorded Date/Time Ordered [...] care Durable Medical Equipment: None Pain Management/Treatment: Tylenol/[place] as needed for pain. Expected Signs/Symptoms: Please watch for any signs of infection in the surgical area, or bleed. Notify Physician If: If you notice redness, fever chills, pain in the surgical bed or near, swelling in your calf, cough with blood or chest pain During Business Hours:: Please call the physician's office at After Business Hours:: Please call [phone] and have the alarm signal operator page the physician. Condition at time [...] Vital Signs Vital Response Date/Time Temperature (Fahrenheit) 96.4 deg F (96.8 - 99.1) 09/08/2016 12:23pm Temperature (Calculated Celsius) 35.99847 degrees C (36.0 - 37.3) 09/08/2016 12:23pm Temperature Source Oral 09/04/2016 11:00am Pulse Rate (adult) 55 bpm (60 - 100) 09/08/2016 12:23pm Respiratory Rate 18 breaths/min (10 - 20) 09/08/2016 12:23pm O2 Sat by Pulse Oximetry 96 % (90 - 100) 09/08/2016 12:23pm Oxygen Delivery Method Room Air 09/04/2016 2:45pm Oxygen Delivery Method Room Air 09/08/2016 12:23pm Fraction of Inspired Oxygen (FIO2) 95 % 09/04/2016 1:45pm Blood Pressure 188/89 mm Hg 09/08/2016 12:23pm Blood Pressure Source Automatic Cuff 09/08/2016 12:23pm Height (Feet) 6 feet 09/07/2016 1:19pm Height (Inches) 1.50 inches 09/07/2016 1:19pm Weight (Kilograms) 152.900 kg 09/07/2016 7:46am Body Mass Index (BMI) 43.3 09/03/2016 1:09pm Results Laboratory Results Test Name Result Units Flags Reference Collection Date/Time Result Date/ Time Comments Erythrocyte Sedimentation Rate 15 mm/h 0-15 06/23/2016 4:03pm 2016 11:44pm Sedimentation Rate performed at [facility] Reference Lab, [address] [place] [address] Manager Of Clinical Junior Kent DO Basophils % (Manual) 1.0 [...] CLEAR 09/02/2016 7:24pm 09/02/2016 7:33pm Urine Specific [place] 1.025 1.015-1.025 09/02/2016 7:24pm 2016 7:33pm Urine [...] 09/03/2016 3:11pm < 6.0 NON-DIABETIC RANGE 6.1-7.9 [facility] TARGET RANGE >8.0 ACTION SUGGESTED [...] Blood Culture Peripheral/Iv Start NO GROWTH AFTER 5 DAYS 09/02/2016 6:37pm 09/07/2016 6:39pm Final Blood Culture Cath/Port/Line/Picc NO GROWTH AFTER 4 DAYS 09/03/2016 2:02pm 09/07/2016 2:36pm Preliminary Surgical Culture Toe, Right First S. AUREUS, METH-RESISTANT 09/04/2016 9: 12am 09/08/2016 9:34am Final ENTEROCOC FAECALIS - (GROUP D) 09/04/2016 9:12am 09/08/2016 9:34am Final Name: EDIE ARCHER Unit #: [id number] : [id number] Sex: M DISCHARGE SUMMARY Admit Date: 09/03/16 Report #: [id number] [facility] General Date Date DATE: 09/07/16 TIME: [...] subq tissue 20 sq cm/< Completed 07/22/16 [id number]"BORDER, EACH DRESSING" Completed 07/22/16 Culture othr specimn [...] Completed 07/31/16 Smear gram stain Completed 07/31/16 [id number]"INJECTION, MIDAZOLAM HYDROCHLORIDE, PER 1 MG" Completed 07/31/16 PROPOFOL INJ 500 MG/50ML Completed 07/31/16 164146"INJECTION, FENTANYL CITRATE, 0.1 MG" Completed 07/31/16 [id number]"RINGERS LACTATE INFUSION, UP TO 1000 CC" Completed 07/31/16 Galilea subq tissue 20 sq cm/< Completed 08/03/16 [id number]"COLLAGEN DRESSING, PAD SIZE 16 SQ. IN. OR LESS, EACH" Completed 654752"BORDER, EACH DRESSING" Completed 08/03/16 Routine venipuncture Completed [...] Completed 09/02/16 Emergency dept visit Completed 09/02/16 [id number]"INFUSION, NORMAL SALINE SOLUTION , 1000 CC" Completed 09/02/16 Encounters Encounter Location Arrival/Admit Date Discharge/Depart Date Attending Provider Discharged Inpatient [facility] 09/03/16 6:56pm 09/07/16 1:30pm KARLA ELDER MD Departed Emergency Room [facility] 09/02/16 5:48pm 09/02/16 10: 40pm ALFRED JEFFRIES MD Registered [facility] 08/31/16 3:00pm DESTINI VARGAS MD Registered [facility] 08/26/16 2:53pm JAMIA DANIELS MD Registered [facility] 08/12/16 9:03am JAMIA DANIELS MD Registered [facility] 08/03/16 7:58am JAMIA DANIELS MD Departed Surgical Day Care [facility] 07/31/16 6:43am 07/31/16 10 :50am FERNANDO VALLE MD Registered [facility] 07/29/16 9:25am JAMIA DANIELS MD Registered [facility] 07/22/16 3:16pm JAMIA DANIELS MD Departed Emergency Room [facility] 07/20/16 6:31pm 07/20/16 7: 34pm SARITA SHI MD Registered [facility] 06/25/16 3:26pm JAMIA DANIELS MD Registered [facility] 06/23/16 3:54pm JAMIA DANIELS MD Registered [facility] 06/18/16 3:40pm JAMIA DANIELS MD
== END 2016-09-07 13:30 | disposition home or self-care (01) | DRG 854 ==
LOC: UNDOADMOB 12:51 → SRG 12:51 → SCU 12:51 → SRG 18:56 → UNDODISOB 09-07 13:30 → EDSTATUS 09-08 13:49
PROVIDERS: ADMIT Internal Medicine; ATTEND Internal Medicine
PROC: 0Y6P0Z0 Detachment at Right 1st Toe, Complete, Open Approach (ICD-10-PCS; principal; 2016-09-04 09:15)
DX: A41.02 Sepsis due to Methicillin resistant Staphylococcus aureus (principal); M86.671 Other chronic osteomyelitis, right ankle and foot; Z68.41 Body mass index [BMI] 40.0-44.9, adult; E11.621 Type 2 diabetes mellitus with foot ulcer; L97.524 Non-pressure chronic ulcer of other part of left foot with necrosis of bone; E11.69 Type 2 diabetes mellitus with other specified complication; E11.649 Type 2 diabetes mellitus with hypoglycemia without coma; I10 Essential (primary) hypertension; G25.81 Restless legs syndrome; F32.9 Major depressive disorder, single episode, unspecified; E66.01 Morbid (severe) obesity due to excess calories; Z79.4 Long term (current) use of insulin; Z79.82 Long term (current) use of aspirin
CPT/HCPCS: 36415; 80048; 80053; 80202; 82550; 82948; 83036; 83605; 83735; 84145; 85025; 86140; 87040; 87070; 87075; 87077; 87147; 87186; 87205

== ENCOUNTER 2017-06-07 16:24 | Inpatient (IN) ==
[2017-06-07] MEDS ORDERED: LEVOFLOXACIN PB 750 MG/150 ML BAG IV ONE (16:58)
--- NOTE | 2017-06-07 17:00 | Emergency Department Report ---
Fever HPI - General Chief Complaint: Fever Stated Complaint: vomiting blood,cough Time Seen by Provider: 06/07/17 16:58 - Related Data Home Medications Medication Instructions Recorded Confirmed Cetirizine HCl [Zyrtec] 10 mg PO DAILY #0 07/20/16 06/07/17 Metformin HCl 1,000 mg PO BIDWM #0 07/20/16 06/07/17 diphenhydrAMINE HCl [Benadryl] 50 mg PO HS #0 07/20/16 06/07/17 raNITIdine HCl [Zantac] 150 mg PO BID PRN #0 tab 07/31/16 06/07/17 Aspirin [Ecotrin] 81 mg PO DAILY 04/25/17 06/07/17 GlyBURIDE [Micronase] 10 mg PO BID 04/25/17 06/07/17 Insulin Detemir [Levemir] 70 unit SQ BID 04/25/17 06/07/17 Multivitamin [One Daily] 1 tab PO DAILY 04/25/17 06/07/17 Acetaminophen [Acetaminophen Extra 1,000 mg PO Q6H PRN 06/07/17 06/07/17 Strength] Ibuprofen 800 mg PO Q8H PRN 06/07/17 06/07/17 Insulin Aspart [NovoLOG] 30 unit SQ TIDWM 06/07/17 06/07/17 Allergies Allergy/AdvReac Type Severity Reaction Status Date / Time clindamycin Allergy Unknown DIARRHEA Verified 06/07/17 16:52 PFSH Patient Stated Medical History Migraine Yes Peripheral Neuropathy Yes: DIABETIC Hypertension Yes: Uncontrolled Diabetes Mellitus Type 2 Yes: Uncontrolled Osteoarthritis Yes MRSA Yes Depression Yes - Social History Smoking status: Former smoker Course Vital Signs Temperature 103 F H 06/07/17 16:53 Pulse Rate 104 H 06/07/17 16:53 Respiratory Rate 06/07/17 16:53 Blood Pressure 205/100 H 06/07/17 16:53 Pulse Oximetry 90 06/07/17 16:53 Temperature 103 F H 06/07/17 16:53 Pulse Rate 102 H 06/07/17 17:26 Respiratory Rate 22 06/07/17 16:53 Blood Pressure 173/99 H 06/07/17 17:24 Pulse Oximetry 92 06/07/17 17:26 Fever - Lab Data Result diagrams: 06/07/17 17:25 06/07/17 17:26 Lab Results 06/07/17 06/07/17 06/07/17 Range/Units 17:23 17:25 17:26 WBC 14.3 H (4.5-11.0) T/MM3 RBC 4.30 L (4.50-5.90) M/MM3 Hgb 11.5 L (13.5-17.5) GM/DL Hct 36.0 L (41-53) % MCV 83.7 (80-100) UM3 MCH 26.7 (26-34) UUG MCHC 31.9 (31-37) GM/DL RDW Std Deviation 37.7 (36.9-50.2) FL Plt Count 311 (130-400) T/MM3 MPV 9.6 (9.4-12.4) UM3 Immature Gran % (Auto) 0.3 (0.0-0.5) % Neut % (Auto) 83.6 H (33-66) % Lymph % (Auto) 9.9 L (23-45) % Newton % (Auto) 5.8 (0-9.0) % Eos % (Auto) 0.2 (0-4) % Baso % (Auto) 0.2 (0-2) % Neut # (Auto) 11.9 H (1.8-7.7) T/MM3 Lymph # (Auto) 1.4 (1-4.8) T/MM3 Newton # (Auto) 0.8 (0-0.8) T/MM3 Eos # (Auto) 0.0 (0-0.5) T/MM3 Baso # (Auto) 0.0 (0-0.2) T/MM3 Abs Immat Gran (auto) 0.04 H (0.00-0.03) T/MM3 Turbidity < 20 (0-20) Sodium 140 (134-144) MEQ/L Potassium 4.2 (3.6-5) MEQ/L Chloride 100 (98-107) MEQ/L Carbon Dioxide 28 (22-30) MEQ/L Anion Gap 12 (5-15) MEQ/L BUN 13.0 (9-20) MG/DL Creatinine 0.7 L (0.8-1.5) MG/DL GFR Calculation 120 BUN/Creatinine Ratio 19 (6-26) RATIO Glucose 201 H (75-110) MG/DL Calculated Osmolality 275 (261-280) MOSM/KG Calcium 8.6 (8.4-10.2) MG/DL Total Bilirubin 1.00 (0.20-1.30) MG/DL Icterus Index < 2 (0-7) AST 26 (17-59) U/L ALT 46 (21-72) U/L Alkaline Phosphatase 114 (38-126) U/L C-Reactive Protein 85.9 H (0-9) MG/L Total Protein 7.6 (6.3-8.2) G/DL Albumin 3.9 (3.5-5.0) G/DL Globulin 3.7 H (2.4-3.6) G/DL Albumin/Globulin Ratio 1.1 (1.1-2.2) RATIO Plasma Lactate 1.2 (0.6-2.2) MMOL/L Procalcitonin 0.07 NG/ML Specimen Hemolysis < 15 (0-25) Ur Collection Type Urine Color (YELLOW) Urine Clarity Urine pH (5.0-8.0) Ur Specific Gay (1.015-1.025) Urine Protein (NEGATIVE) Urine Glucose (UA) (NEGATIVE) Urine Ketones (NEGATIVE) Urine Occult Blood (NEGATIVE) Urine Nitrate (NEGATIVE) Urine Bilirubin (NEGATIVE) Urine Urobilinogen (NORMAL) EU/DL Ur Leukocyte Esterase (NEGATIVE) Urine RBC (0-3) /HPF Urine WBC (0-5) /HPF Urine WBC Clumps Ur Squamous Epith Cells Urine Bacteria (NEGATIVE) Hyaline Casts /LPF Ur Culture Indicated? 06/07/17 Range/Units 17:49 WBC (4.5-11.0) T/MM3 RBC (4.50-5.90) M/MM3 Hgb (13.5-17.5) GM/DL Hct (41-53) % MCV (80-100) UM3 MCH (26-34) UUG MCHC (31-37) GM/DL RDW Std Deviation (36.9-50.2) FL Plt Count (130-400) T/MM3 MPV (9.4-12.4) UM3 Immature Gran % (Auto) (0.0-0.5) % Neut % (Auto) (33-66) % Lymph % (Auto) (23-45) % Newton % (Auto) (0-9.0) % Eos % (Auto) (0-4) % Baso % (Auto) (0-2) % Neut # (Auto) (1.8-7.7) T/MM3 Lymph # (Auto) (1-4.8) T/MM3 Newton # (Auto) (0-0.8) T/MM3 Eos # (Auto) (0-0.5) T/MM3 Baso # (Auto) (0-0.2) T/MM3 Abs Immat Gran (auto) (0.00-0.03) T/MM3 Turbidity (0-20) Sodium (134-144) MEQ/L Potassium (3.6-5) MEQ/L Chloride (98-107) MEQ/L Carbon Dioxide (22-30) MEQ/L Anion Gap (5-15) MEQ/L BUN (9-20) MG/DL Creatinine (0.8-1.5) MG/DL GFR Calculation BUN/Creatinine Ratio (6-26) RATIO Glucose (75-110) MG/DL Calculated Osmolality (261-280) MOSM/KG Calcium (8.4-10.2) MG/DL Total Bilirubin (0.20-1.30) MG/DL Icterus Index (0-7) AST (17-59) U/L ALT (21-72) U/L Alkaline Phosphatase (38-126) U/L C-Reactive Protein (0-9) MG/L Total Protein (6.3-8.2) G/DL Albumin (3.5-5.0) G/DL Globulin (2.4-3.6) G/DL Albumin/Globulin Ratio (1.1-2.2) RATIO Plasma Lactate (0.6-2.2) MMOL/L Procalcitonin NG/ML Specimen Hemolysis (0-25) Ur Collection Type Urine, void-cc/notcc Urine Color Yellow (YELLOW) Urine Clarity Sl cloudy Urine pH 6.0 (5.0-8.0) Ur Specific Gay 1.025 (1.015-1.025) Urine Protein 3+ A (NEGATIVE) Urine Glucose (UA) Negative (NEGATIVE) Urine Ketones Negative (NEGATIVE) Urine Occult Blood 2+ A (NEGATIVE) Urine Nitrate Negative (NEGATIVE) Urine Bilirubin 1+ A (NEGATIVE) Urine Urobilinogen 0.2 (NORMAL) EU/DL Ur Leukocyte Esterase Negative (NEGATIVE) Urine RBC 3-5 H (0-3) /HPF Urine WBC 1-3 (0-5) /HPF Urine WBC Clumps Few Ur Squamous Epith Cells 0-5 Urine Bacteria 3+ H (NEGATIVE) Hyaline Casts 5-10 /LPF Ur Culture Indicated? Cult not indicated Disposition Clinical Impression: Cellulitis Qualifiers: Site of cellulitis: extremity Site of cellulitis of extremity: toe Laterality: right Qualified Code(s): L03.031 - Cellulitis of right toe Sepsis Qualifiers: Sepsis type: sepsis due to unspecified organism Qualified Code(s): A41.9 - Sepsis, unspecified organism Disposition: 02 To [facility] Acute Care Condition: Stable Prescriptions: No Action Metformin HCl 1,000 mg PO BIDWM #0 Multivitamin [One Daily] 1 tab PO DAILY GlyBURIDE [Micronase] 10 mg PO BID Insulin Detemir [Levemir] 70 unit SQ BID Aspirin [Ecotrin] 81 mg PO DAILY Ibuprofen 800 mg PO Q8H PRN PRN Reason: Pain Insulin Aspart [NovoLOG] 30 unit SQ TIDWM Acetaminophen [Acetaminophen Extra Strength] 1,000 mg PO Q6H PRN PRN Reason: Pain Cetirizine HCl [Zyrtec] 10 mg PO DAILY #0 diphenhydrAMINE HCl [Benadryl] 50 mg PO HS #0 raNITIdine HCl [Zantac] 150 mg PO BID PRN #0 tab PRN Reason: ACID REFLUX Referrals: Christy Cobb MD [Family Provider] - Time of Disposition: 18:16 - Seen By: physician
[2017-06-07] MEDS ORDERED: MORPHINE SULFATE 2mg INJECTION IVP PRN (18:44)
[2017-06-07] MEDS ORDERED: RANITIDINE 150 MG TABLET PO PRN (18:44)
[2017-06-07] MEDS ORDERED: VANCOMYCIN - PHARMACY CONSULT MC ONE (18:44)
[2017-06-07] MEDS ORDERED: IBUPROFEN 200 MG TABLET PO PRN (18:44)
[2017-06-07] MEDS ORDERED: ONDANSETRON 4 MG/2 ML INJECTION IVP PRN (18:44)
[2017-06-07] MEDS ORDERED: ACETAMINOPHEN 500 MG TABLET PO PRN (18:44)
[2017-06-07 18:46] VITALS: BMI 44.0
--- NOTE | 2017-06-07 18:57 | History & Physical Report ---
History of Present Illness Date: 06/07/17 Chief complaint: fever, toe infection HPI: Patient is a 47 yo male who presented to ER with fever and infection in R foot. He has uncontrolled DM and a h/o slow healing diabetic ulcers on his R foot. He had R great toe amputation by Dr. Valle in August 2015. His R 4th toe started looking infected a few days ago and pt has had fever. He has also had a cough for the past several weeks and will cough until he vomits. He had a bloody nose today and vomited blood. He's been having nightsweats for the past 3 wks. Hasn't been checking his BS's or taking his insulin at regular dosages d/t lack of insurance and finances. Work up in ER revealed elevated white count and CRP. Hospitalist team was consulted and admitted pt for tx of sepsis secondary to infected diabetic foot wound. Review of Systems All systems PM: 10-point ROS was reviewed, no additional remarkable complaints except (fever, cough, epistaxis, n/v, swelling and pain in R lower leg/foot/toes ) Past Medical History Medical History Type 2 DM - on insulin Restless leg syndrome Migraine Peripheral Neuropathy Hypertension GERD H/o MRSA Depression Surgical History: cholecystectomy, R great toe amputation 08/25, R carpal tunnel release, R rotator cuff repair, R ulnar nerve surgery Family History: Father - , DM, prostate ca Mother - - hypoglycemia, bone cancer Sister - of DM complications Brother - of lung cancer Sister - of breast cancer Family History Updates: updated - Social History Smoking status: Former smoker (quit 21 yrs ago) Substance use type: does not use Alcohol intake frequency: holidays/special occasions only Housing: house Household members: significant other, children (son) Current occupational status: employed ([employer]) Does patient use chewing tobacco?: Yes ("off and on") Social history: PCP - Dr. Дмитрий Cobb Ortho - Dr. Valle ID - Dr. Alexis Wound - Dr. Tong Medications Home Medications Medication Instructions Recorded Confirmed Type Cetirizine HCl [Zyrtec] 10 mg PO DAILY #0 07/20/16 06/07/17 History Metformin HCl 1,000 mg PO BIDWM #0 07/20/16 06/07/17 History diphenhydrAMINE HCl [Benadryl] 50 mg PO HS #0 07/20/16 06/07/17 History raNITIdine HCl [Zantac] 150 mg PO BID PRN #0 tab 07/31/16 06/07/17 History Aspirin [Ecotrin] 81 mg PO DAILY 04/25/17 06/07/17 History GlyBURIDE [Micronase] 10 mg PO BID 04/25/17 06/07/17 History Insulin Detemir [Levemir] 70 unit SQ BID 04/25/17 06/07/17 History Multivitamin [One Daily] 1 tab PO DAILY 04/25/17 06/07/17 History Acetaminophen [Acetaminophen Extra 1,000 mg PO Q6H PRN 06/07/17 06/07/17 History Strength] Ibuprofen 800 mg PO Q8H PRN 06/07/17 06/07/17 History Insulin Aspart [NovoLOG] 30 unit SQ TIDWM 06/07/17 06/07/17 History Allergies Allergy/AdvReac Type Severity Reaction Status Date / Time clindamycin Allergy Unknown DIARRHEA Verified 06/07/17 18:44 Exam Vital Signs: Temperature 103 F H 06/07/17 16:53 Pulse Rate 102 H 06/07/17 18:30 Respiratory Rate 22 06/07/17 16:53 Blood Pressure 179/85 H 06/07/17 18:30 Pulse Oximetry 94 06/07/17 18:30 Height/Weight/BMI: Height 1.85 m Weight 151.4 kg Body Mass Index 44.0 - Constitutional Present: no acute distress, well nourished, well developed, morbidly obese - Routine HEENT Exam Head: Present: normocephalic, atraumatic Eye: Present: EOMI, PERRL ENT: Present: mucous membranes moist, oropharynx clear - Routine Neck Exam Present: supple. Absent: lymphadenopathy, thyromegaly - Routine Respiratory Exam Present: decreased breath sounds, wheezes (diffuse - with forced expiration). Absent: dyspnea - Routine Cardiovascular Exam Present: RRR, no murmur - Routine Abdominal Exam Present: soft, normoactive bowel sounds. Absent: tenderness, distended - Routine Extremities Exam Present: edema, normal capillary refill Comments: 2+ RLE R great toe amputation with large ulceration at amputation site. 4th toe with redness, swelling, to toe, extending into foot, and eschar to the lateral, plantar surface of toe. - Routine Skin Exam Present: dry, warm - Routine Neurological Exam Present: alert, oriented X3, CN II-XII intact - Routine Psychiatric Exam Present: normal affect, cooperative Results - Labs CBC & Chem 7: 06/07/17 17:25 06/07/17 17:26 Labs: Laboratory Tests 06/07/17 06/07/17 17:23 17:26 AST 26 ALT 46 Alkaline Phosphatase 114 C-Reactive Protein 85.9 H Plasma Lactate 1.2 Procalcitonin 0.07 Assessment and Plan (1) Sepsis Current visit: Yes Status: Acute (2) Diabetic foot ulcer associated with type 2 diabetes mellitus Current visit: No Status: Acute Assessment and Plan: Assessment Sepsis - SIRS: leukocytosis, temp, tachycardia. Source: cellulitis. Possible pulmonary source. Diabetic foot ulcer with surrounding cellulitis and tissue necrosis/gangrene Cough - r/o influenza Nausea and vomiting Type 2 DM Insulin requiring - uncontrolled Hypertension Restless leg syndrome Migraine Peripheral Neuropathy GERD H/o MRSA Depression Morbid Obesity (BMI 44) Plan Admit, IP, to the hospitalist service, Dr Martinez attending. Stay expected to exceed 2 overnights given the extent of his infection and uncontrolled DM and other comorbidities. Dr. Valle consulted. Will see in am. Pt NPO after midnight in event he'll go to surgery. Started on Levaquin and Vanco for cellulitis/MRSA. Influenza screen given his fever and cough and exposure. Accuchecks, continue home insulin - hold if NPO. Check A1C. SCD's for DVT ppx. Wishes to be a Full Code. Care to return to Dr Haresh Cobb on DC. DVT Prophylaxis: SCD's Resuscitation Status: Full Code - Physician Narrative Physician: Donald Martinez MD Narrative: Date: 06/07/17 Time: 2054 Have independently interviewed and examined pt. Chart reviewed. Case discussed with ED physician and my PA. Care plan developed with my supervision; agree with above. Presents to ED secondary to increasing fevers and n/v. Coughing for past several weeks, cough increased to point where he has emesis. Oral drive decreased. Right leg more swollen. Report cutting his toenails 2 weeks ago and toenail on 4th digit of right foot came off. Toe progressively more red and swollen. Not having pain (neuropathy). Presents to ED with cough and nausea, but clearly gangrenous toe root of his illness. Lungs: decreased, no distress CV: tachy, regular AB: soft obese nt EXT: Right LE warm/swollen. R foot with edema. 4th toe R foot with foul smelling ulceration. Plan: Inpatient admission to [facility] secondary to sepsis from gangrenous toe. Levaquin/Vanco for coverage. IVF for fluid support. Consult Dr Valle for wound evaluation - suspect will need amputation. Continue home medications except metformin (hold due to sepsis). Control nausea. Monitor lab. Hospital Course Summary Disclaimer: The visit summary below is not to be considered part of the above Progress Note. Hospital Course: 06/07/17 Admit, IP, to the hospitalist service, Dr Martinez attending. Stay expected to exceed 2 overnights given the extent of his infection and uncontrolled DM and other comorbidities Dr. Valle consulted. Will see in am. Pt NPO after midnight in event he'll go to surgery. Started on Levaquin and Vanco for cellulitis/MRSA. Influenza screen given his fever and cough and exposure. Accuchecks, continue home insulin - hold if NPO. Check A1C. SCD's for DVT ppx. Wishes to be a Full Code. Care to return to Dr Haresh Cobb on DC.
[2017-06-07] MEDS: NS 1,000 ML IV SCH (19:00)
--- NOTE | 2017-06-07 19:08 | Pharmacy Consult-Antibiotics ---
Pharmacy Consult-Vancomycin - Laboratory Information WBC 14.3 T/MM3 (4.5-11.0) H 06/07/17 17:25 BUN 13.0 MG/DL (9-20) 06/07/17 17:26 Creatinine 0.7 MG/DL (0.8-1.5) L 06/07/17 17:26 Procalcitonin 0.07 NG/ML 06/07/17 17:23 - Consult Information Vancomycin consult: 47 yo Male admitted through ER with cough, fever and diabetic toe infection. Patient has a past medical history of MRSA infection. Levaquin and Vancomycin per pharmacy protocol were ordered empirically. goal Vanco trough= 15 to 20 mcg/ml Will give Vancomycin 2 gm IV Q8H. Pharmacy will monitor and adjust as needed. Thank you, Trudi Walker [facility]
[2017-06-07] MEDS: DiphenhydrAMINE 25 MG CAPSULE PO SCH (20:41)
[2017-06-07] MEDS: INSULIN DETEMIR 100unit/ml INJECTION SQ SCH (21:14)
--- NOTE | 2017-06-08 07:49 | XRay Report ---
Indication: sepsis workup fever tachycardia hypertension PROCEDURE: XR chest 1V: Encounter: Initial Comparison: October 12, 2016 Findings: The lungs are stable in appearance without new focal airspace consolidation. There is no pleural effusion or pneumothorax. The heart size, pulmonary vascularity and mediastinal contours are unchanged. IMPRESSION: Stable appearance of the chest without acute cardiopulmonary disease. .
[2017-06-08] MEDS: ASPIRIN *EC* 81 MG TABLET PO SCH (08:44)
[2017-06-08] MEDS: GLYBURIDE 5 MG TABLET PO SCH ×2 (08:44→18:09)
[2017-06-08] MEDS: INSULIN ASPART 100unit/ml INJECTION SQ SCH ×3 (08:50→18:09)
[2017-06-08] MEDS: INSULIN DETEMIR 100unit/ml INJECTION SQ SCH ×2 (08:51→21:14)
[2017-06-08] MEDS: MULTI-VITAMIN PLAIN TABLET PO SCH (08:51)
[2017-06-08] MEDS: CETIRIZINE 10 MG TABLET PO SCH (08:51)
--- NOTE | 2017-06-08 09:01 | Orthopedic Consult Note ---
Orthopedic Consultation HPI - Consultation Info Consult Date: 06/08/17 Attending Physician: Donald Martinez MD - History of Present Illness Mr. Mancilla is known to me from previous right great toe amputation. Unfortunately he has been unable to pay for medications and is diabetes poorly controlled recently. He's had fever and chills at home as well as coughing as well as bloody nose. He noticed that his fourth toe on the right appeared infected about 4 days ago. He went to cut his toenail on that to the hole nail plate came off. He is also noted foul odor to his foot. He also has an ulceration over the plantar aspect of the distal medial foot over the first metatarsal. He does not have much pain due to neuropathy. Review of Systems - Constitutional Constitutional: Present: chills, fever(s). Absent: night sweats - Cardiovascular Cardiovascular: Absent: chest pain, palpitations - Respiratory Respiratory: Present: cough. Absent: dyspnea - Gastrointestinal Gastrointestinal: Absent: abdominal pain, nausea, vomiting - Musculoskeletal Musculoskeletal: Present: as per HPI - Integumentary/Breasts Integumentary: Present: lesions (as above) - Neurological Neurological: Present: numbness. Absent: tingling PFSH Patient Stated Medical History Migraine Yes Peripheral Neuropathy Yes: DIABETIC Hypertension Yes: Uncontrolled Diabetes Mellitus Type 2 Yes: Uncontrolled Gastroesophageal Reflux Yes Disease Osteoarthritis Yes MRSA Yes Depression Yes Surgical History: cholecystectomy, R great toe amputation 08/25, R carpal tunnel release, R rotator cuff repair, R ulnar nerve surgery - Social History Smoking status: Former smoker (quit 21 yrs ago) Does patient use chewing tobacco?: Yes ("off and on") Medications Home Medications Medication Instructions Recorded Confirmed Type Cetirizine HCl [Zyrtec] 10 mg PO DAILY #0 07/20/16 06/07/17 History Metformin HCl 1,000 mg PO BIDWM #0 07/20/16 06/07/17 History diphenhydrAMINE HCl [Benadryl] 50 mg PO HS #0 07/20/16 06/07/17 History raNITIdine HCl [Zantac] 150 mg PO BID PRN #0 tab 07/31/16 06/07/17 History Aspirin [Ecotrin] 81 mg PO DAILY 04/25/17 06/07/17 History GlyBURIDE [Micronase] 10 mg PO BID 04/25/17 06/07/17 History Insulin Detemir [Levemir] 70 unit SQ BID 04/25/17 06/07/17 History Multivitamin [One Daily] 1 tab PO DAILY 04/25/17 06/07/17 History Acetaminophen [Acetaminophen Extra 1,000 mg PO Q6H PRN 06/07/17 06/07/17 History Strength] Ibuprofen 800 mg PO Q8H PRN 06/07/17 06/07/17 History Insulin Aspart [NovoLOG] 30 unit SQ TIDWM 06/07/17 06/07/17 History Allergies Allergy/AdvReac Type Severity Reaction Status Date / Time clindamycin Allergy Unknown DIARRHEA Verified 06/07/17 18:44 Orthopedic Exam Vital signs: Temperature 97.2 F 06/08/17 07:00 Pulse Rate 84 06/08/17 07:00 Respiratory Rate 16 06/08/17 07:00 Blood Pressure 159/73 H 06/08/17 07:00 Pulse Oximetry 94 06/08/17 07:05 - Constitutional General Appearance: Present: no acute distress, well developed, well nourished - Respiratory Exam Present: non-labored - Cardiovascular Exam Present: peripheral edema, pedal pulses intact - Extremities Exam Present: edema - Integumentary Exam Present: pink, warm, dry - Neurological Exam Decreased sensation over his distal foot - Psychiatric Exam Present: alert, normal affect - Additional findings Additional findings: Unstageable necrotic diabetic foot ulcer over the distal half of the fourth toe. There is a second unstageable diabetic foot ulcer under the plantar aspect of the first metatarsal. The second ulcerations measuring approximately 2 cm x 2 and half centimeters. - Labs Result Diagrams: 06/08/17 03:54 06/08/17 03:54 Abnormal lab results 06/08/17 06/08/17 Range/Units 03:54 03:54 WBC 11.9 H (4.5-11.0) T/MM3 RBC 4.23 L (4.50-5.90) M/MM3 Hgb 11.2 L (13.5-17.5) GM/DL Hct 35.9 L (41-53) % Neut % (Auto) 80.3 H (33-66) % Lymph % (Auto) 11.4 L (23-45) % Neut # (Auto) 9.5 H (1.8-7.7) T/MM3 Carbon Dioxide 31 H (22-30) MEQ/L Creatinine 0.7 L (0.8-1.5) MG/DL Glucose 143 H (75-110) MG/DL Hemoglobin A1c 10.9 H (4.0-5.7) % H & H 06/08/17 Range/Units 03:54 Hgb 11.2 L (13.5-17.5) GM/DL Hct 35.9 L (41-53) % Impression and Recommendation (1) Diabetic foot ulcer associated with type 2 diabetes mellitus Current visit: No Qualifiers: Diabetic foot ulcer location: toe Laterality: right Non-pressure ulcer stage: unspecified non-pressure ulcer stage Qualified Code(s): E11.621 - Type 2 diabetes mellitus with foot ulcer; L97.519 - Non-pressure chronic ulcer of other part of right foot with unspecified severity Status: Acute At a minimum he will need surgical debridement of both ulcerations with likely amputation to the fourth toe and possibly partial amputation to the first ray. I would like to evaluate for deep abscess and/or osteomyelitis with an MRI if able to be obtained today before surgery. I had a long talk with Mr. Farmer and his . I do feel that he is at very high risk of a below the knee amputation if his diabetes control isn't better controlled. Currently I do not think he has a good chance of healing amputation site so we'll likely place a wound VAC during surgery today and then reevaluate once sugars under better control to discuss further surgical treatment which may include discussion of then transmetatarsal amputation. Surgery will be this afternoon and will allow him to have a liquid breakfast. Hospital Course Summary Disclaimer: The visit summary below is not to be considered part of the above Progress Note. Hospital Course: 06/07/17 Admit, IP, to the hospitalist service, Dr Martinez attending. Stay expected to exceed 2 overnights given the extent of his infection and uncontrolled DM and other comorbidities Dr. Valle consulted. Will see in am. Pt NPO after midnight in event he'll go to surgery. Started on Levaquin and Vanco for cellulitis/MRSA. Influenza screen given his fever and cough and exposure. Accuchecks, continue home insulin - hold if NPO. Check A1C. SCD's for DVT ppx. Wishes to be a Full Code. Care to return to Dr Haresh Cobb on DC.
[2017-06-08] MEDS: NS 1,000 ML IV SCH ×3 (09:06→23:47)
[2017-06-08] MEDS ORDERED: SALINE FLUSH 10ml SYRINGE ONE (14:21)
[2017-06-08] MEDS ORDERED: GADOTERIDOL 279.3mg/ml - 10ml vial IVP ONE (14:22)
[2017-06-08] MEDS ORDERED: ROPIVACAINE 0.5% (5mg/ml) 30ml INJ ONE (15:30)
[2017-06-08] MEDS: MIDAZOLAM 5mg/5ml INJECTION IVP PRN ×3 (15:31→15:49)
--- NOTE | 2017-06-08 15:52 | Magnetic Resonance Report ---
Indication: R/O osteomyelitis and abscess right foot PROCEDURE: MR foot RT wo/w con: Encounter: Subsequent Comparison: Foot radiographs dated April 25, 2017 and MRI of the right foot dated September 03, 2016 Technique: Multiplanar multisequence MR imaging of the right foot was performed with and without contrast. Contrast: 30 mL ProHance Findings: Interval amputation of the great toe phalanges. There is osseous erosion and abnormal T1 hypointense, T2 hyperintense signal intensity in the third metatarsal head and proximal phalanx of the third toe. This corresponds to the area of radiographic abnormality. There is abnormal postcontrast enhancement in this location as well. The first metatarsal head area of clinical concern shows normal bright T1 signal within the bone. The third toe middle and distal phalanges show abnormal increased T2 signal intensity. There is new abnormal T1 hypointense signal and edema within the fourth toe phalanges, worst in the distal phalanx. There is also some edema within the fourth metatarsal head and a small amount of edema in the fourth metatarsal shaft and base. This is all a change from the comparison study. Abnormal fluid sensitive hyperintense signal within the proximal second metatarsal shaft and second metatarsal base. There is also diffusely abnormal T2 hyperintense signal throughout the third metatarsal shaft. New edema within the middle and lateral cuneiform bones. There is significant abnormal T2 signal intensity throughout the intrinsic foot musculature with enhancement in the midfoot musculature in the region of the metatarsal shafts. There is no rim-enhancing fluid collection or abscess identified. The areas of bone marrow edema mentioned above all show varying degrees of postcontrast enhancement which is most intense in the third and fourth metatarsal heads and phalanges of the third and fourth toes. There is slightly decreased T1 signal intensity within the phalanges of the fifth toe which may be artifactual due to positioning at the edge of the exam and loss of magnetic field homogeneity. Impression: 1. Multifocal osteomyelitis in the foot with definite involvement of the third metatarsal shaft and head along with the phalanges of the third toe. There is definite involvement of the fourth metatarsal head and fourth toe phalanges as well. 2. Edema within the second and fourth metatarsal shafts along with the middle and lateral cuneiform bones. The pattern of edema is more suggestive of a neuropathic midfoot rather than skip lesions of osteomyelitis. .
[2017-06-08] MEDS ORDERED: PROPOFOL 500 MG/50 ML VIAL ONE ×2 (16:02→16:28)
[2017-06-08] MEDS ORDERED: FentaNYL 100 MCG/2 ML INJECTION ONE (16:03)
[2017-06-08] MEDS ORDERED: LEVOFLOXACIN PB 750 MG/150 ML BAG IV SCH (16:30)
--- NOTE | 2017-06-08 16:31 | Anesthesia Preoperative Report ---
Anesthesia Preoperative Record - Date and Time Date: 06/08/17 Preoperative Diagnosis: Diabetic toe infection NPO Since Date: 06/08/17 (clear liquid diet) NPO Since Time: 08:00 Allergies/Adverse Reactions: Allergies Allergy/AdvReac Type Severity Reaction Status Date / Time clindamycin Allergy Unknown DIARRHEA Verified 06/07/17 18:44 - Vital Signs Vital Signs: Temperature 99.0 F 06/08/17 15:07 Pulse Rate 80 06/08/17 15:55 Respiratory Rate 22 06/08/17 15:35 Blood Pressure 161/80 H 06/08/17 15:55 Pulse Oximetry 95 06/08/17 15:55 Height and Weight: Height 1.85 m Weight 151.5 kg Body Mass Index 44.0 - Medications Inpatient Medications: Current Medications Acetaminophen (Tylenol) 1,000 mg PO Q6H PRN PRN Reason: Pain Last Admin: 06/07/17 20:39 Dose: 1,000 mg Hydrocodone Bitart/Acetaminophen ([place] 5/325) 1 tab PO Q4H PRN PRN Reason: Pain Aspirin (Ecotrin) 81 mg PO DAILY [facility] Last Admin: 06/08/17 08:44 Dose: Not Given Cetirizine HCl (Zyrtec) 10 mg PO DAILY [facility] Last Admin: 06/08/17 08:51 Dose: 10 mg Diphenhydramine HCl (Benadryl) 50 mg PO HS [facility] Last Admin: 06/07/17 20:41 Dose: 50 mg Glyburide (Micronase) 10 mg PO BIDWM [facility] Last Admin: 06/08/17 08:44 Dose: Not Given Levofloxacin/Dextrose (Levaquin Premix) 750 mg in 150 mls @ 100 mls/hr IV Q24H [facility] Sodium Chloride (Normal Saline) 1,000 mls @ 100 mls/hr IV .Q10H [facility] Last Infusion: 06/08/17 12:52 Dose: 100 mls/hr Vancomycin HCl 2,000 mg/ (Sodium Chloride) 500 mls @ 250 mls/hr IV Q8H [facility] Last Infusion: 06/08/17 12:52 Dose: Infused Ibuprofen (Motrin) 800 mg PO Q8H PRN PRN Reason: Pain Insulin Aspart (Novolog) 30 unit SQ TIDWM [facility] Last Admin: 06/08/17 12:15 Dose: 5 unit Insulin Detemir (Levemir) 70 unit SQ BID [facility] Last Admin: 06/08/17 08:51 Dose: 70 unit Midazolam HCl (Versed) 1 - 5 mg IVP PRN PRN Last Admin: 06/08/17 15:49 Dose: 2 mg Morphine Sulfate (Morphine Sulfate Inj) 2 mg IVP Q2HR PRN PRN Reason: Pain Multivitamins (Theragran) 1 tab PO DAILY [facility] Last Admin: 06/08/17 08:51 Dose: 1 tab Ondansetron HCl (Zofran) 4 mg IVP Q6H PRN PRN Reason: Nausea Last Admin: 06/08/17 03:28 Dose: 4 mg Ranitidine HCl (Zantac) 150 mg PO BID PRN PRN Reason: Acid Reflux Sodium Chloride (Iv Flush) 10 - 80 ml IVF PRN PRN PRN Reason: Flushing Sodium Chloride (Deep Sea Nasal Moisturizing [place]) 2 spray EA NOSTRIL QID [facility] Home Medications: Home Medications Medication Instructions Recorded Confirmed Type Cetirizine HCl [Zyrtec] 10 mg PO DAILY #0 07/20/16 06/07/17 History Metformin HCl 1,000 mg PO BIDWM #0 07/20/16 06/07/17 History diphenhydrAMINE HCl [Benadryl] 50 mg PO HS #0 07/20/16 06/07/17 History raNITIdine HCl [Zantac] 150 mg PO BID PRN #0 tab 07/31/16 06/07/17 History Aspirin [Ecotrin] 81 mg PO DAILY 04/25/17 06/07/17 History GlyBURIDE [Micronase] 10 mg PO BID 04/25/17 06/07/17 History Insulin Detemir [Levemir] 70 unit SQ BID 04/25/17 06/07/17 History Multivitamin [One Daily] 1 tab PO DAILY 04/25/17 06/07/17 History Acetaminophen [Acetaminophen Extra 1,000 mg PO Q6H PRN 06/07/17 06/07/17 History Strength] Ibuprofen 800 mg PO Q8H PRN 06/07/17 06/07/17 History Insulin Aspart [NovoLOG] 30 unit SQ TIDWM 06/07/17 06/07/17 History Is Patient on Beta Radha?: No - Medical History Respiratory: Reports: Dyspnea (exertion), Sleep Apnea (pressumptive) Cardiovascular: Reports: Hypertension (Uncontrolled) Gastrointestional: Reports: Gastroesophageal Reflux Disease, Morbid Obesity Neuro/Musculoskeletal: Reports: HX.MS.OSAR, Depression, Headaches, Other (RLS, diabetic neuropathy to lower extremeties) Renal/Endocrine: Reports: Diabetes Mellitus Type 2 (Uncontrolled, blood sugar 94 ) - Surgical History GI Surgery/Treatments: Reports: Cholecystectomy, EGD (15Y/O) Musculoskeletal Surgery/Tx: Reports: Carpal Tunnel Release, Shoulder Arthroscopy , Other (RIGHT GREAT TOE AMPUTATION, RIGHT ELBOW, HAND) Anesthesia Reactions: None Hx Family Anesthesia Reaction: No History of Motion Sickness: No - Social History Smoking Status: Former smoker (quit 21 yrs ago) Hx Chewing Tobacco Use: Yes ("off and on") Second Hand Exposure: No Substance Use Type: does not use Alcohol Intake Frequency: holidays/special occasions only - Pertinent Findings Laboratory: CBC and BMP 06/08/17 03:54 06/08/17 03:54 BMP 06/08/17 03:54 Sodium 144 Potassium 3.9 Chloride 102 Carbon Dioxide 31 H BUN 11.0 Creatinine 0.7 L Glucose 143 H Calcium 8.4 EKG: Sinus Rhythm - Airway Assessment Mallampati Score: II TMD: 3 Fingerbreadths Neck Extension: fair Overall Assessment: may be difficult mask vent, may be difficult intubation - ASA ASA Score: 3 - Plan Anesthesia: General TIVA Peripheral Nerve Block: Ankle-Right - Discussion Discussion: Discussed risks/options/alternatives of anesthesia and questions answered. Patient consents. Nursing pain assessment noted. Present for Discussion: family member Attestation Statement: Prior to the delivery of any anesthetic medication, I examined the patient, developed the plan, obtained the patient's consent and discussed the risk and benefits of the procedure with the patient/guardian. - Additional Information Seen by Anesthesia: Yes
--- NOTE | 2017-06-08 16:37 | Anesthesia Procedure Note ---
Peripheral Nerve Blockade - Procedure Physician: Donald Martinez MD Date: 06/08/17 Discussion: Discussed risks/options/alternatives of anesthesia and questions answered. Patient consents. Nursing pain assessment noted. Block Start: 15:33 Block Stop: 15:51 Blocked Employed: Ankle/Foot Indication: Post-Operative Pain Approach: Right Side Confirmed Position: Supine Patient: Consent, Risks/Benefits Discussed, Informed, Post Block Act. Discussed IV Sedation: Yes Sedation: Sedate w/Meaningful Contact Midazolam (mg): 5 Initial Vital Signs: Temperature 103 F H 06/07/17 16:53 Temperature Source Oral 06/07/17 16:53 Sepsis Recent Fever Within 48 Hours Yes 06/07/17 16:53 Sepsis Suspicion of Infection Yes 06/07/17 16:53 Sepsis New/Unexplained Change in Mental Status No 06/07/17 16:53 Sepsis Score/Level Possible Sepsis Risk 06/07/17 16:53 Sepsis Action Taken by Nursing MD Notified 06/07/17 16:53 Pulse Rate 104 H 06/07/17 16:53 Pulse Rhythm 06/07/17 16:53 Pulse Strength Normal 06/07/17 16:53 Respiratory Rate 22 06/07/17 16:53 Respiratory Depth Normal 06/07/17 16:53 Respiratory Pattern 06/07/17 16:53 Blood Pressure 205/100 H 06/07/17 16:53 Blood Pressure Mean 135 06/07/17 16:53 Blood Pressure Position Sitting 06/07/17 16:53 Pulse Oximetry 90 06/07/17 16:53 Oxygen Delivery Method 06/07/17 16:53 Post Vital Signs: Temperature 99.0 F 06/08/17 15:07 Pulse Rate 80 06/08/17 15:55 Respiratory Rate 22 06/08/17 15:35 Blood Pressure 161/80 H 06/08/17 15:55 Pulse Oximetry 95 06/08/17 15:55 Prep: Chlorhexadine/ETOH, Sterile Technique Ultrasound Used?: Yes - Nerve Simulator Needle Depth: 2 Muscle Response: No Paresthesia/Pain: None - Injectate Ropivacaine (%): 0.5 Ropivacaine (mL): 20 (3-5 ml per nerve x 5 tibial, saphenous, sural, deep peroneal, and superficial peroneal nerves) Was Epi 1:200,000 Used?: No Injection: Injection made incrementally with constant monitoring and aspiration every 3 ml
--- NOTE | 2017-06-08 17:27 | Anesthesia Postoperative Note ---
- Date and Time Date: 06/08/17 Time: 17:25 - Status Patient Participated in Evaluation: Patient Participated in Person Vital Signs: Temperature 99.0 F 06/08/17 15:07 Pulse Rate 80 06/08/17 15:55 Respiratory Rate 22 06/08/17 15:35 Blood Pressure 161/80 H 06/08/17 15:55 Pulse Oximetry 95 06/08/17 15:55 Respiratory Function: Airway Patent, Regular Respirations Cardiovascular Function: Regular Pulse Mental Status: Alert and Oriented Pain Intensity: 0 Hydration: IV Infusing Complications During Recover: None Apparent - Follow-Up Instructions Instructions: Per Surgeon
--- NOTE | 2017-06-08 21:07 | Progress Note ---
- Date 06/08/17 Subjective: F/U: Sepsis, Diabetic foot ulcer with surrounding cellulitis and tissue necrosis /gangrene, Uncontrolled Type II DM Tolerated surgery well. Not having pain currently. Breathing well, notes still minor cough but not chest congestion/SOA. No nausea or ab pain. Passing flatus. No f/c. Objective Vital signs: Temperature 97.5 F 06/08/17 17:45 Pulse Rate 78 06/08/17 18:30 Respiratory Rate 16 06/08/17 17:45 Blood Pressure 165/82 H 06/08/17 18:30 Pulse Oximetry 98 06/08/17 18:30 Height/Weight/BMI: Height 1.85 m Weight 151.5 kg Body Mass Index 44.0 - Constitutional Present: well nourished, well developed, morbidly obese, cooperative - Routine HEENT Exam Head: Present: normocephalic, atraumatic Eye: Present: EOMI, PERRL ENT: Present: mucous membranes moist - Routine Respiratory Exam Present: decreased breath sounds. Absent: respiratory distress - Routine Cardiovascular Exam Present: RRR, no murmur - Routine Abdominal Exam Present: soft, normoactive bowel sounds, non distended, non tender - Routine Extremities Exam Present: edema (RLE ). Absent: cyanosis, clubbing - Routine Musculoskeletal Exam Musculoskeletal: Present: no clubbing or cyanosis - Routine Skin Exam Present: normal turgor, wounds (RLW wound wrapped) - Routine Neurological Exam Present: alert, oriented X3, CN II-XII intact, moving all extremities, vision grossly intact, hearing grossly intact, normal speech. Absent: motor deficit, altered mental status - Routine Psychiatric Exam Present: normal affect, normal thought process, cooperative Results - Labs CBC & Chem 7: 06/08/17 03:54 06/08/17 03:54 Microbiology Results: Microbiology 06/08/17 16:30 Toe Fourth, Right, Bone Surgical Culture - Preliminary Culture Initiated - Results Pending 06/08/17 16:41 Metatarsus, Right, Bone Surgical Culture - Preliminary Culture Initiated - Results Pending Assessment and Plan (1) Sepsis Current visit: Yes Status: Acute (2) Diabetic foot ulcer associated with type 2 diabetes mellitus Current visit: No Status: Acute Assessment and Plan: Assessment Sepsis - SIRS: leukocytosis, temp, tachycardia. Source: cellulitis. Possible pulmonary source. Diabetic foot ulcer with surrounding cellulitis and tissue necrosis/gangrene Cough Nausea and vomiting Type 2 DM Insulin requiring - uncontrolled Hypertension Restless leg syndrome Migraine Peripheral Neuropathy GERD H/o MRSA Depression Morbid Obesity (BMI 44) Plan - Op DAY Tolerated surgery well. Anticipate wound vac placement tomorrow. Continue levofloxacin and vancomycin for coverage - wound cultures taken during surgery. Will consult diabetic eduction and dietary education to help patient improve diabetic control. Decrease IVF to 50cc/hr, likely can stop tomorrow if patient taking oral well. Check CBC tomorrow secondary to resolving sepsis. Recheck BMP in am due to IVF and medication use. DVT Prophylaxis: SCD's Resuscitation Status: Full Code - Time spent with patient Time with patient PN: 25 minutes - Physician Narrative Physician: Donald Martinez MD Narrative: Date: 06/08/17 Time: 2103 Hospital Course Summary Disclaimer: The visit summary below is not to be considered part of the above Progress Note. Hospital Course: 06/07/17 Admit, IP, to the hospitalist service, Dr Martinez attending. Stay expected to exceed 2 overnights given the extent of his infection and uncontrolled DM and other comorbidities Dr. Valle consulted. Will see in am. Pt NPO after midnight in event he'll go to surgery. Started on Levaquin and Vanco for cellulitis/MRSA. Influenza screen given his fever and cough and exposure. Accuchecks, continue home insulin - hold if NPO. Check A1C. SCD's for DVT ppx. Wishes to be a Full Code. Care to return to Dr Haresh Cobb on DC. 06/08/17 OP DAY - Right foot 4th digit amputation and debridement of wound bed from great toe removal. Tolerated surgery well. Anticipate wound vac placement tomorrow. Continue levofloxacin and vancomycin for coverage - wound cultures taken during surgery. Will consult diabetic eduction and dietary education to help patient improve diabetic control. Decrease IVF to 50cc/hr, likely can stop tomorrow if patient taking oral well.
[2017-06-08] MEDS: DiphenhydrAMINE 25 MG CAPSULE PO SCH (21:14)
[2017-06-08] MEDS: SALINE 0.65% NASAL SPRAY 44 ML BOTTLE EA NOSTRIL SCH (22:14)
[2017-06-09] MEDS: HYDROCODONE/APAP 5mg/325mg TABLET PO PRN (02:48)
--- NOTE | 2017-06-09 08:18 | Orthopedic Progress Note ---
Date: Date: 06/09/17 Time: 807 Subjective/Severity of Illness: Mr Mancilla was seen this AM. His pain is controlled. No drainage overnight. He was up and tolerated it well. Discussed the findings at surgery and plan of treatment. Orthopedic Objective PO Vital signs: Temperature 97.6 F 06/09/17 08:04 Pulse Rate 81 06/09/17 08:04 Respiratory Rate 20 06/09/17 08:04 Blood Pressure 143/95 H 06/09/17 08:04 Pulse Oximetry 98 06/09/17 08:04 Height and Weight: Height 6 ft 1 in Weight 334 lb 0.005 oz Body Mass Index 44.0 - Constitutional General Appearance: Present: alert, no acute distress, well developed, well nourished - Respiratory Exam Present: non-labored - Cardiovascular Exam Present: peripheral edema - Surgical Site Incision: dressing intact, no drainage - Psychiatric Exam Present: alert, normal affect - Labs Result Diagrams: 06/09/17 04:08 06/09/17 04:08 Abnormal lab results 06/09/17 06/09/17 Range/Units 04:08 04:08 WBC 11.2 H (4.5-11.0) T/MM3 RBC 3.69 L (4.50-5.90) M/MM3 Hgb 9.8 L D (13.5-17.5) GM/DL Hct 32.1 L (41-53) % MCHC 30.5 L (31-37) GM/DL Neut % (Auto) 78.1 H (33-66) % Lymph % (Auto) 11.7 L (23-45) % Neut # (Auto) 8.7 H (1.8-7.7) T/MM3 Maury # (Auto) 0.9 H (0-0.8) T/MM3 Carbon Dioxide 31 H (22-30) MEQ/L Calcium 7.8 L (8.4-10.2) MG/DL H & H 06/08/17 06/09/17 Range/Units 03:54 04:08 Hgb 11.2 L 9.8 L D (13.5-17.5) GM/DL Hct 35.9 L 32.1 L (41-53) % Orthopedic Assessment and Plan (1) Diabetic foot ulcer associated with type 2 diabetes mellitus Status: Acute Qualifiers: Diabetic foot ulcer location: toe Laterality: right Non-pressure ulcer stage: unspecified non-pressure ulcer stage Qualified Code(s): E11.621 - Type 2 diabetes mellitus with foot ulcer; L97.519 - Non-pressure chronic ulcer of other part of right foot with unspecified severity Assessment and Plan: S/P debridement/amputation right foot. Dr Valle recommends ID consult. Dr Valle discussed future treatment options including possible BKA. Will get wound clinic involved today for placement of wound vac. Hospitalist to cover medically and provide anticoagulant needs. Pt may be up. WBAT in a post op shoe. Hospital Course Summary Disclaimer: The visit summary below is not to be considered part of the above Progress Note. Hospital Course: 06/07/17 Admit, IP, to the hospitalist service, Dr Martinez attending. Stay expected to exceed 2 overnights given the extent of his infection and uncontrolled DM and other comorbidities Dr. Valle consulted. Will see in am. Pt NPO after midnight in event he'll go to surgery. Started on Levaquin and Vanco for cellulitis/MRSA. Influenza screen given his fever and cough and exposure. Accuchecks, continue home insulin - hold if NPO. Check A1C. SCD's for DVT ppx. Wishes to be a Full Code. Care to return to Dr Haresh Cobb on DC. 06/08/17 OP DAY - Right foot 4th digit amputation and debridement of wound bed from great toe removal. Tolerated surgery well. Anticipate wound vac placement tomorrow. Continue levofloxacin and vancomycin for coverage - wound cultures taken during surgery. Will consult diabetic eduction and dietary education to help patient improve diabetic control. Decrease IVF to 50cc/hr, likely can stop tomorrow if patient taking oral well.
[2017-06-09] MEDS: INSULIN DETEMIR 100unit/ml INJECTION SQ SCH ×2 (08:53→20:51)
[2017-06-09] MEDS: ASPIRIN *EC* 81 MG TABLET PO SCH (08:53)
[2017-06-09] MEDS: GLYBURIDE 5 MG TABLET PO SCH ×2 (08:53→18:54)
[2017-06-09] MEDS: CETIRIZINE 10 MG TABLET PO SCH (08:53)
[2017-06-09] MEDS: MULTI-VITAMIN PLAIN TABLET PO SCH (08:54)
[2017-06-09] MEDS: SALINE 0.65% NASAL SPRAY 44 ML BOTTLE EA NOSTRIL SCH ×4 (08:54→20:52)
[2017-06-09] MEDS: INSULIN ASPART 100unit/ml INJECTION SQ SCH ×4 (08:55→18:54)
--- NOTE | 2017-06-09 09:05 | Operative Note ---
DATE OF PROCEDURE 06/08/2017 PREOPERATIVE DIAGNOSIS Right foot diabetic foot ulcers with possible osteomyelitis. POSTOPERATIVE DIAGNOSIS Right foot diabetic foot ulcers with possible osteomyelitis. PROCEDURE Surgical debridement of right foot diabetic foot ulcer with fourth toe amputation and third metatarsal bone biopsy. SURGEON Kvng Valle MD ANESTHESIA TIVA with regional block. COMPLICATIONS None. DESCRIPTION OF PROCEDURE Mr. Mancilla and his right foot were identified and marked in the preoperative holding area. He was brought back to the operating suite and placed supine on the operating table. An ankle block was placed in the preoperative holding area. The right lower extremity was prepped and draped in my normal sterile fashion. Time-out was performed. I started with the ulceration over the plantar aspect of the first metatarsal. He had a previous amputation to the great toe. This ulceration measured approximately 2.5 cm x 2 cm. It had 100% necrotic tissue which was removed sharply down to the deep fascia over the bone. There was good bleeding tissue deep. There were no pockets of abscess or fluid encountered. This wound was then packed. I then moved to the fourth toe. There was a large ulceration over the distal tip, again measuring approximately 2 cm x 1 cm. Sharp debridement was performed removing necrotic tissue which encompassed 100% of the ulcer. With removing superficial necrotic tissue, it was obvious that this tracked deep. At this point it was decided to proceed with a full fourth toe amputation. A sharp incision was made around the base of the fourth toe and continued down the proximal phalanx to the MTP joint. The capsule and ligaments were then incised so that the entire toe could be removed from this wound. I was then able to sharply dissect the soft tissue to the third metatarsal which showed possible osteomyelitis on the MRI, and for this reason I used a Julien needle to obtain a biopsy of the third metatarsal head. This was sent for pathology. I also sent some of the deep tissue of the fourth toe ulcer for culture. Both wounds were thoroughly irrigated. There was too much active bleeding to both wounds to apply a wound vac, so we proceeded to pack it with wet gauze. This was covered then with dry gauze, Kerlix, 4 x 4's, ABDs and then an Kwasi bandage. The drapes were removed. He was allowed to awaken from general anesthesia and taken to the recovery room under the care of Anesthesia. He tolerated the procedure well. There were no complications. CHAO
--- NOTE | 2017-06-09 11:30 | Pharmacy Consult-Antibiotics ---
Pharmacy Consult-Vancomycin - Laboratory Information WBC 11.2 T/MM3 (4.5-11.0) H 06/09/17 04:08 BUN 13.0 MG/DL (9-20) 06/09/17 04:08 Creatinine 0.8 MG/DL (0.8-1.5) 06/09/17 04:08 Procalcitonin 0.07 NG/ML 06/07/17 17:23 Vancomycin Trough 20.62 UG/ML (15-20) H 06/09/17 09:56 - Consult Information Vancomycin consult: Day 3 47 yo Male admitted through ER with cough, fever and diabetic toe infection. Patient has a past medical history of MRSA infection. Levaquin and Vancomycin per pharmacy protocol were ordered empirically. goal Vancomycin trough = 15 to 20 mcg/ml Vancomycin trough = 20.62 mcg/mL S Cr = 0.8 mg /dL Cr Cl > 120 mL/min The Vancomycin trough is above 20 mcg/mL so I'm changing the Vancomycin to 1, 500 mg IV Q8H. The Pharmacy will monitor the renal function and Vancomycin level, and will adjust the Vancomycin as needed. Thanks for the Vancomycin Protocol, Demetrio Mack, Pharmacist.
--- NOTE | 2017-06-09 12:18 | Infectious Disease Consult ---
Infectious Disease Consult Date of Consultation: 06/09/17 Requesting Physician: Kvng Valle Reason for Consultation: antibiotic recs History of Present Illness: Mr. Mancilla is a 46 y/o man known to me from his h/o osteomyelitis involving the right great toe in 2016. He has DM and had a history of ulcer on the plantar aspect of the right great toe for about 4-5 years. I initially saw him in September 2015. He had some debridement of this ulcer done by Dr. Teague at that time but it did not go down to bone. He had an MRI of the foot September 20, 2015 which showed osteomyelitis of the great toe distal phalanx. I discussed using IV antibiotics with him during the summer of 2015 but he wanted to try oral antibiotics first. I treated him with Bactrim and Levaquin empirically for six weeks. He completed those November 20, 2015 and his wound had essentially healed. This wound apparently flared up again around February or March 2016 although the exact treatment at that time is somewhat unclear. In July 2016 he was evaluated in the ED for infection in this again associated with red streaking that went up above his knee. A wound culture obtained July 2016 grew slight growth of E. coli and Enterococcus faecalis sensitive to ampicillin, strep dysgalactiae and MRSA. He had another MRI on June 23 which showed prominent soft tissue edema and enhancement of the forefoot suggesting cellulitis as well as enhancement of the second proximal phalanx and distal metatarsal on the first proximal and distal phalanges suggestive of osteomyelitis. I saw him on July 29 and recommended IV antibiotics. He was taken to the operating room by Dr. Valle on July 31 for debridement of this wound and bone biopsy of the distal phalanx. Pathology from the right toe bone biopsy showed mild chronic osteomyelitis. The wound culture from that biopsy grew E. coli resistant to ampicillin and Bactrim only. There were no organisms seen on the gram stain. He was started on Rocephin 2 g IV daily and daptomycin 800 mg daily on July 31. On 08/12/16, I discontinued the Daptomycin since there were no gram positives in his wound culture. He was admitted to [facility] [place] on 09/03/16 due to fever, chills, and leukocytosis. His wound was worse. He was taken to the OR by Dr. Valle on 09/04 for amputation of the R great toe. Wound culture grew MRSA and Enterococcus sp. Pathology was not sent. He was discharged on Daptomycin which he is self-administering through [facility] and he completed 6 weeks of this on October 15, 2016. Unfortunately he lost his [employer] insurance and so has not been taking his insulin for some time. He reports that he had something on the right fourth toe that looked like a blood blister. About a week and a half ago he states that he was clipping his toenails and the toenail on the fourth toe just came off. After that he developed redness and swelling in that fourth toe as well as fevers and sweats. He also reports that he recently had wounds near the great toe amputation site in the second toe but that those seem to be healing. He was seen in the wound clinic recently by Dr. Bright and also Dr. Valle. On June 07 he presented to the emergency department with complaints of fever and coughing until he vomited as well as a bloody nose. He states he was coughing up blood related to the bloody nose. On admission had a temperature of 103. His white blood cell count was 14,000, and his pro calcitonin was normal. Blood cultures from admission are no growth after 1 day. He also had blood cultures obtained 04/25/2017 which are negative. He had a wound culture obtained from the left foot on 04/25/2017 which had few gram-positive cocci in clusters on the Gram stain and grew moderate growth of methicillin susceptible staph aureus. He had an MRI of the right foot on June 08 which showed multifocal osteomyelitis in the foot with involvement of the third metatarsal shaft and head along with the phalanges of the third toe as well as involvement of the fourth metatarsal head and fourth toe phalanges. He also had edema in the second and fourth metatarsal shafts in the cuneiform bones concerning for neuropathic foot. He was taken to the operating room by Dr. tucker on June 08 and underwent right fourth toe amputation and third metatarsal bone biopsy. There were no pockets of abscess or fluid noted intraoperatively. There were 2 specimens sent for culture from surgery yesterday. The fourth toe bone culture has gram-positive cocci and gram-negative rods on the Gram stain with Early growth on the culture. The bone biopsy has gram-positive cocci and gram- negative rods on Gram stain and the culture is pending. Pathology is pending as well. He was started on vancomycin and Levaquin on admission and his fever has improved. Dr. Valle asked me to see him and help with his antibiotics. Dr. Valle has also discussed with the patient that he might require a below knee amputation. Medications Home Medications Medication Instructions Recorded Confirmed Type Cetirizine HCl [Zyrtec] 10 mg PO DAILY #0 07/20/16 06/07/17 History Metformin HCl 1,000 mg PO BIDWM #0 07/20/16 06/07/17 History diphenhydrAMINE HCl [Benadryl] 50 mg PO HS #0 07/20/16 06/07/17 History raNITIdine HCl [Zantac] 150 mg PO BID PRN #0 tab 07/31/16 06/07/17 History Aspirin [Ecotrin] 81 mg PO DAILY 04/25/17 06/07/17 History GlyBURIDE [Micronase] 10 mg PO BID 04/25/17 06/07/17 History Insulin Detemir [Levemir] 70 unit SQ BID 04/25/17 06/07/17 History Multivitamin [One Daily] 1 tab PO DAILY 04/25/17 06/07/17 History Acetaminophen [Acetaminophen Extra 1,000 mg PO Q6H PRN 06/07/17 06/07/17 History Strength] Ibuprofen 800 mg PO Q8H PRN 06/07/17 06/07/17 History Insulin Aspart [NovoLOG] 30 unit SQ TIDWM 06/07/17 06/07/17 History Allergies Allergy/AdvReac Type Severity Reaction Status Date / Time clindamycin Allergy Unknown DIARRHEA Verified 06/07/17 18:44 PFS Patient Stated Medical History Migraine Yes Peripheral Neuropathy Yes: DIABETIC Hypertension Yes: Uncontrolled Sleep Apnea Yes: pressumptive Diabetes Mellitus Type 2 Yes: Uncontrolled, blood sugar 94 Gastroesophageal Reflux Yes Disease Osteoarthritis Yes Other Musculoskeletal Yes: RLS, diabetic neuropathy to lower extremeties MRSA Yes Depression Yes Osteomyelitis R great toe Surgical History: cholecystectomy, R great toe amputation 08/25, R carpal tunnel release, R rotator cuff repair, R ulnar nerve surgery Family History: Father - , DM, prostate ca Mother - - hypoglycemia, bone cancer Sister - of DM complications Brother - of lung cancer Sister - of breast cancer - Social History Smoking status: Former smoker (quit 21 yrs ago) Substance use type: does not use Alcohol intake: current Alcohol intake frequency: holidays/special occasions only Current occupational status: employed ([employer]) Does patient use chewing tobacco?: Yes ("off and on") Review of Systems All systems PM: 10-point ROS was reviewed, no additional remarkable complaints except - Constitutional Constitutional: Present: fever(s). Absent: headache(s) - Cardiovascular Cardiovascular: Absent: chest pain - Respiratory Respiratory: Present: cough. Absent: dyspnea - Gastrointestinal Gastrointestinal: Present: vomiting (related to coughing). Absent: diarrhea, nausea - Musculoskeletal Musculoskeletal Comments: redness, swelling R 4th toe - Integumentary/Breasts Integumentary: Present: rash (R posterior axillar area) - Neurological Neurological: Absent: headache(s) Exam Vital Signs: Temperature 97.6 F 06/09/17 08:04 Pulse Rate 81 06/09/17 08:04 Respiratory Rate 12 06/09/17 10:04 Blood Pressure 143/95 H 06/09/17 08:04 Pulse Oximetry 90 06/09/17 10:04 Height/Weight/BMI: Height 1.85 m Weight 151.5 kg Body Mass Index 44.0 - Constitutional Present: no acute distress, well nourished, well developed, obese - Routine HEENT Exam Head: Present: normocephalic, atraumatic Eye: Present: EOMI, PERRL ENT: Present: mucous membranes moist, oropharynx clear, dentition normal - Routine Neck Exam Present: supple - Routine Respiratory Exam Present: CTA bilaterally - Routine Cardiovascular Exam Present: RRR, no murmur - Routine Abdominal Exam Present: soft, normoactive bowel sounds, non distended, non tender. Absent: guarding - Routine Extremities Exam Present: edema (2+ RLE, trace LLE). Absent: cyanosis, clubbing Comments: R foot is wrapped with PABLITO wrap - Routine Skin Exam Present: rash (posterior R axillary area, looks like eczema) Comments: mild erytheme near L forearm IV site - Routine Neurological Exam Present: alert, oriented X3, CN II-XII intact. Absent: motor deficit - Routine Psychiatric Exam Present: normal affect, normal thought process Results - Labs CBC & Chem 7: 06/09/17 04:08 06/09/17 04:08 Microbiology Results: Microbiology 06/08/17 16:41 Metatarsus, Right, Bone Gram Stain - Final 06/08/17 16:41 Metatarsus, Right, Bone Surgical Culture - Preliminary Culture Initiated - Results Pending 06/08/17 16:30 Toe Fourth, Right, Bone Gram Stain - Final 06/08/17 16:30 Toe Fourth, Right, Bone Surgical Culture - Preliminary Early growth Impression: Sepsis, secondary to musculoskeletal source Acute osteomyelitis R 4th toe, s/p amputation 06/08/17, cultures, path pending Osteomyelitis per MRI of R 3rd MT, s/p bone biopsy 06/08, results pending Leukocytosis DM II, IR, poorly controlled Recent wounds R foot near great toe amputation site and 2nd toe H/o chronic osteomyelitis of the right great toe associated with diabetic foot ulcer, status post wound debridement and Julien needle biopsy on July 31, 2016, bone culture with E. coli and pathology report consistent with chronic osteomyelitis. S/p R great toe amputation 09/04/16 due to sepsis and worsening of wound, OR culture with MRSA and E. faecalis, s/p 6 weeks of Daptomycin, completed 10/15/16. Possible chronic osteomyelitis of the right second toe per MRI June 23, 2016. Peripheral neuropathy secondary to diabetes. Hypertension. History of Methicillin-resistant Staphylococcus aureus. ALLERGY to CLINDAMYCIN. Rash posterior R shoulder area, ? eczema Recommendation: I would recommend continuing vancomycin and Levaquin for now. I would change the Levaquin to oral since this is absorbed nearly 100%. I will follow-up on his surgical cultures and biopsy results. He could potentially have a PICC line if needed however at this point is not entirely clear if he will need another 6 weeks of IV antibiotics. If he has a below-knee amputation then he would not need 6 weeks of IV antibiotics.
--- NOTE | 2017-06-09 13:16 | Progress Note ---
- Date 06/09/17 Subjective: F/U: Sepsis, Diabetic foot ulcer with surrounding cellulitis and tissue necrosis /gangrene, Uncontrolled Type II DM Doing okay today. Pain controlled. Eating well-no nausea or ab pain. Breathing well except for cough. Not having F/C. Had good meeting with dietary; felt was very helpful. Would like endo evaluation of his DM and medications. Does report taking Cozaar and Toprol at home - not on home med rec. Understands may need BKA due to infection in wound. Objective Vital signs: Temperature 97.6 F 06/09/17 08:04 Pulse Rate 81 06/09/17 08:04 Respiratory Rate 12 06/09/17 10:04 Blood Pressure 143/95 H 06/09/17 08:04 Pulse Oximetry 90 06/09/17 10:04 Height/Weight/BMI: Height 1.85 m Weight 151.5 kg Body Mass Index 44.0 - Constitutional Present: well nourished, well developed, morbidly obese, cooperative - Routine HEENT Exam Head: Present: normocephalic, atraumatic Eye: Present: EOMI, PERRL - Routine Respiratory Exam Present: decreased breath sounds. Absent: rales, respiratory distress, rhonchi , wheezes, crackles - Routine Cardiovascular Exam Present: RRR, no murmur - Routine Abdominal Exam Present: soft, normoactive bowel sounds, non distended, non tender - Routine Extremities Exam Present: edema (+2 of left LE). Absent: cyanosis, clubbing - Routine Musculoskeletal Exam Musculoskeletal: Present: no clubbing or cyanosis, normal strength - Routine Skin Exam Present: dry, warm, wounds (covered) - Routine Neurological Exam Present: alert, oriented X3, CN II-XII intact, moving all extremities, vision grossly intact, hearing grossly intact, normal speech. Absent: motor deficit, altered mental status - Routine Psychiatric Exam Present: normal affect, normal thought process, cooperative Results - Labs CBC & Chem 7: 06/09/17 04:08 06/09/17 04:08 Microbiology Results: Microbiology 06/08/17 16:41 Metatarsus, Right, Bone Gram Stain - Final 06/08/17 16:41 Metatarsus, Right, Bone Surgical Culture - Preliminary Culture Initiated - Results Pending 06/08/17 16:30 Toe Fourth, Right, Bone Gram Stain - Final 06/08/17 16:30 Toe Fourth, Right, Bone Surgical Culture - Preliminary Early growth Assessment and Plan (1) Sepsis Current visit: Yes Status: Acute (2) Diabetic foot ulcer associated with type 2 diabetes mellitus Current visit: No Status: Acute Assessment and Plan: Assessment Sepsis - SIRS: leukocytosis, temp, tachycardia. Source: cellulitis. Possible pulmonary source. Diabetic foot ulcer with surrounding cellulitis and tissue necrosis/gangrene Cough Nausea and vomiting Type 2 DM Insulin requiring - uncontrolled Hypertension Restless leg syndrome Migraine Peripheral Neuropathy GERD H/o MRSA Depression Morbid Obesity (BMI 44) Plan Dr Alexis consulted for ID recommendations - continue IV vancomycin, but change levofloxacin to oral. Oral drive doing well - will discontinue IVF. Wound team consulted for wound vac placement. Ortho recommending WBAT activities - with consult PT/OT to help with transfer and ambulation activities. Had good meeting with diabetic education and dietary. Will place consult to Dr Valles for DM evaluation and treatment recommendations. BP with elevation -SIRS resolved. Pt reports on Cozaar and metoprolol at home - not on Med Rec. From prior admission on Cozaar 100mg daily and metoprolol succinate 50mg daily. Can restart. Repeat BMP in am due to medication use. Will recheck CRP as elevated at presentation. Recheck CBC secondary to resolving leukocytosis. Case discussed with CM and Dr Valles. Time spent with patient care 25 minutes. DVT Prophylaxis: SCD's Resuscitation Status: Full Code - Time spent with patient Time with patient PN: 25 minutes - Physician Narrative Physician: Donald Martinez MD Narrative: Date: 06/09/17 Time: 1313 Hospital Course Summary Disclaimer: The visit summary below is not to be considered part of the above Progress Note. Hospital Course: 06/07/17 Admit, IP, to the hospitalist service, Dr Martinez attending. Stay expected to exceed 2 overnights given the extent of his infection and uncontrolled DM and other comorbidities. Dr. Valle consulted. Will see in am. Pt NPO after midnight in event he'll go to surgery. Started on Levaquin and Vanco for cellulitis/MRSA. Influenza screen given his fever and cough and exposure. Accuchecks, continue home insulin - hold if NPO. Check A1C. SCD's for DVT ppx. Wishes to be a Full Code. Care to return to Dr Haresh Cobb on DC. 06/08/17 OP DAY - Surgical debridement of right foot diabetic foot ulcer with fourth toe amputation and third metatarsal bone biopsy. Tolerated surgery well. Anticipate wound vac placement tomorrow. Continue levofloxacin and vancomycin for coverage - wound cultures taken during surgery. Will consult diabetic eduction and dietary education to help patient improve diabetic control. Decrease IVF to 50cc/hr, likely can stop tomorrow if patient taking oral well. 06/09/17 POD #2 Dr Alexis consulted for ID recommendations - continue IV vancomycin, but change levofloxacin to oral. Oral drive doing well - will discontinue IVF. Wound team consulted for wound vac placement. Ortho recommending WBAT activities - with consult PT/OT to help with transfer and ambulation activities. Had good meeting with diabetic education and dietary. Will place consult to Dr Valles for DM evaluation and treatment recommendations. BP with elevation -SIRS resolved. Pt reports on Cozaar and metoprolol at home - not on Med Rec. From prior admission on Cozaar 100mg daily and metoprolol succinate 50mg daily. Can restart.
[2017-06-09] MEDS: LOSARTAN 100 MG TABLET PO SCH (14:00)
[2017-06-09] MEDS: LEVOFLOXACIN 750 MG TABLET PO SCH (14:00)
--- NOTE | 2017-06-09 14:38 | Wound Care Progress Note ---
Wound Management - Patient Status Premedicated Prior to Dressing Change: No - Wound Right Great Toe Wound Type: Diabetic Foot Ulcer (Previous amputation site) Wound Present on Admission?: Yes Length: 3.4 Width: 2.3 Depth: 1.8 Wound Bed Appearance: Pale, [place] Wound Appearance: Indurated Tunneling: No Undermining: No Drainage Description: Sanguineous Drainage Amount: Moderate Drainage Odor: No Odor Dressing Status: Changed Packing Type: Woundvac Sponge Number of Packing Pieces Placed?: 2 Primary Dressing: Transparent Drape Secondary Dressing: Trac Pad (2 wounds on 1 foot both vac'd by merging 2 sites to on sensor track.) Dressing Change Date: 06/09/17 Dressing Change Time: 14:37 Microbiology: Microbiology 06/08/17 16:41 Metatarsus, Right, Bone Gram Stain - Final 06/08/17 16:41 Metatarsus, Right, Bone Surgical Culture - Preliminary Culture Initiated - Results Pending 06/08/17 16:30 Toe Fourth, Right, Bone Gram Stain - Final 06/08/17 16:30 Toe Fourth, Right, Bone Surgical Culture - Preliminary Early growth Right Toe - 4th Digit Wound Type: Diabetic Foot Ulcer Wound Present on Admission?: Yes Length: 2.8 Width: 1.5 Depth: 2.2 Wound Bed Appearance: Beefy [place] Wound Appearance: [place], Indurated, Edges Rolled Tunneling: No Undermining: No Drainage Description: Sanguineous Drainage Amount: Moderate Drainage Odor: No Odor Dressing Status: Changed Packing Type: Woundvac Sponge Number of Packing Pieces Placed?: 2 Primary Dressing: Transparent Drape Secondary Dressing: Trac Pad Dressing Change Date: 06/09/17 Dressing Change Time: 14:38 Dressing Change Patient Tolerance: Tolerated Well Microbiology: Microbiology 06/08/17 16:41 Metatarsus, Right, Bone Gram Stain - Final 06/08/17 16:41 Metatarsus, Right, Bone Surgical Culture - Preliminary Culture Initiated - Results Pending 06/08/17 16:30 Toe Fourth, Right, Bone Gram Stain - Final 06/08/17 16:30 Toe Fourth, Right, Bone Surgical Culture - Preliminary Early growth
[2017-06-09] MEDS: METFORMIN 1,000 MG TABLET PO SCH (18:15)
[2017-06-09] MEDS: SALINE FLUSH 10ml SYRINGE IVF PRN (18:15)
[2017-06-09] MEDS: NS 1,000 ML IV SCH (18:54)
[2017-06-09] MEDS: DiphenhydrAMINE 25 MG CAPSULE PO SCH (20:51)
[2017-06-09] MEDS: CLOBETASOL 0.05% CREAM 15gm TOP SCH (20:53)
[2017-06-10] MEDS: HYDROCODONE/APAP 5mg/325mg TABLET PO PRN (00:26)
[2017-06-10] MEDS: INSULIN ASPART 100unit/ml INJECTION SQ SCH ×4 (02:29→18:03)
[2017-06-10] MEDS: LEVOFLOXACIN 750 MG TABLET PO SCH (05:35)
--- NOTE | 2017-06-10 08:15 | Endocrinology Progress Note ---
Subjective Interval history: Reports restless night due to right foot pain and restless leg syndrome. Exam Vital signs: Temperature 97.3 F 06/10/17 04:33 Pulse Rate 77 06/10/17 04:33 Respiratory Rate 16 06/10/17 04:33 Blood Pressure 157/94 H 06/10/17 04:33 Pulse Oximetry 93 06/10/17 04:33 Inpatient Medications: Generic Name Dose Route Start Last Admin Trade Name Freq PRN Reason Stop Dose Admin Acetaminophen 1,000 mg 06/07/17 18:44 06/07/17 20:39 Tylenol PO 1,000 mg Q6H PRN Administration Pain Hydrocodone Bitart/Acetaminophen 1 tab 06/07/17 18:44 06/10/17 00:26 [place] 5/325 PO 1 tab Q4H PRN Administration Pain Aspirin 81 mg 06/08/17 09:00 06/09/17 08:53 Ecotrin PO 81 mg DAILY KAI Administration Cetirizine HCl 10 mg 06/08/17 09:00 06/09/17 08:53 Zyrtec PO 10 mg DAILY KAI Administration Clobetasol Propionate 1 applic 06/09/17 21:00 06/09/17 20:53 Temovate Cream TOP 1 applic BID KAI Administration Diphenhydramine HCl 50 mg 06/07/17 21:00 06/09/17 20:51 Benadryl PO 50 mg HS KAI Administration Vancomycin HCl 1,750 mg/ 500 mls @ 250 mls/hr 06/09/17 11:00 06/10/17 06:43 Sodium Chloride IV Infused Q8H KAI Infusion Ibuprofen 800 mg 06/07/17 18:44 Motrin PO Q8H PRN Pain Insulin Aspart 17 unit 06/09/17 17:40 06/09/17 18:08 Novolog SQ 17 unit TIDWM KAI Administration Insulin Detemir 50 unit 06/09/17 09:00 06/09/17 20:51 Levemir SQ 50 unit BID KAI Administration Levofloxacin 750 mg 06/09/17 12:45 06/10/17 05:35 Levaquin PO 750 mg ACB KAI Administration Losartan Potassium 100 mg 06/09/17 13:15 06/09/17 14:00 Cozaar PO 100 mg DAILY KAI Administration Magnesium Hydroxide 30 ml 06/08/17 17:44 Mom PO DAILY PRN Constipation Metformin HCl 1,000 mg 06/09/17 17:30 06/09/17 18:15 Glucophage PO 1,000 mg BIDWM KAI Administration Metoprolol Succinate 50 mg 06/10/17 09:00 Toprol Xl PO DAILY KAI Morphine Sulfate 2 mg 06/07/17 18:44 Morphine Sulfate Inj IVP Q2HR PRN Pain Multivitamins 1 tab 06/08/17 09:00 06/09/17 08:54 Theragran PO 1 tab DAILY KAI Administration Ondansetron HCl 4 mg 06/07/17 18:44 06/08/17 03:28 Zofran IVP 4 mg Q6H PRN Administration Nausea Ranitidine HCl 150 mg 06/07/17 18:44 Zantac PO BID PRN Acid Reflux Sodium Chloride 10 - 80 ml 06/07/17 16:58 06/09/17 18:15 Iv Flush IVF 10 ml PRN PRN Administration Flushing Sodium Chloride 2 spray 06/08/17 21:08 06/09/17 20:52 Deep Sea Nasal Moisturizing [place] EA NOSTRIL 2 spray QID KAI Administration Discontinued Medications Generic Name Dose Route Start Last Admin Trade Name Freq PRN Reason Stop Dose Admin Glyburide 10 mg 06/08/17 08:00 06/09/17 18:54 Micronase PO Not Given BIDWM [facility] Levofloxacin/Dextrose 750 mg in 150 mls @ 100 mls/hr 06/07/17 16:58 06/07/17 18:56 Levaquin Premix IV 06/07/17 18:27 Infused O ONE Infusion Levofloxacin/Dextrose 750 mg in 150 mls @ 100 mls/hr 06/08/17 16:30 06/08/17 16:55 Levaquin Premix IV Infused Q24H KAI Infusion Sodium Chloride 1,000 mls @ 100 mls/hr 06/07/17 18:44 06/09/17 18:54 Normal Saline IV Not Given .Q10H [facility] Vancomycin HCl 2,000 mg/ 500 mls @ 250 mls/hr 06/07/17 19:00 06/09/17 04:48 Sodium Chloride IV Infused Q8H [facility] Infusion Insulin Aspart 30 unit 06/08/17 08:00 06/10/17 02:29 Novolog SQ Not Given TIDWM [facility] Insulin Aspart 20 unit 06/09/17 08:48 02/28/18 18:54 Novolog SQ Not Given TIDWM KAI Insulin Detemir 70 unit 06/07/17 21:00 06/08/17 21:14 Levemir SQ 70 unit BID KAI Administration Midazolam HCl 1 - 5 mg 06/08/17 15:59 06/08/17 15:49 Versed IVP 2 mg PRN PRN Administration Vancomycin HCl 1 each 06/07/17 18:44 06/07/17 18:58 Pharmacy Consult - Vancomycin 06/07/17 18:45 Not Given O ONE - Constitutional no acute distress, well nourished, well developed, obese - Routine HEENT Exam Head: Present: normocephalic, atraumatic Eye: Present: EOMI, PERRL ENT: Present: mucous membranes moist - Routine Neck Exam Absent: thyromegaly - Routine Respiratory Exam Absent: dyspnea - Routine Cardiovascular Exam Present: RRR - Routine Abdominal Exam Present: soft, normoactive bowel sounds - Routine Extremities Exam Present: amputation Comments: right 2nd and 5th toes; wound vac in place - Routine Skin Exam Present: erythema, dry, warm Comments: Less erythema in right foot today. - Routine Neurological Exam Present: alert, oriented X3, moving all extremities - Routine Psychiatric Exam Present: normal affect, normal thought process, good insight, good judgment - Additional findings Additional findings: Laboratory Tests 06/09/17 06/09/17 06/09/17 14:38 15:43 20:49 Glucometer 97 64 91 06/10/17 05:36 Glucometer 79 Assessment and Plan (1) Type 2 diabetes mellitus with hyperglycemia Current visit: Yes Status: Chronic Glucose is in much better control now. Continue current insulin. Will need more education on carb counting. (2) Cellulitis Current visit: Yes Status: Acute Improving.
[2017-06-10] MEDS: LOSARTAN 100 MG TABLET PO SCH (08:56)
[2017-06-10] MEDS: MULTI-VITAMIN PLAIN TABLET PO SCH (08:56)
[2017-06-10] MEDS: CLOBETASOL 0.05% CREAM 15gm TOP SCH ×2 (08:56→21:00)
[2017-06-10] MEDS: INSULIN DETEMIR 100unit/ml INJECTION SQ SCH ×2 (08:56→21:00)
[2017-06-10] MEDS: METFORMIN 1,000 MG TABLET PO SCH ×2 (08:57→18:17)
[2017-06-10] MEDS: SALINE 0.65% NASAL SPRAY 44 ML BOTTLE EA NOSTRIL SCH ×4 (08:57→21:01)
[2017-06-10] MEDS: ASPIRIN *EC* 81 MG TABLET PO SCH (08:57)
[2017-06-10] MEDS: CETIRIZINE 10 MG TABLET PO SCH (08:57)
--- NOTE | 2017-06-10 09:31 | Progress Note ---
- Date 06/10/17 Subjective: Patient is seen sitting in his chair before breakfast. He had a rough night last night due to pain and restless legs. He was previously taking magnesium at home, but doesn't feel that it is as effective as it used to be. He was taking 400 mg daily. He reports they had to reseal his wound VAC as it was leaking. His appetite has been good. He's had no nausea or vomiting. He's pleased with his blood sugar control. States Dr. Valles is managing his insulin and has taken him off his glyburide. He continues to cough, but no shortness of breath or fever. Had a bloody nose this am. Objective Vital signs: Temperature 97.4 F 06/10/17 08:14 Pulse Rate 82 06/10/17 08:14 Respiratory Rate 16 06/10/17 08:14 Blood Pressure 139/99 H 06/10/17 08:14 Pulse Oximetry 94 06/10/17 08:14 Height/Weight/BMI: Height 1.85 m Weight 157 kg Body Mass Index 44.0 - Constitutional Present: no acute distress, well nourished, well developed - Routine HEENT Exam Head: Present: normocephalic, atraumatic - Routine Respiratory Exam Present: CTA bilaterally. Absent: wheezes - Routine Cardiovascular Exam Present: RRR, no murmur - Routine Abdominal Exam Present: soft, non distended, non tender - Routine Extremities Exam Present: edema (right lower extremity. Wound VAC with attachments at the base of the amputated first and fourth toes. Erythema is improving.), no edema (left lower leg), normal capillary refill - Routine Skin Exam Present: dry, warm - Routine Neurological Exam Present: alert, oriented X3 - Routine Lymphatic Exam Lymphatic: Absent: adenopathy - Routine Psychiatric Exam Present: normal affect, cooperative Results - Labs CBC & Chem 7: 06/10/17 04:03 06/10/17 04:03 Microbiology Results: Microbiology 06/08/17 16:41 Metatarsus, Right, Bone Gram Stain - Final 06/08/17 16:41 Metatarsus, Right, Bone Surgical Culture - Preliminary No Growth After 1 Day 06/08/17 16:30 Toe Fourth, Right, Bone Gram Stain - Final 06/08/17 16:30 Toe Fourth, Right, Bone Surgical Culture - Preliminary Early growth Assessment and Plan (1) Diabetic foot ulcer associated with type 2 diabetes mellitus Current visit: No Status: Acute (2) Sepsis Current visit: Yes Status: Acute Assessment and Plan: Assessment Sepsis - SIRS: leukocytosis, temp, tachycardia. Source: cellulitis. Possible pulmonary source. Diabetic foot ulcer with surrounding cellulitis and tissue necrosis/gangrene Osteomyelitis-third metatarsal shaft/head/phalange, fourth metatarsal head/ phalange-status post fourth toe amputation and third metatarsal bone biopsy by Dr. Valle on 06/08/17 Cough Postop anemia Nausea and vomiting Type 2 DM Insulin requiring - uncontrolled Hypertension Restless leg syndrome Migraine Peripheral Neuropathy GERD H/o MRSA Depression Morbid Obesity (BMI 44) Plan Continues on IV vancomycin and oral levofloxacin per Dr Alexis. Bone biopsy pending. Leukocytosis resolved. Blood sugars are very well controlled. Glyburide has been discontinued. Metformin has been resumed. Thanks to Dr. Valles for his input. Blood pressures remain elevated - losartan was resumed yesterday and metoprolol was resumed this morning. Continue to follow. Hemoglobin is stable postop. Continue to monitor. Resume magnesium 400 mg twice a day for restless leg syndrome. Will check serum magnesium and consider IV replacement if low, but if serum magnesium is normal, with still recommend continuing p.o. magnesium. Use vaseline and nasal saline to prevent further epistaxis. 06/10/2017-8:13 PM-I reviewed this chart, the patient history, and the WOOL BROKER's/PA 's documented findings as above. We discussed and formulated the assessment and plan as above with the additions below.-Dr Echeverria The patient was seen this evening accompanied by his girlfriend. He states he has minimal foot pain that just feels full. He denies any chest pain or abdominal pain. He is eating and drinking well. He did have epistaxis this morning. He's had 2 other episodes in the past week. He states it usually happens when he is coughing. He has had a cough for several weeks now. He was tested for influenza but this was negative. He is not on any cough suppressants. On exam he is alert and oriented and in no acute distress. Chest is clear to auscultation. Cardiovascular reveals a regular rate and rhythm. Abdomen is soft , obese, nontender with positive bowel sounds. Extremities reveal no edema on the left lower extremity, right lower should be shows edema in the foot. He does have a wound VAC on the dorsum of his right foot. Impression and plan Diabetic foot ulcer with concerns for continued osteomyelitis. Dr. Valle and Dr. Alexis are considering whether further surgery is indicated. Patient is aware he may need further surgery on his foot versus a [id number] amputation. Regarding cough, will start guaifenesin and Tessalon Perles. Regarding epistaxis, will check an INR and PTT in the morning. Discontinue ibuprofen. Monitor blood pressure. Blood Sugars are currently well controlled. - Physician Narrative Physician: Mariza Echeverria MD Narrative: Date: 06/10/17 Time: 0915 Hospital Course Summary Disclaimer: The visit summary below is not to be considered part of the above Progress Note. Hospital Course: 06/07/17 Admit, IP, to the hospitalist service, Dr Martinez attending. Stay expected to exceed 2 overnights given the extent of his infection and uncontrolled DM and other comorbidities. Dr. Valle consulted. Will see in am. Pt NPO after midnight in event he'll go to surgery. Started on Levaquin and Vanco for cellulitis/MRSA. Influenza screen given his fever and cough and exposure. Accuchecks, continue home insulin - hold if NPO. Check A1C. SCD's for DVT ppx. Wishes to be a Full Code. Care to return to Dr Haresh Cobb on DC. 06/08/17 OP DAY - Surgical debridement of right foot diabetic foot ulcer with fourth toe amputation and third metatarsal bone biopsy. Tolerated surgery well. Anticipate wound vac placement tomorrow. Continue levofloxacin and vancomycin for coverage - wound cultures taken during surgery. Will consult diabetic eduction and dietary education to help patient improve diabetic control. Decrease IVF to 50cc/hr, likely can stop tomorrow if patient taking oral well. 06/09/17 POD #1 Dr Alexis consulted for ID recommendations - continue IV vancomycin, but change levofloxacin to oral. Oral drive doing well - will discontinue IVF. Wound team consulted for wound vac placement. Ortho recommending WBAT activities - with consult PT/OT to help with transfer and ambulation activities. Had good meeting with diabetic education and dietary. Will place consult to Dr Valles for DM evaluation and treatment recommendations. BP with elevation -SIRS resolved. Pt reports on Cozaar and metoprolol at home - not on Med Rec. From prior admission on Cozaar 100mg daily and metoprolol succinate 50mg daily. Can restart. 06/10/17 POD #2 Continues on IV vancomycin and oral levofloxacin per Dr Alexis. Bone biopsy pending. Leukocytosis resolved. Blood sugars are very well controlled. Glyburide has been discontinued. Metformin has been resumed. Thanks to Dr. Valles for his input. Blood pressures remain elevated - losartan was resumed yesterday and metoprolol was resumed this morning. Continue to follow. Hemoglobin is stable postop. Continue to monitor. Resume magnesium 400 mg twice a day for restless leg syndrome. Will check serum magnesium and consider IV replacement if low, but if serum magnesium is normal, with still recommend continuing p.o. magnesium.
[2017-06-10] MEDS: MAGNESIUM OXIDE 400 MG TABLET PO SCH ×2 (12:26→21:00)
[2017-06-10] MEDS: GUAIFENESIN LA 600 MG TABLET PO SCH (20:59)
[2017-06-10] MEDS: BENZONATATE 200 MG CAPSULE PO SCH (20:59)
--- NOTE | 2017-06-10 20:59 | Consultation ---
DATE OF CONSULT 06/09/2017 REASON FOR CONSULTATION Uncontrolled diabetes mellitus. HISTORY OF PRESENT ILLNESS This 47-year-old male was admitted with a diabetic foot infection. He had an amputation of his right fourth toe and debridement of his first MTP stump from a prior amputation that had previously been debrided in June and August of 2016. He has a 17-year history of type 2 diabetes mellitus with no retinopathy or nephropathy but some peripheral neuropathy in the form of burning sensations in his feet. He has been symptomatic with thirst and nocturia. His HgA1c was 10.9 on admission. During his time in the hospital his blood sugar has ranged from 64-206 so endocrine consultation was requested. He admits that he had not been checking his blood sugars or taking his insulin at regular times due to lack of insurance and finances recently. REVIEW OF SYSTEMS Remarkable for having had a nosebleed on the day of admission and fresh blood. He also had some night sweats for several weeks prior to admission. He has had fever and cough at home along with swelling and pain in his right lower leg, foot and toes. PAST MEDICAL HISTORY Type 2 diabetes mellitus requiring insulin. Restless leg syndrome. Peripheral neuropathy. Hypertension. Gastroesophageal reflux disease. History of MRSA. Depression. FAMILY HISTORY Positive for diabetes, cancer of the bone, prostate and breast and hypertension. SOCIAL HISTORY The patient quit smoking tobacco 20 years ago. He has an occasional beer. CURRENT MEDICATIONS 70 units of Levemir b.i.d. 50 units of NovoLog t.i.d. with meals. 10 units of glyburide b.i.d. 1000 mg of metformin b.i.d. ALLERGIES Clindamycin. PHYSICAL EXAMINATION VITAL SIGNS: Temperature 99.5, blood pressure 156/92, pulse 87, weight 334 pounds. GENERAL: Well-developed, well-nourished, obese, male, alert, oriented and in no acute distress. HEENT: Atraumatic, normocephalic. PERRL. NECK: Without thyromegaly. LUNGS: Clear. HEART: Regular rate and rhythm. ABDOMEN: Normal bowel sounds without masses or tenderness. EXTREMITIES: 1+ pedal edema. Right foot shows amputation of first and fourth digits with wound VAC in place. There is erythema proximal to the amputated areas that have been freshly debrided. Light touch sensation is normal in the right foot but could not be evaluated in the left due to the STDs. LABORATORY Remarkable for the day of admission having fasting glucose 76, after breakfast 128, after lunch 97, but dropping to 64 in the late afternoon and rising back to 90 after a snack. ASSESSMENT 1. Type 2 diabetes mellitus, uncontrolled. The patient has a very high HgA1c due to noncompliance and admitted inaccuracy trying to use an insulin/carb ratio of 14 for meals. He has had his dose of Levemir tapered to 50 units b.i.d. but still had hypoglycemia after lunch, so his mealtime doses of NovoLog will also need to be attenuated. On 20 units he became hypoglycemic in the afternoon so will need to go to a lower dose with meals. 2. Cellulitis. The patient is on antibiotics now for clearing the remaining infection in his foot if possible. He is still being studied to determine whether a more proximal amputation is indicated at this time. 3. Obesity. RECOMMENDATIONS Reduce NovoLog to 18 units t.i.d. a.c. while continuing the already tapered dose of Levemir at 50 units b.i.d. Follow glucose levels fasting and two hours p.c. Thank you very much for asking my assistance in caring for this gentleman. I will follow him along with you while he remains in the hospital. CHAO
[2017-06-10] MEDS: DiphenhydrAMINE 25 MG CAPSULE PO SCH (21:00)
[2017-06-10] MEDS: HYDRALAZINE 20 MG/ML INJECTION IVP PRN (21:08)
[2017-06-10] MEDS: SALINE FLUSH 10ml SYRINGE IVF PRN ×2 (21:12→23:36)
[2017-06-10] MEDS ORDERED: HYDRALAZINE 20 MG/ML INJECTION IVP ONE (22:35)
[2017-06-11] MEDS: HYDRALAZINE 20 MG/ML INJECTION IVP PRN ×3 (02:00→10:28)
[2017-06-11] MEDS: LEVOFLOXACIN 750 MG TABLET PO SCH (05:45)
--- NOTE | 2017-06-11 07:26 | Endocrinology Progress Note ---
Subjective Principal diagnosis: Type 2 diabetes mellitus, uncontrolled Interval history: Had no blood sugar problems overnight, but was miserable with headache and high BP spike. Exam Vital signs: Temperature 97.4 F 06/11/17 05:00 Pulse Rate 88 06/11/17 07:10 Respiratory Rate 18 06/11/17 05:00 Blood Pressure 202/104 H 06/11/17 07:10 Pulse Oximetry 91 06/11/17 05:00 Inpatient Medications: Generic Name Dose Route Start Last Admin Trade Name Freq PRN Reason Stop Dose Admin Acetaminophen 1,000 mg 06/07/17 18:44 06/07/17 20:39 Tylenol PO 1,000 mg Q6H PRN Administration Pain Hydrocodone Bitart/Acetaminophen 1 tab 06/07/17 18:44 06/10/17 00:26 [place] 5/325 PO 1 tab Q4H PRN Administration Pain Amlodipine Besylate 5 mg 06/11/17 09:00 Norvasc PO DAILY KAI Aspirin 81 mg 06/08/17 09:00 06/10/17 08:57 Ecotrin PO 81 mg DAILY KAI Administration Benzonatate 200 mg 06/10/17 21:00 06/10/17 20:59 Tessalon Perles PO 200 mg TID KAI Administration Cetirizine HCl 10 mg 06/08/17 09:00 06/10/17 08:57 Zyrtec PO 10 mg DAILY KAI Administration Clobetasol Propionate 1 applic 06/09/17 21:00 06/10/17 21:00 Temovate Cream TOP 1 applic BID KAI Administration Diphenhydramine HCl 50 mg 06/07/17 21:00 06/10/17 21:00 Benadryl PO 50 mg HS KAI Administration Guaifenesin 1,200 mg 06/10/17 21:00 06/10/17 20:59 Mucinex [place] PO 1,200 mg BID KAI Administration Hydralazine HCl 5 mg 06/10/17 20:52 06/11/17 02:00 Apresoline IVP 5 mg Q4H PRN Administration Hypertension Vancomycin HCl 1,750 mg/ 500 mls @ 250 mls/hr 06/09/17 11:00 06/11/17 04:32 Sodium Chloride IV Infused Q8H KAI Infusion Insulin Aspart 17 unit 06/09/17 17:40 03/01/18 18:03 Novolog SQ 17 unit TIDWM [facility] Administration Insulin Detemir 50 unit 06/09/17 09:00 06/10/17 21:00 Levemir SQ 50 unit BID [facility] Administration Levofloxacin 750 mg 06/09/17 12:45 06/11/17 05:45 Levaquin PO 750 mg ACB KAI Administration Losartan Potassium 100 mg 06/09/17 13:15 06/10/17 08:56 Cozaar PO 100 mg DAILY [facility] Administration Magnesium Hydroxide 30 ml 06/08/17 17:44 Mom PO DAILY PRN Constipation Magnesium Oxide 400 mg 06/10/17 09:43 06/10/17 21:00 Magox PO 400 mg BID [facility] Administration Metformin HCl 1,000 mg 06/09/17 17:30 06/10/17 18:17 Glucophage PO 1,000 mg BIDWM [facility] Administration Metoprolol Succinate 50 mg 06/10/17 09:00 06/10/17 08:56 Toprol Xl PO 50 mg DAILY [facility] Administration Morphine Sulfate 2 mg 06/07/17 18:44 Morphine Sulfate Inj IVP Q2HR PRN Pain Multivitamins 1 tab 06/08/17 09:00 06/10/17 08:56 Theragran PO 1 tab DAILY [facility] Administration Ondansetron HCl 4 mg 06/07/17 18:44 06/08/17 03:28 Zofran IVP 4 mg Q6H PRN Administration Nausea Ranitidine HCl 150 mg 06/07/17 18:44 Zantac PO BID PRN Acid Reflux Sodium Chloride 10 - 80 ml 06/07/17 16:58 06/10/17 23:36 Iv Flush IVF 10 ml PRN PRN Administration Flushing Sodium Chloride 2 spray 06/08/17 21:08 06/10/17 21:01 Deep Sea Nasal Moisturizing [place] EA NOSTRIL 2 spray QID [facility] Administration Sodium Chloride 500 ml 06/10/17 12:35 Normal Saline IV PRN PRN Discontinued Medications Generic Name Dose Route Start Last Admin Trade Name Freq PRN Reason Stop Dose Admin Glyburide 10 mg 06/08/17 08:00 06/09/17 18:54 Micronase PO Not Given BIDWM [facility] Hydralazine HCl 5 mg 06/10/17 22:35 06/10/17 23:36 Apresoline IVP 06/10/17 22:36 5 mg O ONE Administration Levofloxacin/Dextrose 750 mg in 150 mls @ 100 mls/hr 06/07/17 16:58 06/07/17 18:56 Levaquin Premix IV 06/07/17 18:27 Infused O ONE Infusion Levofloxacin/Dextrose 750 mg in 150 mls @ 100 mls/hr 06/08/17 16:30 06/08/17 16:55 Levaquin Premix IV Infused Q24H KAI Infusion Sodium Chloride 1,000 mls @ 100 mls/hr 06/07/17 18:44 06/09/17 18:54 Normal Saline IV Not Given .Q10H KAI Vancomycin HCl 2,000 mg/ 500 mls @ 250 mls/hr 06/07/17 19:00 06/09/17 04:48 Sodium Chloride IV Infused Q8H KAI Infusion Ibuprofen 800 mg 06/07/17 18:44 Motrin PO Q8H PRN Pain Insulin Aspart 30 unit 06/08/17 08:00 06/10/17 02:29 Novolog SQ Not Given TIDWM KAI Insulin Aspart 20 unit 06/09/17 08:48 06/09/17 18:54 Novolog SQ Not Given TIDWM [facility] Insulin Detemir 70 unit 06/07/17 21:00 06/08/17 21:14 Levemir SQ 70 unit BID KAI Administration Midazolam HCl 1 - 5 mg 06/08/17 15:59 06/08/17 15:49 Versed IVP 2 mg PRN PRN Administration Vancomycin HCl 1 each 06/07/17 18:44 06/07/17 18:58 Pharmacy Consult - Vancomycin 06/07/17 18:45 Not Given O ONE - Constitutional no acute distress - Routine HEENT Exam Head: Present: normocephalic, atraumatic Eye: Present: EOMI, PERRL ENT: Present: mucous membranes moist - Routine Neck Exam Absent: thyromegaly - Routine Respiratory Exam Absent: dyspnea - Routine Cardiovascular Exam Present: RRR - Routine Abdominal Exam Present: soft, normoactive bowel sounds - Routine Extremities Exam Absent: edema - Routine Neurological Exam Present: alert, oriented X3, moving all extremities - Routine Psychiatric Exam Present: normal affect, normal thought process, good insight, good judgment - Additional findings Additional findings: Laboratory Tests 06/10/17 06/10/17 06/10/17 10:52 14:10 20:05 Glucometer 182 70 102 06/10/17 06/11/17 23:15 05:17 Glucometer 74 116 Assessment and Plan (1) Type 2 diabetes mellitus with hyperglycemia Current visit: Yes Status: Chronic Good control now. Continue same insulin. Complete training for carb counting prior to going home. (2) Cellulitis Current visit: Yes Status: Acute Improved. No erythema any more.
[2017-06-11] MEDS: AMLODIPINE 5 MG TABLET PO SCH ×2 (07:35→08:56)
--- NOTE | 2017-06-11 08:06 | Orthopedic Progress Note ---
Date: Date: 06/11/17 Time: 0803 Subjective/Severity of Illness: Patient is doing well from an orthopedic standpoint, wound vac in place. Patient has been ambulating on right heel as tolerated. States pain has been well controlled. Denies nausea, vomiting, chest pain, soa. Hospitalist managing IV antibiotics, and medical management. Wound clinic managing wound vac. Orthopedic Objective PO Vital signs: Temperature 97.4 F 06/11/17 05:00 Pulse Rate 88 06/11/17 07:10 Respiratory Rate 18 06/11/17 05:00 Blood Pressure 202/104 H 06/11/17 07:10 Pulse Oximetry 91 06/11/17 05:00 Height and Weight: Height 6 ft 1 in Weight 157.4 kg Body Mass Index 44.0 - Constitutional General Appearance: Present: alert, no acute distress, well developed, well nourished - Respiratory Exam Present: non-labored - Cardiovascular Exam Present: peripheral edema - Surgical Site Incision: dressing intact (wound vac in place over 4th toe, and great toe amputation site) - Integumentary Exam Present: pink, warm, dry - Psychiatric Exam Present: alert, normal affect - Wound Management Right Great Toe Wound Type: Diabetic Foot Ulcer Wound Length: 3.4 Wound Width: 2.3 Wound Depth: 1.8 Bed Appearance: Pale, Slough Surrounding Tissue Appearance: Indurated Drainage Description: Sanguineous Drainage Amount: Moderate Drainage Odor: No Odor Dressing Status: Changed Packing Type: Woundvac Sponge Number of Packing Pieces Placed?: 2 Dressing Change Date: 06/09/17 Dressing Change Time: 14:37 Right Toe - 4th Digit Wound Type: Amputation Wound Length: 2.8 Wound Width: 1.5 Wound Depth: 2.2 Bed Appearance: Beefy Red Surrounding Tissue Appearance: [place], Indurated, Edges Rolled Drainage Description: Sanguineous Drainage Amount: Moderate Drainage Odor: No Odor Dressing Status: Changed Packing Type: Woundvac Sponge Number of Packing Pieces Placed?: 2 Dressing Change Date: 06/09/17 Dressing Change Time: 14:38 Dressing Change Patient Tolerance: Tolerated Well - Labs Result Diagrams: 06/11/17 04:27 06/11/17 09:50 Abnormal lab results 06/10/17 06/11/17 06/11/17 Range/Units 04:03 04:27 04:27 RBC 3.98 L (4.50-5.90) M/MM3 Hgb 10.4 L (13.5-17.5) GM/DL Hct 34.1 L D (41-53) % MCHC 30.5 L (31-37) GM/DL Neut % (Auto) 75.9 H (33-66) % Lymph % (Auto) 14.6 L (23-45) % Sodium 146 H (134-144) MEQ/L Calculated Osmolality 281 H (261-280) MOSM/KG Iron 11 L (49-181) UG/DL TIBC 243 L (261-497) UG/DL % Saturation 5 L (13-59) % Folate > 20.0 H (2.76-20) NG/ML H & H 06/08/17 06/09/17 06/10/17 Range/Units 03:54 04:08 04:03 Hgb 11.2 L 9.8 L D 9.4 L (13.5-17.5) GM/DL Hct 35.9 L 32.1 L 30.5 L (41-53) % 06/11/17 Range/Units 04:27 Hgb 10.4 L (13.5-17.5) GM/DL Hct 34.1 L D (41-53) % Coagulation 06/11/17 Range/Units 04:27 INR 1.21 (0.99-1.21) Orthopedic Assessment and Plan (1) Diabetic foot ulcer associated with type 2 diabetes mellitus Status: Acute Qualifiers: Diabetic foot ulcer location: toe Laterality: right Non-pressure ulcer stage: unspecified non-pressure ulcer stage Qualified Code(s): E11.621 - Type 2 diabetes mellitus with foot ulcer; L97.519 - Non-pressure chronic ulcer of other part of right foot with unspecified severity Assessment and Plan: S/P debridement/amputation right foot. Dr Valle discussed future treatment options including possible BKA next week. wound clinic involved to manage wound vac. Hospitalist to cover medically and provide anticoagulant needs. Pt may be up. WBAT on right heel. Hospital Course Summary Disclaimer: The visit summary below is not to be considered part of the above Progress Note. Hospital Course: 06/07/17 Admit, IP, to the hospitalist service, Dr Martinez attending. Stay expected to exceed 2 overnights given the extent of his infection and uncontrolled DM and other comorbidities. Dr. Valle consulted. Will see in am. Pt NPO after midnight in event he'll go to surgery. Started on Levaquin and Vanco for cellulitis/MRSA. Influenza screen given his fever and cough and exposure. Accuchecks, continue home insulin - hold if NPO. Check A1C. SCD's for DVT ppx. Wishes to be a Full Code. Care to return to Dr Haresh Cobb on DC. 06/08/17 OP DAY - Surgical debridement of right foot diabetic foot ulcer with fourth toe amputation and third metatarsal bone biopsy. Tolerated surgery well. Anticipate wound vac placement tomorrow. Continue levofloxacin and vancomycin for coverage - wound cultures taken during surgery. Will consult diabetic eduction and dietary education to help patient improve diabetic control. Decrease IVF to 50cc/hr, likely can stop tomorrow if patient taking oral well. 06/09/17 POD #1 Dr Alexis consulted for ID recommendations - continue IV vancomycin, but change levofloxacin to oral. Oral drive doing well - will discontinue IVF. Wound team consulted for wound vac placement. Ortho recommending WBAT activities - with consult PT/OT to help with transfer and ambulation activities. Had good meeting with diabetic education and dietary. Will place consult to Dr Valles for DM evaluation and treatment recommendations. BP with elevation -SIRS resolved. Pt reports on Cozaar and metoprolol at home - not on Med Rec. From prior admission on Cozaar 100mg daily and metoprolol succinate 50mg daily. Can restart. 06/10/17 POD #2 Continues on IV vancomycin and oral levofloxacin per Dr Alexis. Bone biopsy pending. Leukocytosis resolved. Blood sugars are very well controlled. Glyburide has been discontinued. Metformin has been resumed. Thanks to Dr. Valles for his input. Blood pressures remain elevated - losartan was resumed yesterday and metoprolol was resumed this morning. Continue to follow. Hemoglobin is stable postop. Continue to monitor. Resume magnesium 400 mg twice a day for restless leg syndrome. Will check serum magnesium and consider IV replacement if low, but if serum magnesium is normal, with still recommend continuing p.o. magnesium.
[2017-06-11] MEDS: INSULIN ASPART 100unit/ml INJECTION SQ SCH ×3 (08:46→17:44)
[2017-06-11] MEDS: INSULIN DETEMIR 100unit/ml INJECTION SQ SCH ×2 (08:47→20:20)
[2017-06-11] MEDS: BENZONATATE 200 MG CAPSULE PO SCH ×3 (08:48→20:20)
[2017-06-11] MEDS: METFORMIN 1,000 MG TABLET PO SCH ×2 (08:48→17:44)
[2017-06-11] MEDS: LOSARTAN 100 MG TABLET PO SCH (08:48)
[2017-06-11] MEDS: CETIRIZINE 10 MG TABLET PO SCH (08:48)
[2017-06-11] MEDS: GUAIFENESIN LA 600 MG TABLET PO SCH (08:49)
[2017-06-11] MEDS: MULTI-VITAMIN PLAIN TABLET PO SCH (08:49)
[2017-06-11] MEDS: MAGNESIUM OXIDE 400 MG TABLET PO SCH ×2 (08:49→20:20)
--- NOTE | 2017-06-11 08:51 | ID Progress Note ---
Subjective Date: 06/11/17 Subjective: Mr. Mancilla says he had a bad night due to severe HTN. He denies that he's in severe pain. He denies problems with the antibiotics. No fever, nausea or diarrhea. He states that Dr. Valle is still waiting for the biopsy report and that he discussed 3 different surgical options with him. They are still contemplating BKA. His IV went bad and had to be changed. Exam Vital Signs: Temperature 97.4 F 06/11/17 05:00 Pulse Rate 88 06/11/17 07:10 Respiratory Rate 18 06/11/17 05:00 Blood Pressure 202/104 H 06/11/17 07:10 Pulse Oximetry 91 06/11/17 05:00 Height/Weight/BMI: Height 1.85 m Weight 157.6 kg Body Mass Index 44.0 - Constitutional Present: no acute distress, well nourished, well developed - Routine HEENT Exam Head: Present: normocephalic, atraumatic Eye: Present: EOMI, PERRL ENT: Present: mucous membranes moist, dentition normal - Routine Neck Exam Present: supple - Routine Respiratory Exam Present: CTA bilaterally - Routine Cardiovascular Exam Present: RRR - Routine Abdominal Exam Present: soft, normoactive bowel sounds, non distended, non tender - Routine Extremities Exam Present: edema (trace RLE). Absent: cyanosis, clubbing - Routine Skin Exam Absent: rash Comments: Wound VAC on R foot over 1st MT amputation site and 4th toe amputation site. Moderate erythema and edema noted, especially near 1st MT amp site. - Routine Neurological Exam Present: alert, oriented X3, CN II-XII intact. Absent: motor deficit - Routine Psychiatric Exam Present: normal affect, normal thought process Results - Labs CBC & Chem 7: 06/11/17 04:27 06/11/17 04:27 Microbiology Results: Microbiology 06/08/17 16:30 Toe Fourth, Right, Bone Gram Stain - Final 06/08/17 16:30 Toe Fourth, Right, Bone Surgical Culture - Preliminary Strep agalactiae - (Group B) Gram Positive Chase 06/08/17 16:41 Metatarsus, Right, Bone Gram Stain - Final 06/08/17 16:41 Metatarsus, Right, Bone Surgical Culture - Preliminary No Growth After 2 Days Impression: Sepsis, secondary to musculoskeletal source Acute osteomyelitis R 4th toe, s/p amputation 06/08/17, cultures with GBS and GPR , path pending Osteomyelitis per MRI of R 3rd MT, s/p bone biopsy 06/08, results pending. Bone culture is NGTD, but gram stain had GPC in pairs and GNRs Leukocytosis DM II, IR, poorly controlled Recent wounds R foot near great toe amputation site and 2nd toe H/o chronic osteomyelitis of the right great toe associated with diabetic foot ulcer, status post wound debridement and Julien needle biopsy on July 31, 2016, bone culture with E. coli and pathology report consistent with chronic osteomyelitis. S/p R great toe amputation 09/04/16 due to sepsis and worsening of wound, OR culture with MRSA and E. faecalis, s/p 6 weeks of Daptomycin, completed 10/15/16. Possible chronic osteomyelitis of the right second toe per MRI June 23, 2016. Peripheral neuropathy secondary to diabetes. Hypertension. History of Methicillin-resistant Staphylococcus aureus. ALLERGY to CLINDAMYCIN. Rash posterior R shoulder area, ? eczema Recommendation: I will order a PICC line for him. He states that he doesn't think the surgical plan will be decided until at least next Wednesday and his IVs have not lasted very long. I would recommend changing Levaquin to Rocephin 2 g IV daily. I will continue the vancomycin for now. He may not need this long-term. Await pathology results.
[2017-06-11] MEDS: SALINE 0.65% NASAL SPRAY 44 ML BOTTLE EA NOSTRIL SCH ×4 (08:55→20:20)
[2017-06-11] MEDS: CLOBETASOL 0.05% CREAM 15gm TOP SCH ×2 (08:56→20:19)
[2017-06-11] MEDS: ASPIRIN *EC* 81 MG TABLET PO SCH (09:01)
[2017-06-11] MEDS: CEFTRIAXONE 2 GM in NS 50 ML IV SCH (09:46)
[2017-06-11] MEDS ORDERED: FUROSEMIDE 40 MG TABLET PO ONE (12:01)
[2017-06-11] MEDS ORDERED: AMLODIPINE 5 MG TABLET PO ONE (12:02)
--- NOTE | 2017-06-11 13:40 | Wound Care Progress Note ---
Wound Center Progress Note: Wound vac to right foot is intact and in place after confirming orders to change vac with Dr Valle, the wound team removed vac drape and foam, cleaned wound with Normal Saline the draped periwound skin with clear occlusive drsg, placed black foam in both wound sites and bridged both wounds to the top of his ankle. Clear occlusive drape used to cover all, then senor track place and good suction obtain. Will return on 06/14 to see pt again.
--- NOTE | 2017-06-11 14:50 | Pharmacy Consult-Antibiotics ---
Pharmacy Consult-Vancomycin - Laboratory Information WBC 9.2 T/MM3 (4.5-11.0) 06/11/17 04:27 BUN 13.0 MG/DL (9-20) 06/11/17 04:27 Creatinine 0.9 MG/DL (0.8-1.5) 06/11/17 09:50 Procalcitonin 0.07 NG/ML 06/07/17 17:23 Vancomycin Trough 24.78 UG/ML (15-20) H* 06/11/17 09:50 - Consult Information Vancomycin consult: day 5 Vancomycin goal trough range= 15 to 20 mcg/ml 06/11/17 1000 trough= 24.78 mcg/ml Vanco trough results were high, dose adjusted to Vancomycin 2 GM IV Q12H. Pharmacy will monitor and adjust as needed. Thank you, Trudi Walker [facility]
[2017-06-11] MEDS ORDERED: HYDRALAZINE 20 MG/ML INJECTION IVP PRN (15:13)
--- NOTE | 2017-06-11 15:23 | Progress Note ---
- Date 06/11/17 Subjective: Patient was seen lying in bed this morning. He reports he had a bad night because his blood pressure was high. He reports he didn't have pain and really didn't feel bad, but because they were taking his blood pressure so frequently and because he was feeling "stir crazy" he walked the halls and did not sleep well. He is having no pain in the foot. He is awaiting results of the bone biopsy to determine the next step. He continues on antibiotics. Feels his cough is little bit better. States he feels like now he has more sinus congestion than anything. Objective Vital signs: Temperature 97.4 F 06/11/17 05:00 Pulse Rate 76 06/11/17 10:28 Respiratory Rate 18 06/11/17 05:00 Blood Pressure 189/110 H 06/11/17 11:28 Pulse Oximetry 91 06/11/17 05:00 Height/Weight/BMI: Height 1.85 m Weight 157.6 kg Body Mass Index 44.0 - Constitutional Present: no acute distress, well nourished, well developed - Routine HEENT Exam Head: Present: normocephalic, atraumatic - Routine Respiratory Exam Present: CTA bilaterally. Absent: wheezes - Routine Cardiovascular Exam Present: RRR, no murmur - Routine Abdominal Exam Present: soft, non distended, non tender - Routine Extremities Exam Present: edema, normal capillary refill Comments: Wound VAC intact on right foot. - Routine Skin Exam Present: dry, warm - Routine Neurological Exam Present: alert, oriented X3 - Routine Lymphatic Exam Lymphatic: Absent: adenopathy - Routine Psychiatric Exam Present: normal affect, cooperative Results - Labs CBC & Chem 7: 06/11/17 04:27 06/11/17 09:50 Microbiology Results: Microbiology 06/08/17 16:30 Toe Fourth, Right, Bone Gram Stain - Final 06/08/17 16:30 Toe Fourth, Right, Bone Surgical Culture - Preliminary Strep agalactiae - (Group B) Gram Positive Chase Staphylococcus aureus 06/08/17 16:41 Metatarsus, Right, Bone Gram Stain - Final 06/08/17 16:41 Metatarsus, Right, Bone Surgical Culture - Preliminary Strep agalactiae - (Group B) Assessment and Plan (1) Diabetic foot ulcer associated with type 2 diabetes mellitus Current visit: No Status: Acute (2) Sepsis Current visit: Yes Status: Acute Assessment and Plan: Assessment Sepsis - SIRS: leukocytosis, temp, tachycardia. Source: cellulitis. Possible pulmonary source. Diabetic foot ulcer with surrounding cellulitis and tissue necrosis/gangrene Osteomyelitis-third metatarsal shaft/head/phalange, fourth metatarsal head/ phalange-status post fourth toe amputation and third metatarsal bone biopsy by Dr. Valle on 06/08/17 Cough Postop anemia Nausea and vomiting Type 2 DM Insulin requiring - uncontrolled Hypertension Restless leg syndrome Migraine Peripheral Neuropathy GERD H/o MRSA Depression Morbid Obesity (BMI 44) Plan Dr. Alexis changed his antibiotic regimen. She discontinued Levaquin and changed to Rocephin 2 g IV daily. Continue the vancomycin for now. Significant increase in blood pressure starting around 2100 last evening. He had 1 dose of PRN hydralazine overnight and another one during the day today. Norvasc 5mg was started this morning in addition to his losartan and metoprolol. Another 5 mg dose of Norvasc was given at noon along with a 40 mg dose of Lasix. Will start Norvasc 10 mg tomorrow morning and continue his routine medications and use Hydralazine PRN. Hemoglobin is improving Blood sugars are very well controlled. Dr. Valles is following. Start Mucinex DM for cough. Tessalon Perles aren't helping much. Repeat chest x- ray in a.m. 06/11/2017-3:45 PM-I reviewed this chart, the patient history, and the [employer]'s/PA 's documented findings as above. We discussed and formulated the assessment and plan as above with the additions below.-Dr. Echeverria The patient was seen earlier this afternoon. He stated he is feeling well other than a mild headache. He states he didn't sleep well last night because his blood pressure was being taken frequently. He is eating and drinking well. He had a large bowel movement this morning. He is urinating without difficulties. He has no significant pain in his foot. He continues to have a dry cough. He has had 3 nosebleeds, the last one 2 days ago. We did consider starting Lovenox for DVT prophylaxis, but will hold off on that for now. We'll continue SCDs. We' ll ask orthopedics if it is okay to place an SCD on both legs. On exam he is alert and in no acute distress. Chest is clear to auscultation. Cardiovascular reveals a regular rate and rhythm. Abdomen is soft and nontender. Extremities are free of edema. Impression and plan Antibiotics were changed to Rocephin 2 g IV daily by Dr. Alexis today. PICC line will be placed. The patient is planning on surgery on Wednesday regarding continued infection of his foot. He is considering a [id number] amputation. Regarding hypertension, increase when necessary hydralazine to 10 mg. Norvasc 10 mg a day started today. Cough, check chest x-ray tomorrow. Start guaifenesin DM. The patient states that he was off of losartan for the past 3 months and the majority of his cough was while he was still off of losartan, so the losartan is not the cause of his cough. Could consider CT sinuses if cough not improving. SCDs for DVT prophylaxis. Discussed today multiple times with his nurse regarding his difficult to control blood pressure. DVT Prophylaxis: SCD's Resuscitation Status: Full Code - Time spent with patient Time with patient PN: 30 minutes - Physician Narrative Physician: Mariza Echeverria MD Narrative: Date: 06/11/17 Time: 1510 Hospital Course Summary Disclaimer: The visit summary below is not to be considered part of the above Progress Note. Hospital Course: 06/07/17 Admit, IP, to the hospitalist service, Dr Martinez attending. Stay expected to exceed 2 overnights given the extent of his infection and uncontrolled DM and other comorbidities. Dr. Valle consulted. Will see in am. Pt NPO after midnight in event he'll go to surgery. Started on Levaquin and Vanco for cellulitis/MRSA. Influenza screen given his fever and cough and exposure. Accuchecks, continue home insulin - hold if NPO. Check A1C. SCD's for DVT ppx. Wishes to be a Full Code. Care to return to Dr Haresh Cobb on DC. 06/08/17 OP DAY - Surgical debridement of right foot diabetic foot ulcer with fourth toe amputation and third metatarsal bone biopsy. Tolerated surgery well. Anticipate wound vac placement tomorrow. Continue levofloxacin and vancomycin for coverage - wound cultures taken during surgery. Will consult diabetic eduction and dietary education to help patient improve diabetic control. Decrease IVF to 50cc/hr, likely can stop tomorrow if patient taking oral well. 06/09/17 POD #1 Dr Alexis consulted for ID recommendations - continue IV vancomycin, but change levofloxacin to oral. Oral drive doing well - will discontinue IVF. Wound team consulted for wound vac placement. Ortho recommending WBAT activities - with consult PT/OT to help with transfer and ambulation activities. Had good meeting with diabetic education and dietary. Will place consult to Dr Valles for DM evaluation and treatment recommendations. BP with elevation -SIRS resolved. Pt reports on Cozaar and metoprolol at home - not on Med Rec. From prior admission on Cozaar 100mg daily and metoprolol succinate 50mg daily. Can restart. 06/10/17 POD #2 Continues on IV vancomycin and oral levofloxacin per Dr Alexis. Bone biopsy pending. Leukocytosis resolved. Blood sugars are very well controlled. Glyburide has been discontinued. Metformin has been resumed. Thanks to Dr. Valles for his input. Blood pressures remain elevated - losartan was resumed yesterday and metoprolol was resumed this morning. Continue to follow. Hemoglobin is stable postop. Continue to monitor. Resume magnesium 400 mg twice a day for restless leg syndrome. Will check serum magnesium and consider IV replacement if low, but if serum magnesium is normal, with still recommend continuing p.o. magnesium. 06/11/17 POD #3 Dr. Alexis changed his antibiotic regimen. She discontinued Levaquin and changed to Rocephin 2 g IV daily. Continue the vancomycin for now. Significant increase in blood pressure starting around 2100 last evening. He had 1 dose of PRN hydralazine overnight and another one during the day today. Norvasc 5mg was started this morning in addition to his losartan and metoprolol. Another 5 mg dose of Norvasc was given at noon along with a 40 mg dose of Lasix. Will start Norvasc 10 mg tomorrow morning and continue his routine medications and use Hydralazine PRN. Hemoglobin is improving Blood sugars are very well controlled. Dr. Valles is following. Start Mucinex DM for cough. Tessalon Perles aren't helping much. Repeat chest x- ray in a.m. Start enoxaparin 40 mg subcutaneous for VTE prophylaxis
[2017-06-11] MEDS ORDERED: ENOXAPARIN 40 MG/0.4 ML INJECTION SQ SCH (15:30)
[2017-06-11] MEDS: DiphenhydrAMINE 25 MG CAPSULE PO SCH (20:20)
[2017-06-11] MEDS: GUAIFENESIN/D-METHORPHAN 600mg/30mg TABLET PO SCH (20:20)
--- NOTE | 2017-06-12 09:05 | Orthopedic Progress Note ---
Date: Date: 06/12/17 Time: 900 Subjective/Severity of Illness: Pt had some air leakage around his wound vac after ambulating. This was sealed with more tape and is working well now. Pain is stable. He has a slight, non-productive cough. Temp to 99 range. Not tachy and sats 90's. Denies CP. CXR pending this AM. Pt is considering BKA but wants to see final path report and discuss with Dr Valle. Orthopedic Objective PO Vital signs: Temperature 98.7 F 06/12/17 08:05 Pulse Rate 80 06/12/17 08:05 Respiratory Rate 16 06/12/17 08:05 Blood Pressure 167/93 H 06/12/17 08:05 Pulse Oximetry 93 06/12/17 08:05 Height and Weight: Height 6 ft 1 in Weight 345 lb 3.902 oz Body Mass Index 44.0 - Constitutional General Appearance: Present: alert, no acute distress, well developed, obese - Respiratory Exam Present: non-labored - Cardiovascular Exam Present: peripheral edema - Surgical Site Incision: dressing intact (wound vac in place over 4th toe, and great toe amputation site. No leaking at this time.) - Integumentary Exam Present: pink, warm, dry - Psychiatric Exam Present: alert, normal affect - Wound Management Right Great Toe Wound Type: Diabetic Foot Ulcer Wound Length: 3.4 Wound Width: 2.3 Wound Depth: 1.8 Number of Packing Pieces Placed?: 2 Dressing Change Date: 06/09/17 Dressing Change Time: 14:37 Right Toe - 4th Digit Wound Length: 2.8 Wound Width: 1.5 Wound Depth: 2.2 Number of Packing Pieces Placed?: 2 Dressing Change Date: 06/09/17 Dressing Change Time: 14:38 - Labs Result Diagrams: 06/11/17 04:27 06/11/17 09:50 Abnormal lab results 06/11/17 Range/Units 09:50 Vancomycin Trough 24.78 H* (15-20) UG/ML H & H 06/08/17 06/09/17 06/10/17 Range/Units 03:54 04:08 04:03 Hgb 11.2 L 9.8 L D 9.4 L (13.5-17.5) GM/DL Hct 35.9 L 32.1 L 30.5 L (41-53) % 06/11/17 Range/Units 04:27 Hgb 10.4 L (13.5-17.5) GM/DL Hct 34.1 L D (41-53) % Coagulation 06/11/17 Range/Units 04:27 INR 1.21 (0.99-1.21) Orthopedic Assessment and Plan (1) Diabetic foot ulcer associated with type 2 diabetes mellitus Status: Acute Qualifiers: Diabetic foot ulcer location: toe Laterality: right Non-pressure ulcer stage: unspecified non-pressure ulcer stage Qualified Code(s): E11.621 - Type 2 diabetes mellitus with foot ulcer; L97.519 - Non-pressure chronic ulcer of other part of right foot with unspecified severity Assessment and Plan: S/P debridement/amputation right foot. Considering future treatment options including possible BKA next week. wound clinic involved to manage wound vac. Hospitalist to cover medically and provide anticoagulant needs. CXR pending this AM. Pt may be up. WBAT on right heel. Hospital Course Summary Disclaimer: The visit summary below is not to be considered part of the above Progress Note. Hospital Course: 06/07/17 Admit, IP, to the hospitalist service, Dr Martinez attending. Stay expected to exceed 2 overnights given the extent of his infection and uncontrolled DM and other comorbidities. Dr. Valle consulted. Will see in am. Pt NPO after midnight in event he'll go to surgery. Started on Levaquin and Vanco for cellulitis/MRSA. Influenza screen given his fever and cough and exposure. Accuchecks, continue home insulin - hold if NPO. Check A1C. SCD's for DVT ppx. Wishes to be a Full Code. Care to return to Dr Haresh Cobb on DC. 06/08/17 OP DAY - Surgical debridement of right foot diabetic foot ulcer with fourth toe amputation and third metatarsal bone biopsy. Tolerated surgery well. Anticipate wound vac placement tomorrow. Continue levofloxacin and vancomycin for coverage - wound cultures taken during surgery. Will consult diabetic eduction and dietary education to help patient improve diabetic control. Decrease IVF to 50cc/hr, likely can stop tomorrow if patient taking oral well. 06/09/17 POD #1 Dr Alexis consulted for ID recommendations - continue IV vancomycin, but change levofloxacin to oral. Oral drive doing well - will discontinue IVF. Wound team consulted for wound vac placement. Ortho recommending WBAT activities - with consult PT/OT to help with transfer and ambulation activities. Had good meeting with diabetic education and dietary. Will place consult to Dr Valles for DM evaluation and treatment recommendations. BP with elevation -SIRS resolved. Pt reports on Cozaar and metoprolol at home - not on Med Rec. From prior admission on Cozaar 100mg daily and metoprolol succinate 50mg daily. Can restart. 3 POD #2 Continues on IV vancomycin and oral levofloxacin per Dr Alexis. Bone biopsy pending. Leukocytosis resolved. Blood sugars are very well controlled. Glyburide has been discontinued. Metformin has been resumed. Thanks to Dr. Valles for his input. Blood pressures remain elevated - losartan was resumed yesterday and metoprolol was resumed this morning. Continue to follow. Hemoglobin is stable postop. Continue to monitor. Resume magnesium 400 mg twice a day for restless leg syndrome. Will check serum magnesium and consider IV replacement if low, but if serum magnesium is normal, with still recommend continuing p.o. magnesium. 3 POD #3 Dr. Alexis changed his antibiotic regimen. She discontinued Levaquin and changed to Rocephin 2 g IV daily. Continue the vancomycin for now. Significant increase in blood pressure starting around 2100 last evening. He had 1 dose of PRN hydralazine overnight and another one during the day today. Norvasc 5mg was started this morning in addition to his losartan and metoprolol. Another 5 mg dose of Norvasc was given at noon along with a 40 mg dose of Lasix. Will start Norvasc 10 mg tomorrow morning and continue his routine medications and use Hydralazine PRN. Hemoglobin is improving Blood sugars are very well controlled. Dr. Valles is following. Start Mucinex DM for cough. Tessalon Perles aren't helping much. Repeat chest x- ray in a.m. Start enoxaparin 40 mg subcutaneous for VTE prophylaxis
[2017-06-12] MEDS: INSULIN ASPART 100unit/ml INJECTION SQ SCH ×3 (09:16→17:55)
[2017-06-12] MEDS: INSULIN DETEMIR 100unit/ml INJECTION SQ SCH ×2 (09:16→20:33)
[2017-06-12] MEDS: BENZONATATE 200 MG CAPSULE PO SCH ×3 (09:18→20:33)
[2017-06-12] MEDS: METFORMIN 1,000 MG TABLET PO SCH ×2 (09:18→17:56)
[2017-06-12] MEDS: CETIRIZINE 10 MG TABLET PO SCH (09:18)
[2017-06-12] MEDS: CLOBETASOL 0.05% CREAM 15gm TOP SCH ×2 (09:19→20:34)
[2017-06-12] MEDS: LOSARTAN 100 MG TABLET PO SCH (09:19)
[2017-06-12] MEDS: MAGNESIUM OXIDE 400 MG TABLET PO SCH ×2 (09:19→20:33)
[2017-06-12] MEDS: ASPIRIN *EC* 81 MG TABLET PO SCH (09:19)
[2017-06-12] MEDS: MULTI-VITAMIN PLAIN TABLET PO SCH (09:20)
[2017-06-12] MEDS: SALINE 0.65% NASAL SPRAY 44 ML BOTTLE EA NOSTRIL SCH ×4 (09:20→20:33)
[2017-06-12] MEDS: GUAIFENESIN/D-METHORPHAN 600mg/30mg TABLET PO SCH ×2 (09:21→20:32)
[2017-06-12] MEDS: AMLODIPINE 10 MG TABLET PO SCH (09:28)
[2017-06-12] MEDS: CEFTRIAXONE 2 GM in NS 50 ML IV SCH (09:29)
--- NOTE | 2017-06-12 11:37 | Progress Note ---
- Date 06/12/17 Subjective: Sebastian is seen in follow up. He is up in chair-is doing fairly well. pain is controlled. He and report persistent cough for several weeks. Nonproductive , worse at night. Cough suppressants only help briefly. Does endorse GERD, not currently taking routine medication. They understand steroids are not a a good choice due to healing wound. Objective Vital signs: Temperature 98.7 F 06/12/17 08:05 Pulse Rate 80 06/12/17 08:05 Respiratory Rate 16 06/12/17 08:05 Blood Pressure 167/93 H 06/12/17 08:05 Pulse Oximetry 93 06/12/17 08:05 Height/Weight/BMI: Height 1.85 m Weight 156.6 kg Body Mass Index 44.0 - Constitutional Present: well developed, morbidly obese, cooperative - Routine HEENT Exam Head: Present: normocephalic, atraumatic Eye: Present: EOMI, PERRL ENT: Present: mucous membranes moist - Routine Respiratory Exam Present: decreased breath sounds. Absent: rhonchi, wheezes - Routine Cardiovascular Exam Present: RRR, S1, S2 - Routine Abdominal Exam Present: soft, normoactive bowel sounds, non distended, non tender - Routine Extremities Exam Present: edema (Right leg) - Routine Musculoskeletal Exam Musculoskeletal: Present: normal strength, moving extremities well - Routine Skin Exam Present: dry, warm, wounds (Wound vac right foot in place. Foot is a bit swollen , as to be expected. ) - Routine Neurological Exam Present: alert, oriented X3, moving all extremities - Routine Psychiatric Exam Present: normal affect, normal thought process, cooperative Results - Labs CBC & Chem 7: 06/11/17 04:27 06/11/17 09:50 Microbiology Results: Microbiology 06/08/17 16:41 Metatarsus, Right, Bone Gram Stain - Final 06/08/17 16:41 Metatarsus, Right, Bone Surgical Culture - Final Strep agalactiae - (Group B) 06/08/17 16:30 Toe Fourth, Right, Bone Gram Stain - Final 06/08/17 16:30 Toe Fourth, Right, Bone Surgical Culture - Final Strep agalactiae - (Group B) Gram Positive Chase Staphylococcus aureus, MRSA - Imaging and Cardiology Chest x-ray Status: image reviewed by me, pending Additional comments: Some mild pulmonary congestions. Atelectasis. No obvious infiltrate. Assessment and Plan (1) Diabetic foot ulcer associated with type 2 diabetes mellitus Current visit: No Status: Acute (2) Sepsis Current visit: Yes Status: Acute Assessment and Plan: Assessment Sepsis - SIRS: leukocytosis, temp, tachycardia. Source: cellulitis. Possible pulmonary source. Diabetic foot ulcer with surrounding cellulitis and tissue necrosis/gangrene Osteomyelitis-third metatarsal shaft/head/phalange, fourth metatarsal head/ phalange-status post fourth toe amputation and third metatarsal bone biopsy by Dr. Valle on 06/08/17 Cough Postop anemia Nausea and vomiting Type 2 DM Insulin requiring - uncontrolled Hypertension Restless leg syndrome Migraine Peripheral Neuropathy GERD H/o MRSA Depression Morbid Obesity (BMI 44) Plan Chart reviewed- BP is improved slightly, but continues elevated. He is currently on Norvasc, Amlodipine, Losartan. PRN hydralazine. Will add daily Lasix 40mg, KCL- given appearance of CXR, concerned that he has some diastolic HF going on (heart is enlarged) Could consider an echo at some point. Antibiotics - IV Ceftriaxone and Vanco per DR. Alexis. Pending surgery next week. May need BKA per notes. Continue current insulin - well controlled currently. Persistent cough- diurese. Add Flovent and Albuterol inhalers. Change Zantac to BID scheduled to control any GERD component. Post op +/- reactive anemia- could add Iron if needed. continue to monitor serial labs. SCDs for px for now. Consider adding LMWH when ok with ortho. DVT Prophylaxis: SCD's GI Prophylaxis: Rantidine - Time spent with patient Time with patient PN: 25 minutes - Physician Narrative Physician: Donald Martinez MD Narrative: Date: 06/12/17 Time: 1520 Have independently interviewed and examined pt. Chart reviewed. Case discussed with my ASSOCIATE PROFESSOR. Care plan developed with my supervision; agree with above. Doing okay today. Tolerating wound vac. Notes some discomfort to right foot. Edema decreasing. Not SOA or congested-still having some coughing spells. No nausea. Bowel moving. Lungs: decreased bilaterally, no crackles or wheezes. CV: regular EXT: +1 edema bilaterally MSE: awake alert appropriate Plan: Continue with IV antibiotics and wound vac. Oral Lasix started - will give repeat dose later this afternoon. Glycemic status stable. Encourage pulm toilet. Monitor lab. Hospital Course Summary Disclaimer: The visit summary below is not to be considered part of the above Progress Note. Hospital Course: 06/07/17 Admit, IP, to the hospitalist service, Dr Martinez attending. Stay expected to exceed 2 overnights given the extent of his infection and uncontrolled DM and other comorbidities. Dr. Valle consulted. Will see in am. Pt NPO after midnight in event he'll go to surgery. Started on Levaquin and Vanco for cellulitis/MRSA. Influenza screen given his fever and cough and exposure. Accuchecks, continue home insulin - hold if NPO. Check A1C. SCD's for DVT ppx. Wishes to be a Full Code. Care to return to Dr Haresh Cobb on DC. 06/08/17 OP DAY - Surgical debridement of right foot diabetic foot ulcer with fourth toe amputation and third metatarsal bone biopsy. Tolerated surgery well. Anticipate wound vac placement tomorrow. Continue levofloxacin and vancomycin for coverage - wound cultures taken during surgery. Will consult diabetic eduction and dietary education to help patient improve diabetic control. Decrease IVF to 50cc/hr, likely can stop tomorrow if patient taking oral well. 06/09/17 POD #1 Dr Alexis consulted for ID recommendations - continue IV vancomycin, but change levofloxacin to oral. Oral drive doing well - will discontinue IVF. Wound team consulted for wound vac placement. Ortho recommending WBAT activities - with consult PT/OT to help with transfer and ambulation activities. Had good meeting with diabetic education and dietary. Will place consult to Dr Valles for DM evaluation and treatment recommendations. BP with elevation -SIRS resolved. Pt reports on Cozaar and metoprolol at home - not on Med Rec. From prior admission on Cozaar 100mg daily and metoprolol succinate 50mg daily. Can restart. 06/10/17 POD #2 Continues on IV vancomycin and oral levofloxacin per Dr Alexis. Bone biopsy pending. Leukocytosis resolved. Blood sugars are very well controlled. Glyburide has been discontinued. Metformin has been resumed. Thanks to Dr. Valles for his input. Blood pressures remain elevated - losartan was resumed yesterday and metoprolol was resumed this morning. Continue to follow. Hemoglobin is stable postop. Continue to monitor. Resume magnesium 400 mg twice a day for restless leg syndrome. Will check serum magnesium and consider IV replacement if low, but if serum magnesium is normal, with still recommend continuing p.o. magnesium. 3 POD #3 Dr. Alexis changed his antibiotic regimen. She discontinued Levaquin and changed to Rocephin 2 g IV daily. Continue the vancomycin for now. Significant increase in blood pressure starting around 2100 last evening. He had 1 dose of PRN hydralazine overnight and another one during the day today. Norvasc 5mg was started this morning in addition to his losartan and metoprolol. Another 5 mg dose of Norvasc was given at noon along with a 40 mg dose of Lasix. Will start Norvasc 10 mg tomorrow morning and continue his routine medications and use Hydralazine PRN. Hemoglobin is improving Blood sugars are very well controlled. Dr. Valles is following. Start Mucinex DM for cough. Tessalon Perles aren't helping much. Repeat chest x- ray in a.m. Start enoxaparin 40 mg subcutaneous for VTE prophylaxis 3/06/27 POD #4 BP is improved slightly, but continues elevated. He is currently on Norvasc, Amlodipine, Losartan. PRN hydralazine. Will add daily Lasix 40mg, KCL- given appearance of CXR, concerned that he has some diastolic HF going on (heart is enlarged). Antibiotics- IV Ceftriaxone and Vanco per DR. Alexis. Pending surgery next week. May need BKA per notes. Continue current insulin- well controlled currently. Persistent cough- diurese. Add Flovent and Albuterol inhalers. Change Zantac to BID scheduled to control any GERD component. Post op +/- reactive anemia- could add Iron if needed. continue to monitor serial labs. SCDs for px for now. Consider adding LMWH when ok with ortho.
[2017-06-12] MEDS: FUROSEMIDE 40 MG TABLET PO SCH (12:35)
--- NOTE | 2017-06-12 14:08 | Pharmacy Consult-Antibiotics ---
Pharmacy Consult-Vancomycin - Laboratory Information WBC 9.2 T/MM3 (4.5-11.0) 06/11/17 04:27 BUN 13.0 MG/DL (9-20) 06/11/17 04:27 Creatinine 0.9 MG/DL (0.8-1.5) 06/11/17 09:50 Procalcitonin 0.07 NG/ML 06/07/17 17:23 Vancomycin Trough 16.99 UG/ML (15-20) 06/12/17 13:28 - Consult Information VANCOMYCIN CONSULT: day 6 goal trough range= 15 to 20 mcg/ml Vancomycin Trough = 16.99 mcg/ml. Today's SCr = 0.9 mg/dl. Will continue Vancomycin 2,000 mg IV q12hrs. Will continue to monitor and make adjustments accordingly. Thank you, Trudi Walker [facility]
[2017-06-12] MEDS ORDERED: INHALER ASSIST DEVICE (Optichamber) MC ONE (14:15)
[2017-06-12] MEDS: SALINE FLUSH 10ml SYRINGE IVF PRN (14:35)
[2017-06-12] MEDS: NS FLUSH BAG 500ml IV PRN (14:36)
[2017-06-12] MEDS ORDERED: FUROSEMIDE 40 MG TABLET PO ONE (16:00)
[2017-06-12] MEDS: RANITIDINE 150 MG TABLET PO SCH (20:33)
[2017-06-12] MEDS: DiphenhydrAMINE 25 MG CAPSULE PO SCH (20:36)
[2017-06-12] MEDS: FLluticasone HFA 110mcg inhaler ORAL INH SCH (22:58)
[2017-06-13] MEDS: SALINE FLUSH 10ml SYRINGE IVF PRN (02:12)
[2017-06-13] MEDS: METFORMIN 1,000 MG TABLET PO SCH ×2 (08:40→17:54)
[2017-06-13] MEDS: INSULIN DETEMIR 100unit/ml INJECTION SQ SCH ×2 (08:40→21:25)
[2017-06-13] MEDS: INSULIN ASPART 100unit/ml INJECTION SQ SCH ×3 (08:40→17:54)
[2017-06-13] MEDS: ASPIRIN *EC* 81 MG TABLET PO SCH (08:41)
[2017-06-13] MEDS: BENZONATATE 200 MG CAPSULE PO SCH ×3 (08:41→21:26)
[2017-06-13] MEDS: CETIRIZINE 10 MG TABLET PO SCH (08:41)
[2017-06-13] MEDS: AMLODIPINE 10 MG TABLET PO SCH (08:41)
[2017-06-13] MEDS: MAGNESIUM OXIDE 400 MG TABLET PO SCH ×2 (08:42→21:26)
[2017-06-13] MEDS: LOSARTAN 100 MG TABLET PO SCH (08:42)
[2017-06-13] MEDS: GUAIFENESIN/D-METHORPHAN 600mg/30mg TABLET PO SCH ×2 (08:42→21:26)
[2017-06-13] MEDS: FUROSEMIDE 40 MG TABLET PO SCH (08:42)
[2017-06-13] MEDS: RANITIDINE 150 MG TABLET PO SCH ×2 (08:46→21:26)
[2017-06-13] MEDS: SALINE 0.65% NASAL SPRAY 44 ML BOTTLE EA NOSTRIL SCH ×4 (08:46→21:27)
[2017-06-13] MEDS: MULTI-VITAMIN PLAIN TABLET PO SCH (08:46)
[2017-06-13] MEDS: CLOBETASOL 0.05% CREAM 15gm TOP SCH ×2 (08:46→21:26)
[2017-06-13] MEDS: CEFTRIAXONE 2 GM in NS 50 ML IV SCH (08:46)
[2017-06-13] MEDS ORDERED: IRON - PHARMACY CONSULT MC ONE (09:40)
--- NOTE | 2017-06-13 10:20 | XRay Report ---
INDICATION: cough PROCEDURE: CHEST 2-VIEWS UPRIGHT (PA & LAT) Encounter: Initial COMPARISON: June 07, 2017 FINDINGS: The lungs are clear without evidence of focal abnormal airspace opacity. There is no pleural effusion or pneumothorax. Left PICC line in place with the tip projecting over the lower SVC. The heart size, mediastinal contours and pulmonary vascularity are within normal limits. There is no significant skeletal abnormality. IMPRESSION: No acute cardiopulmonary disease. .
--- NOTE | 2017-06-13 10:40 | Progress Note ---
- Date 06/13/17 Subjective: Patient seen lying in bed this morning. He reports his cough is better. Wonders what his CXR showed from yesterday. No fever. Having a few loose stools which he says "is normal" for him. No pain issues. Objective Vital signs: Temperature 97.4 F 06/13/17 08:16 Pulse Rate 76 06/13/17 08:16 Respiratory Rate 18 06/13/17 08:16 Blood Pressure 161/74 H 06/13/17 08:16 Pulse Oximetry 92 06/13/17 08:16 Height/Weight/BMI: Height 1.85 m Weight 152 kg Body Mass Index 44.0 - Constitutional Present: no acute distress, well nourished, well developed - Routine HEENT Exam Head: Present: normocephalic, atraumatic - Routine Respiratory Exam Present: CTA bilaterally. Absent: wheezes - Routine Cardiovascular Exam Present: RRR, no murmur - Routine Abdominal Exam Present: soft, non distended, non tender - Routine Extremities Exam Present: edema (swelling in R foot is improving. Wound vac intact. ), normal capillary refill - Routine Skin Exam Present: dry, warm - Routine Neurological Exam Present: alert, oriented X3 - Routine Lymphatic Exam Lymphatic: Absent: adenopathy - Routine Psychiatric Exam Present: normal affect, cooperative Results - Labs CBC & Chem 7: 06/13/17 05:07 06/13/17 05:07 Microbiology Results: Microbiology 06/08/17 16:41 Metatarsus, Right, Bone Gram Stain - Final 06/08/17 16:41 Metatarsus, Right, Bone Surgical Culture - Final Strep agalactiae - (Group B) 06/08/17 16:30 Toe Fourth, Right, Bone Gram Stain - Final 06/08/17 16:30 Toe Fourth, Right, Bone Surgical Culture - Final Strep agalactiae - (Group B) Gram Positive Chase Staphylococcus aureus, MRSA Assessment and Plan (1) Diabetic foot ulcer associated with type 2 diabetes mellitus Current visit: No Status: Acute (2) Sepsis Current visit: Yes Status: Acute Assessment and Plan: Assessment Sepsis - SIRS: leukocytosis, temp, tachycardia. Source: cellulitis. Possible pulmonary source. Diabetic foot ulcer with surrounding cellulitis and tissue necrosis/gangrene Osteomyelitis-third metatarsal shaft/head/phalange, fourth metatarsal head/ phalange-status post fourth toe amputation and third metatarsal bone biopsy by Dr. Valle on 06/08/17 Cough Postop anemia Nausea and vomiting Type 2 DM Insulin requiring - uncontrolled Hypertension Restless leg syndrome Migraine Peripheral Neuropathy GERD H/o MRSA Depression Morbid Obesity (BMI 44) Plan BP is improved with start of Lasix yesterday. Continues on Amlodipine, Losartan , and metoprolol. Wt down 4.6 kg. CXR neg. Antibiotics - IV Ceftriaxone and Vanco per DR. Alexis. Pending surgery next week. Considering BKA. Continue current insulin per Dr Valles - well controlled currently. Magnesium and Potassium replaced. Labs in am. Cough improved since addition of Lasix, Flovent and Albuterol inhalers, and increase of Zantac to BID. Post op +/- reactive anemia. Pharm consult for iron infusion. Ortho ok with resuming Lovenox. DVT Prophylaxis: SCD's, Lovenox Resuscitation Status: Full Code - Time spent with patient Time with patient PN: 25 minutes - Physician Narrative Physician: Donald Martinez MD Narrative: Date: 06/13/17 Time: 1037 Have independently interviewed and examined pt. Chart reviewed. Case discussed with my PA. Care plan developed with my supervision; agree with above. Doing okay today. Notes some tingling in foot, but not pain. Breathing well- still some coughing spells, but less frequent. Not feeling SOA or congested. Eating well. No ab pain. No f/c. Lungs: clear bilaterally, no distress CV: regular AB: soft nt MSE: awake alert appropriate Plan: Continue with Rocephin and Vancomycin for antimicrobial coverage. Tolerating wound vac. With low iron, will give IV iron. Continue oral Lasix, volume and BP improving. Monitor lab. Continue with supportive care. Hospital Course Summary Disclaimer: The visit summary below is not to be considered part of the above Progress Note. Hospital Course: 06/07/17 Admit, IP, to the hospitalist service, Dr Martinez attending. Stay expected to exceed 2 overnights given the extent of his infection and uncontrolled DM and other comorbidities. Dr. Valle consulted. Will see in am. Pt NPO after midnight in event he'll go to surgery. Started on Levaquin and Vanco for cellulitis/MRSA. Influenza screen given his fever and cough and exposure. Accuchecks, continue home insulin - hold if NPO. Check A1C. SCD's for DVT ppx. Wishes to be a Full Code. Care to return to Dr Haresh Cobb on DC. 06/08/17 OP DAY - Surgical debridement of right foot diabetic foot ulcer with fourth toe amputation and third metatarsal bone biopsy. Tolerated surgery well. Anticipate wound vac placement tomorrow. Continue levofloxacin and vancomycin for coverage - wound cultures taken during surgery. Will consult diabetic eduction and dietary education to help patient improve diabetic control. Decrease IVF to 50cc/hr, likely can stop tomorrow if patient taking oral well. 06/09/17 POD #1 Dr Alexis consulted for ID recommendations - continue IV vancomycin, but change levofloxacin to oral. Oral drive doing well - will discontinue IVF. Wound team consulted for wound vac placement. Ortho recommending WBAT activities - with consult PT/OT to help with transfer and ambulation activities. Had good meeting with diabetic education and dietary. Will place consult to Dr Valles for DM evaluation and treatment recommendations. BP with elevation -SIRS resolved. Pt reports on Cozaar and metoprolol at home - not on Med Rec. From prior admission on Cozaar 100mg daily and metoprolol succinate 50mg daily. Can restart. 06/10/17 POD #2 Continues on IV vancomycin and oral levofloxacin per Dr Alexis. Bone biopsy pending. Leukocytosis resolved. Blood sugars are very well controlled. Glyburide has been discontinued. Metformin has been resumed. Thanks to Dr. Valles for his input. Blood pressures remain elevated - losartan was resumed yesterday and metoprolol was resumed this morning. Continue to follow. Hemoglobin is stable postop. Continue to monitor. Resume magnesium 400 mg twice a day for restless leg syndrome. Will check serum magnesium and consider IV replacement if low, but if serum magnesium is normal, with still recommend continuing p.o. magnesium. 06/11/17 POD #3 Dr. Alexis changed his antibiotic regimen. She discontinued Levaquin and changed to Rocephin 2 g IV daily. Continue the vancomycin for now. Significant increase in blood pressure starting around 2100 last evening. He had 1 dose of PRN hydralazine overnight and another one during the day today. Norvasc 5mg was started this morning in addition to his losartan and metoprolol. Another 5 mg dose of Norvasc was given at noon along with a 40 mg dose of Lasix. Will start Norvasc 10 mg tomorrow morning and continue his routine medications and use Hydralazine PRN. Hemoglobin is improving Blood sugars are very well controlled. Dr. Valles is following. Start Mucinex DM for cough. Tessalon Perles aren't helping much. Repeat chest x- ray in a.m. Start enoxaparin 40 mg subcutaneous for VTE prophylaxis 3 POD #4 BP is improved slightly, but continues elevated. He is currently on Norvasc, Amlodipine, Losartan. PRN hydralazine. Will add daily Lasix 40mg, KCL- given appearance of CXR, concerned that he has some diastolic HF going on (heart is enlarged). Antibiotics- IV Ceftriaxone and Vanco per DR. Alexis. Pending surgery next week. May need BKA per notes. Continue current insulin- well controlled currently. Persistent cough- diurese. Add Flovent and Albuterol inhalers. Change Zantac to BID scheduled to control any GERD component. Post op +/- reactive anemia- could add Iron if needed. continue to monitor serial labs. SCDs for px for now. Consider adding LMWH when ok with ortho. 3 POD #5 BP is improved with start of Lasix yesterday. Continues on Amlodipine, Losartan , and metoprolol. Wt down 4.6 kg. CXR neg. Antibiotics - IV Ceftriaxone and Vanco per DR. Alexis. Pending surgery next week. Considering BKA. Continue current insulin per Dr Valles - well controlled currently. Magnesium and Potassium replaced. Labs in am. Cough improved since addition of Lasix, Flovent and Albuterol inhalers, and increase of Zantac to BID. Post op +/- reactive anemia. Pharm consult for iron infusion. Ortho ok with resuming Lovenox for DVT PPx.
[2017-06-13] MEDS ORDERED: IRON DEXTRAN COMPLEX 100mg/2ml INJECTION IVP ONE (11:00)
[2017-06-13] MEDS: ENOXAPARIN 40 MG/0.4 ML INJECTION SQ SCH (12:16)
[2017-06-13] MEDS ORDERED: MAGNESIUM OXIDE 400 MG TABLET PO ONE (12:30)
[2017-06-13] MEDS: NS FLUSH BAG 500ml IV PRN (13:52)
[2017-06-13] MEDS ORDERED: IRON DEXTRAN 1,900 MG in NS 500ml 500 ML IV ONE (14:00)
--- NOTE | 2017-06-13 14:38 | Orthopedic Progress Note ---
Date: Date: 06/13/17 Time: 0900 Subjective/Severity of Illness: Sebastian is sitting up in bed when I visit. States his pain has been well controlled s/p right 4th toe amputation. Has been up ambulating on right heal. Wound vac with minimal drainage over the weekend. Denies any fevers, soa, chest pain. Chest xray completed yesterday for cough which was negative. . Orthopedic Objective PO Vital signs: Temperature 97.3 F 06/13/17 11:30 Pulse Rate 74 06/13/17 12:30 Respiratory Rate 16 06/13/17 12:15 Blood Pressure 153/75 H 06/13/17 12:30 Pulse Oximetry 95 06/13/17 12:30 Height and Weight: Height 6 ft 1 in Weight 152 kg Body Mass Index 44.0 - Constitutional General Appearance: Present: alert, orientated x3, no acute distress, well developed, obese - Respiratory Exam Present: non-labored - Cardiovascular Exam Present: pedal pulses intact - Surgical Site Incision: dressing intact (wound vac in place over 4th toe, and great toe amputation site. No leaking at this time.) Wound Drainage: serosanguinous, minimal amount - Integumentary Exam Present: pink, warm, dry - Wound Management Right Great Toe Wound Length: 3.4 Wound Width: 2.3 Wound Depth: 1.8 Number of Packing Pieces Placed?: 2 Dressing Change Date: 06/09/17 Dressing Change Time: 14:37 Right Toe - 4th Digit Wound Type: Amputation Wound Length: 2.8 Wound Width: 1.5 Wound Depth: 2.2 Number of Packing Pieces Placed?: 2 Dressing Change Date: 06/09/17 Dressing Change Time: 14:38 - Labs Result Diagrams: 06/13/17 05:07 06/13/17 05:07 Abnormal lab results 06/13/17 06/13/17 Range/Units 05:07 05:07 RBC 3.82 L (4.50-5.90) M/MM3 Hgb 10.0 L (13.5-17.5) GM/DL Hct 32.4 L (41-53) % MCHC 30.9 L (31-37) GM/DL Immature Gran % (Auto) 0.6 H (0.0-0.5) % Lymph % (Auto) 19.3 L (23-45) % Eos % (Auto) 5.3 H (0-4) % Abs Immat Gran (auto) 0.04 H (0.00-0.03) T/MM3 Sodium 145 H (134-144) MEQ/L Potassium 3.5 L (3.6-5) MEQ/L Carbon Dioxide 33 H (22-30) MEQ/L NT-Pro-B Natriuret Pep 452 H (0-175) pg/mL H & H 06/08/17 06/09/17 06/10/17 Range/Units 03:54 04:08 04:03 Hgb 11.2 L 9.8 L D 9.4 L (13.5-17.5) GM/DL Hct 35.9 L 32.1 L 30.5 L (41-53) % 06/11/17 06/13/17 Range/Units 04:27 05:07 Hgb 10.4 L 10.0 L (13.5-17.5) GM/DL Hct 34.1 L D 32.4 L (41-53) % Coagulation 06/11/17 Range/Units 04:27 INR 1.21 (0.99-1.21) Orthopedic Assessment and Plan (1) Diabetic foot ulcer associated with type 2 diabetes mellitus Status: Acute Qualifiers: Diabetic foot ulcer location: toe Laterality: right Non-pressure ulcer stage: unspecified non-pressure ulcer stage Qualified Code(s): E11.621 - Type 2 diabetes mellitus with foot ulcer; L97.519 - Non-pressure chronic ulcer of other part of right foot with unspecified severity Assessment and Plan: S/P debridement/amputation right foot. Considering future treatment options including possible BKA next week. wound clinic involved to manage wound vac. Hospitalist to cover medically, may start Lovenox/provide anticoagulant needs. Pt may be up. WBAT on right heel. Hospital Course Summary Disclaimer: The visit summary below is not to be considered part of the above Progress Note. Hospital Course: 06/07/17 Admit, IP, to the hospitalist service, Dr Martinez attending. Stay expected to exceed 2 overnights given the extent of his infection and uncontrolled DM and other comorbidities. Dr. Valle consulted. Will see in am. Pt NPO after midnight in event he'll go to surgery. Started on Levaquin and Vanco for cellulitis/MRSA. Influenza screen given his fever and cough and exposure. Accuchecks, continue home insulin - hold if NPO. Check A1C. SCD's for DVT ppx. Wishes to be a Full Code. Care to return to Dr Haresh Cobb on DC. 06/08/17 OP DAY - Surgical debridement of right foot diabetic foot ulcer with fourth toe amputation and third metatarsal bone biopsy. Tolerated surgery well. Anticipate wound vac placement tomorrow. Continue levofloxacin and vancomycin for coverage - wound cultures taken during surgery. Will consult diabetic eduction and dietary education to help patient improve diabetic control. Decrease IVF to 50cc/hr, likely can stop tomorrow if patient taking oral well. 06/09/17 POD #1 Dr Alexis consulted for ID recommendations - continue IV vancomycin, but change levofloxacin to oral. Oral drive doing well - will discontinue IVF. Wound team consulted for wound vac placement. Ortho recommending WBAT activities - with consult PT/OT to help with transfer and ambulation activities. Had good meeting with diabetic education and dietary. Will place consult to Dr Valles for DM evaluation and treatment recommendations. BP with elevation -SIRS resolved. Pt reports on Cozaar and metoprolol at home - not on Med Rec. From prior admission on Cozaar 100mg daily and metoprolol succinate 50mg daily. Can restart. 06/10/17 POD #2 Continues on IV vancomycin and oral levofloxacin per Dr Alexis. Bone biopsy pending. Leukocytosis resolved. Blood sugars are very well controlled. Glyburide has been discontinued. Metformin has been resumed. Thanks to Dr. Valles for his input. Blood pressures remain elevated - losartan was resumed yesterday and metoprolol was resumed this morning. Continue to follow. Hemoglobin is stable postop. Continue to monitor. Resume magnesium 400 mg twice a day for restless leg syndrome. Will check serum magnesium and consider IV replacement if low, but if serum magnesium is normal, with still recommend continuing p.o. magnesium. 3 POD #3 Dr. Alexis changed his antibiotic regimen. She discontinued Levaquin and changed to Rocephin 2 g IV daily. Continue the vancomycin for now. Significant increase in blood pressure starting around 2100 last evening. He had 1 dose of PRN hydralazine overnight and another one during the day today. Norvasc 5mg was started this morning in addition to his losartan and metoprolol. Another 5 mg dose of Norvasc was given at noon along with a 40 mg dose of Lasix. Will start Norvasc 10 mg tomorrow morning and continue his routine medications and use Hydralazine PRN. Hemoglobin is improving Blood sugars are very well controlled. Dr. Valles is following. Start Mucinex DM for cough. Tessalon Perles aren't helping much. Repeat chest x- ray in a.m. Start enoxaparin 40 mg subcutaneous for VTE prophylaxis 3/3/ POD #4 BP is improved slightly, but continues elevated. He is currently on Norvasc, Amlodipine, Losartan. PRN hydralazine. Will add daily Lasix 40mg, KCL- given appearance of CXR, concerned that he has some diastolic HF going on (heart is enlarged). Antibiotics- IV Ceftriaxone and Vanco per DR. Alexis. Pending surgery next week. May need BKA per notes. Continue current insulin- well controlled currently. Persistent cough- diurese. Add Flovent and Albuterol inhalers. Change Zantac to BID scheduled to control any GERD component. Post op +/- reactive anemia- could add Iron if needed. continue to monitor serial labs. SCDs for px for now. Consider adding LMWH when ok with ortho. 3 POD #5 BP is improved with start of Lasix yesterday. Continues on Amlodipine, Losartan , and metoprolol. Wt down 4.6 kg. CXR neg. Antibiotics - IV Ceftriaxone and Vanco per DR. Alexis. Pending surgery next week. Considering BKA. Continue current insulin per Dr Valles - well controlled currently. Magnesium and Potassium replaced. Labs in am. Cough improved since addition of Lasix, Flovent and Albuterol inhalers, and increase of Zantac to BID. Post op +/- reactive anemia. Pharm consult for iron infusion. Ortho ok with resuming Lovenox for DVT PPx.
--- NOTE | 2017-06-13 15:38 | Pharmacy Consult ---
Pharmacy Consult-Iron - Laboratory Information Iron Labs 06/08/17 06/09/17 06/10/17 03:54 04:08 04:03 Hgb 11.2 L 9.8 L D 9.4 L Hct 35.9 L 32.1 L 30.5 L Iron TIBC % Saturation 06/10/17 06/11/17 06/13/17 04:03 04:27 05:07 Hgb 10.4 L 10.0 L Hct 34.1 L D 32.4 L Iron 11 L TIBC 243 L % Saturation 5 L - Consult Information IV IRON CONSULT: Dx: Chronic Anemia: Will give TDI (Total Dose Infusion) over 4 hours. Actual body weight = 152 kg Hgb Level = 10.0 g/dL Calculated Dosing weight = 80 kg Total dose needed: 1,900 mg (38 mL) Will give test dose of 25 mg IV push over 30 seconds. Watch VS q 15 minutes x 1 hr. (watching for anaphylaxis, respiratory distress, hives.) If no reaction will give full dose in NS 500ml TRA 125ml/hr. Watch VS q 1 hr during infusion. Thank you, Trudi Walker, [facility]
[2017-06-13] MEDS: DiphenhydrAMINE 25 MG CAPSULE PO SCH (21:26)
[2017-06-13] MEDS: FLluticasone HFA 110mcg inhaler ORAL INH SCH ×2 (21:34→21:42)
[2017-06-14] MEDS: NS FLUSH BAG 500ml IV PRN (01:32)
--- NOTE | 2017-06-14 07:38 | Endocrinology Progress Note ---
Subjective Principal diagnosis: Type 2 diabetes mellitus, uncontrolled Interval history: Had no blood sugar problems overnight. Finally getting good night's rest. Reports some foot pain this morning. Exam Vital signs: Temperature 96.7 F L 06/14/17 04:00 Pulse Rate 74 06/14/17 04:00 Respiratory Rate 18 06/14/17 04:00 Blood Pressure 170/84 H 06/14/17 04:00 Pulse Oximetry 90 06/14/17 04:00 Inpatient Medications: Generic Name Dose Route Start Last Admin Trade Name Freq PRN Reason Stop Dose Admin Acetaminophen 1,000 mg 06/07/17 18:44 06/07/17 20:39 Tylenol PO 1,000 mg Q6H PRN Administration Pain Hydrocodone Bitart/Acetaminophen 1 tab 06/07/17 18:44 06/10/17 00:26 [place] 5/325 PO 1 tab Q4H PRN Administration Pain Albuterol Sulfate 2 puff 06/12/17 11:23 Ventolin Hfa ORAL INH Q4HR PRN cough Amlodipine Besylate 10 mg 06/12/17 09:00 06/13/17 08:41 Norvasc PO 10 mg DAILY KAI Administration Aspirin 81 mg 06/08/17 09:00 06/13/17 08:41 Ecotrin PO 81 mg DAILY KAI Administration Benzonatate 200 mg 06/10/17 21:00 06/13/17 21:26 Tessalon Perles PO 200 mg TID KAI Administration Cetirizine HCl 10 mg 06/08/17 09:00 06/13/17 08:41 Zyrtec PO 10 mg DAILY KAI Administration Clobetasol Propionate 1 applic 06/09/17 21:00 06/13/17 21:26 Temovate Cream TOP 1 applic BID KAI Administration Diphenhydramine HCl 50 mg 06/07/17 21:00 06/13/17 21:26 Benadryl PO 50 mg HS KAI Administration Enoxaparin Sodium 40 mg 06/13/17 11:15 06/13/17 12:16 Lovenox SQ 40 mg DAILY KAI Administration Fluticasone Propionate 2 puff 06/12/17 14:15 06/13/17 21:42 Flovent Hfa ORAL INH 2 puff RTBID KAI Administration Furosemide 40 mg 06/12/17 11:30 06/13/17 08:42 Lasix PO 40 mg DAILY KAI Administration Guaifenesin/Dextromethorphan 2 tab 06/11/17 21:00 06/13/17 21:26 Mucinex Dm PO 2 tab BID KAI Administration Hydralazine HCl 10 mg 06/11/17 15:13 06/12/17 20:32 Apresoline IVP 10 mg Q4H PRN Administration Hypertension Ceftriaxone Sodium 2 gm/ 50 mls @ 100 mls/hr 06/11/17 09:15 06/13/17 09:16 Sodium Chloride IV Infused Q24H KAI Infusion Vancomycin HCl 2,000 mg/ 500 mls @ 250 mls/hr 06/11/17 14:00 06/14/17 03:31 Sodium Chloride IV Infused Q12H [facility] Infusion Insulin Aspart 17 unit 06/09/17 17:40 06/13/17 17:54 Novolog SQ 17 unit TIDWM [facility] Administration Insulin Detemir 50 unit 06/09/17 09:00 06/13/17 21:25 Levemir SQ 50 unit BID [facility] Administration Losartan Potassium 100 mg 06/09/17 13:15 06/13/17 08:42 Cozaar PO 100 mg DAILY [facility] Administration Magnesium Hydroxide 30 ml 06/08/17 17:44 Mom PO DAILY PRN Constipation Magnesium Oxide 400 mg 06/10/17 09:43 06/13/17 21:26 Magox PO 400 mg BID KAI Administration Metformin HCl 1,000 mg 06/09/17 17:30 06/13/17 17:54 Glucophage PO 1,000 mg BIDWM [facility] Administration Metoprolol Succinate 50 mg 06/10/17 09:00 06/13/17 08:42 Toprol Xl PO 50 mg DAILY [facility] Administration Morphine Sulfate 2 mg 06/07/17 18:44 Morphine Sulfate Inj IVP Q2HR PRN Pain Multivitamins 1 tab 06/08/17 09:00 06/13/17 08:46 Theragran PO 1 tab DAILY [facility] Administration Ondansetron HCl 4 mg 06/07/17 18:44 06/08/17 03:28 Zofran IVP 4 mg Q6H PRN Administration Nausea Potassium Chloride 20 meq 06/13/17 08:00 06/13/17 08:41 K-Dur 20 Meq Tablet PO 20 meq WB [facility] Administration Ranitidine HCl 150 mg 06/12/17 21:00 06/13/17 21:26 Zantac PO 150 mg BID KAI Administration Sodium Chloride 10 - 80 ml 06/07/17 16:58 06/13/17 02:12 Iv Flush IVF 10 ml PRN PRN Administration Flushing Sodium Chloride 2 spray 06/08/17 21:08 06/13/17 21:27 Deep Sea Nasal Moisturizing [place] EA NOSTRIL 2 spray QID KAI Administration Sodium Chloride 500 ml 06/10/17 12:35 06/14/17 01:32 Normal Saline IV 500 ml PRN PRN Administration Discontinued Medications Generic Name Dose Route Start Last Admin Trade Name Freq PRN Reason Stop Dose Admin Amlodipine Besylate 5 mg 06/11/17 09:00 06/11/17 08:56 Norvasc PO Not Given DAILY KAI Amlodipine Besylate 5 mg 06/11/17 12:02 06/11/17 12:34 Norvasc PO 06/11/17 12:03 5 mg O ONE Administration Device 1 each 06/12/17 14:15 06/13/17 10:57 Optichamber MC 06/12/17 14:16 Not Given O ONE Enoxaparin Sodium 40 mg 06/11/17 15:30 06/11/17 16:17 Lovenox SQ Not Given DAILY KAI Furosemide 40 mg 06/11/17 12:01 06/11/17 12:33 Lasix PO 06/11/17 12:02 40 mg O ONE Administration Furosemide 40 mg 06/12/17 16:00 06/12/17 17:56 Lasix PO 06/12/17 16:01 40 mg ONE TIME ONE Administration Glyburide 10 mg 06/08/17 08:00 06/09/17 18:54 Micronase PO Not Given BIDWM KAI Guaifenesin 1,200 mg 06/10/17 21:00 06/11/17 08:49 Mucinex La PO 1,200 mg BID KAI Administration Hydralazine HCl 5 mg 06/10/17 20:52 06/11/17 10:28 Apresoline IVP 5 mg Q4H PRN Administration Hypertension Hydralazine HCl 5 mg 06/10/17 22:35 06/10/17 23:36 Apresoline IVP 06/10/17 22:36 5 mg O ONE Administration Levofloxacin/Dextrose 750 mg in 150 mls @ 100 mls/hr 06/07/17 16:58 06/07/17 18:56 Levaquin Premix IV 06/07/17 18:27 Infused O ONE Infusion Levofloxacin/Dextrose 750 mg in 150 mls @ 100 mls/hr 06/08/17 16:30 06/08/17 16:55 Levaquin Premix IV Infused Q24H [facility] Infusion Sodium Chloride 1,000 mls @ 100 mls/hr 06/07/17 18:44 06/09/17 18:54 Normal Saline IV Not Given .Q10H KAI Vancomycin HCl 2,000 mg/ 500 mls @ 250 mls/hr 06/07/17 19:00 06/09/17 04:48 Sodium Chloride IV Infused Q8H [facility] Infusion Vancomycin HCl 1,750 mg/ 500 mls @ 250 mls/hr 06/09/17 11:00 06/11/17 04:32 Sodium Chloride IV 06/11/17 10:59 Infused Q8H [facility] Infusion Iron Dextran 1,900 mg/ Sodium 538 mls @ 125 mls/hr 06/13/17 14:00 06/13/17 20 :34 Chloride IV 06/13/17 18:18 Infused O ONE Infusion Ibuprofen 800 mg 06/07/17 18:44 Motrin PO Q8H PRN Pain Insulin Aspart 30 unit 06/08/17 08:00 06/10/17 02:29 Novolog SQ Not Given TIDWM KAI Insulin Aspart 20 unit 06/09/17 08:48 06/09/17 18:54 Novolog SQ Not Given TIDWM [facility] Insulin Detemir 70 unit 06/07/17 21:00 06/08/17 21:14 Levemir SQ 70 unit BID KAI Administration Iron Dextran 1 each 06/13/17 09:40 06/13/17 10:31 Pharmacy Consult - Iron MC 06/13/17 09:41 Not Given O ONE Iron Dextran 25 mg 06/13/17 11:00 06/13/17 11:21 Infed IVP 06/13/17 11:01 25 mg O ONE Administration Levofloxacin 750 mg 06/09/17 12:45 06/11/17 05:45 Levaquin PO 750 mg ACB KAI Administration Magnesium Oxide 400 mg 06/13/17 12:30 06/13/17 12:11 Magox PO 06/13/17 12:31 400 mg O ONE Administration Midazolam HCl 1 - 5 mg 06/08/17 15:59 06/08/17 15:49 Versed IVP 2 mg PRN PRN Administration Potassium Chloride 20 meq 06/13/17 12:30 06/13/17 12:11 K-Dur 20 Meq Tablet PO 06/13/17 12:31 20 meq O ONE Administration Potassium Chloride 20 meq 06/13/17 17:30 06/13/17 17:54 K-Dur 20 Meq Tablet PO 06/13/17 17:31 20 meq O ONE Administration Ranitidine HCl 150 mg 06/07/17 18:44 Zantac PO BID PRN Acid Reflux Vancomycin HCl 1 each 06/07/17 18:44 06/07/17 18:58 Pharmacy Consult - Vancomycin 06/07/17 18:45 Not Given O ONE - Constitutional no acute distress - Routine HEENT Exam Head: Present: normocephalic, atraumatic Eye: Present: EOMI, PERRL ENT: Present: mucous membranes moist - Routine Neck Exam Absent: thyromegaly - Routine Respiratory Exam Absent: dyspnea - Routine Cardiovascular Exam Present: RRR - Routine Abdominal Exam Present: soft, normoactive bowel sounds - Routine Extremities Exam Comments: Wound vac on right foot. - Routine Skin Exam Present: dry, warm - Routine Neurological Exam Present: alert, oriented X3, moving all extremities - Routine Psychiatric Exam Present: normal affect, normal thought process, good insight, good judgment - Additional findings Additional findings: Laboratory Tests 06/13/17 06/13/17 06/13/17 10:28 14:44 20:59 Glucometer 124 83 82 06/14/17 06:02 Glucometer 73 Assessment and Plan (1) Type 2 diabetes mellitus with hyperglycemia Current visit: Yes Status: Chronic (2) Cellulitis Current visit: Yes Status: Acute
[2017-06-14] MEDS: FLluticasone HFA 110mcg inhaler ORAL INH SCH ×2 (07:56→21:28)
[2017-06-14] MEDS: INSULIN ASPART 100unit/ml INJECTION SQ SCH ×3 (08:49→17:46)
[2017-06-14] MEDS: METFORMIN 1,000 MG TABLET PO SCH ×2 (09:05→17:47)
--- NOTE | 2017-06-14 09:05 | ID Progress Note ---
Subjective Date: 06/14/17 Subjective: Mr. Mancilla denies any problems except for some sharp shooting pains in his R foot. He denies nausea or diarrhea. No fever. He's waiting to talk to Dr. Valle about surgery. Exam Vital Signs: Temperature 96.7 F L 06/14/17 04:00 Pulse Rate 74 06/14/17 04:00 Respiratory Rate 18 06/14/17 04:00 Blood Pressure 170/84 H 06/14/17 04:00 Pulse Oximetry 90 06/14/17 04:00 Height/Weight/BMI: Height 1.85 m Weight 152 kg Body Mass Index 44.0 - Constitutional Present: no acute distress, well nourished, well developed - Routine HEENT Exam Head: Present: normocephalic Eye: Present: EOMI, PERRL ENT: Present: mucous membranes moist, oropharynx clear - Routine Neck Exam Present: supple - Routine Respiratory Exam Present: CTA bilaterally - Routine Cardiovascular Exam Present: RRR - Routine Abdominal Exam Present: soft, normoactive bowel sounds, non distended, non tender - Routine Extremities Exam Present: edema (trace RLE). Absent: cyanosis, clubbing - Routine Skin Exam Absent: rash Comments: wound VAC on R foot at 4th and 1st toe amputation sites, mild erythema. LUE PICC site ok. - Routine Neurological Exam Present: alert, oriented X3, CN II-XII intact. Absent: motor deficit - Routine Psychiatric Exam Present: normal affect, normal thought process Results - Labs CBC & Chem 7: 06/14/17 04:19 06/14/17 04:19 Microbiology Results: Microbiology 06/08/17 16:41 Metatarsus, Right, Bone Gram Stain - Final 06/08/17 16:41 Metatarsus, Right, Bone Surgical Culture - Final Strep agalactiae - (Group B) 06/08/17 16:30 Toe Fourth, Right, Bone Gram Stain - Final 06/08/17 16:30 Toe Fourth, Right, Bone Surgical Culture - Final Strep agalactiae - (Group B) Gram Positive Chase Staphylococcus aureus, MRSA Pathology showed negative margins 4th toe 3rd MT head biopsy without definitive evidence of osteomyelitis Impression: Sepsis, secondary to musculoskeletal source Acute osteomyelitis R 4th toe, s/p amputation 06/08/17, cultures with GBS, GPR, scant growth of MRSA, path with negative margins Osteomyelitis per MRI of R 3rd MT, s/p bone biopsy 06/08, results not definitive for osteomyelitis. Bone culture with GBS, gram stain had GPC in pairs and GNRs Leukocytosis DM II, IR, poorly controlled Recent wounds R foot near great toe amputation site and 2nd toe H/o chronic osteomyelitis of the right great toe associated with diabetic foot ulcer, status post wound debridement and Julien needle biopsy on July 31, 2016, bone culture with E. coli and pathology report consistent with chronic osteomyelitis. S/p R great toe amputation 09/04/16 due to sepsis and worsening of wound, OR culture with MRSA and E. faecalis, s/p 6 weeks of Daptomycin, completed 10/15/16. Possible chronic osteomyelitis of the right second toe per MRI June 23, 2016. Peripheral neuropathy secondary to diabetes. Hypertension. History of Methicillin-resistant Staphylococcus aureus. ALLERGY to CLINDAMYCIN. Rash posterior R shoulder area, ? eczema Recommendation: Recommend continuing current antibiotics (rocephin and Vancomycin). I discussed with him that even though the pathology from the biopsy was not supportive of a diagnosis of osteomyelitis that does not completely exclude that. I still think that most likely he will need 6 weeks of IV antibiotics unless he has further amputation. I also discussed with him that if he has a below-knee amputation he will not need 6 weeks of IV antibiotics.
[2017-06-14] MEDS: BENZONATATE 200 MG CAPSULE PO SCH ×3 (09:06→21:05)
[2017-06-14] MEDS: RANITIDINE 150 MG TABLET PO SCH ×2 (09:06→21:05)
[2017-06-14] MEDS: CETIRIZINE 10 MG TABLET PO SCH (09:06)
[2017-06-14] MEDS: MULTI-VITAMIN PLAIN TABLET PO SCH (09:06)
[2017-06-14] MEDS: ASPIRIN *EC* 81 MG TABLET PO SCH (09:06)
[2017-06-14] MEDS: FUROSEMIDE 40 MG TABLET PO SCH (09:07)
[2017-06-14] MEDS: LOSARTAN 100 MG TABLET PO SCH (09:08)
[2017-06-14] MEDS: AMLODIPINE 10 MG TABLET PO SCH (09:09)
[2017-06-14] MEDS: MAGNESIUM OXIDE 400 MG TABLET PO SCH ×2 (09:09→21:05)
[2017-06-14] MEDS: GUAIFENESIN/D-METHORPHAN 600mg/30mg TABLET PO SCH ×2 (09:10→21:05)
[2017-06-14] MEDS: CLOBETASOL 0.05% CREAM 15gm TOP SCH ×2 (09:11→21:05)
[2017-06-14] MEDS: SALINE 0.65% NASAL SPRAY 44 ML BOTTLE EA NOSTRIL SCH ×4 (09:11→21:05)
[2017-06-14] MEDS ORDERED: acetaZOLAMIDE 250 MG TABLET PO ONE (09:14)
[2017-06-14] MEDS: INSULIN DETEMIR 100unit/ml INJECTION SQ SCH ×2 (09:15→21:04)
[2017-06-14] MEDS: ENOXAPARIN 40 MG/0.4 ML INJECTION SQ SCH (09:19)
[2017-06-14] MEDS: CEFTRIAXONE 2 GM in NS 50 ML IV SCH (09:20)
[2017-06-14 11:43] VITALS: RESP 16
--- NOTE | 2017-06-14 16:32 | Orthopedic Progress Note ---
Date: Date: 06/14/17 Time: 1630 Subjective/Severity of Illness: He is done well over the weekend without any new concerns or complaints. His pathology report did not show signs of osteomyelitis in the third metatarsal. Any had free margins on the fourth toe amputation. Orthopedic Objective Vital signs: Temperature 97.8 F 06/14/17 16:09 Pulse Rate 77 06/14/17 16:09 Respiratory Rate 16 06/14/17 16:09 Blood Pressure 127/61 06/14/17 16:09 Pulse Oximetry 93 06/14/17 16:09 Height and Weight: Height 6 ft 1 in Weight 152.6 kg Body Mass Index 44.0 - Constitutional General Appearance: Present: alert, orientated x3, no acute distress, well developed, obese - Respiratory Exam Present: non-labored - Cardiovascular Exam Present: pedal pulses intact - Extremities Exam Present: edema (trace RLE). Absent: cyanosis, clubbing - Integumentary Exam Present: pink, warm, dry - Lymphatic Lymphatic: Absent: adenopathy - Wound Management Right Great Toe Wound Type: Diabetic Foot Ulcer Wound Length: 3.4 Wound Width: 2.3 Wound Depth: 1.8 Bed Appearance: Pale, Slough Surrounding Tissue Appearance: Indurated Drainage Description: Sanguineous Drainage Amount: Moderate Drainage Odor: No Odor Dressing Status: Changed Packing Type: Woundvac Sponge Number of Packing Pieces Placed?: 2 Dressing Change Date: 06/09/17 Dressing Change Time: 14:37 Right Toe - 4th Digit Wound Type: Amputation Wound Length: 2.8 Wound Width: 1.5 Wound Depth: 2.2 Bed Appearance: Beefy Red Surrounding Tissue Appearance: [place], Indurated, Edges Rolled Drainage Description: Sanguineous Drainage Amount: Moderate Drainage Odor: No Odor Dressing Status: Changed Packing Type: Woundvac Sponge Number of Packing Pieces Placed?: 2 Dressing Change Date: 06/09/17 Dressing Change Time: 14:38 Dressing Change Patient Tolerance: Tolerated Well - Labs Result Diagrams: 06/14/17 04:19 06/14/17 04:19 Abnormal lab results 06/14/17 06/14/17 Range/Units 04:19 04:19 RBC 3.96 L (4.50-5.90) M/MM3 Hgb 10.3 L (13.5-17.5) GM/DL Hct 33.6 L (41-53) % MCHC 30.7 L (31-37) GM/DL Neut % (Auto) 67.2 H (33-66) % Lymph % (Auto) 19.4 L (23-45) % Eos % (Auto) 5.3 H (0-4) % Sodium 145 H (134-144) MEQ/L Carbon Dioxide 32 H (22-30) MEQ/L Alkaline Phosphatase 134 H (38-126) U/L C-Reactive Protein 23.8 H (0-9) MG/L Albumin 3.2 L (3.5-5.0) g/dL Globulin 3.7 H (2.4-3.6) G/DL Albumin/Globulin Ratio 0.9 L (1.1-2.2) RATIO H & H 06/08/17 06/09/17 06/10/17 Range/Units 03:54 04:08 04:03 Hgb 11.2 L 9.8 L D 9.4 L (13.5-17.5) GM/DL Hct 35.9 L 32.1 L 30.5 L (41-53) % 06/11/17 06/13/17 06/14/17 Range/Units 04:27 05:07 04:19 Hgb 10.4 L 10.0 L 10.3 L (13.5-17.5) GM/DL Hct 34.1 L D 32.4 L 33.6 L (41-53) % Coagulation 06/11/17 Range/Units 04:27 INR 1.21 (0.99-1.21) Orthopedic Assessment and Plan (1) Diabetic foot ulcer associated with type 2 diabetes mellitus Status: Acute Qualifiers: Diabetic foot ulcer location: toe Laterality: right Non-pressure ulcer stage: unspecified non-pressure ulcer stage Qualified Code(s): E11.621 - Type 2 diabetes mellitus with foot ulcer; L97.519 - Non-pressure chronic ulcer of other part of right foot with unspecified severity Assessment and Plan: I had a long talk with him in about his foot today. We discussed last week possibility of [id number] amputation. With pathology report came back negative for osteomyelitis I recommended he consider trying to save his foot. We would do this with treatment with a wound VAC and IV antibiotics. It any point if it feels like he is not making progress and can always return discussion of a BKA. We will apply the wound VAC today and have him follow-up in wound clinic for wound VAC changes twice a week. Hospital Course Summary Disclaimer: The visit summary below is not to be considered part of the above Progress Note. Hospital Course: 06/07/17 Admit, IP, to the hospitalist service, Dr Martinez attending. Stay expected to exceed 2 overnights given the extent of his infection and uncontrolled DM and other comorbidities. Dr. Valle consulted. Will see in am. Pt NPO after midnight in event he'll go to surgery. Started on Levaquin and Vanco for cellulitis/MRSA. Influenza screen given his fever and cough and exposure. Accuchecks, continue home insulin - hold if NPO. Check A1C. SCD's for DVT ppx. Wishes to be a Full Code. Care to return to Dr Haresh Cobb on DC. 06/08/17 OP DAY - Surgical debridement of right foot diabetic foot ulcer with fourth toe amputation and third metatarsal bone biopsy. Tolerated surgery well. Anticipate wound vac placement tomorrow. Continue levofloxacin and vancomycin for coverage - wound cultures taken during surgery. Will consult diabetic eduction and dietary education to help patient improve diabetic control. Decrease IVF to 50cc/hr, likely can stop tomorrow if patient taking oral well. 06/09/17 POD #1 Dr Alexis consulted for ID recommendations - continue IV vancomycin, but change levofloxacin to oral. Oral drive doing well - will discontinue IVF. Wound team consulted for wound vac placement. Ortho recommending WBAT activities - with consult PT/OT to help with transfer and ambulation activities. Had good meeting with diabetic education and dietary. Will place consult to Dr Valles for DM evaluation and treatment recommendations. BP with elevation -SIRS resolved. Pt reports on Cozaar and metoprolol at home - not on Med Rec. From prior admission on Cozaar 100mg daily and metoprolol succinate 50mg daily. Can restart. 06/10/17 POD #2 Continues on IV vancomycin and oral levofloxacin per Dr Alexis. Bone biopsy pending. Leukocytosis resolved. Blood sugars are very well controlled. Glyburide has been discontinued. Metformin has been resumed. Thanks to Dr. Valles for his input. Blood pressures remain elevated - losartan was resumed yesterday and metoprolol was resumed this morning. Continue to follow. Hemoglobin is stable postop. Continue to monitor. Resume magnesium 400 mg twice a day for restless leg syndrome. Will check serum magnesium and consider IV replacement if low, but if serum magnesium is normal, with still recommend continuing p.o. magnesium. 3 POD #3 Dr. Alexis changed his antibiotic regimen. She discontinued Levaquin and changed to Rocephin 2 g IV daily. Continue the vancomycin for now. Significant increase in blood pressure starting around 2100 last evening. He had 1 dose of PRN hydralazine overnight and another one during the day today. Norvasc 5mg was started this morning in addition to his losartan and metoprolol. Another 5 mg dose of Norvasc was given at noon along with a 40 mg dose of Lasix. Will start Norvasc 10 mg tomorrow morning and continue his routine medications and use Hydralazine PRN. Hemoglobin is improving Blood sugars are very well controlled. Dr. Valles is following. Start Mucinex DM for cough. Tessalon Perles aren't helping much. Repeat chest x- ray in a.m. Start enoxaparin 40 mg subcutaneous for VTE prophylaxis 3 POD #4 BP is improved slightly, but continues elevated. He is currently on Norvasc, Amlodipine, Losartan. PRN hydralazine. Will add daily Lasix 40mg, KCL- given appearance of CXR, concerned that he has some diastolic HF going on (heart is enlarged). Antibiotics- IV Ceftriaxone and Vanco per DR. Alexis. Pending surgery next week. May need BKA per notes. Continue current insulin- well controlled currently. Persistent cough- diurese. Add Flovent and Albuterol inhalers. Change Zantac to BID scheduled to control any GERD component. Post op +/- reactive anemia- could add Iron if needed. continue to monitor serial labs. SCDs for px for now. Consider adding LMWH when ok with ortho. 3 POD #5 BP is improved with start of Lasix yesterday. Continues on Amlodipine, Losartan , and metoprolol. Wt down 4.6 kg. CXR neg. Antibiotics - IV Ceftriaxone and Vanco per DR. Alexis. Pending surgery next week. Considering BKA. Continue current insulin per Dr Valles - well controlled currently. Magnesium and Potassium replaced. Labs in am. Cough improved since addition of Lasix, Flovent and Albuterol inhalers, and increase of Zantac to BID. Post op +/- reactive anemia. Pharm consult for iron infusion. Ortho ok with resuming Lovenox for DVT PPx.
--- NOTE | 2017-06-14 17:10 | Progress Note ---
- Date 06/14/17 Subjective: Ed and his , Sophie, were listening with the mold preparer. He states that he learned more about diabetes this admission than he had the last 17 years he's had the disease. He report that Dr. Valle was just in and performed a bedside debridement, and was pleased with the way it looked. Sophie reported that she hasn't seen his BP so low in 3 years -- he denies any lightheadedness or dizziness. We discussed the importance of controlling both diabetes and BP, and the relationship between the two. He is hopeful for discharge home. He's had a wound vac and PICC line before, so they are both familiar with the cares involved. Objective Vital signs: Temperature 97.8 F 06/14/17 16:09 Pulse Rate 77 06/14/17 16:09 Respiratory Rate 16 06/14/17 16:09 Blood Pressure 127/61 06/14/17 16:09 Pulse Oximetry 93 06/14/17 16:09 Height/Weight/BMI: Height 1.85 m Weight 152.6 kg Body Mass Index 44.0 - Constitutional Present: no acute distress, well nourished, well developed, morbidly obese - Routine HEENT Exam Head: Present: normocephalic Eye: Absent: conjunctival icterus, scleral injection ENT: Present: mucous membranes moist, oropharynx clear - Routine Respiratory Exam Present: CTA bilaterally - Routine Cardiovascular Exam Present: RRR, S1, S2, murmur (soft systolic murmur) - Routine Abdominal Exam Present: soft, normoactive bowel sounds, non distended, non tender - Routine Extremities Exam Present: no edema - Routine Skin Exam Present: dry, warm, wounds (right foot; wound vac in place and wrapped with alyse. ) - Routine Neurological Exam Present: alert, oriented X3 - Routine Psychiatric Exam Present: normal affect, normal thought process, cooperative Results - Labs CBC & Chem 7: 06/14/17 04:19 06/14/17 04:19 Microbiology Results: Microbiology 06/08/17 16:41 Metatarsus, Right, Bone Gram Stain - Final 06/08/17 16:41 Metatarsus, Right, Bone Surgical Culture - Final Strep agalactiae - (Group B) 06/08/17 16:30 Toe Fourth, Right, Bone Gram Stain - Final 06/08/17 16:30 Toe Fourth, Right, Bone Surgical Culture - Final Strep agalactiae - (Group B) Gram Positive Chase Staphylococcus aureus, MRSA Assessment and Plan (1) Diabetic foot ulcer associated with type 2 diabetes mellitus Current visit: No Status: Acute (2) Sepsis Current visit: Yes Status: Acute Assessment and Plan: Assessment Sepsis - SIRS: leukocytosis, temp, tachycardia. Source: cellulitis. Possible pulmonary source. Diabetic foot ulcer with surrounding cellulitis and tissue necrosis/gangrene Osteomyelitis-third metatarsal shaft/head/phalange, fourth metatarsal head/ phalange-status post fourth toe amputation and third metatarsal bone biopsy by Dr. Valle on 06/08/17 Cough Postop anemia Nausea and vomiting Type 2 DM Insulin requiring - uncontrolled Hypertension Restless leg syndrome Migraine Peripheral Neuropathy GERD H/o MRSA Depression Morbid Obesity (BMI 44) Plan Medically improving -- BP 127/61 this afternoon. BG under good control, s/p inpt diabetic education. Dr. Valle did bedside debridement today; wound vac reapplied. Pt would like to prevent further surg./amputation if possible. Will need to discuss dc plans with Dr. Alexis and Dr. Valle. Dr. Alexis indicated in her note that he will most likely need 6 weeks of Rocephin and vancomycin. WBC normal and CRP decreased from 74 to 23.8. K improved to 3.8. DVT Prophylaxis: Lovenox Resuscitation Status: Full Code - Time spent with patient Time with patient PN: 25 minutes - Physician Narrative Physician: Donald Martinez MD Narrative: Date: 06/14/17 Time: 1814 Have independently interviewed and examined pt. Chart reviewed. Case discussed with CM and my LANCE CREWMEMBER/MLRS SERGEANT. Care plan developed with my supervision; agree with above. Doing well this evening-encouraged about news from Dr Valle--not seeing involvement of damien margins. Planning on trying to salvage his foot. Understands that he may need amputation if healing not optimal. Understands antibiotic use at home. Breathing well. Eating well. Blood pressures variable. Sugars doing well. Lungs: Decreased, no distress CV: regular AB: soft nt MSE: awake alert Plan: Continue with current antimicrobial therapy-will need to have CM look into outpatient antibiotics. Continue with Lasix, but likely can discontinue in near future as weight trending down. Clinically improving. Hospital Course Summary Disclaimer: The visit summary below is not to be considered part of the above Progress Note. Hospital Course: 06/07/17 Admit, IP, to the hospitalist service, Dr Martinez attending. Stay expected to exceed 2 overnights given the extent of his infection and uncontrolled DM and other comorbidities. Dr. Valle consulted. Will see in am. Pt NPO after midnight in event he'll go to surgery. Started on Levaquin and Vanco for cellulitis/MRSA. Influenza screen given his fever and cough and exposure. Accuchecks, continue home insulin - hold if NPO. Check A1C. SCD's for DVT ppx. Wishes to be a Full Code. Care to return to Dr Haresh Cobb on DC. 06/08/17 OP DAY - Surgical debridement of right foot diabetic foot ulcer with fourth toe amputation and third metatarsal bone biopsy. Tolerated surgery well. Anticipate wound vac placement tomorrow. Continue levofloxacin and vancomycin for coverage - wound cultures taken during surgery. Will consult diabetic eduction and dietary education to help patient improve diabetic control. Decrease IVF to 50cc/hr, likely can stop tomorrow if patient taking oral well. 06/09/17 POD #1 Dr Alexis consulted for ID recommendations - continue IV vancomycin, but change levofloxacin to oral. Oral drive doing well - will discontinue IVF. Wound team consulted for wound vac placement. Ortho recommending WBAT activities - with consult PT/OT to help with transfer and ambulation activities. Had good meeting with diabetic education and dietary. Will place consult to Dr Valles for DM evaluation and treatment recommendations. BP with elevation -SIRS resolved. Pt reports on Cozaar and metoprolol at home - not on Med Rec. From prior admission on Cozaar 100mg daily and metoprolol succinate 50mg daily. Can restart. 06/10/17 POD #2 Continues on IV vancomycin and oral levofloxacin per Dr Alexis. Bone biopsy pending. Leukocytosis resolved. Blood sugars are very well controlled. Glyburide has been discontinued. Metformin has been resumed. Thanks to Dr. Valles for his input. Blood pressures remain elevated - losartan was resumed yesterday and metoprolol was resumed this morning. Continue to follow. Hemoglobin is stable postop. Continue to monitor. Resume magnesium 400 mg twice a day for restless leg syndrome. Will check serum magnesium and consider IV replacement if low, but if serum magnesium is normal, with still recommend continuing p.o. magnesium. 3 POD #3 Dr. Alexis changed his antibiotic regimen. She discontinued Levaquin and changed to Rocephin 2 g IV daily. Continue the vancomycin for now. Significant increase in blood pressure starting around 2100 last evening. He had 1 dose of PRN hydralazine overnight and another one during the day today. Norvasc 5mg was started this morning in addition to his losartan and metoprolol. Another 5 mg dose of Norvasc was given at noon along with a 40 mg dose of Lasix. Will start Norvasc 10 mg tomorrow morning and continue his routine medications and use Hydralazine PRN. Hemoglobin is improving Blood sugars are very well controlled. Dr. Valles is following. Start Mucinex DM for cough. Tessalon Perles aren't helping much. Repeat chest x- ray in a.m. Start enoxaparin 40 mg subcutaneous for VTE prophylaxis 3/06/27 POD #4 BP is improved slightly, but continues elevated. He is currently on Norvasc, Amlodipine, Losartan. PRN hydralazine. Will add daily Lasix 40mg, KCL- given appearance of CXR, concerned that he has some diastolic HF going on (heart is enlarged). Antibiotics- IV Ceftriaxone and Vanco per DR. Alexis. Pending surgery next week. May need BKA per notes. Continue current insulin- well controlled currently. Persistent cough- diurese. Add Flovent and Albuterol inhalers. Change Zantac to BID scheduled to control any GERD component. Post op +/- reactive anemia- could add Iron if needed. continue to monitor serial labs. SCDs for px for now. Consider adding LMWH when ok with ortho. 3 POD #5 BP is improved with start of Lasix yesterday. Continues on Amlodipine, Losartan , and metoprolol. Wt down 4.6 kg. CXR neg. Antibiotics - IV Ceftriaxone and Vanco per DR. Alexis. Pending surgery next week. Considering BKA. Continue current insulin per Dr Valles - well controlled currently. Magnesium and Potassium replaced. Labs in am. Cough improved since addition of Lasix, Flovent and Albuterol inhalers, and increase of Zantac to BID. Post op +/- reactive anemia. Pharm consult for iron infusion. Ortho ok with resuming Lovenox for DVT PPx. 3/5/18 POD #6 Medically improving -- BP 127/61 this afternoon. BG under good control, s/p inpt diabetic education. Dr. Valle did bedside debridement today; wound vac reapplied. Pt would like to prevent further surg./amputation if possible. Will need to discuss dc plans with Dr. Alexis and Dr. Valle. Dr. Alexis indicated in her note that he will most likely need 6 weeks of Rocephin and vancomycin. WBC normal and CRP decreased from 74 to 23.8. K improved to 3.8.
[2017-06-14] MEDS: DiphenhydrAMINE 25 MG CAPSULE PO SCH (21:05)
--- NOTE | 2017-06-15 07:39 | Endocrinology Progress Note ---
Subjective Principal diagnosis: Type 2 diabetes mellitus, uncontrolled Interval history: Had no blood sugar problems overnight. Will go home with wound vac and avoid BKA at this time since no osteomyelitis was found in bone specimens. Exam Vital signs: Temperature 98.6 F 06/15/17 03:46 Pulse Rate 63 06/15/17 03:46 Respiratory Rate 16 06/15/17 03:46 Blood Pressure 105/50 06/15/17 03:46 Pulse Oximetry 93 06/15/17 03:46 Inpatient Medications: Generic Name Dose Route Start Last Admin Trade Name Freq PRN Reason Stop Dose Admin Acetaminophen 1,000 mg 06/07/17 18:44 06/07/17 20:39 Tylenol PO 1,000 mg Q6H PRN Administration Pain Hydrocodone Bitart/Acetaminophen 1 tab 06/07/17 18:44 06/10/17 00:26 [place] 5/325 PO 1 tab Q4H PRN Administration Pain Albuterol Sulfate 2 puff 06/12/17 11:23 Ventolin Hfa ORAL INH Q4HR PRN cough Amlodipine Besylate 10 mg 06/12/17 09:00 06/14/17 09:09 Norvasc PO 10 mg DAILY KAI Administration Aspirin 81 mg 06/08/17 09:00 06/14/17 09:06 Ecotrin PO 81 mg DAILY KAI Administration Benzonatate 200 mg 06/10/17 21:00 06/14/17 21:05 Tessalon Perles PO 200 mg TID KAI Administration Cetirizine HCl 10 mg 06/08/17 09:00 06/14/17 09:06 Zyrtec PO 10 mg DAILY KAI Administration Clobetasol Propionate 1 applic 06/09/17 21:00 06/14/17 21:05 Temovate Cream TOP 1 applic BID KAI Administration Diphenhydramine HCl 50 mg 06/07/17 21:00 06/14/17 21:05 Benadryl PO 50 mg HS [facility] Administration Enoxaparin Sodium 40 mg 06/13/17 11:15 06/14/17 09:19 Lovenox SQ 40 mg DAILY [facility] Administration Fluticasone Propionate 2 puff 06/12/17 14:15 06/14/17 21:28 Flovent Hfa ORAL INH 2 puff RTBID [facility] Administration Furosemide 40 mg 06/12/17 11:30 06/14/17 09:07 Lasix PO 40 mg DAILY KAI Administration Guaifenesin/Dextromethorphan 2 tab 06/11/17 21:00 06/14/17 21:05 Mucinex Dm PO 2 tab BID KAI Administration Hydralazine HCl 10 mg 06/11/17 15:13 06/12/17 20:32 Apresoline IVP 10 mg Q4H PRN Administration Hypertension Ceftriaxone Sodium 2 gm/ 50 mls @ 100 mls/hr 06/11/17 09:15 06/14/17 09:50 Sodium Chloride IV Infused Q24H [facility] Infusion Vancomycin HCl 2,000 mg/ 500 mls @ 250 mls/hr 06/11/17 14:00 06/15/17 03:08 Sodium Chloride IV Infused Q12H [facility] Infusion Insulin Aspart 17 unit 06/09/17 17:40 06/14/17 17:46 Novolog SQ 17 unit TIDWM [facility] Administration Insulin Detemir 50 unit 06/09/17 09:00 06/14/17 21:04 Levemir SQ 50 unit BID [facility] Administration Losartan Potassium 100 mg 06/09/17 13:15 06/14/17 09:08 Cozaar PO 100 mg DAILY [facility] Administration Magnesium Hydroxide 30 ml 06/08/17 17:44 Mom PO DAILY PRN Constipation Magnesium Oxide 400 mg 06/10/17 09:43 06/14/17 21:05 Magox PO 400 mg BID [facility] Administration Metformin HCl 1,000 mg 06/09/17 17:30 06/14/17 17:47 Glucophage PO 1,000 mg BIDWM [facility] Administration Metoprolol Succinate 50 mg 06/10/17 09:00 06/14/17 09:07 Toprol Xl PO 50 mg DAILY [facility] Administration Morphine Sulfate 2 mg 06/07/17 18:44 Morphine Sulfate Inj IVP Q2HR PRN Pain Multivitamins 1 tab 06/08/17 09:00 06/14/17 09:06 Theragran PO 1 tab DAILY [facility] Administration Ondansetron HCl 4 mg 06/07/17 18:44 06/08/17 03:28 Zofran IVP 4 mg Q6H PRN Administration Nausea Potassium Chloride 20 meq 06/13/17 08:00 06/14/17 09:07 K-Dur 20 Meq Tablet PO 20 meq WB [facility] Administration Ranitidine HCl 150 mg 06/12/17 21:00 06/14/17 21:05 Zantac PO 150 mg BID [facility] Administration Sodium Chloride 10 - 80 ml 06/07/17 16:58 06/13/17 02:12 Iv Flush IVF 10 ml PRN PRN Administration Flushing Sodium Chloride 2 spray 06/08/17 21:08 06/14/17 21:05 Deep Sea Nasal Moisturizing [place] EA NOSTRIL 2 spray QID [facility] Administration Sodium Chloride 500 ml 06/10/17 12:35 06/14/17 01:32 Normal Saline IV 500 ml PRN PRN Administration Discontinued Medications Generic Name Dose Route Start Last Admin Trade Name Freq PRN Reason Stop Dose Admin Acetazolamide 500 mg 06/14/17 09:14 06/14/17 09:21 Diamox PO 06/14/17 09:15 500 mg O ONE Administration Amlodipine Besylate 5 mg 06/11/17 09:00 06/11/17 08:56 Norvasc PO Not Given DAILY [facility] Amlodipine Besylate 5 mg 06/11/17 12:02 06/11/17 12:34 Norvasc PO 06/11/17 12:03 5 mg O ONE Administration Device 1 each 06/12/17 14:15 06/13/17 10:57 Optichamber MC 06/12/17 14:16 Not Given O ONE Enoxaparin Sodium 40 mg 06/11/17 15:30 06/11/17 16:17 Lovenox SQ Not Given DAILY [facility]AI Furosemide 40 mg 06/11/17 12:01 06/11/17 12:33 Lasix PO 06/11/17 12:02 40 mg O ONE Administration Furosemide 40 mg 06/12/17 16:00 06/12/17 17:56 Lasix PO 06/12/17 16:01 40 mg ONE TIME ONE Administration Glyburide 10 mg 06/08/17 08:00 06/09/17 18:54 Micronase PO Not Given BIDWM [facility] Guaifenesin 1,200 mg 06/10/17 21:00 06/11/17 08:49 Mucinex [place] PO 1,200 mg BID [facility] Administration Hydralazine HCl 5 mg 06/10/17 20:52 06/11/17 10:28 Apresoline IVP 5 mg Q4H PRN Administration Hypertension Hydralazine HCl 5 mg 06/10/17 22:35 06/10/17 23:36 Apresoline IVP 06/10/17 22:36 5 mg O ONE Administration Levofloxacin/Dextrose 750 mg in 150 mls @ 100 mls/hr 06/07/17 16:58 06/07/17 18:56 Levaquin Premix IV 06/07/17 18:27 Infused O ONE Infusion Levofloxacin/Dextrose 750 mg in 150 mls @ 100 mls/hr 06/08/17 16:30 06/08/17 16:55 Levaquin Premix IV Infused Q24H [facility] Infusion Sodium Chloride 1,000 mls @ 100 mls/hr 06/07/17 18:44 06/09/17 18:54 Normal Saline IV Not Given .Q10H [facility] Vancomycin HCl 2,000 mg/ 500 mls @ 250 mls/hr 06/07/17 19:00 06/09/17 04:48 Sodium Chloride IV Infused Q8H [facility] Infusion Vancomycin HCl 1,750 mg/ 500 mls @ 250 mls/hr 06/09/17 11:00 06/11/17 04:32 Sodium Chloride IV 06/11/17 10:59 Infused Q8H [facility] Infusion Iron Dextran 1,900 mg/ Sodium 538 mls @ 125 mls/hr 06/13/17 14:00 06/13/17 20 :34 Chloride IV 06/13/17 18:18 Infused O ONE Infusion Ibuprofen 800 mg 06/07/17 18:44 Motrin PO Q8H PRN Pain Insulin Aspart 30 unit 06/08/17 08:00 06/10/17 02:29 Novolog SQ Not Given TIDWM [facility] Insulin Aspart 20 unit 06/09/17 08:48 06/09/17 18:54 Novolog SQ Not Given TIDWM [facility] Insulin Detemir 70 unit 06/07/17 21:00 06/08/17 21:14 Levemir SQ 70 unit BID [facility] Administration Iron Dextran 1 each 06/13/17 09:40 06/13/17 10:31 Pharmacy Consult - Iron 06/13/17 09:41 Not Given O ONE Iron Dextran 25 mg 06/13/17 11:00 06/13/17 11:21 Infed IVP 06/13/17 11:01 25 mg O ONE Administration Levofloxacin 750 mg 06/09/17 12:45 06/11/17 05:45 Levaquin PO 750 mg ACB KAI Administration Magnesium Oxide 400 mg 06/13/17 12:30 06/13/17 12:11 Magox PO 06/13/17 12:31 400 mg O ONE Administration Midazolam HCl 1 - 5 mg 06/08/17 15:59 06/08/17 15:49 Versed IVP 2 mg PRN PRN Administration Potassium Chloride 20 meq 06/13/17 12:30 06/13/17 12:11 K-Dur 20 Meq Tablet PO 06/13/17 12:31 20 meq O ONE Administration Potassium Chloride 20 meq 06/13/17 17:30 06/13/17 17:54 K-Dur 20 Meq Tablet PO 06/13/17 17:31 20 meq O ONE Administration Ranitidine HCl 150 mg 06/07/17 18:44 Zantac PO BID PRN Acid Reflux Vancomycin HCl 1 each 06/07/17 18:44 06/07/17 18:58 Pharmacy Consult - Vancomycin 06/07/17 18:45 Not Given O ONE - Constitutional no acute distress - Routine HEENT Exam Head: Present: normocephalic, atraumatic ENT: Present: mucous membranes moist - Routine Neck Exam Absent: thyromegaly - Routine Respiratory Exam Absent: dyspnea - Routine Cardiovascular Exam Present: RRR - Routine Abdominal Exam Present: soft, normoactive bowel sounds - Routine Extremities Exam Present: no edema - Routine Skin Exam Present: dry, warm - Routine Neurological Exam Present: alert, oriented X3, moving all extremities - Routine Psychiatric Exam Present: normal affect, normal thought process, good insight, good judgment - Additional findings Additional findings: Laboratory Tests 06/14/17 06/14/17 06/14/17 11:05 14:56 21:10 Glucometer 99 91 76 06/15/17 06:05 Glucometer 78 Assessment and Plan (1) Type 2 diabetes mellitus with hyperglycemia Current visit: Yes Status: Chronic Excellent diabetes control. Can go home on current basal insulin. Will use carb counting as outpatient, starting with a ratio of 14. May need to reduce insulin as wounds heal and he was encouraged to call my office for assistance should hypoglycemia occur. (2) Cellulitis Current visit: Yes Status: Acute Continues to improve.
[2017-06-15] MEDS: ENOXAPARIN 40 MG/0.4 ML INJECTION SQ SCH (08:20)
[2017-06-15] MEDS: MULTI-VITAMIN PLAIN TABLET PO SCH (08:21)
[2017-06-15] MEDS: RANITIDINE 150 MG TABLET PO SCH (08:21)
[2017-06-15] MEDS: LOSARTAN 100 MG TABLET PO SCH (08:21)
[2017-06-15] MEDS: BENZONATATE 200 MG CAPSULE PO SCH ×2 (08:21→14:26)
[2017-06-15] MEDS: GUAIFENESIN/D-METHORPHAN 600mg/30mg TABLET PO SCH (08:21)
[2017-06-15] MEDS: AMLODIPINE 10 MG TABLET PO SCH (08:22)
[2017-06-15] MEDS: CETIRIZINE 10 MG TABLET PO SCH (08:22)
[2017-06-15] MEDS: FUROSEMIDE 40 MG TABLET PO SCH (08:22)
[2017-06-15] MEDS: MAGNESIUM OXIDE 400 MG TABLET PO SCH (08:22)
[2017-06-15] MEDS: ASPIRIN *EC* 81 MG TABLET PO SCH (08:22)
[2017-06-15] MEDS: METFORMIN 1,000 MG TABLET PO SCH (08:22)
[2017-06-15] MEDS: CEFTRIAXONE 2 GM in NS 50 ML IV SCH (08:22)
[2017-06-15] MEDS: SALINE 0.65% NASAL SPRAY 44 ML BOTTLE EA NOSTRIL SCH ×2 (08:23→11:59)
[2017-06-15] MEDS: INSULIN ASPART 100unit/ml INJECTION SQ SCH ×2 (08:23→11:58)
[2017-06-15] MEDS: CLOBETASOL 0.05% CREAM 15gm TOP SCH (08:24)
[2017-06-15] MEDS: INSULIN DETEMIR 100unit/ml INJECTION SQ SCH (08:24)
[2017-06-15] MEDS: FLluticasone HFA 110mcg inhaler ORAL INH SCH (08:55)
[2017-06-15 14:13] VITALS: BP 151/84; PULSE 66; TEMP 97.9; O2SAT 95
--- NOTE | 2017-06-15 15:19 | Discharge Summary ---
Discharge Information Date of admission: 06/07/17 18:17 Anticipated date of discharge: 06/15/17 Attending Physician: Donald Martinez MD Primary care physician: Christy Cobb MD Consults: Consulting Provider: Kvng Valle Reason For Exam: RLE infection Field Care Coordinator Consult [Inpatient Diabetic Consult] Routine Diabetic Training: Detect Complications; Monitoring Diabetes; Prevent Complications; Problem Solving Dietary Consult [CONS] Routine Comment: Uncontrolled type II DM Consulting Provider: Aarti Alexis Reason For Exam: RLE infection [facility] Consult Routine Reason for consultation: Application of wound vac right foot Consulting Provider: Bennie Valles Reason For Exam: Uncontrolled DM, complications. Evaluation of DM - Discharge Diagnosis (1) Diabetic foot ulcer associated with type 2 diabetes mellitus Status: Acute (2) Sepsis Status: Acute DISCHARGE DIAGNOSES *Sepsis - SIRS: leukocytosis, temp, tachycardia. Source: cellulitis. Resolved. *Diabetic foot ulcer with surrounding cellulitis and tissue necrosis/gangrene *Acute osteomyelitis R 4th toe, s/p amputation 06/08/17, cultures with GBS, GPR, scant growth of MRSA, path with negative margins *Osteomyelitis per MRI of R 3rd MT, s/p bone biopsy 06/08, results not definitive for osteomyelitis. Bone culture with GBS, gram stain had GPC in pairs and GNRs *Cough *Postop anemia/iron deficiency anemia, s/p iron infusion - stable at 10.0 *Nausea and vomiting - resolved CHRONIC AND ASSOCIATED CONDITIONS *Type 2 DM Insulin requiring - uncontrolled *H/o chronic osteomyelitis of the right great toe associated with diabetic foot ulcer, status post wound debridement and Julien needle biopsy on July 31, 2016, bone culture with E. coli and pathology report consistent with chronic osteomyelitis. S/p R great toe amputation 09/04/16 due to sepsis and worsening of wound, OR culture with MRSA and E. faecalis, s/p 6 weeks of Daptomycin, completed 10/15/16. *Hypertension *Restless leg syndrome *Migraine *Peripheral Neuropathy *GERD *Depression *Morbid Obesity (BMI 44) - Procedures Procedures: DATE OF PROCEDURE 06/08/2017 PREOPERATIVE DIAGNOSIS Right foot diabetic foot ulcers with possible osteomyelitis. POSTOPERATIVE DIAGNOSIS Right foot diabetic foot ulcers with possible osteomyelitis. PROCEDURE Surgical debridement of right foot diabetic foot ulcer with fourth toe amputation and third metatarsal bone biopsy. SURGEON Kvng Valle MD ANESTHESIA TIVA with regional block. COMPLICATIONS None. DESCRIPTION OF PROCEDURE Mr. Mancilla and his right foot were identified and marked in the preoperative holding area. He was brought back to the operating suite and placed supine on the operating table. An ankle block was placed in the preoperative holding area. The right lower extremity was prepped and draped in my normal sterile fashion. Time-out was performed. I started with the ulceration over the plantar aspect of the first metatarsal. He had a previous amputation to the great toe. This ulceration measured approximately 2.5 cm x 2 cm. It had 100% necrotic tissue which was removed sharply down to the deep fascia over the bone. There was good bleeding tissue deep. There were no pockets of abscess or fluid encountered. This wound was then packed. I then moved to the fourth toe. There was a large ulceration over the distal tip, again measuring approximately 2 cm x 1 cm. Sharp debridement was performed removing necrotic tissue which encompassed 100% of the ulcer. With removing superficial necrotic tissue, it was obvious that this tracked deep. At this point it was decided to proceed with a full fourth toe amputation. A sharp incision was made around the base of the fourth toe and continued down the proximal phalanx to the MTP joint. The capsule and ligaments were then incised so that the entire toe could be removed from this wound. I was then able to sharply dissect the soft tissue to the third metatarsal which showed possible osteomyelitis on the MRI, and for this reason I used a Julien needle to obtain a biopsy of the third metatarsal head. This was sent for pathology. I also sent some of the deep tissue of the fourth toe ulcer for culture. Both wounds were thoroughly irrigated. There was too much active bleeding to both wounds to apply a wound vac, so we proceeded to pack it with wet gauze. This was covered then with dry gauze, Kerlix, 4 x 4's, ABDs and then an Kwasi bandage. The drapes were removed. He was allowed to awaken from general anesthesia and taken to the recovery room under the care of Anesthesia. He tolerated the procedure well. There were no complications. - Laboratory Labs: 06/15/17 03:28 06/15/17 03:28 - Microbiology Microbiology 06/08/17 16:41 Metatarsus, Right, Bone Gram Stain - Final 06/08/17 16:41 Metatarsus, Right, Bone Surgical Culture - Final Strep agalactiae - (Group B) 06/08/17 16:30 Toe Fourth, Right, Bone Gram Stain - Final 06/08/17 16:30 Toe Fourth, Right, Bone Surgical Culture - Final Strep agalactiae - (Group B) Gram Positive Chase Staphylococcus aureus, MRSA - Radiology Radiology: Date of Exam: 06/07/17 PROCEDURE: XR chest 1V: FINDINGS: The lungs are stable in appearance without new focal airspace consolidation. There is no pleural effusion or pneumothorax. The heart size, pulmonary vascularity and mediastinal contours are unchanged. IMPRESSION: Stable appearance of the chest without acute cardiopulmonary disease. Date of Exam: 06/12/17 PROCEDURE: CHEST 2-VIEWS UPRIGHT (PA & LAT) FINDINGS: The lungs are clear without evidence of focal abnormal airspace opacity. There is no pleural effusion or pneumothorax. Left PICC line in place with the tip projecting over the lower SVC. The heart size, mediastinal contours and pulmonary vascularity are withinnormal limits.There is no significant skeletal abnormality. IMPRESSION: No acute cardiopulmonary disease. Date of Exam: 06/08/17 PROCEDURE: MR foot RT wo/w con: FINDINGS: Interval amputation of the great toe phalanges. There is osseous erosion and abnormal T1 hypointense, T2 hyperintense signal intensity in the third metatarsal head and proximal phalanx of the third toe. This corresponds to the area of radiographic abnormality. There is abnormal postcontrast enhancement in this location as well. The first metatarsal head area of clinical concern shows normal bright T1 signal within the bone. The third toe middle and distal phalanges show abnormal increased T2 signal intensity. There is new abnormal T1 hypointense signal and edema within the fourth toe phalanges , worst in the distal phalanx. There is also some edema within the fourth metatarsal head and a small amount of edema in the fourth metatarsal shaft and base. This is all a change from the comparison study. Abnormal fluid sensitive hyperintense signal within the proximal second metatarsal shaft and second metatarsal base. There is also diffusely abnormal T2 hyperintense signal throughout the third metatarsal shaft. New edema within the middle and lateral cuneiform bones. There is significant abnormal T2 signal intensity throughout the intrinsic foot musculature with enhancement in the midfoot musculature in the region of the metatarsal shafts. There is no rim-enhancing fluid collection or abscess identified. The areas of bone marrow edema mentioned above all show varying degrees of postcontrast enhancement which is most intense in the third and fourth metatarsal heads and phalanges of the third and fourth toes. There is slightly decreased T1 signal intensity within the phalanges of the fifth toe which may be artifactual due to positioning at the edge of the exam and loss of magnetic field homogeneity. IMPRESSION: 1. Multifocal osteomyelitis in the foot with definite involvement of the third metatarsal shaft and head along with the phalanges of the third toe. There is definite involvement of the fourth metatarsal head and fourth toe phalanges as well. 2. Edema within the second and fourth metatarsal shafts along with the middle and lateral cuneiform bones. The pattern of edema is more suggestive of a neuropathic midfoot rather than skip lesions of osteomyelitis. History of Present Illness HPI: Patient is a 47 yo male who presented to ER with fever and infection in R foot. He has uncontrolled DM and a h/o slow healing diabetic ulcers on his R foot. He had R great toe amputation by Dr. Valle in August 2015. His R 4th toe started looking infected a few days ago and pt has had fever. He has also had a cough for the past several weeks and will cough until he vomits. He had a bloody nose today and vomited blood. He's been having night sweats for the past 3 wks. Hasn't been checking his BS's or taking his insulin at regular dosages d/ t lack of insurance and finances. Work up in ER revealed elevated white count and CRP. Hospitalist team was consulted and admitted pt for tx of sepsis secondary to infected diabetic foot wound. Objective Vital signs: Temperature 97.9 F 06/15/17 14:00 Pulse Rate 66 06/15/17 14:00 Respiratory Rate 16 06/15/17 14:00 Blood Pressure 151/84 H 06/15/17 14:00 Pulse Oximetry 95 06/15/17 14:00 Height/Weight/BMI: Height 1.85 m Weight 148.9 kg Body Mass Index 44.0 - Constitutional Present: no acute distress, well nourished, well developed, morbidly obese - Routine HEENT Exam Head: Present: normocephalic Eye: Present: PERRL. Absent: conjunctival icterus, scleral injection ENT: Present: mucous membranes moist - Routine Respiratory Exam Present: CTA bilaterally - Routine Cardiovascular Exam Present: RRR, S1, S2 - Routine Abdominal Exam Present: soft, normoactive bowel sounds, non distended, non tender - Routine Extremities Exam Present: no edema - Routine Musculoskeletal Exam Musculoskeletal: Present: moving extremities well - Routine Skin Exam Present: intact, dry, warm, wounds (wound vac and dressing to right foot c/d/i) - Routine Neurological Exam Present: alert, oriented X3, CN II-XII intact, normal speech - Routine Psychiatric Exam Present: normal affect, normal thought process, cooperative Hospital Course This is a general summary of the patient's hospital course. For more details refer to the complete medical record. Hospital course: 06/07/17: ADMIT, INPATIENT for right foot cellulitis Dr. Valle consulted. Started on Levaquin and Vanco for cellulitis/MRSA. WBC 14.3. Influenza A/B were negative. Monitor Accuchecks, continue home insulin, holding when NPO. A1C = 10.9%. Care to return to Dr Haresh Cobb on DC. 06/08/17 OP DAY - Surgical debridement of right foot diabetic foot ulcer with fourth toe amputation and third metatarsal bone biopsy. Tolerated surgery well. Continue levofloxacin and vancomycin for coverage - wound cultures taken during surgery. Consult diabetic eduction and dietary education to help patient improve diabetic control. Decreased IVF to 50cc/hr. 06/09/17 POD #1 Dr Alexis consulted for ID recommendations - continue IV vancomycin, but change levofloxacin to oral. Wound team consulted for wound vac placement. Ortho recommending WBAT activities - consulted PT/OT to help with transfer and ambulation activities. Oral drive doing well - discontinued IVF. Good meeting with diabetic education and dietary. Consulted Dr Valles for DM evaluation. Restart home Cozaar 100mg daily and metoprolol succinate 50mg daily. 06/10/17 POD #2 Continues on IV vancomycin and oral levofloxacin per Dr Alexis. Leukocytosis resolved. Blood sugars are very well controlled. Glyburide discontinued. Metformin resumed. Hemoglobin 9.4 postop. Iron level came back low at 11; TIBC 243, % sat = 5. B12 755, folate >20. Resume magnesium 400 mg twice a day for restless leg syndrome. 06/11/17 POD #3 Dr. Alexis discontinued Levaquin and changed to Rocephin 2 g IV daily. Continued vancomycin. Significant increase in BP, requiring PRN hydralazine x2. Norvasc was started this morning in addition to his losartan and metoprolol. Lasix 40 mg x1. 3 POD #4 BP is improved slightly, but continues elevated. He is currently on Norvasc 10 mg, metoprolol, Losartan. Add daily Lasix 40mg, KCL Antibiotics- IV Ceftriaxone and Vanco per DR. Alexis. May need BKA. Persistent cough - diurese. Added Flovent and Albuterol inhalers. Change Zantac to BID scheduled to control any GERD component. 3 POD #5 BP is improved with start of Lasix yesterday. Continues on Amlodipine, Losartan , and metoprolol. Wt down 4.6 kg. CXR neg. Antibiotics - IV Ceftriaxone and Vanco per Dt. Alexis. Considering BKA. Resumed Lovenox for DVT PPX. Cough improved since addition of Lasix, Flovent and Albuterol inhalers, and increase of Zantac to BID. Magnesium and Potassium replaced. Post op +/- reactive anemia. Pharm consult for iron infusion. 06/14/17 POD #6 Medically improving -- BP 127/61 this afternoon. BG under good control, s/p inpt diabetic education. Dr. Valle did bedside debridement today; wound vac reapplied. Pt would like to prevent amputation if possible. WBC normal and CRP decreased from 74 to 23.8. K improved to 3.8. 06/15/17 POD #7 and DISCHARGE TO HOME Labs: WBC 9.2, hgb 10.4, Na 146, K 4.0, BUN 13, creatinine 0.9. Glucose under good control. Antibiotics: Per Dr. Alexis, DC vancomycin. Continue Rocephin 2 gm daily x 6 weeks from date of sx, through 07/20/17. PICC line cares through [facility]. Wound vac changes on /Mondays. F/U appt already scheduled with ortho. Monitor CBC, CMP qMondays. HTN: continue amlodipine 10 mg (NEW), Cozaar, metoprolol. Will not Rx Lasix at discharge. DM: Levemir 50 unit BID; NovoLOG 17 units TIDWM; Metformin 1000 mg BIDWM. F/U with Dr. Valles in 1 month. F/U with Dr. Cobb in 1 week. Time spent with patient: discharge greater than 30 minutes Resuscitation Status: Full Code Discharge Plan - Discharge Disposition Discharge Date: 06/15/17 Disposition: 01 Discharged Home, Self-Care *Condition: Stable Reason For Visit (Visit label in EMR): Diabetic toe infection - Discharge Medications *Discharge Medications: New Amlodipine [Norvasc] 10 mg PO DAILY #30 tab Ceftriaxone [Rocephin] 2 gm IV Q24H vial Metoprolol Succinate (XL) [Toprol Xl] 50 mg PO DAILY tab Losartan [Cozaar] 100 mg PO DAILY tab Continue Metformin HCl 1,000 mg PO BIDWM #0 Multivitamin [One Daily] 1 tab PO DAILY Aspirin [Ecotrin] 81 mg PO DAILY Acetaminophen [Acetaminophen Extra Strength] 1,000 mg PO Q6H PRN PRN Reason: Pain Cetirizine HCl [Zyrtec] 10 mg PO DAILY #0 raNITIdine HCl [Zantac] 150 mg PO BID PRN #0 tab PRN Reason: ACID REFLUX Changed Insulin Aspart [NovoLOG] 17 unit SQ TIDWM #0 Insulin Detemir [Levemir] 50 unit SQ BID #0 diphenhydrAMINE HCl [Benadryl] 50 mg PO HS PRN #30 PRN Reason: Allergy Symptoms Discontinued GlyBURIDE [Micronase] 10 mg PO BID Ibuprofen 800 mg PO Q8H PRN PRN Reason: Pain - Discharge Packet/Instructions *Diet: Consistent carbohydrate diet, 2600 kcal/day *Activity: Weight bear as tolerated. Do not get right foot wet. Monitor blood sugars: fasting and 2 hours after meals. Keep a journal and review with Dr. Valles at your followup. Call him if you have persistent readings >140 or any low reading of <70. *Pain Management/Treatment: Tylenol if needed. *Wound Care: Continue wound vac. Keep dressing clean, dry and intact. Will need it changed twice a week at the wound care center at [facility] [place], [place]. Additional Instructions: Dr Valle will see you in the wound clinic when you come in for wound vac changes. This should be changed at least twice a week on a Wednesday- basis. Have labs drawn every Wednesday. [facility] will be helping you get set up with Rocephin injections, which at this time are scheduled to continue through 07/20/17. *Expected Signs/Symptoms: You may feel tired/fatigued from hospital stay. You might have occasional pains to your foot but overall this should continue to improve. *Notify Physician if: Fever, redness, drainage, increased pain to foot. Shortness of breath, chest pain, nausea/vomiting/persistent diarrhea or dehydration; fainting or confusion; or any new concerns. *During Business Hours Contact: Dr. Valle's office (for wound/surgical questions) , The wound care center (for wound/wound vac questions), Dr. Alexis (for antibiotic questions), Dr. Valles's office (for diabetic questions), and Dr. Cobb (for other questions or BP questions). *After Business Hours Contact: The on-call provider for the above physicians. *Pending Lab/Results: No Pending Lab - Referrals/Follow Up *Referrals/Follow Up: Kvng Valle MD [Physician] - (Dr Valle will see him in wound clinic. ) Aarti Alexis MD [Physician] - 2 Weeks Christy Cobb MD [Family Provider] - 1 Week Bennie Valles MD [Physician] - 1 Month - Patient Handouts - Dismissal Complete Discharge Instructions are:: Complete Physician Narrative - Narrative Physician: Donald Martinez MD Attestation Narrative: Date: 06/15/17 Time: 1644 I have independently interviewed and examined patient prior to discharge. Chart reviewed. Cased discussed with CM and my CARPET REPAIRER. Care plan developed with my supervision; agree with above. Doing well today. Not having pain/discomfort to right foot. Moving around well. Eating well. Breathing well. No f/c. Feels ready to go home. Lungs: decreased, no distress CV: regular MSE: awake alert appropriate Plan: Arrangements made to continue wound care and antibiotics in the outpatient setting. Medically stable for discharge to home. See orders for details.
--- NOTE | 2017-06-15 15:45 | Wound Care Progress Note ---
Wound Center Progress Note: Pt being discharge today. In to teach pt on home wound vac and how to trouble shoot. Also stressed that he can call the [phone]/11 for help. Also scheduled next follow up appointment on 06/17 at 11am.
== END 2017-06-15 17:15 | disposition home or self-care (01) | DRG 854 ==
LOC: ED 16:24 → SRG 18:17 → SUATTDRO 18:17 → SRG 18:35
PROVIDERS: ADMIT Hospitalist; ATTEND Hospitalist